=== PATIENT | female | born 1995 | race Caucasian/White ===

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

== ENCOUNTER 2017-03-12 09:09 | Inpatient (IN) | payer OTHER ==
[2017-03-12] MEDS ORDERED: SODIUM CHLORIDE 0.9% 1,000 ML IV STA (09:22)
--- NOTE | 2017-03-12 09:27 | ED ---
General Adult HPI - General Source: patient, RN notes reviewed Mode of arrival: ambulatory Limitations: no limitations <Charis De La Cruz - Last Filed: 03/12/17 11:37> <Jean-Paul Driscoll - Last Filed: 03/12/17 15:27> - General Chief complaint: Recheck/Abnormal Lab/Rx Stated complaint: low potassium Time Seen by Provider: 03/12/17 09:17 - History of Present Illness Initial comments: 21-year-old female presents to the emergency department the chief complaint of low potassium. Patient states that she has a syndrome that causes her to have low potassium. Dr. Friedman called her on Tuesday telling her that she had low potassium. Patient states she decided to come in today. Patient states typically she'll get some leg cramping and kidney pain which she has had. Patient denies any fever chills nausea vomiting. Patient states this is much like her typical syndrome. Patient states she is not currently having any other symptoms at this time. Patient denies any recent fever, chills, shortness of breath, chest pain, back pain, abdominal pain, nausea vomiting, numbness or tingling, dysuria or hematuria, constipation or diarrhea, headaches or visual changes, or any other current symptoms. (Charis De La Cruz) - Related Data Home Medications Medication Instructions Recorded Confirmed aMILoride HCL 5 mg PO BID 03/04/14 03/12/17 Magnesium Oxide [Magnesium] 500 mg PO DAILY 03/22/16 03/12/17 Potassium Chloride ER [K-Dur 20] 90 meq PO BID 03/22/16 03/12/17 hydrOXYzine HCL [Atarax] 50 mg PO BID PRN 03/22/16 03/12/17 Dextroamphetamine/Amphetamine 20 mg PO BID 03/12/17 03/12/17 [Adderall] Loratadine-Pseudoeph 10-240 mg 1 tab PO DAILY PRN 03/12/17 03/12/17 [Claritin-D 24 Hr] Ziprasidone HCl [Geodon] 80 mg PO BID 03/12/17 03/12/17 lamoTRIgine [LaMICtal] 75 mg PO DAILY 03/12/17 03/12/17 Allergies Allergy/AdvReac Type Severity Reaction Status Date / Time risperidone [From Risperdal] AdvReac MUSCLE Verified 03/12/17 12:41 SPASMS Review of Systems ROS Other: All systems not noted in ROS Statement are negative. <Charis De La Cruz - Last Filed: 03/12/17 11:37> ROS Other: All systems not noted in ROS Statement are negative. <Jean-Paul Driscoll - Last Filed: 03/12/17 15:27> ROS Statement: Those systems with pertinent positive or pertinent negative responses have been documented in the HPI. Past Medical History Past Medical History: No Reported History Additional Past Medical History / Comment(s): Baretters syndrome ( low potassium ) Hx. of depression and Bipolar, ADHD, Anxiety History of Any Multi-Drug Resistant Organisms: None Reported Past Surgical History: Tonsillectomy Past Anesthesia/Blood Transfusion Reactions: No Reported Reaction Past Psychological History: ADD/ADHD, Anxiety, Bipolar, Depression Smoking Status: Former smoker Past Alcohol Use History: None Reported Past Drug Use History: Marijuana - Past Family History Mother Additional Family Medical History / Comment(s): Pt states Alzheimers and Bipolar disorder runs on her mother's side. Sister(s) Family Medical History: Diabetes Mellitus <Charis De La Cruz - Last Filed: 03/12/17 11:37> General Exam Limitations: no limitations <Charis De La Cruz - Last Filed: 03/12/17 11:37> <Jean-Paul Driscoll - Last Filed: 03/12/17 15:27> - General Exam Comments Initial Comments: General: The patient is awake and alert, in no distress, and does not appear acutely ill. Eye: Pupils are equal, round and reactive to light, extra-ocular movements are intact; there is normal conjunctiva bilaterally. No signs of icterus. Ears, nose, mouth and throat: There are moist mucous membranes. Neck: The neck is supple, there is no tenderness. Cardiovascular: There is a regular rate and rhythm. No murmur, rub or gallop is appreciated. Respiratory: Lungs are clear to auscultation, respirations are non-labored, breath sounds are equal. No wheezes, stridor, rales, or rhonchi. Gastrointestinal: Soft, non-distended, non-tender abdomen without masses or organomegaly noted. There is no rebound or guarding present. No CVA tenderness. Bowel sounds are unremarkable. Back: There is no tenderness to palpation in the midline. There is no obvious deformity. No rashes noted. Musculoskeletal: Normal ROM, no tenderness, There is no pedal edema. There is no calf tenderness or swelling. Sensation intact. Pulses equal bilaterally 2+. Neurological: CN II-XII intact, There are no obvious motor or sensory deficits. Coordination appears grossly intact. Speech is normal. Skin: Skin is warm and dry and no rashes or lesions are noted. Psychiatric: Cooperative, appropriate mood & affect, normal judgment. (Charis De La Cruz) EKG Findings - EKG Comments: EKG Findings:: normal sinus rhythm 70 bpm, normal axis, no atopy, no S-T depressions or elevations, patient does appear to have a U-wave <Charis De La Cruz - Last Filed: 03/12/17 11:37> Medical Decision Making - Lab Data Result diagrams: 03/12/17 09:24 03/12/17 09:24 <Charis De La Cruz - Last Filed: 03/12/17 11:37> - Lab Data Result diagrams: 03/12/17 09:24 03/12/17 14:02 <Jean-Paul Driscoll - Last Filed: 03/12/17 15:27> - Medical Decision Making 21-year-old female presents emergency department with a chief complaint of low potassium. This time patient is found to be hypokalemic at 2.2. Patient's potassium is being replaced EKG is showing a U wave as well. This time we will admit the patient she does complain of some flank pain and there is a elevated white blood cell count with suspicion for UTI with urine we will give her Rocephin here in the emergency department. At this time the patient will be admitted. Case was discussed with Dr. Driscoll. 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 Patient's found to have a potassium of 2.2. Patient does have EKG changes with U waves in the precordium. Patient admitted to internal medicine for potassium replacement. She also receives dose antibiotics in the emergency department for urinary tract infection. ( Jean-Paul Driscoll) - Lab Data Lab Results 03/12/17 03/12/17 03/12/17 Range/Units 09:24 09:24 09:24 WBC 12.1 H (4.0-11.0) k/uL RBC 5.10 (3.80-5.40) m/uL Hgb 15.2 (11.4-16.0) gm/dL Hct 42.4 (34.0-46.0) % MCV 83.0 (80.0-100.0) fL MCH 29.7 (25.0-35.0) pg MCHC 35.8 (31.0-37.0) g/dL RDW 14.5 (11.5-15.5) % Plt Count 471 H (150-450) k/uL Neutrophils % 68 % Lymphocytes % 24 % Monocytes % 4 % Eosinophils % 1 % Basophils % 0 % Neutrophils # 8.2 H (1.3-7.7) k/uL Lymphocytes # 3.0 (1.0-4.8) k/uL Monocytes # 0.5 (0-1.0) k/uL Eosinophils # 0.2 (0-0.7) k/uL Basophils # 0.0 (0-0.2) k/uL Hyperchromasia Moderate Poikilocytosis Slight Sodium 144 (137-145) mmol/L Potassium 2.2 L* (3.5-5.1) mmol/L Chloride 100 (98-107) mmol/L Carbon Dioxide 28 (22-30) mmol/L Anion Gap 16 mmol/L BUN 12 (7-17) mg/dL Creatinine 0.84 (0.52-1.04) mg/dL Est GFR (MDRD) Af Amer >60 (>60 ml/min/1.73 sqM) Est GFR (MDRD) Non-Af >60 (>60 ml/min/1.73 sqM) Glucose 100 H (74-99) mg/dL Calcium 10.2 (8.4-10.2) mg/dL Total Bilirubin 0.9 (0.2-1.3) mg/dL AST 33 (14-36) U/L ALT 68 H (9-52) U/L Alkaline Phosphatase 65 (38-126) U/L Total Protein 8.5 H (6.3-8.2) g/dL Albumin 5.1 H (3.5-5.0) g/dL Urine Color Urine Appearance (Clear) Urine pH (5.0-8.0) Ur Specific Mercer (1.001-1.035) Urine Protein (Negative) Urine Glucose (UA) (Negative) Urine Ketones (Negative) Urine Blood (Negative) Urine Nitrite (Negative) Urine Bilirubin (Negative) Urine Urobilinogen (<2.0) mg/dL Ur Leukocyte Esterase (Negative) Urine RBC (0-5) /hpf Urine WBC (0-5) /hpf Urine WBC Clumps (None) /hpf Ur Squamous Epith Cells (0-4) /hpf Calcium Oxalate Crystal (None) /hpf Urine Bacteria (None) /hpf Urine Mucus (None) /hpf Urine HCG, Qual Not Detected (Not Detectd) 03/12/17 Range/Units 09:24 WBC (4.0-11.0) k/uL RBC (3.80-5.40) m/uL Hgb (11.4-16.0) gm/dL Hct (34.0-46.0) % MCV (80.0-100.0) fL MCH (25.0-35.0) pg MCHC (31.0-37.0) g/dL RDW (11.5-15.5) % Plt Count (150-450) k/uL Neutrophils % % Lymphocytes % % Monocytes % % Eosinophils % % Basophils % % Neutrophils # (1.3-7.7) k/uL Lymphocytes # (1.0-4.8) k/uL Monocytes # (0-1.0) k/uL Eosinophils # (0-0.7) k/uL Basophils # (0-0.2) k/uL Hyperchromasia Poikilocytosis Sodium (137-145) mmol/L Potassium (3.5-5.1) mmol/L Chloride (98-107) mmol/L Carbon Dioxide (22-30) mmol/L Anion Gap mmol/L BUN (7-17) mg/dL Creatinine (0.52-1.04) mg/dL Est GFR (MDRD) Af Amer (>60 ml/min/1.73 sqM) Est GFR (MDRD) Non-Af (>60 ml/min/1.73 sqM) Glucose (74-99) mg/dL Calcium (8.4-10.2) mg/dL Total Bilirubin (0.2-1.3) mg/dL AST (14-36) U/L ALT (9-52) U/L Alkaline Phosphatase (38-126) U/L Total Protein (6.3-8.2) g/dL Albumin (3.5-5.0) g/dL Urine Color Yellow Urine Appearance Cloudy H (Clear) Urine pH 8.0 (5.0-8.0) Ur Specific Mercer 1.018 (1.001-1.035) Urine Protein 1+ H (Negative) Urine Glucose (UA) Negative (Negative) Urine Ketones Negative (Negative) Urine Blood Small H (Negative) Urine Nitrite Negative (Negative) Urine Bilirubin Negative (Negative) Urine Urobilinogen 2.0 (<2.0) mg/dL Ur Leukocyte Esterase Moderate H (Negative) Urine RBC 3 (0-5) /hpf Urine WBC 16 H (0-5) /hpf Urine WBC Clumps Few H (None) /hpf Ur Squamous Epith Cells 5 H (0-4) /hpf Calcium Oxalate Crystal Occasional H (None) /hpf Urine Bacteria Rare H (None) /hpf Urine Mucus Rare H (None) /hpf Urine HCG, Qual (Not Detectd) Disposition Time of Disposition: 11:07 Decision Date: 03/12/17 Decision Time: 11:07 <Charis De La Cruz - Last Filed: 03/12/17 11:37> <Jean-Paul Driscoll - Last Filed: 03/12/17 15:27> Clinical Impression: Hypokalemia, UTI (urinary tract infection) Disposition: ADMITTED IP TO THIS HOSP Condition: Stable
[2017-03-12 09:51] LABS: Basophils % (A) 0 %; CH 31.3; Eosinophils # (A) 0.2 k/uL (0-0.7); Eosinophils % (A) 1 %; HCT 42.4 % (34.0-46.0); HDW 3.79; HGB 15.2 gm/dL (11.4-16.0); Hyperchromasia Moderate; Luc % (Auto) 2; Lymphocytes % (A) 24 %; MCH 29.7 pg (25.0-35.0); MCHC 35.8 g/dL (31.0-37.0); Monocytes # (A) 0.5 k/uL (0-1.0); Monocytes % (A) 4 %; Neutrophils # (A) 8.2 k/uL (1.3-7.7); Neutrophils % (A) 68 %; Poikilocytosis Slight; RDW 14.5 % (11.5-15.5); WBC 12.1 k/uL (4.0-11.0); WBC (Perox) 11.72
[2017-03-12 09:55] LABS: Appearance,Urine Cloudy (Clear); Bacteria,Urine Rare /hpf; Bilirubin,Urine Negative (Negative); Calcium Oxalate Crystals,Urine Occasional /hpf; Glucose,Urine (UA) Negative (Negative); Ketones,Urine Negative (Negative); Leukocyte Esterase,Urine Moderate (Negative); Mucus,Urine Rare /hpf; Nitrite,Urine Negative (Negative); Particle Count 12918; Protein,Urine 1+ (Negative); RBC,Urine 3 /hpf (0-5); Specific Gravity,Urine 1.018 (1.001-1.035); Squamous Epithelial Cell,Urine 5 /hpf (0-4); UA Billing (MACRO vs. MICRO) MICRO; WBC,Urine 16 /hpf (0-5)
[2017-03-12 10:01] LABS: ALT 68 U/L (9-52); AST 33 U/L (14-36); Alkaline Phosphatase 65 U/L (38-126); Anion Gap 16 mmol/L; Blood Urea Nitrogen 12 mg/dL (7-17); Calcium 10.2 mg/dL (8.4-10.2); Carbon Dioxide 28 mmol/L (22-30); Chloride 100 mmol/L (98-107); Glucose 100 mg/dL (74-99); Non-African American GFR(MDRD) >60 (>60 ml/min/1.73 sqM); Sodium 144 mmol/L (137-145); Total Bilirubin 0.9 mg/dL (0.2-1.3); Total Protein 8.5 g/dL (6.3-8.2)
[2017-03-12 10:04] LABS: Potassium 2.2 mmol/L (3.5-5.1)
[2017-03-12] MEDS ORDERED: POTASSIUM CHLORIDE ORAL LIQUID 40 MEQ/30 ML CUP PO ONE (10:04)
[2017-03-12] MEDS: POTASSIUM CHLORIDE 10 MEQ, LIDOCAINE 2% INJ 10 MG in SODIUM CHLORIDE 0.9% 100 ML IVPB SCH ×5 (10:53→17:32)
[2017-03-12] MEDS ORDERED: NALOXONE 0.4 MG/ML 1 ML VIAL IV PRN (11:38)
[2017-03-12] MEDS ORDERED: ACETAMINOPHEN TAB 325 MG TAB PO PRN (11:38)
[2017-03-12] MEDS ORDERED: ONDANSETRON 4 MG/2 ML VIAL IVP PRN (11:38)
[2017-03-12] MEDS ORDERED: hydrOXYzine HCL 25 MG TAB PO PRN (11:40)
[2017-03-12] MEDS: SODIUM CHLORIDE 0.9% 1,000 ML IV SCH ×2 (12:27→21:14)
--- NOTE | 2017-03-12 12:48 | P.HPIM ---
History of Present Illness H&P Date: 03/12/17 Chief Complaint: Hypokalemia This is a 21-year-old female patient of Dr. 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 Patient currently follows with Nikki Carrillo. Patient states that she's only been taking 2-3 doses of potassium since the beginning of January. She normally takes 90 mEq twice daily. 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 She denies any history of hearing loss. 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 She states she had lab work done by Dr. Friedman on Tuesday and her potassium was 2 she was called 2-3 days ago but she didn't come into the hospital until today due to kidney pain. She is complaining of bilateral flank pain she denies any history of kidney stones. Patient states that she has been mentally overwhelmed and that's why she has not been taking her potassium as directed. Patient is also been diagnosed with UTI and possible pyelonephritis and started on antibiotics and admitted to the [facility] floor. A consult with nephrology will be requested as well as a renal ultrasound, aldosterone and renin levels and urine total protein Review of Systems All systems: negative Constitutional: Denies chills, Denies fatigue, Denies fever, Denies lethargy, Denies poor appetite Eyes: denies blurred vision, denies pain Ears, nose, mouth and throat: Denies dental pain, Denies headache, Denies mouth pain, Denies sore throat Cardiovascular: Denies chest pain, Denies shortness of breath Respiratory: Denies cough Gastrointestinal: Denies abdominal pain, Denies diarrhea, Denies nausea, Denies vomiting Genitourinary: Reports flank pain, Denies dysuria, Denies hematuria Musculoskeletal: Denies myalgias Integumentary: Denies pruritus, Denies rash Neurological: Denies numbness, Denies weakness Psychiatric: Denies anxiety, Denies depression Endocrine: Denies fatigue, Denies weight change Past Medical History Past Medical History: No Reported History Additional Past Medical History / Comment(s): Bartter syndrome ( low potassium) History of Any Multi-Drug Resistant Organisms: None Reported Past Surgical History: Tonsillectomy Past Anesthesia/Blood Transfusion Reactions: No Reported Reaction Past Psychological History: ADD/ADHD, Anxiety, Bipolar, Depression Smoking Status: Former smoker Past Alcohol Use History: None Reported Additional Past Alcohol Use History / Comment(s): Patient was a smoker of 4 packs per week for 8 years and quit in 2016. She does use marijuana. She denies any street drug use. She denies any alcohol use. Past Drug Use History: Marijuana - Past Family History Mother Additional Family Medical History / Comment(s): Mother is alive at age 40 with no major medical problems. Pt states Alzheimers and Bipolar disorder runs on her mother's side. Sister(s) Family Medical History: Diabetes Mellitus Additional Family Medical History / Comment(s): Patient has 4 half-sisters. Brother(s) Additional Family Medical History / Comment(s): Patient has 5 or 6 half- brothers with no major medical problems. Patient does not have any children. Father Additional Family Medical History / Comment(s): Father is alive at age 55 and patient has no contact with him as he is in senior care. Medications and Allergies Home Medications Medication Instructions Recorded Confirmed Type RX: aMILoride HCL 5 mg PO BID 03/04/14 03/12/17 History Potassium Chloride ER [K-Dur 20] 90 meq PO BID 03/22/16 03/12/17 History RX: Magnesium Oxide [Magnesium] 500 mg PO DAILY 03/22/16 03/12/17 History hydrOXYzine HCL [Atarax] 50 mg PO BID PRN 03/22/16 03/12/17 History Dextroamphetamine/Amphetamine 20 mg PO BID 03/12/17 03/12/17 History [Adderall] Loratadine-Pseudoeph 10-240 mg 1 tab PO DAILY PRN 03/12/17 03/12/17 History [Claritin-D 24 Hr] Ziprasidone HCl [Geodon] 80 mg PO BID 03/12/17 03/12/17 History lamoTRIgine [LaMICtal] 75 mg PO DAILY 03/12/17 03/12/17 History Allergies Allergy/AdvReac Type Severity Reaction Status Date / Time risperidone [From Risperdal] AdvReac MUSCLE Verified 03/12/17 12:41 SPASMS Physical Exam Vitals: Vital Signs Temp Pulse Resp BP Pulse Ox 03/12/17 11:42 76 18 106/62 98 03/12/17 10:56 62 18 102/62 98 03/12/17 10:25 98.1 F 79 18 104/49 99 03/12/17 09:12 98.8 F 66 20 119/65 98 Intake and Output 03/11/17 03/12/17 03/12/17 22:59 06:59 14:59 Other: Voiding Method Toilet Weight 98.883 kg Patient Weight 03/13/17 06:59 Weight 98.883 kg Gen: This is a morbidly obese 21-year-old -[place] female. She is cooperative and appears to be in no acute distress. HEENT: Head is atraumatic, normocephalic. Pupils equal, round. Sclerae is anicteric. NECK: Supple. No JVD. No lymphadenopathy. No thyromegaly. LUNGS: Clear to auscultation. No wheezes or rhonchi. No intercostal retractions. HEART: Regular rate and rhythm. No murmur. ABDOMEN: Soft. Bowel sounds are present. No masses. No tenderness. Tenderness over the bilateral CVA. EXTREMITIES: No pedal edema. No calf tenderness. NEUROLOGICAL: Patient is awake, alert and oriented x3. Cranial nerves 2 through 12 are grossly intact. Results CBC & Chem 7: 03/12/17 09:24 03/15/17 07:08 Labs: Abnormal Lab Results - Last 24 Hours (Table) 03/12/17 03/12/17 03/12/17 Range/Units 09:24 09:24 09:24 WBC 12.1 H (4.0-11.0) k/uL Plt Count 471 H (150-450) k/uL Neutrophils # 8.2 H (1.3-7.7) k/uL Potassium 2.2 L* (3.5-5.1) mmol/L Glucose 100 H (74-99) mg/dL ALT 68 H (9-52) U/L Total Protein 8.5 H (6.3-8.2) g/dL Albumin 5.1 H (3.5-5.0) g/dL Urine Appearance Cloudy H (Clear) Urine Protein 1+ H (Negative) Urine Blood Small H (Negative) Ur Leukocyte Esterase Moderate H (Negative) Urine WBC 16 H (0-5) /hpf Urine WBC Clumps Few H (None) /hpf Ur Squamous Epith Cells 5 H (0-4) /hpf Calcium Oxalate Crystal Occasional H (None) /hpf Urine Bacteria Rare H (None) /hpf Urine Mucus Rare H (None) /hpf Thrombosis Risk Factor Assmnt - DVT/VTE Prophylaxis DVT/VTE Prophylaxis: Pharmacologic Prophylaxis ordered Assessment and Plan Plan: 1. Severe hypokalemia with history of Bartter syndrome. Patient will be started on 100 mEq replacement and resume her home dose of 90 mEq twice daily. Consult with nephrology ordered, renal ultrasound, aldosterone and renin levels. Continue Amiloride. Repeat electrolytes at 2 PM and in the morning 2. Possible UTI. Renal ultrasound ordered. 3. Bipolar, generalized anxiety disorder and depression. Continue Geodon, Lamictal. 4. Seasonal ALLERGIES, stable. 5. Gastrointestinal prophylaxis. Pepcid 6. DVT prophylaxis. Lovenox. Patient will be admitted to the hospital for a minimum of 2 night stay. Discharge plan: Return home Impression and plan of care have been directed as dictated by the signing physician. Anabelle Talbert nurse practitioner acting as scribe for signing physician.
--- NOTE | 2017-03-12 13:24 | US ---
EXAMINATION TYPE: US kidneys/renal and bladder DATE OF EXAM: 03/12/2017 COMPARISON: US CLINICAL HISTORY: Pain. UTI EXAM MEASUREMENTS: Right Kidney: 12.3 x 4.9 x 7.1 cm Left Kidney: 12.9 x 6.0 x 6.1 cm Right Kidney: No hydronephrosis or masses seen Left Kidney: No hydronephrosis or masses seen Bladder: wnl There is no evidence for hydronephrosis at this point in time. No nephrolithiasis is seen. No amairani s are identified. The urinary bladder is anechoic. Bilateral ureteral jets are seen. IMPRESSION: No acute abnormality by ultrasound
[2017-03-12 14:34] LABS: Anion Gap 15 mmol/L; Blood Urea Nitrogen 10 mg/dL (7-17); Carbon Dioxide 27 mmol/L (22-30); Chloride 101 mmol/L (98-107); Glucose 90 mg/dL (74-99); Magnesium 1.9 mg/dL (1.6-2.3); Non-African American GFR(MDRD) >60 (>60 ml/min/1.73 sqM); Sodium 143 mmol/L (137-145)
[2017-03-12 14:42] LABS: Potassium 2.1 mmol/L (3.5-5.1)
[2017-03-12] MEDS: POTASSIUM CHLORIDE ORAL LIQUID 40 MEQ/30 ML CUP PO SCH ×3 (15:15→19:30)
--- NOTE | 2017-03-12 19:06 | P.CON ---
Consult Note - . Assessment/Plan:: Date of consultation: 03/12/2017 Reason for consultation: Evaluation for reported suicidal thoughts Identifying data and history of present illness: The patient is 21-year-old female with known history of bipolar disorder, currently stabilized on medication Geodon and Lamictal. The patient has been following as outpatient psychiatric service with [facility] and she continued to maintain her medication and follow-up appointment. The primary team consulted psychiatry because patient reported suicidal thoughts at her suicide screen. The patient on evaluation reports that she has background suicidal thoughts since she was a child and she continued to deal with these thoughts for most of her life. The patient denies any change of her intermittent passive suicidal thoughts, and he denies any current active thoughts, plans, or intentions to end her life. The patient reported her thoughts mainly about "life doesn't worth living" and she is able to push the thoughts and to think positively for most of the time. The patient reports stabilization of her depression and she denies feeling hopeless or worthless. Patient reports multiple protective factors including clinician was family and her friends and she is future oriented about going back to school and obtain a better job. The patient stated that she knows how to cope with passive suicidal thoughts and she she aware of crisis plan if the thoughts getting any worse. The patient denies any current psychotic or manic symptoms. She denies severe anxiety, racing thoughts or panic attacks. She denies any severe depression and reports she is willing to continue her treatment at the medical unit than she would go back to her home and continue psychiatric follow-up with [facility]. Past psychiatric history: Prior diagnosis of bipolar disorder and currently followed by [facility]. Patient has been maintained on Lamictal and Geodon. The patient has a follow-up appointment with [facility] on March 17. The patient denies any psychiatric hospitalization or suicidal attempts in the past 3 years. She reports prior suicidal attempts by overdose on medication or hanging herself started when she was 6 year-old and last attempt was more than 5 years ago. The patient reports history of self-harm with cutting herself to relieve anger and agitation but she denies any similar behavior for the past 3 years. Substance use history: The patient denies any history of substance use disorder Mental status examination: The patient appears his stated age, adequately groomed and dressed, was no specific features. Patient was seen in her bed and no abnormal movement identified. Patient was fully cooperative, engaged and has normal eye contact. Patient has normal psychomotor activity, and she had normal speech and regard overate and dressed. Patient reported his mood is" OK" and she presented was full affect with not depressed, not elevated mood. Thought form: goal-directed, linear, coherent. Thought content: Non-delusional, denies suicidal thoughts, denies homicidal thoughts, denies intentions or plans. Perception: Denies any auditory or visual hallucinations Attention: No impairment. Patient was able to repeat serial 7. Orientation: Patient patient was fully oriented to time place person and situation. Insight: Patient has fair insight about his psychiatric disorder. Judgment: Patient has fair judgment about his psychiatric treatment. Past medical history: Kidney problems, hypokalemia ALLERGIES: Risperidone Home medications: Geodon, Lamictal, potassium supplement Family history of psychiatric illness: She denies any family history of mental illness substance use disorder, or suicidal. Brief social history: Patient lives by herself, and she is on SSD. She has GED. Patient reports her mother as a main support. Assessment: Bipolar disorder. The patient shows no active suicidal thoughts and presented with a stable mental symptoms with no acute psychiatric emergency. Recommendations: Patient is psychiatrically stable at this time was no acute psychiatric emergency. Continue psychiatric medications Lamictal and Geodon. Continue follow-up with outpatient psychiatric service at [facility]. Provide counseling and medication about crisis plan and emergency contacts in case of worsening of mood symptoms or active suicidal thoughts. Contact patient's mother to provide social support until patient will see her psychiatrist on 03/17/2017.
[2017-03-12 19:57] LABS: Anion Gap 13 mmol/L; Blood Urea Nitrogen 8 mg/dL (7-17); Calcium 9.7 mg/dL (8.4-10.2); Carbon Dioxide 25 mmol/L (22-30); Chloride 104 mmol/L (98-107); Glucose 96 mg/dL (74-99); Non-African American GFR(MDRD) >60 (>60 ml/min/1.73 sqM); Sodium 142 mmol/L (137-145)
[2017-03-12 20:07] LABS: Potassium 2.5 mmol/L (3.5-5.1)
[2017-03-12] MEDS ORDERED: NON-FORMULARY DRUG (Dextroamphetamine/Amphetamine [Adderall] 20 MG) PO SCH (21:00)
[2017-03-12] MEDS: POTASSIUM CHLORIDE ER 20 MEQ TAB.ER PO SCH (21:08)
[2017-03-12] MEDS: ZIPRASIDONE 80 MG CAP PO SCH (21:09)
[2017-03-12] MEDS: SPIRONOLACTONE 25 MG TAB PO SCH (21:10)
[2017-03-12] MEDS: LORATADINE-PSEUDOEPH 5-120 MG 1 EACH TAB.ER.12H PO SCH (21:10)
[2017-03-13 02:34] LABS: Anion Gap 10 mmol/L; Blood Urea Nitrogen 6 mg/dL (7-17); Calcium 9.1 mg/dL (8.4-10.2); Carbon Dioxide 26 mmol/L (22-30); Chloride 106 mmol/L (98-107); Glucose 96 mg/dL (74-99); Magnesium 1.9 mg/dL (1.6-2.3); Non-African American GFR(MDRD) >60 (>60 ml/min/1.73 sqM); Sodium 142 mmol/L (137-145)
[2017-03-13 02:37] LABS: Potassium 2.4 mmol/L (3.5-5.1)
[2017-03-13] MEDS ORDERED: Potassium Replacement Protocol 1 EACH MISC MISCELLANE PRN (03:00)
[2017-03-13] MEDS: POTASSIUM CHLORIDE ER 20 MEQ TAB.ER PO SCH ×7 (03:47→21:16)
[2017-03-13] MEDS: SPIRONOLACTONE 25 MG TAB PO SCH ×2 (08:12→21:15)
[2017-03-13] MEDS: LORATADINE-PSEUDOEPH 5-120 MG 1 EACH TAB.ER.12H PO SCH ×2 (08:12→21:15)
[2017-03-13] MEDS: ZIPRASIDONE 80 MG CAP PO SCH ×2 (08:13→21:15)
[2017-03-13] MEDS: lamoTRIgine 25 MG TAB PO SCH (08:13)
[2017-03-13] MEDS: SODIUM CHLORIDE 0.9% 1,000 ML IV SCH ×2 (08:15→22:46)
--- NOTE | 2017-03-13 08:48 | P.NPCON ---
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 Patient did see a manager servicing in the [place] area at that time. She is currently being followed by Dr. Friedman. Patient is maintained on large doses of potassium as well as amiloride as outpatient. She has not had any issues with her renal function. Patient admitted to not having taken her potassium supplements as prescribed. Her serum potassium was at 2.2 mg/L when she was admitted. She had been feeling weak and fatigued. No ongoing history of diarrhea nausea or vomiting no history of use of diuretics or laxatives. Review of Systems As per HPI other systems negative Past Medical History Past Medical History: No Reported History Additional Past Medical History / Comment(s): Bartter syndrome ( low potassium) History of Any Multi-Drug Resistant Organisms: None Reported Past Surgical History: Tonsillectomy Additional Past Surgical History / Comment(s): wisdom teeth 2016 Past Anesthesia/Blood Transfusion Reactions: No Reported Reaction Past Psychological History: ADD/ADHD, Anxiety, Bipolar, Depression Smoking Status: Former smoker Past Alcohol Use History: None Reported Additional Past Alcohol Use History / Comment(s): Patient was a smoker of 4 packs per week for 8 years and quit in 2016. She does use marijuana. She denies any street drug use. She denies any alcohol use. Past Drug Use History: Marijuana - Past Family History Mother Additional Family Medical History / Comment(s): Mother is alive at age 40 with no major medical problems. Pt states Alzheimers and Bipolar disorder runs on her mother's side. Sister(s) Family Medical History: Diabetes Mellitus Additional Family Medical History / Comment(s): Patient has 4 half-sisters. Brother(s) Additional Family Medical History / Comment(s): Patient has 5 or 6 half- brothers with no major medical problems. Patient does not have any children. Father Additional Family Medical History / Comment(s): Father is alive at age 55 and patient has no contact with him as he is in care home. Medications and Allergies Home Medications Medication Instructions Recorded Confirmed Type aMILoride HCL 5 mg PO BID 03/04/14 03/12/17 History Magnesium Oxide [Magnesium] 500 mg PO DAILY 03/22/16 03/12/17 History Potassium Chloride ER [K-Dur 20] 90 meq PO BID 03/22/16 03/12/17 History hydrOXYzine HCL [Atarax] 50 mg PO BID PRN 03/22/16 03/12/17 History Dextroamphetamine/Amphetamine 20 mg PO BID 03/12/17 03/12/17 History [Adderall] Loratadine-Pseudoeph 10-240 mg 1 tab PO DAILY PRN 03/12/17 03/12/17 History [Claritin-D 24 Hr] Ziprasidone HCl [Geodon] 80 mg PO BID 03/12/17 03/12/17 History lamoTRIgine [LaMICtal] 75 mg PO DAILY 03/12/17 03/12/17 History Allergies Allergy/AdvReac Type Severity Reaction Status Date / Time risperidone [From Risperdal] AdvReac MUSCLE Verified 03/12/17 12:41 SPASMS Physical Exam Vitals: Vital Signs Temp Pulse Pulse Resp BP BP Pulse Ox 03/13/17 07:00 97.3 F L 56 L 20 97/54 100 03/12/17 22:49 98.6 F 82 18 99/56 98 03/12/17 19:00 96.8 F L 75 18 112/65 98 03/12/17 16:50 98.1 F 80 16 122/77 100 03/12/17 12:00 97.7 F 70 16 106/67 97 03/12/17 11:46 98.3 F 03/12/17 11:42 76 18 106/62 98 03/12/17 10:56 62 18 102/62 98 03/12/17 10:25 98.1 F 79 18 104/49 99 03/12/17 09:12 98.8 F 66 20 119/65 98 Intake and Output 03/12/17 03/13/17 03/13/17 22:59 06:59 14:59 Intake Total 1000 550 Output Total 400 Balance 1000 150 Intake: Oral 1000 550 Output: Urine 400 Other: Voiding Method Toilet # Voids 1 2 # Bowel Movements 0 0 On examination patient is comfortable awake alert oriented 3. She is not in any acute distress. Blood pressure is 97/54 heart rate 56/m she is afebrile Examination of the heart S1 and S2 Examination lungs bilateral breath sounds are heard Abdomen is soft nontender Examination lower extremity shows no evidence of edema. DECORATIVE ENGRAVER APPRENTICE exam is grossly intact. Results - Lab Results Most recent lab results Calcium 9.1 mg/dL (8.4-10.2) 03/13/17 01:45 Magnesium 1.9 mg/dL (1.6-2.3) 03/13/17 01:45 03/12/17 09:24 03/13/17 01:45 Assessment and Plan Plan: Assessment 1. 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 Currently maintained on potassium chloride at 90 mg twice a day along with Aldactone at 50 mg twice a day. Patient was on amiloride at 5 mg twice a day at home which I do not see on her current med list and Hospital. At this time patient is not maintained on NSAIDs which ideally help with the potassium loss through the prostaglandins. 2. Hypokalemia associated with Bartter's syndrome 3. Bipolar disorder 4. ADHD. Plan Resume amiloride. We can go up to 40 mg on the dose. Patient was on 5 mg twice a day at home which I we will resume. I will also add Motrin we need to continue to monitor the renal function closely while on NSAIDs. Check ultrasound of the kidneys rule out nephrocalcinosis which can be associated down the road with Bartter's syndrome. The UA does show some degree of proteinuria however this will need to be repeated. Patient's with Bartter's syndrome do tend to develop proteinuria down the road and the need to be followed as outpatient for CK D.. Discussion with the patient was done regarding importance of compliance with medications.
[2017-03-13 09:01] LABS: Anion Gap 12 mmol/L; Blood Urea Nitrogen 6 mg/dL (7-17); Calcium 8.5 mg/dL (8.4-10.2); Carbon Dioxide 24 mmol/L (22-30); Chloride 107 mmol/L (98-107); Glucose 100 mg/dL (74-99); Magnesium 1.7 mg/dL (1.6-2.3); Non-African American GFR(MDRD) >60 (>60 ml/min/1.73 sqM); Sodium 143 mmol/L (137-145)
[2017-03-13 09:10] LABS: Potassium 2.2 mmol/L (3.5-5.1)
[2017-03-13] MEDS: IBUPROFEN 200 MG TAB PO SCH ×3 (09:35→22:46)
[2017-03-13] MEDS: POTASSIUM CHLORIDE 20 MEQ, LIDOCAINE 2% INJ 20 MG in SODIUM CHLORIDE 0.9% 100 ML IVPB SCH ×3 (10:19→15:35)
[2017-03-13] MEDS: MAGNESIUM SULFATE-D5W PMX 1 GM in DEXTROSE/WATER 1 100ML.BAG IVPB SCH ×2 (10:19→11:19)
[2017-03-13 10:56] LABS: Appearance,Urine Clear (Clear); Bilirubin,Urine Negative (Negative); Glucose,Urine (UA) Negative (Negative); Ketones,Urine Negative (Negative); Leukocyte Esterase,Urine Negative (Negative); Nitrite,Urine Negative (Negative); PH, Urine 6.5 (5.0-8.0); Protein,Urine Negative (Negative); Specific Gravity,Urine 1.008 (1.001-1.035); UA Billing (MACRO vs. MICRO) CHEM; Urobilinogen,Urine <2.0 mg/dL (<2.0)
[2017-03-13] MEDS: CIPROFLOXACIN HCL 250 MG TAB PO SCH ×2 (11:18→22:45)
--- NOTE | 2017-03-13 11:24 | P.PN ---
Subjective This is a 21-year-old female patient of Dr. 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 Patient currently follows with Nikki Carrillo. Patient states that she's only been taking 2-3 doses of potassium since the beginning of January. She normally takes 90 mEq twice daily. 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 She denies any history of hearing loss. She did see a aircraft engine mechanic supervisor at that time but does not have regular follow-up. She states she had lab work done by Dr. Friedman on Tuesday and her potassium was 2 she was called 2-3 days ago but she didn't come into the hospital until today due to kidney pain. She is complaining of bilateral flank pain she denies any history of kidney stones. Patient states that she has been mentally overwhelmed and that's why she has not been taking her potassium as directed. Patient is also been diagnosed with UTI and possible pyelonephritis and started on antibiotics and admitted to the [facility] floor. A consult with nephrology will be requested as well as a renal ultrasound, aldosterone and renin levels and urine total protein 03/13: Potassium has been up to 2.5 as of yesterday afternoon. At 1 AM it was 2.4 and then at [address] Kay has ordered 60 mEq of potassium and we will add in another 80 orally. Patient is on her normal dose of 90 mEq twice daily which has been increased to 100 mEq. Patient is also on spinal lactone as we do not have her home medication, amiloride. Dr. Kay is also added and Motrin. Renal ultrasound just showed no acute abnormality. Patient apparently related to some depression and suicidal thoughts to staff yesterday for which psychiatrist has seen the patient for bipolar disorder with no suicidal thoughts. Recommendations were to continue Lamictal and Geodon and follow-up with [facility]. Patient seems stable at this point and we will discontinue sitter. Objective - Vital Signs Vital signs: Vital Signs Temp 97.3 F L 03/13/17 07:00 Pulse 56 L 03/13/17 07:00 Resp 20 03/13/17 07:00 BP 97/54 03/13/17 07:00 Pulse Ox 100 03/13/17 07:00 Intake & Output 03/12/17 03/13/17 03/13/17 18:59 06:59 18:59 Intake Total 1550 Output Total 400 400 Balance -400 1150 Weight 98.883 kg Intake: Oral 1550 Output: Urine 400 400 Other: Voiding Method Toilet Toilet # Voids 1 2 # Bowel Movements 0 - Exam Gen: This is a morbidly obese 21-year-old -Citizen Of [place] female. She is cooperative and appears to be in no acute distress. HEENT: Head is atraumatic, normocephalic. Pupils equal, round. Sclerae is anicteric. NECK: Supple. No JVD. No lymphadenopathy. No thyromegaly. LUNGS: Clear to auscultation. No wheezes or rhonchi. No intercostal retractions. HEART: Regular rate and rhythm. No murmur. ABDOMEN: Soft. Bowel sounds are present. No masses. No tenderness. Tenderness over the bilateral CVA. EXTREMITIES: No pedal edema. No calf tenderness. NEUROLOGICAL: Patient is awake, alert and oriented x3. Cranial nerves 2 through 12 are grossly intact. - Labs CBC & Chem 7: 03/12/17 09:24 03/13/17 08:32 Labs: Abnormal Lab Results - Last 24 Hours (Table) 03/12/17 03/12/17 03/12/17 Range/Units 09:24 09:24 09:24 WBC 12.1 H (4.0-11.0) k/uL Plt Count 471 H (150-450) k/uL Neutrophils # 8.2 H (1.3-7.7) k/uL Potassium 2.2 L* (3.5-5.1) mmol/L BUN (7-17) mg/dL Glucose 100 H (74-99) mg/dL ALT 68 H (9-52) U/L Total Protein 8.5 H (6.3-8.2) g/dL Albumin 5.1 H (3.5-5.0) g/dL Urine Appearance Cloudy H (Clear) Urine Protein 1+ H (Negative) Urine Blood Small H (Negative) Ur Leukocyte Esterase Moderate H (Negative) Urine WBC 16 H (0-5) /hpf Urine WBC Clumps Few H (None) /hpf Ur Squamous Epith Cells 5 H (0-4) /hpf Calcium Oxalate Crystal Occasional H (None) /hpf Urine Bacteria Rare H (None) /hpf Urine Mucus Rare H (None) /hpf U Random Total Protein (<12) mg/dL 03/12/17 03/12/17 03/12/17 Range/Units 14:02 14:46 19:29 WBC (4.0-11.0) k/uL Plt Count (150-450) k/uL Neutrophils # (1.3-7.7) k/uL Potassium 2.1 L* 2.5 L* (3.5-5.1) mmol/L BUN (7-17) mg/dL Glucose (74-99) mg/dL ALT (9-52) U/L Total Protein (6.3-8.2) g/dL Albumin (3.5-5.0) g/dL Urine Appearance (Clear) Urine Protein (Negative) Urine Blood (Negative) Ur Leukocyte Esterase (Negative) Urine WBC (0-5) /hpf Urine WBC Clumps (None) /hpf Ur Squamous Epith Cells (0-4) /hpf Calcium Oxalate Crystal (None) /hpf Urine Bacteria (None) /hpf Urine Mucus (None) /hpf U Random Total Protein 19 H (<12) mg/dL 03/13/17 03/13/17 Range/Units 01:45 08:32 WBC (4.0-11.0) k/uL Plt Count (150-450) k/uL Neutrophils # (1.3-7.7) k/uL Potassium 2.4 L* 2.2 L* (3.5-5.1) mmol/L BUN 6 L 6 L (7-17) mg/dL Glucose 100 H (74-99) mg/dL ALT (9-52) U/L Total Protein (6.3-8.2) g/dL Albumin (3.5-5.0) g/dL Urine Appearance (Clear) Urine Protein (Negative) Urine Blood (Negative) Ur Leukocyte Esterase (Negative) Urine WBC (0-5) /hpf Urine WBC Clumps (None) /hpf Ur Squamous Epith Cells (0-4) /hpf Calcium Oxalate Crystal (None) /hpf Urine Bacteria (None) /hpf Urine Mucus (None) /hpf U Random Total Protein (<12) mg/dL Assessment and Plan Plan: 1. Severe hypokalemia with history of Bartter syndrome. Patient will be started on 100 mEq replacement and resume her home dose of 90 mEq twice daily. Consult with nephrology ordered, renal ultrasound, aldosterone and renin levels. Continue Amiloride/spironolactone. Repeat electrolytes at 6 PM and in the morning 2. UTI is possibility and patient started on ciprofloxacin. Renal ultrasound as above 3. Bipolar, generalized anxiety disorder and depression. Continue Geodon, Lamictal. Sitter discontinued 4. Seasonal ALLERGIES, stable. 5. Gastrointestinal prophylaxis. Pepcid 6. DVT prophylaxis. Lovenox. Discharge plan: Return home Impression and plan of care have been directed as dictated by the signing physician. Anabelle Talbert nurse practitioner acting as scribe for signing physician.
[2017-03-13] MEDS: MAGNESIUM OXIDE 400 MG TAB PO SCH (12:24)
[2017-03-14] MEDS: SODIUM CHLORIDE 0.9% 1,000 ML IV SCH ×2 (04:52→14:48)
[2017-03-14 07:52] LABS: Anion Gap 11 mmol/L; Blood Urea Nitrogen 7 mg/dL (7-17); Calcium 8.8 mg/dL (8.4-10.2); Carbon Dioxide 25 mmol/L (22-30); Chloride 103 mmol/L (98-107); Glucose 87 mg/dL (74-99); Non-African American GFR(MDRD) >60 (>60 ml/min/1.73 sqM); Sodium 139 mmol/L (137-145)
[2017-03-14 07:56] LABS: Potassium 2.5 mmol/L (3.5-5.1)
[2017-03-14] MEDS: POTASSIUM CHLORIDE ER 20 MEQ TAB.ER PO SCH ×5 (08:11→20:50)
[2017-03-14] MEDS: ENOXAPARIN 40 MG/0.4 ML SYRINGE SQ SCH (08:11)
[2017-03-14] MEDS: CIPROFLOXACIN HCL 250 MG TAB PO SCH ×2 (08:11→20:50)
[2017-03-14] MEDS: SPIRONOLACTONE 25 MG TAB PO SCH ×2 (08:11→20:50)
[2017-03-14] MEDS: lamoTRIgine 25 MG TAB PO SCH (08:11)
[2017-03-14] MEDS: IBUPROFEN 200 MG TAB PO SCH ×3 (08:12→20:51)
[2017-03-14] MEDS: LORATADINE-PSEUDOEPH 5-120 MG 1 EACH TAB.ER.12H PO SCH ×2 (08:13→20:50)
[2017-03-14] MEDS: ZIPRASIDONE 80 MG CAP PO SCH ×2 (08:13→20:51)
[2017-03-14] MEDS: POTASSIUM CHLORIDE 10 MEQ, LIDOCAINE 2% INJ 10 MG in SODIUM CHLORIDE 0.9% 100 ML IVPB SCH ×3 (09:00→12:13)
--- NOTE | 2017-03-14 09:37 | P.PN ---
Subjective Patient is seen in follow-up for hypokalemia. Patient has history of Bartter's syndrome that was diagnosed at the age of 17. Patient wasn't taking the potassium supplementation as directed. She is currently maintained on spironolactone as well as potassium supplementation. Potassium level this morning is 2.5. Her oral intake is good. No vomiting or diarrhea. Denies any chest pain or shortness of breath. Vital signs are stable. General: The patient appeared well nourished and normally developed. HEENT: Head exam is unremarkable. Neck is without jugular venous distension. LUNGS: Lungs are clear to auscultation and percussion. Breath sounds decreased. HEART: Rate and Rhythm are regular. First and second heart sounds normal. No murmurs, rubs or gallops. ABDOMEN: Abdominal exam reveals normal bowel sounds. Non-tender and non- distended. No evidence of peritonitis. EXTREMITITES: No clubbing, cyanosis, or edema. Objective - Vital Signs Vital signs: Vital Signs Temp 97.2 F L 03/14/17 07:00 Pulse 71 03/14/17 07:00 Resp 16 03/14/17 07:00 BP 107/51 03/14/17 07:00 Pulse Ox 97 03/14/17 07:00 Intake & Output 03/13/17 03/14/17 03/14/17 18:59 06:59 18:59 Intake Total 1450 Balance 1450 Intake: Oral 1450 Other: Voiding Method Toilet Toilet # Voids 2 2 - Labs CBC & Chem 7: 03/12/17 09:24 03/14/17 07:09 Labs: Abnormal Lab Results - Last 24 Hours (Table) 03/13/17 03/13/17 03/14/17 Range/Units 11:46 18:08 07:09 Potassium 3.1 L 2.5 L* (3.5-5.1) mmol/L Magnesium 2.5 H (1.6-2.3) mg/dL Microbiology - Last 24 Hours (Table) 03/13/17 10:08 Urine Culture - Preliminary Urine,Clean Catch Assessment and Plan Plan: Assessment: #1. Hypokalemia secondary to Bartter's syndrome. Magnesium replete. #2. Bartter's syndrome. No evidence of proteinuria at this time. No evidence of nephrocalcinosis on renal ultrasound. Also no evidence of sensorineural deafness which is associated mostly with type IV Bartter's. Plan: Continue with aggressive potassium supplementation. Continue Aldactone 50 mg twice daily. Maintain Advil for now. Check potassium level tonight and again in the morning. Patient also on amiloride as an outpatient which she can continue upon discharge.
--- NOTE | 2017-03-14 12:06 | P.PN ---
Subjective This is a 21-year-old female patient of Dr. 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 Patient currently follows with Nikki Carrillo. Patient states that she's only been taking 2-3 doses of potassium since the beginning of January. She normally takes 90 mEq twice daily. 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 She denies any history of hearing loss. She did see a obiee consultant at that time but does not have regular follow-up. She states she had lab work done by Dr. Friedman on Tuesday and her potassium was 2 she was called 2-3 days ago but she didn't come into the hospital until today due to kidney pain. She is complaining of bilateral flank pain she denies any history of kidney stones. Patient states that she has been mentally overwhelmed and that's why she has not been taking her potassium as directed. Patient is also been diagnosed with UTI and possible pyelonephritis and started on antibiotics and admitted to the [facility] floor. A consult with nephrology will be requested as well as a renal ultrasound, aldosterone and renin levels and urine total protein 03/13: Potassium has been up to 2.5 as of yesterday afternoon. At 1 AM it was 2.4 and then at [address] Kay has ordered 60 mEq of potassium and we will add in another 80 orally. Patient is on her normal dose of 90 mEq twice daily which has been increased to 100 mEq. Patient is also on spinal lactone as we do not have her home medication, amiloride. Dr. Kay is also added and Motrin. Renal ultrasound just showed no acute abnormality. Patient apparently related to some depression and suicidal thoughts to staff yesterday for which psychiatrist has seen the patient for bipolar disorder with no suicidal thoughts. Recommendations were to continue Lamictal and Geodon and follow-up with [facility]. Patient seems stable at this point and we will discontinue sitter. 03/14: Repeat potassium last night was 3.1 and this morning it is 2.5. Patient will be continued on her home dose of 100 mEq twice daily of potassium and 150 mEq of additional potassium ordered. Repeat potassium at 6 PM. Patient will have family bring in her and amiloride 5 mg twice daily and she will continue that along with the spironolactone. Patient denies having any back pain. Urinalysis and urine culture negative for infection. Objective - Vital Signs Vital signs: Vital Signs Temp 97.2 F L 03/14/17 07:00 Pulse 71 03/14/17 07:00 Resp 16 03/14/17 07:00 BP 107/51 03/14/17 07:00 Pulse Ox 97 03/14/17 07:00 Intake & Output 03/13/17 03/14/17 03/14/17 18:59 06:59 18:59 Intake Total 1450 Balance 1450 Intake: Oral 1450 Other: Voiding Method Toilet Toilet # Voids 2 2 - Exam Gen: This is a morbidly obese 21-year-old -[place] female. She is cooperative and appears to be in no acute distress. HEENT: Head is atraumatic, normocephalic. Pupils equal, round. Sclerae is anicteric. NECK: Supple. No JVD. No lymphadenopathy. No thyromegaly. LUNGS: Clear to auscultation. No wheezes or rhonchi. No intercostal retractions. HEART: Regular rate and rhythm. No murmur. ABDOMEN: Soft. Bowel sounds are present. No masses. No tenderness. Tenderness over the bilateral CVA. EXTREMITIES: No pedal edema. No calf tenderness. NEUROLOGICAL: Patient is awake, alert and oriented x3. Cranial nerves 2 through 12 are grossly intact. - Labs CBC & Chem 7: 03/12/17 09:24 03/14/17 07:09 Labs: Abnormal Lab Results - Last 24 Hours (Table) 03/13/17 03/13/17 03/14/17 Range/Units 11:46 18:08 07:09 Potassium 3.1 L 2.5 L* (3.5-5.1) mmol/L Magnesium 2.5 H (1.6-2.3) mg/dL Microbiology - Last 24 Hours (Table) 03/13/17 10:08 Urine Culture - Preliminary Urine,Clean Catch Assessment and Plan Plan: 1. Severe hypokalemia with history of Bartter syndrome. Potassium replacement 150 mEq on top of her 100 mEq twice daily. Consult with nephrology appreciated renal ultrasound as above, aldosterone and renin levels. Continue Amiloride and spironolactone. Patient has been started on Motrin by nephrology. Repeat electrolytes at 6 PM and in the morning 2. UTI ruled out 3. Bipolar, generalized anxiety disorder and depression. Continue Whitney Harris. Sitter discontinued 4. Seasonal ALLERGIES, stable. 5. Gastrointestinal prophylaxis. Pepcid 6. DVT prophylaxis. Lovenox. Discharge plan: Return home Impression and plan of care have been directed as dictated by the signing physician. Anabelle Talbert nurse practitioner acting as scribe for signing physician.
[2017-03-14] MEDS: MAGNESIUM OXIDE 400 MG TAB PO SCH (12:13)
[2017-03-14] MEDS: AMILORIDE 5 MG PO SCH (15:10)
[2017-03-15 08:08] LABS: Anion Gap 12 mmol/L; Blood Urea Nitrogen 7 mg/dL (7-17); Calcium 9.3 mg/dL (8.4-10.2); Carbon Dioxide 26 mmol/L (22-30); Chloride 102 mmol/L (98-107); Glucose 83 mg/dL (74-99); Magnesium 1.7 mg/dL (1.6-2.3); Non-African American GFR(MDRD) >60 (>60 ml/min/1.73 sqM); Potassium 3.1 mmol/L (3.5-5.1); Sodium 140 mmol/L (137-145)
--- NOTE | 2017-03-15 08:50 | P.PN ---
Subjective Patient is seen in follow-up for hypokalemia. Patient has history of Bartter's syndrome that was diagnosed at the age of 17. Patient wasn't taking the potassium supplementation as directed. She is currently maintained on spironolactone as well as potassium supplementation. Potassium level this morning is 3.1. Her oral intake is good. No vomiting or diarrhea. Denies any chest pain or shortness of breath. Vital signs are stable. General: The patient appeared well nourished and normally developed. HEENT: Head exam is unremarkable. Neck is without jugular venous distension. LUNGS: Lungs are clear to auscultation and percussion. Breath sounds decreased. HEART: Rate and Rhythm are regular. First and second heart sounds normal. No murmurs, rubs or gallops. ABDOMEN: Abdominal exam reveals normal bowel sounds. Non-tender and non- distended. No evidence of peritonitis. EXTREMITITES: No clubbing, cyanosis, or edema. Objective - Vital Signs Vital signs: Vital Signs Temp 97.3 F L 03/15/17 07:00 Pulse 56 L 03/15/17 07:00 Resp 16 03/15/17 07:00 BP 106/58 03/15/17 07:00 Pulse Ox 97 03/15/17 07:00 Intake & Output 03/14/17 03/15/17 03/15/17 18:59 06:59 18:59 Intake Total 1200 Balance 1200 Intake: Oral 1200 Other: Voiding Method Toilet # Voids 3 1 - Labs CBC & Chem 7: 03/12/17 09:24 03/15/17 07:08 Labs: Abnormal Lab Results - Last 24 Hours (Table) 03/12/17 03/14/17 03/15/17 Range/Units 14:02 17:54 07:08 Potassium 2.9 L* 3.1 L (3.5-5.1) mmol/L Renin Direct 137.5 H (3.1 - 57.1) pg/mL Microbiology - Last 24 Hours (Table) 03/13/17 10:08 Urine Culture - Final Urine,Clean Catch Assessment and Plan Plan: Assessment: #1. Hypokalemia secondary to Bartter's syndrome. Magnesium replete. Improving. #2. Bartter's syndrome. No evidence of proteinuria at this time. No evidence of nephrocalcinosis on renal ultrasound. Also no evidence of sensorineural deafness which is associated mostly with type IV Bartter's. Plan: Continue with aggressive potassium supplementation. Continue Aldactone 50 mg twice daily. Discontinue Advil. Check potassium level tonight and again in the morning. Patient also on amiloride as an outpatient which she can continue upon discharge.
[2017-03-15] MEDS ORDERED: MAGNESIUM SULFATE-D5W PMX 1 GM in DEXTROSE/WATER 1 100ML.BAG IVPB ONE (09:00)
[2017-03-15] MEDS: AMILORIDE 5 MG PO SCH ×2 (09:25→20:35)
[2017-03-15] MEDS: ENOXAPARIN 40 MG/0.4 ML SYRINGE SQ SCH (09:25)
[2017-03-15] MEDS: SPIRONOLACTONE 25 MG TAB PO SCH ×2 (09:25→20:36)
[2017-03-15] MEDS: lamoTRIgine 25 MG TAB PO SCH (09:26)
[2017-03-15] MEDS: CIPROFLOXACIN HCL 250 MG TAB PO SCH (09:26)
[2017-03-15] MEDS: ZIPRASIDONE 80 MG CAP PO SCH ×2 (09:26→20:36)
[2017-03-15] MEDS: LORATADINE-PSEUDOEPH 5-120 MG 1 EACH TAB.ER.12H PO SCH ×2 (09:26→20:35)
[2017-03-15] MEDS: POTASSIUM CHLORIDE ER 20 MEQ TAB.ER PO SCH ×4 (09:31→20:36)
--- NOTE | 2017-03-15 09:59 | P.PN ---
Subjective This is a 21-year-old female patient of Dr. 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 Patient currently follows with Nikki Carrillo. Patient states that she's only been taking 2-3 doses of potassium since the beginning of January. She normally takes 90 mEq twice daily. 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 She denies any history of hearing loss. She did see a stratigraphy teacher at that time but does not have regular follow-up. She states she had lab work done by Dr. Friedman on Tuesday and her potassium was 2 she was called 2-3 days ago but she didn't come into the hospital until today due to kidney pain. She is complaining of bilateral flank pain she denies any history of kidney stones. Patient states that she has been mentally overwhelmed and that's why she has not been taking her potassium as directed. Patient is also been diagnosed with UTI and possible pyelonephritis and started on antibiotics and admitted to the [facility] floor. A consult with nephrology will be requested as well as a renal ultrasound, aldosterone and renin levels and urine total protein 03/13: Potassium has been up to 2.5 as of yesterday afternoon. At 1 AM it was 2.4 and then at [address] Kay has ordered 60 mEq of potassium and we will add in another 80 orally. Patient is on her normal dose of 90 mEq twice daily which has been increased to 100 mEq. Patient is also on spinal lactone as we do not have her home medication, amiloride. Dr. Kay is also added and Motrin. Renal ultrasound just showed no acute abnormality. Patient apparently related to some depression and suicidal thoughts to staff yesterday for which psychiatrist has seen the patient for bipolar disorder with no suicidal thoughts. Recommendations were to continue Lamictal and Geodon and follow-up with [facility]. Patient seems stable at this point and we will discontinue sitter. 03/14: Repeat potassium last night was 3.1 and this morning it is 2.5. Patient will be continued on her home dose of 100 mEq twice daily of potassium and 150 mEq of additional potassium ordered. Repeat potassium at 6 PM. Patient will have family bring in her and amiloride 5 mg twice daily and she will continue that along with the spironolactone. Patient denies having any back pain. Urinalysis and urine culture negative for infection. 03/15: Potassium last evening was 2.9 and this morning 3.1. Potassium 80 mEq will be ordered in addition to her usual 100 mg once twice daily. Repeat potassium at 6 PM. Patient did start taking Amiloride from home yesterday afternoon. Anticipate discharge home tomorrow. Objective - Vital Signs Vital signs: Vital Signs Temp 97.3 F L 03/15/17 07:00 Pulse 56 L 03/15/17 07:00 Resp 16 03/15/17 07:00 BP 106/58 03/15/17 07:00 Pulse Ox 97 03/15/17 07:00 Intake & Output 03/14/17 03/15/17 03/15/17 18:59 06:59 18:59 Intake Total 1200 Balance 1200 Intake: Oral 1200 Other: Voiding Method Toilet # Voids 3 1 - Exam Gen: This is a morbidly obese 21-year-old -Tong[place] female. She is cooperative and appears to be in no acute distress. HEENT: Head is atraumatic, normocephalic. Pupils equal, round. Sclerae is anicteric. NECK: Supple. No JVD. No lymphadenopathy. No thyromegaly. LUNGS: Clear to auscultation. No wheezes or rhonchi. No intercostal retractions. HEART: Regular rate and rhythm. No murmur. ABDOMEN: Soft. Bowel sounds are present. No masses. No tenderness. Tenderness over the bilateral CVA. EXTREMITIES: No pedal edema. No calf tenderness. NEUROLOGICAL: Patient is awake, alert and oriented x3. Cranial nerves 2 through 12 are grossly intact. - Labs CBC & Chem 7: 03/12/17 09:24 03/15/17 07:08 Labs: Abnormal Lab Results - Last 24 Hours (Table) 03/12/17 03/14/17 03/15/17 Range/Units 14:02 17:54 07:08 Potassium 2.9 L* 3.1 L (3.5-5.1) mmol/L Renin Direct 137.5 H (3.1 - 57.1) pg/mL Microbiology - Last 24 Hours (Table) 03/13/17 10:08 Urine Culture - Final Urine,Clean Catch Assessment and Plan Plan: 1. Severe hypokalemia with history of Bartter syndrome. Continue potassium 100 mEq scheduled and 80meq extra today. Consult with nephrology appreciated, renal ultrasound as above, aldosterone and renin levels. Continue Amiloride and aldactone. Repeat electrolytes at 6 PM and in the morning 2. UTI ruled out. 3. Bipolar, generalized anxiety disorder and depression. Continue Geodon, Lamictal. 4. Seasonal ALLERGIES, stable. 5. Gastrointestinal prophylaxis. Pepcid 6. DVT prophylaxis. Lovenox. Discharge plan: Return home tomorrow Impression and plan of care have been directed as dictated by the signing physician. Anabelle Talbert nurse practitioner acting as scribe for signing physician.
[2017-03-15] MEDS: MAGNESIUM OXIDE 400 MG TAB PO SCH (12:09)
[2017-03-16 07:27] LABS: Anion Gap 11 mmol/L; Blood Urea Nitrogen 11 mg/dL (7-17); Calcium 9.7 mg/dL (8.4-10.2); Carbon Dioxide 28 mmol/L (22-30); Chloride 101 mmol/L (98-107); Glucose 83 mg/dL (74-99); Non-African American GFR(MDRD) >60 (>60 ml/min/1.73 sqM); Potassium 3.4 mmol/L (3.5-5.1); Sodium 140 mmol/L (137-145)
[2017-03-16 07:28] VITALS: BP 87/51; PULSE 56; RESP 16; TEMP 97.1
[2017-03-16] MEDS: AMILORIDE 5 MG PO SCH (08:06)
[2017-03-16] MEDS: POTASSIUM CHLORIDE ER 20 MEQ TAB.ER PO SCH (08:08)
[2017-03-16] MEDS: LORATADINE-PSEUDOEPH 5-120 MG 1 EACH TAB.ER.12H PO SCH (08:09)
[2017-03-16] MEDS: lamoTRIgine 25 MG TAB PO SCH (08:10)
[2017-03-16] MEDS: ENOXAPARIN 40 MG/0.4 ML SYRINGE SQ SCH (08:11)
[2017-03-16] MEDS: SPIRONOLACTONE 25 MG TAB PO SCH (08:14)
[2017-03-16] MEDS: ZIPRASIDONE 80 MG CAP PO SCH (08:14)
[2017-03-16] MEDS ORDERED: POTASSIUM CHLORIDE ER 20 MEQ TAB.ER PO STA (10:18)
[2017-03-16] MEDS: MAGNESIUM OXIDE 400 MG TAB PO SCH (10:25)
--- NOTE | 2017-03-16 10:34 | P.PN ---
Subjective Patient is seen in follow-up for hypokalemia. Patient has history of Bartter's syndrome that was diagnosed at the age of 17. Patient wasn't taking the potassium supplementation as directed. She is currently maintained on spironolactone as well as potassium supplementation. Potassium level this morning is 3.4. Her oral intake is good. No vomiting or diarrhea. Denies any chest pain or shortness of breath. No major events overnight. Vital signs are stable. General: The patient appeared well nourished and normally developed. HEENT: Head exam is unremarkable. Neck is without jugular venous distension. LUNGS: Lungs are clear to auscultation and percussion. Breath sounds decreased. HEART: Rate and Rhythm are regular. First and second heart sounds normal. No murmurs, rubs or gallops. ABDOMEN: Abdominal exam reveals normal bowel sounds. Non-tender and non- distended. No evidence of peritonitis. EXTREMITITES: No clubbing, cyanosis, or edema. Objective - Vital Signs Vital signs: Vital Signs Temp 97.1 F L 03/16/17 07:00 Pulse 56 L 03/16/17 07:00 Resp 16 03/16/17 09:07 BP 87/51 03/16/17 07:00 Pulse Ox 98 03/16/17 07:00 Intake & Output 03/15/17 03/16/17 03/16/17 18:59 06:59 18:59 Intake Total 600 Balance 600 Intake: Oral 600 Other: Voiding Method Toilet Toilet # Voids 2 1 - Labs CBC & Chem 7: 03/12/17 09:24 03/16/17 06:21 Labs: Abnormal Lab Results - Last 24 Hours (Table) 03/15/17 03/16/17 Range/Units 18:05 06:21 Potassium 3.1 L 3.4 L (3.5-5.1) mmol/L Assessment and Plan Plan: Assessment: #1. Hypokalemia secondary to Bartter's syndrome. Magnesium replete. Improving. #2. Bartter's syndrome. No evidence of proteinuria at this time. No evidence of nephrocalcinosis on renal ultrasound. Also no evidence of sensorineural deafness which is associated mostly with type IV Bartter's. Plan: Continue with aggressive potassium supplementation. Continue Aldactone 50 mg twice daily. Discontinued Advil. Patient also on amiloride as an outpatient which she can continue upon discharge. Stable to be discharged home from nephrology standpoint. She will need to follow-up as an outpatient in the next 2 weeks.
--- NOTE | 2017-03-16 15:18 | P.DS ---
Providers Date of admission: 03/12/17 11:37 Expected date of discharge: 03/16/17 Attending physician: Shima Don Consults: 03/12/17 11:43 Consult Physician Routine Consulting Provider: Ab Valentino Consult Reason/Comments: Bartter syndrome Do you want consulting provider notified?: Yes 03/12/17 12:56 Consult Physician Routine Consulting Provider: Vazquez Jean-Baptiste Consult Reason/Comments: triggered suicide precautions in history Do you want consulting provider notified?: Yes Primary care physician: Ugo Friedman [facility] Course: This is a 21-year-old female patient of Dr. 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 Patient currently follows with Nikki Carrillo. Patient states that she's only been taking 2-3 doses of potassium since the beginning of January. She normally takes 90 mEq twice daily. 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 She denies any history of hearing loss. She did see a email producer at that time but does not have regular follow-up. She states she had lab work done by Dr. Friedman on Tuesday and her potassium was 2 she was called 2-3 days ago but she didn't come into the hospital until today due to kidney pain. She is complaining of bilateral flank pain she denies any history of kidney stones. Patient states that she has been mentally overwhelmed and that's why she has not been taking her potassium as directed. Patient is also been diagnosed with UTI and possible pyelonephritis and started on antibiotics and admitted to the [facility] floor. A consult with nephrology will be requested as well as a renal ultrasound, aldosterone and renin levels and urine total protein 03/13: Potassium has been up to 2.5 as of yesterday afternoon. At 1 AM it was 2.4 and then at [address] Kay has ordered 60 mEq of potassium and we will add in another 80 orally. Patient is on her normal dose of 90 mEq twice daily which has been increased to 100 mEq. Patient is also on spinal lactone as we do not have her home medication, amiloride. Dr. Kay is also added and Motrin. Renal ultrasound just showed no acute abnormality. Patient apparently related to some depression and suicidal thoughts to staff yesterday for which psychiatrist has seen the patient for bipolar disorder with no suicidal thoughts. Recommendations were to continue Lamictal and Geodon and follow-up with [facility]. Patient seems stable at this point and we will discontinue sitter. 03/14: Repeat potassium last night was 3.1 and this morning it is 2.5. Patient will be continued on her home dose of 100 mEq twice daily of potassium and 150 mEq of additional potassium ordered. Repeat potassium at 6 PM. Patient will have family bring in her and amiloride 5 mg twice daily and she will continue that along with the spironolactone. Patient denies having any back pain. Urinalysis and urine culture negative for infection. 03/15: Potassium last evening was 2.9 and this morning 3.1. Potassium 80 mEq will be ordered in addition to her usual 100 mg once twice daily. Repeat potassium at 6 PM. Patient did start taking Amiloride from home yesterday afternoon. Anticipate discharge home tomorrow. 03/16: Repeat potassium this morning is 3.4. Patient will be given 40 mEq of potassium in addition to her 100 mEq scheduled twice daily. Patient has been cleared for discharge from nephrology. Patient will go home on the new dose of potassium of 100 mEq twice daily and Aldactone and continue Pamelor Discharge diagnoses: 1. Severe hypokalemia with history of Bartter syndrome. 2. UTI ruled out. 3. Bipolar, generalized anxiety disorder and depression. 4. Seasonal ALLERGIES, stable. Discharge plan: Return home Impression and plan of care have been directed as dictated by the signing physician. Anabelle Talbert nurse practitioner acting as scribe for signing physician. Patient Condition at Discharge: Good Plan - Discharge Summary New Discharge Prescriptions: New Spironolactone [Aldactone] 50 mg PO BID #120 tab Potassium Chloride ER [K-Dur 20] 100 meq PO BID #300 tab Continue aMILoride HCL 5 mg PO BID Magnesium Oxide [Magnesium] 500 mg PO DAILY hydrOXYzine HCL [Atarax] 50 mg PO BID PRN PRN Reason: Anxiety Loratadine-Pseudoeph 10-240 mg [Claritin-D 24 Hour] 1 tab PO DAILY PRN PRN Reason: ALLERGIES Dextroamphetamine/Amphetamine [Adderall] 20 mg PO BID lamoTRIgine [LaMICtal] 75 mg PO DAILY Ziprasidone HCl [Geodon] 80 mg PO BID Discharge Medication List aMILoride HCL 5 mg PO BID 03/04/14 [History] Magnesium Oxide [Magnesium] 500 mg PO DAILY 03/22/16 [History] hydrOXYzine HCL [Atarax] 50 mg PO BID PRN 03/22/16 [History] Dextroamphetamine/Amphetamine [Adderall] 20 mg PO BID 03/12/17 [History] Loratadine-Pseudoeph 10-240 mg [Claritin-D 24 Hour] 1 tab PO DAILY PRN 03/12/17 [History] Ziprasidone HCl [Geodon] 80 mg PO BID 03/12/17 [History] lamoTRIgine [LaMICtal] 75 mg PO DAILY 03/12/17 [History] Potassium Chloride ER [K-Dur 20] 100 meq PO BID #300 tab 03/16/17 [Rx] Spironolactone [Aldactone] 50 mg PO BID #120 tab 03/16/17 [Rx] Follow up Appointment(s)/Referral(s): Ugo Friedman DO [Primary Care Provider] - 03/23/17 (Office will call you with appointment time. ) Ab Valentino DO [STAFF PHYSICIAN] - 03/23/17 (Office will call you with appointment time. ) Patient Instructions/Handouts: Urinary Tract Infection in Women (DC), Hypokalemia (DC) Activity/Diet/Wound Care/Special Instructions: Take aldacatone at lunch and dinner Regular diet. Activity as tolerated. Discharge Disposition: HOME SELF-CARE
== END 2017-03-16 12:24 | disposition home or self-care (01) | DRG 645 ==
LOC: EC 09:09 → 6PED 11:37 → 4MS4W 18:53
PROVIDERS: ADMIT Family Medicine; ATTEND Family Medicine
DX: E26.81 Bartter's syndrome (principal); E66.01 Morbid (severe) obesity due to excess calories; F12.90 Cannabis use, unspecified, uncomplicated; F41.1 Generalized anxiety disorder; F90.9 Attention-deficit hyperactivity disorder, unspecified type; J30.2 Other seasonal allergic rhinitis; R30.0 Dysuria; R10.9 Unspecified abdominal pain; F32.9 Major depressive disorder, single episode, unspecified; Z79.899 Other long term (current) drug therapy; Z87.891 Personal history of nicotine dependence; Z91.5 Personal history of self-harm; Z88.8 Allergy status to other drugs, medicaments and biological substances
CPT/HCPCS: 36415; 76770; 80048; 80053; 81001; 81003; 81025; 82088; 83735; 84132; 84156; 84244; 85025; 87086; 87491; 87591; 93005; 96361; 96365; 96367; 99285

== ENCOUNTER 2017-04-22 13:35 | Emergency (ER) | payer OTHER ==
[2017-04-22] MEDS ORDERED: POTASSIUM CHLORIDE ORAL LIQUID 40 MEQ/30 ML CUP PO ONE ×2 (13:58)
--- NOTE | 2017-04-22 14:08 | ED ---
General Adult HPI - General Chief complaint: Recheck/Abnormal Lab/Rx Stated complaint: Chest Pain Time Seen by Provider: 04/22/17 13:52 Source: patient Mode of arrival: wheelchair Limitations: no limitations - History of Present Illness Initial comments: Patient is a 21-year-old female who presents with chief complaint of low potassium. She had her labs drawn a couple days ago, was told today that it was 2.5. Region has a history of Bartter's syndrome, she states that she is supposed to be taking 12 potassium pills at home but doesn't do it because she doesn't like taking 12 pills. Nursing notes and triage notes are reviewed, patient denies having chest pain at this time. Patient states she has been having on and off chest pain over the last 3 weeks, currently not having pain. Patient has no other complaints at this time. MD Complaint: Low potassium Onset/Timin -: days(s) - Related Data Home Medications Medication Instructions Recorded Confirmed aMILoride HCL 5 mg PO BID 03/04/14 04/22/17 Magnesium Oxide [Magnesium] 500 mg PO DAILY 03/22/16 04/22/17 hydrOXYzine HCL [Atarax] 50 mg PO BID PRN 03/22/16 04/22/17 Dextroamphetamine/Amphetamine 20 mg PO BID 03/12/17 04/22/17 [Adderall] Loratadine-Pseudoeph 10-240 mg 1 tab PO DAILY PRN 03/12/17 04/22/17 [Claritin-D 24 Hour] Ziprasidone HCl [Geodon] 80 mg PO BID 03/12/17 04/22/17 lamoTRIgine [LaMICtal] 75 mg PO DAILY 03/12/17 04/22/17 Previous Rx's Medication Instructions Recorded Potassium Chloride ER [K-Dur 20] 100 meq PO BID #300 tab 03/16/17 Spironolactone [Aldactone] 50 mg PO BID #120 tab 03/16/17 Allergies Allergy/AdvReac Type Severity Reaction Status Date / Time risperidone [From Risperdal] AdvReac MUSCLE Verified 04/22/17 13:58 SPASMS Review of Systems ROS Statement: Those systems with pertinent positive or pertinent negative responses have been documented in the HPI. ROS Other: All systems not noted in ROS Statement are negative. Constitutional: Denies: fever, chills Eyes: Denies: vision change ENT: Denies: ear pain, throat pain Respiratory: Denies: cough Cardiovascular: Denies: chest pain Endocrine: Denies: fatigue Gastrointestinal: Denies: abdominal pain, nausea, vomiting Genitourinary: Denies: dysuria Musculoskeletal: Denies: back pain Skin: Denies: rash Neurological: Denies: headache Past Medical History Past Medical History: No Reported History Additional Past Medical History / Comment(s): Bartter syndrome ( low potassium) History of Any Multi-Drug Resistant Organisms: None Reported Past Surgical History: Tonsillectomy Additional Past Surgical History / Comment(s): wisdom teeth 2016 Past Anesthesia/Blood Transfusion Reactions: No Reported Reaction Past Psychological History: ADD/ADHD, Anxiety, Bipolar, Depression Smoking Status: Former smoker Past Alcohol Use History: None Reported Past Drug Use History: Marijuana - Past Family History Mother Additional Family Medical History / Comment(s): Mother is alive at age 40 with no major medical problems. Pt states Alzheimers and Bipolar disorder runs on her mother's side. Sister(s) Family Medical History: Diabetes Mellitus Additional Family Medical History / Comment(s): Patient has 4 half-sisters. Brother(s) Additional Family Medical History / Comment(s): Patient has 5 or 6 half- brothers with no major medical problems. Patient does not have any children. Father Additional Family Medical History / Comment(s): Father is alive at age 55 and patient has no contact with him as he is in assisted. General Exam Limitations: no limitations General appearance: alert, in no apparent distress, other (Patient in no acute distress, she is playing a game on her phone throughout physical exam.) Head exam: Present: atraumatic Eye exam: Present: normal appearance, PERRL ENT exam: Present: normal exam, normal oropharynx, mucous membranes moist Neck exam: Present: normal inspection Respiratory exam: Present: normal lung sounds bilaterally. Absent: respiratory distress Cardiovascular Exam: Present: regular rate, normal rhythm, normal heart sounds GI/Abdominal exam: Present: soft. Absent: distended, tenderness Rectal exam: Present: deferred Extremities exam: Present: normal inspection Back exam: Present: normal inspection Neurological exam: Present: alert, oriented X3, normal gait Psychiatric exam: Present: normal affect, normal mood Skin exam: Present: warm, dry, intact Course Vital Signs 04/22/17 13:37 Temperature 98.4 F Pulse Rate 89 Respiratory 16 Rate Blood Pressure 108/59 O2 Sat by Pulse 99 Oximetry Medical Decision Making - Medical Decision Making Patient presents with chief complaint of low potassium. She had labs drawn 3 days ago and states that she was called today and told her potassium was 2.5. Patient has potassium replacement at home, but doesn't want to take it because "12 pills to many pills." Triage note says patient is complaining of chest pain. Currently she denies any chest pain. She says that she has on and off chest pain 3 weeks. Chest pain is not exertional, she does not have any anginal symptoms associated with it. We'll check lites, EKG. Patient will be given potassium replacement as needed in the emergency department. I discussed with her the dangers of noncompliance with her potassium supplementation. On initial evaluation, patient's in no distress, she is playing a game on her phone throughout interview and physical examination. 4:17 PM Laboratory evaluation this patient shows a potassium of 2.8. Patient was given 60 mEq by mouth, and 20 mEq IV. Patient spoke with her geometrician while in the emergency department who is going to arrange that the patient has IV potassium infusions regularly. Patient remains asymptomatic. This time, patient is stable for discharge. She is instructed to take her potassium pills until her IV infusions can be arranged. Patient has no further questions, she is instructed to follow up with primary care, nephrology. She is given instructions on signs and symptoms that should prompt return visit to the emergency department. Patient stable for discharge. - Lab Data Result diagrams: 04/22/17 14:40 Lab Results 04/22/17 Range/Units 14:40 Sodium 140 (137-145) mmol/L Potassium 2.8 L* (3.5-5.1) mmol/L Chloride 99 (98-107) mmol/L Carbon Dioxide 29 (22-30) mmol/L Anion Gap 12 mmol/L BUN 13 (7-17) mg/dL Creatinine 0.61 (0.52-1.04) mg/dL Est GFR (MDRD) Af Amer >60 (>60 ml/min/1.73 sqM) Est GFR (MDRD) Non-Af >60 (>60 ml/min/1.73 sqM) Glucose 101 H (74-99) mg/dL Calcium 9.6 (8.4-10.2) mg/dL Disposition Clinical Impression: Hypokalemia Disposition: HOME SELF-CARE Condition: Good Referrals: Ugo Friedman DO [Primary Care Provider] - 1-2 days
[2017-04-22 15:01] LABS: Anion Gap 12 mmol/L; Blood Urea Nitrogen 13 mg/dL (7-17); Calcium 9.6 mg/dL (8.4-10.2); Carbon Dioxide 29 mmol/L (22-30); Chloride 99 mmol/L (98-107); Glucose 101 mg/dL (74-99); Non-African American GFR(MDRD) >60 (>60 ml/min/1.73 sqM); Sodium 140 mmol/L (137-145)
[2017-04-22 15:04] LABS: Potassium 2.8 mmol/L (3.5-5.1)
[2017-04-22] MEDS ORDERED: POTASSIUM ACETATE 2 MEQ/ML 20 ML VIAL IV ONE (15:18)
[2017-04-22] MEDS: POTASSIUM CHLORIDE 10 MEQ, LIDOCAINE 2% INJ 10 MG in SODIUM CHLORIDE 0.9% 100 ML IVPB SCH ×2 (15:47→16:53)
[2017-04-22 16:42] VITALS: TEMP 97.5
[2017-04-22 18:20] VITALS: BP 118/66; PULSE 76; RESP 17
== END 2017-04-22 18:21 | disposition home or self-care (01) ==
LOC: EC 13:35
DX: E87.6 Hypokalemia (principal); F31.9 Bipolar disorder, unspecified; F90.9 Attention-deficit hyperactivity disorder, unspecified type; F41.9 Anxiety disorder, unspecified; Z87.891 Personal history of nicotine dependence; Z88.8 Allergy status to other drugs, medicaments and biological substances; Z79.899 Other long term (current) drug therapy
CPT/HCPCS: 99285; 96365; 96366; 36415; 93005; 80048; J2001; J3480

== ENCOUNTER → 2017-05-09 | Outpatient (CLI) | payer OTHER | END | disposition home or self-care (01) | LOC: LABWHC1 09:25 | PROVIDERS: ATTEND Internal Medicine Nephrology | DX: E87.6 Hypokalemia (principal) | CPT/HCPCS: 36415; 84132 ==

== ENCOUNTER → 2017-05-13 | Outpatient (CLI) | payer OTHER | END | disposition home or self-care (01) | LOC: LABWHC1 09:42 | PROVIDERS: ATTEND Internal Medicine Nephrology | DX: E87.6 Hypokalemia (principal) | CPT/HCPCS: 36415; 84132 ==

== ENCOUNTER → 2017-05-18 | Outpatient (CLI) | payer OTHER ==
[2017-05-18 10:20] LABS: Anion Gap 12 mmol/L; Blood Urea Nitrogen 9 mg/dL (7-17); Calcium 10.2 mg/dL (8.4-10.2); Carbon Dioxide 34 mmol/L (22-30); Chloride 98 mmol/L (98-107); Glucose 80 mg/dL (74-99); Magnesium 1.6 mg/dL (1.6-2.3); Non-African American GFR(MDRD) >60 (>60 ml/min/1.73 sqM); Phosphorous 3.4 mg/dL (2.5-4.5); Potassium 3.4 mmol/L (3.5-5.1); Sodium 144 mmol/L (137-145)
== END | disposition home or self-care (01) ==
LOC: LABWHC1 09:35
PROVIDERS: ATTEND Nurse Practitioner Family
DX: E26.81 Bartter's syndrome (principal)
CPT/HCPCS: 36415; 80069; 83735

== ENCOUNTER 2017-10-23 18:22 | Emergency (ER) | payer OTHER ==
[2017-10-23 18:28] VITALS: BP 122/65; PULSE 98; RESP 20; TEMP 98.1
[2017-10-23] MEDS ORDERED: AMOXIC-POT CLAV 875MG STARTER 2 EACH TABLET PO STA (19:21)
--- NOTE | 2017-10-23 19:24 | ED ---
Animal Bite HPI - General Chief Complaint: Animal Bite Stated Complaint: Cat bite Source: patient Mode of arrival: ambulatory Limitations: no limitations - History of Present Illness Initial Comments: 21-year-old male patient presents to the emergency department today for evaluation of Bites to her hands. Patient states that yesterday she was playing with her cat when he bit her in the right middle finger and over the left middle finger. Patient states that today the areas are increasingly red. She states they're mildly painful. She denies any fevers or chills. Denies any significant swelling. She states that the cat is not immunized however states it is an indoor cat she has odor for the last 6 months. She is not concerned for rabies. Patient denies any headache, neck pain, back pain, chest pain, shortness of breath, dizziness, weakness, abdominal pain, nausea, vomiting , or difficulties with bowel movements or urination. - Related Data Home Medications Medication Instructions Recorded Confirmed aMILoride HCL 5 mg PO BID 03/04/14 05/04/17 Magnesium Oxide [Magnesium] 500 mg PO DAILY 03/22/16 05/04/17 hydrOXYzine HCL [Atarax] 50 mg PO BID PRN 03/22/16 05/04/17 Dextroamphetamine/Amphetamine 20 mg PO BID 03/12/17 05/04/17 [Adderall] Loratadine-Pseudoeph 10-240 mg 1 tab PO DAILY PRN 03/12/17 05/04/17 [Claritin-D 24 Hour] Ziprasidone HCl [Geodon] 80 mg PO DAILY 03/12/17 05/04/17 lamoTRIgine [LaMICtal] 75 mg PO DAILY 03/12/17 05/04/17 Previous Rx's Medication Instructions Recorded Potassium Chloride ER [K-Dur 20] 100 meq PO BID #300 tab 03/16/17 Spironolactone [Aldactone] 50 mg PO BID #120 tab 03/16/17 Amoxic-Pot Clav 875-125Mg 1 tab PO Q12HR #20 tablet 10/23/17 [Augmentin 875-125] Allergies Allergy/AdvReac Type Severity Reaction Status Date / Time risperidone [From Risperdal] AdvReac MUSCLE Verified 10/23/17 18:28 SPASMS Review of Systems ROS Statement: Those systems with pertinent positive or pertinent negative responses have been documented in the HPI. ROS Other: All systems not noted in ROS Statement are negative. 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 Pt states Alzheimers and Bipolar disorder runs on her mother's side. Sister(s) Family Medical History: Diabetes Mellitus Additional Family Medical History / Comment(s): Patient has 4 half-sisters. Brother(s) Additional Family Medical History / Comment(s): Patient has 5 or 6 half- brothers with no major medical problems. Patient does not have any children. Father Additional Family Medical History / Comment(s): Father is alive at age 55 and patient has no contact with him as he is in [facility]. General Exam Limitations: no limitations General appearance: alert, in no apparent distress, other (This is a well- developed, well-nourished adult female patient in no acute distress. Vital signs upon presentation are temperature 98.1F, pulse 98, respirations 20, blood pressure 122/65, pulse ox 100% on room air.) Eye exam: Present: normal appearance, PERRL, EOMI. Absent: scleral icterus, conjunctival injection, periorbital swelling ENT exam: Present: normal exam, normal oropharynx, mucous membranes moist Neck exam: Present: normal inspection. Absent: tenderness, meningismus, lymphadenopathy Respiratory exam: Present: normal lung sounds bilaterally. Absent: respiratory distress, wheezes, rales, rhonchi, stridor Cardiovascular Exam: Present: regular rate, normal rhythm, normal heart sounds. Absent: systolic murmur, diastolic murmur, rubs, gallop, clicks Extremities exam: Present: full ROM, normal capillary refill, other (Patient has a puncture wound noted to the nail on the right middle finger, puncture were noted to the distal palmar aspect of the right middle finger, there is erythema surrounding the entire distal tip of the finger. Finger is soft and mildly tender. There is a puncture wound noted to the proximal aspect of the left middle finger with a localized area of erythema. There is no lymphangitis noted. Radial pulses are 2+ and equal bilaterally.). Absent: normal inspection , tenderness, pedal edema, joint swelling, calf tenderness Neurological exam: Present: alert, oriented X3, CN II-XII intact Psychiatric exam: Present: normal affect, normal mood Skin exam: Present: warm, dry, intact, normal color. Absent: rash Course Vital Signs 10/23/17 18:27 Temperature 98.1 F Pulse Rate 98 Respiratory 20 Rate Blood Pressure 122/65 O2 Sat by Pulse 100 Oximetry Medical Decision Making - Medical Decision Making 21-year-old female patient presented to the emergency department today for evaluation of Her hands. Physical examination does reveal cellulitis over the distal tip of the right middle finger and over the proximal tip of the left middle finger. Patient will be treated with Augmentin. She'll be given a starter pack here in the department. She is educated regarding pain control with Tylenol Motrin. She is educated regarding return parameters. She is instructed to return here for any new, worsening, or concerning symptoms. She verbalizes understanding and agrees with this plan. Disposition Clinical Impression: Cat bite Disposition: HOME SELF-CARE Instructions: Animal Bite (ED) Additional Instructions: Monitor for signs or symptoms of worsening infection including increased fever, redness, swelling, pain, and streaking the right upper arm. Follow-up with your primary care physician for a recheck in 1-2 days. Return here immediately for any new, worsening, or concerning symptoms. Prescriptions: Amoxic-Pot Clav 875-125Mg [Augmentin 875-125] 1 tab PO Q12HR #20 tablet Referrals: Ugo Friedman DO [Primary Care Provider] - 1-2 days Time of Disposition: 19:23
== END 2017-10-23 19:28 | disposition home or self-care (01) ==
LOC: EC 18:22
DX: S61.332A Puncture wound without foreign body of right middle finger with damage to nail, initial encounter (principal); S61.233A Puncture wound without foreign body of left middle finger without damage to nail, initial encounter; L03.012 Cellulitis of left finger; L03.011 Cellulitis of right finger; F90.9 Attention-deficit hyperactivity disorder, unspecified type; F31.9 Bipolar disorder, unspecified; F41.9 Anxiety disorder, unspecified; Z87.891 Personal history of nicotine dependence; Z79.899 Other long term (current) drug therapy; W55.01XA Bitten by cat, initial encounter; Y93.89 Activity, other specified
CPT/HCPCS: 99283

== ENCOUNTER 2017-12-20 15:37 | Inpatient (IN) | payer OTHER, MEDICAID ==
[2017-12-20 17:26] LABS: Amphetamine Screen,Urine Not Detected (NotDetected); Barbiturate Screen,Urine Not Detected (NotDetected); Benzodiazepines Screen,Urine Not Detected (NotDetected); Cocaine Screen,Urine Not Detected (NotDetected); Methadone Screen, Urine Not Detected (NotDetected); Opiate Screen,Urine Not Detected (NotDetected); Oxycodone Screen, Urine Not Detected (NotDetected); Phencyclidine Screen,Urine Not Detected (NotDetected); Tricyclic Antidepressant,Urine Not Detected (NotDetected); Urn Cannabinoid Scrn Not Detected (NotDetected)
--- NOTE | 2017-12-20 17:35 | ED ---
Psych HPI - General Chief Complaint: Psychiatric Symptoms Stated Complaint: Mental health Time Seen by Provider: 12/20/17 16:12 Source: patient, RN notes reviewed Mode of arrival: ambulatory - History of Present Illness Initial Comments: This a pleasant 22-year-old female presents emergency Department with her grandmother. Patient has a history of bipolar disorder and states that she has been having increased suicidal thoughts for the past 3 weeks. Patient states that she has had thoughts of overdosing on medication. Patient is on medication for bipolar disorder but does not take it regularly. Patient has a psychiatrist, Dr. Sy. Patient denies chest pain. No recent illness. No fever. No headache. No changes in vision or hearing. No abdominal pain. No chance of . - Related Data Home Medications Medication Instructions Recorded Confirmed aMILoride HCL 5 mg PO BID 03/04/14 12/20/17 Magnesium Oxide [Magnesium] 500 mg PO DAILY 03/22/16 12/20/17 hydrOXYzine HCL [Atarax] 50 mg PO BID PRN 03/22/16 12/20/17 Dextroamphetamine/Amphetamine 20 mg PO BID 03/12/17 12/20/17 [Adderall] lamoTRIgine [LaMICtal] 75 mg PO DAILY 03/12/17 12/20/17 Paliperidone [Invega] 3 mg PO DIRECTED 12/20/17 12/20/17 Potassium Chloride ER [K-Dur 20] 90 meq PO BID 12/20/17 12/20/17 metFORMIN HCL [Glucophage] 500 mg PO HS 12/20/17 12/20/17 Allergies Allergy/AdvReac Type Severity Reaction Status Date / Time risperidone [From Risperdal] AdvReac MUSCLE Verified 12/20/17 16:55 SPASMS Review of Systems ROS Statement: Those systems with pertinent positive or pertinent negative responses have been documented in the HPI. ROS Other: All systems not noted in ROS Statement are negative. 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 Pt states Alzheimers and Bipolar disorder runs on her mother's side. Sister(s) Family Medical History: Diabetes Mellitus Additional Family Medical History / Comment(s): Patient has 4 half-sisters. Brother(s) Additional Family Medical History / Comment(s): Patient has 5 or 6 half- brothers with no major medical problems. Patient does not have any children. Father Additional Family Medical History / Comment(s): Father is alive at age 55 and patient has no contact with him as he is in [facility]. General Exam - General Exam Comments Initial Comments: This is a well-developed, well-nourished 22-year-old female in no distress Limitations: no limitations General appearance: alert, in no apparent distress Head exam: Present: atraumatic, normocephalic, normal inspection Eye exam: Present: normal appearance, PERRL, EOMI. Absent: scleral icterus, conjunctival injection, periorbital swelling ENT exam: Present: normal exam, normal oropharynx, mucous membranes moist Neck exam: Present: normal inspection. Absent: tenderness, meningismus, lymphadenopathy Respiratory exam: Present: normal lung sounds bilaterally. Absent: respiratory distress, wheezes, rales, rhonchi, stridor Cardiovascular Exam: Present: regular rate, normal rhythm, normal heart sounds. Absent: systolic murmur, diastolic murmur, rubs, gallop, clicks GI/Abdominal exam: Present: soft, normal bowel sounds. Absent: distended, tenderness, guarding, rebound, rigid Extremities exam: Present: normal inspection, full ROM, normal capillary refill. Absent: tenderness, pedal edema, joint swelling, calf tenderness Back exam: Present: normal inspection Neurological exam: Present: alert, oriented X3, CN II-XII intact Psychiatric exam: Present: normal affect, normal mood, other (Patient does have a ready mirth response. Patient in no acute distress at this time. Patient appears to have adequate impulse control) Skin exam: Present: warm, dry, intact, normal color. Absent: rash Course Vital Signs 12/20/17 15:50 Temperature 98.1 F Pulse Rate 77 Respiratory 18 Rate Blood Pressure 133/56 O2 Sat by Pulse 98 Oximetry Medical Decision Making - Medical Decision Making Patient had a psychiatric evaluation in the emergency department. Patient was deemed appropriate for inpatient care. Patient will be admitted to psychiatric unit. - Lab Data Lab Results 12/20/17 12/20/17 Range/Units 16:54 17:30 Urine HCG, Qual Not Detected (Not Detectd) Urine Opiates Screen Not Detected (NotDetected) Ur Oxycodone Screen Not Detected (NotDetected) Urine Methadone Screen Not Detected (NotDetected) Ur Propoxyphene Screen Not Detected (NotDetected) Ur Barbiturates Screen Not Detected (NotDetected) U Tricyclic Antidepress Not Detected (NotDetected) Ur Phencyclidine Scrn Not Detected (NotDetected) Ur Amphetamines Screen Not Detected (NotDetected) U Methamphetamines Scrn Not Detected (NotDetected) U Benzodiazepines Scrn Not Detected (NotDetected) Urine Cocaine Screen Not Detected (NotDetected) U Marijuana (THC) Screen Not Detected (NotDetected) Disposition Clinical Impression: Acute anxiety, Depression, Suicidal ideation Disposition: ADMITTED IP TO THIS HOSP Condition: Good Referrals: Ugo Friedman DO [Primary Care Provider] - 1-2 days Time of Disposition: 19:23
[2017-12-20] MEDS ORDERED: ZIPRASIDONE 20 MG VIAL IM PRN (21:02)
[2017-12-20] MEDS ORDERED: MAG HYDROX/AL HYDROX/SIMETH 30 ML CUP PO PRN (21:02)
[2017-12-20] MEDS ORDERED: ACETAMINOPHEN TAB 325 MG TAB PO PRN (21:02)
[2017-12-20] MEDS ORDERED: MAGNESIUM HYDROXIDE 2,400 MG/10 ML CUP PO PRN (21:02)
[2017-12-20 22:22] LABS: Appearance,Urine Clear (Clear); Bilirubin,Urine Negative (Negative); Blood,Urine Small (Negative); Color,Urine Yellow; Glucose,Urine (UA) Negative (Negative); Ketones,Urine Negative (Negative); Leukocyte Esterase,Urine Negative (Negative); Nitrite,Urine Negative (Negative); PH, Urine 7.5 (5.0-8.0); Protein,Urine Trace (Negative); Specific Gravity,Urine 1.016 (1.001-1.035); Squamous Epithelial Cell,Urine <1 /hpf (0-4); Triple Phosphate Crystal,Urine Rare /hpf; Urobilinogen,Urine <2.0 mg/dL (<2.0); WBC,Urine <1 /hpf (0-5)
[2017-12-21 02:13] VITALS: BMI 34.7
[2017-12-21] MEDS ORDERED: lamoTRIgine 25 MG TAB PO SCH (09:00)
[2017-12-21] MEDS: MAGNESIUM OXIDE 400 MG TAB PO SCH (09:21)
[2017-12-21] MEDS: SPIRONOLACTONE 25 MG TAB PO SCH ×2 (09:22→20:52)
[2017-12-21] MEDS: POTASSIUM CHLORIDE ER 10 MEQ TAB.ER.PRT PO SCH ×2 (09:22→20:52)
[2017-12-21 09:42] LABS: Basophils % (A) 0 %; Eosinophils # (A) 0.1 k/uL (0-0.7); Eosinophils % (A) 1 %; HCT 40.2 % (34.0-46.0); HGB 14.2 gm/dL (11.4-16.0); Hyperchromasia Slight; Lymphocytes # (A) 2.6 k/uL (1.0-4.8); Lymphocytes % (A) 23 %; MCH 28.6 pg (25.0-35.0); MCHC 35.2 g/dL (31.0-37.0); MCV 81.4 fL (80.0-100.0); Monocytes # (A) 0.4 k/uL (0-1.0); Monocytes % (A) 3 %; Neutrophils # (A) 7.7 k/uL (1.3-7.7); Neutrophils % (A) 70 %; Platelet Count 376 k/uL (150-450); Poikilocytosis Slight; RBC 4.94 m/uL (3.80-5.40); RDW 13.5 % (11.5-15.5)
[2017-12-21 10:00] LABS: ALT 42 U/L (9-52); AST 26 U/L (14-36); Albumin 4.7 g/dL (3.5-5.0); Alkaline Phosphatase 66 U/L (38-126); Anion Gap 17 mmol/L; Blood Urea Nitrogen 13 mg/dL (7-17); Carbon Dioxide 29 mmol/L (22-30); Chloride 96 mmol/L (98-107); Cholesterol 169 mg/dL (<200); Glucose 127 mg/dL (74-99); HDL Cholesterol 45 mg/dL (40-60); LDL Cholesterol,Calculated 103 mg/dL (0-99); Sodium 142 mmol/L (137-145); Total Bilirubin 0.6 mg/dL (0.2-1.3); Total Protein 8.1 g/dL (6.3-8.2); Triglycerides 106 mg/dL (<150)
[2017-12-21 10:11] LABS: Potassium 2.6 mmol/L (3.5-5.1)
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
--- NOTE | 2017-12-21 16:15 | P.MDCNMH ---
History of Present Illness H&P Date: 12/21/17 This is a 22-year-old female patient of Dr. Friedman with past medical history significant for Bartter syndrome managed by Dr. Freidman and on potassium 90 mEq twice daily and Aldactone 50 mg twice daily, PCOS, history of depression and bipolar disorder along with anxiety and ADHD. Patient follows with Nikki Carrillo. Patient gives history that she stopped taking her potassium in the middle of November and she was feeling depressed and she was tired of taking so many pills she is been doing this almost her whole life. She does complain of muscle cramps in her hands and legs. She is eating okay was a good appetite. Her last bowel movement was 4 days ago patient does not want anything for constipation. She denies any weight loss. She also states that she does not sleep well and usually gets about 5 hours and wakes up every 2 or 3 hours. Potassium was 2.6, blood sugar 127, TSH 1.8. Patient was brought in by family to the emergency center for evaluation of depression with suicidal thoughts and subsequently admitted to the mental health unit. Review of Systems All systems: negative Constitutional: Denies anorexia, Denies chills, Denies fever, Denies poor appetite, Denies weight loss Eyes: denies blurred vision, denies pain Ears, nose, mouth and throat: Denies headache, Denies sore throat Cardiovascular: Denies chest pain, Denies shortness of breath, Denies syncope Respiratory: Denies cough, Denies dyspnea Gastrointestinal: Denies abdominal pain, Denies diarrhea, Denies nausea, Denies vomiting Genitourinary: Denies dysuria, Denies hematuria Musculoskeletal: Denies myalgias Integumentary: Denies pruritus, Denies rash Neurological: Denies numbness, Denies weakness Psychiatric: Reports depression, Reports hopelessness, Denies anxiety Endocrine: Denies fatigue, Denies weight change Past Medical History Past Medical History: Renal Disease Additional Past Medical History / Comment(s): Bartter syndrome ( low potassium) History of Any Multi-Drug Resistant Organisms: None Reported Past Surgical History: Tonsillectomy Additional Past Surgical History / Comment(s): wisdom teeth 2016 Past Anesthesia/Blood Transfusion Reactions: No Reported Reaction Past Psychological History: ADD/ADHD, Anxiety, Bipolar, Depression Additional Psychological History / Comment(s): Nikki Carrillo [facility] Smoking Status: Former smoker Past Alcohol Use History: None Reported Additional Past Alcohol Use History / Comment(s): Patient was a smoker of 4 packs per week for 8 years and quit in 2016. She does use marijuana rarely. She denies any street drug use. She denies any alcohol use. Past Drug Use History: None Reported - Past Family History Mother Additional Family Medical History / Comment(s): Mother is alive at age 40 with no major medical problems. Pt states Alzheimers and Bipolar disorder runs on her mother's side. Sister(s) Family Medical History: Diabetes Mellitus Additional Family Medical History / Comment(s): Patient has 4 half-sisters. Brother(s) Additional Family Medical History / Comment(s): Patient has 5 or 6 half- brothers with no major medical problems. Patient does not have any children. Father Additional Family Medical History / Comment(s): Father is alive at age 55 and patient has no contact with him as he is in senior care. Medications and Allergies Home Medications Medication Instructions Recorded Confirmed Type aMILoride HCL 5 mg PO BID 03/04/14 12/21/17 History Magnesium Oxide [Magnesium] 500 mg PO DAILY 03/22/16 12/21/17 History hydrOXYzine HCL [Atarax] 50 mg PO BID PRN 03/22/16 12/21/17 History Dextroamphetamine/Amphetamine 20 mg PO BID 03/12/17 12/21/17 History [Adderall] lamoTRIgine [LaMICtal] 75 mg PO DAILY 03/12/17 12/21/17 History Paliperidone [Invega] 3 mg PO DIRECTED 12/20/17 12/21/17 History Potassium Chloride ER [K-Dur 20] 90 meq PO BID 12/20/17 12/21/17 History metFORMIN HCL [Glucophage] 500 mg PO HS 12/20/17 12/21/17 History Allergies Allergy/AdvReac Type Severity Reaction Status Date / Time risperidone [From Risperdal] AdvReac MUSCLE Verified 12/21/17 02:39 SPASMS Physical Exam Vitals: Vital Signs Temp Pulse Pulse Resp BP BP Pulse Ox 12/21/17 02:05 97.2 F L 83 16 126/87 12/21/17 01:30 98.1 F 95 16 113/63 12/20/17 19:58 98.6 F 71 16 138/80 98 12/20/17 15:50 98.1 F 77 18 133/56 98 Intake and Output 12/20/17 12/21/17 12/21/17 22:59 06:59 14:59 Other: Weight 99.79 kg 97.5 kg Gen: This is a obese 30-year-old female. She is cooperative and appears to be in no acute distress. Good eye contact. HEENT: Head is atraumatic, normocephalic. Pupils equal, round. Sclerae is anicteric. NECK: Supple. No JVD. No lymphadenopathy. No thyromegaly. LUNGS: Clear to auscultation. No wheezes or rhonchi. No intercostal retractions. HEART: Regular rate and rhythm. No murmur. ABDOMEN: Soft. Bowel sounds are present. No masses. No tenderness. EXTREMITIES: No pedal edema. No calf tenderness. NEUROLOGICAL: Patient is awake, alert and oriented x3. Cranial nerves 2 through 12 are grossly intact. Cranial Nerve Examination - Cranial Nerves Cranial Nerve II- Optic: Intact Cranial Nerve III- Oculomotor: Intact Cranial Nerve IV- Trochlear: Intact Cranial Nerve V- Trigeminal: Intact Cranial Nerve - Abducens: Intact Cranial Nerve VII- Facial: Intact Cranial Nerve VIII- Auditory: Intact Cranial Nerve IX- Glossopharyngeal: Intact Cranial Nerve X- Vagus: Intact Cranial Nerve XI- Accessory: Intact Cranial Nerve XII- Hypoglossal: Intact Results CBC & Chem 7: 12/21/17 09:16 12/21/17 09:16 Labs: Abnormal Lab Results - Last 24 Hours (Table) 12/20/17 12/21/17 Range/Units 16:54 09:16 Potassium 2.6 L* (3.5-5.1) mmol/L Chloride 96 L (98-107) mmol/L Glucose 127 H (74-99) mg/dL LDL Cholesterol, Calc 103 H (0-99) mg/dL Urine Protein Trace H (Negative) Urine Blood Small H (Negative) Triple Phos Crystals Rare H (None) /hpf Assessment and Plan Plan: 1. Bipolar, generalized anxiety disorder and recurrent depression with suicidal ideation. Patient admitted to the mental health unit. Continue current plan of care. 2. Severe hypokalemia secondary to noncompliance with medication for the past 3- 4 weeks with history of Bartter syndrome. Patient will be resumed on potassium 90 mEq twice daily, Aldactone 50 mg twice daily, amiloride 5 mg twice daily. 3. PCOS. Continue metformin 500 mg at bedtime. 4. Seasonal ALLERGIES, stable. Discharge plan: Return home Impression and plan of care have been directed as dictated by the signing physician. Anabelle Talbert nurse practitioner acting as scribe for signing physician.
[2017-12-21 19:14] LABS: Hemoglobin A1C 4.9 % (4.0-6.0)
[2017-12-21] MEDS: PALIPERIDONE 3 MG TAB.ER.24 PO SCH (20:52)
[2017-12-21] MEDS: metFORMIN 500 MG TAB PO SCH (20:52)
[2017-12-22] MEDS: POTASSIUM CHLORIDE ER 10 MEQ TAB.ER.PRT PO SCH ×2 (09:03→21:18)
[2017-12-22] MEDS: MAGNESIUM OXIDE 400 MG TAB PO SCH (09:03)
[2017-12-22] MEDS: SPIRONOLACTONE 25 MG TAB PO SCH ×2 (09:03→21:19)
--- NOTE | 2017-12-22 11:53 | P.PN ---
Progress Note - Text Progress Note Date: 12/22/17 Interval History: Patient is a 22-year-old female who was seen today and she reports that she continues to have suicidal thoughts and feels that they got worse and she was admitted here because she has no technology to assist her in coping with them. She states that she attended groups yesterday. She reports continuing to feel depressed. She continues to feel paranoid. Patient reports no side effects from beginning the Invega last evening. She reports some improvement this morning and her suicidal thoughts. She continues to report having no energy. Mental Status: Appearance/Attitude: Patient is appropriately groomed, makes good eye contact and is cooperative Behavior: Patient does not exhibit any psychomotor agitation or retardation. Speech/Language: Patient's speech is spontaneous and of normal volume and rhythm and she is coherent Thought Process: Patient is goal-directed there is no evidence of loose association or flight of ideas Thought Content: Patient denies auditory hallucinations or visual hallucinations and states that she continues to feel paranoid. Patient is unable to elaborate further on why she would feel paranoid. Patient states that she continues to feel depressed and felt that her suicidal thoughts were worse when she got here because she doesn't have technology to assist her in coping with her thoughts. She reports decreased energy. Suicidal/Homicidal Ideation: She states that her suicidal thoughts are slightly less this morning but were worse after her admission and denies any current homicidal ideation Sensorium/Cognition: Patient is alert and oriented to person, place, and time and her recent and remote memory are grossly intact Mood/Affect: Patient's mood remains depressed and her affect is blunted Insight/Judgment: Patient's insight and judgment are fair Assessment: Patient reports no side effects from beginning the Invega and felt that her suicidal thoughts decreased slightly this morning. Patient reports that she was attending groups and activities yesterday but her suicidal thoughts were worse after admission due to the lack of technology to assist her in coping with her thoughts. Patient told staff that she wants to hurt staff to try to escape the hospital. Patient reports continuing to feel depressed and slept about 8/2 hours last night. She remains paranoid. Patient has been on Geodon in the past with an inability to increase the dose due to oversedation , low to do which made her angrier and Abilify which she overdosed on and was discontinued. Patient states that she tried Risperdal the past and had a good reaction but had muscle spasms from it and so that was discontinued. This was the reason for the patient being started on Invega. Plan: Patient will continue on Atarax 50 mg as needed for anxiety, Lamictal 75 mg at bedtime and Invega 3 mg at bedtime. Patient was encouraged to attend groups and activities. Patient continues to require hospitalization to further stabilize her mood. Will recheck patient's electrolyte level tomorrow, she has been taking her potassium and magnesium supplements
[2017-12-22] MEDS: hydrOXYzine HCL 25 MG TAB PO PRN (13:23)
[2017-12-22] MEDS: PALIPERIDONE 3 MG TAB.ER.24 PO SCH (21:17)
[2017-12-22] MEDS: metFORMIN 500 MG TAB PO SCH (21:18)
[2017-12-22] MEDS: lamoTRIgine 25 MG TAB PO SCH (21:18)
[2017-12-23] MEDS: MAGNESIUM OXIDE 400 MG TAB PO SCH (08:38)
[2017-12-23] MEDS: POTASSIUM CHLORIDE ER 10 MEQ TAB.ER.PRT PO SCH ×2 (08:38→22:07)
[2017-12-23] MEDS: SPIRONOLACTONE 25 MG TAB PO SCH ×2 (08:39→22:08)
[2017-12-23 09:47] LABS: Anion Gap 16 mmol/L; Blood Urea Nitrogen 12 mg/dL (7-17); Calcium 10.1 mg/dL (8.4-10.2); Carbon Dioxide 29 mmol/L (22-30); Chloride 97 mmol/L (98-107); Glucose 119 mg/dL (74-99); Potassium 3.1 mmol/L (3.5-5.1); Sodium 142 mmol/L (137-145)
--- NOTE | 2017-12-23 10:44 | P.PN ---
Progress Note - Text Progress Note Date: 12/23/17 Interval History: Patient is a 22-year-old female who was seen and she states that she has not been attending groups because she is trying to get used to her medication. Patient states that she is almost stable, continuing to have paranoid ideation that "someone was going to that me". Patient states that she is feeling less depressed and is no longer having suicidal thoughts. She states that she feels the Invega can be increased. She reports that she slept about 7 hours last night. She reports feeling slightly sedated during the day. Mental Status: Appearance/Attitude: Patient is appropriately dressed, makes good eye contact and is cooperative. Behavior: Patient does not display any psychomotor agitation or retardation. Speech/Language: Patient's speech is spontaneous of normal volume and rhythm and is coherent Thought Process: Patient is goal-directed there is no evidence of loose association or flight of ideas. Thought Content: patient denies auditory or visual hallucination and states that she still feeling paranoid that someone is "going to get me" but cannot elaborate further. She reports sleeping 7 hours last night and continuing to feel depressed and unmotivated. She states that she is not going to groups because she is trying to get used to her new medication. She feels that she is "almost stable". Suicidal/Homicidal Ideation: patient states she is not currently suicidal or homicidal. She states that the suicidal thoughts have gone away. Sensorium/Cognition: patient is alert and oriented to person, place, and time and her recent and remote memory are grossly intact. Mood/Affect: patient remains depressed, stating that she is almost stable and her affect remains slightly blunted Insight/Judgment: patient's insight and judgment are fair Assessment: patient reports that she is feeling more stable, states that she is less depressed and is no longer having suicidal thoughts. She feels that the Invega needs to be increased. She states that she has not been attending groups because she is slightly sedated and trying to get used to the new medication. Patient continues to express paranoid ideation but without elaboration. Patient has not been attending groups or activities. Patient's repeat potassium level was 3.1 Plan: Patient will continue on Lamictal 75 mg, Atarax 50 mg twice a day as needed and will increase her Invega to 6 mg at bedtime. Patient was encouraged to attend groups and activities, to stay out of bed during the day. Patient and I discussed possible discharge at the beginning of next week should she continue to improve on the increased dose of Invega. Patient will have a repeat potassium level done on Tuesday morning.
[2017-12-23] MEDS: PALIPERIDONE 6 MG TAB.ER.24 PO SCH (22:04)
[2017-12-23] MEDS: lamoTRIgine 25 MG TAB PO SCH (22:06)
[2017-12-23] MEDS: metFORMIN 500 MG TAB PO SCH (22:06)
[2017-12-24] MEDS: hydrOXYzine HCL 25 MG TAB PO PRN ×2 (00:59→23:57)
[2017-12-24] MEDS: POTASSIUM CHLORIDE ER 10 MEQ TAB.ER.PRT PO SCH ×3 (09:46→21:16)
[2017-12-24] MEDS: MAGNESIUM OXIDE 400 MG TAB PO SCH (09:46)
[2017-12-24] MEDS: SPIRONOLACTONE 25 MG TAB PO SCH ×2 (09:46→20:41)
--- NOTE | 2017-12-24 14:25 | P.PN ---
Progress Note - Text Interval history: The patient is found in her room she follows me to an interview room. Primarily she has been in her room sleeping most of the morning and early afternoon. She thinks it may be related to the Invega. It appears he dose has been titrated on the . She is willing to continue with the medication to see if this is a temporary side effect. It appears she is being treated for bipolar disorder with Lamictal and invega. She endorses a history of psychosis in the form of hallucinations but endorses no current hallucinations. Appetite stable. Mental status exam: The patient is technically alert but she is tired appearing. She is dressed in her own clothing she seated calmly in the chair. She answers slowly eye contact is intermittent. She indicates her mood is still down at times she feels safe here in the hospital with no acute intent or plan of harming herself now. No homicidal ideation. Again she endorses no hallucinations and no specific delusions at this time. Insight and judgment limited. She is oriented to person place and date. She demonstrates no abnormal involuntary movements. She demonstrates no verbal or physical aggressiveness. Plan: The patient will continue on her current medications however we will continue to monitor for sedation during the day. Sedation appears excessive at this time but may be a temporary reaction to the medication adjustment. We will monitor for safety and encourage participation in the milieu.
[2017-12-24] MEDS: PALIPERIDONE 6 MG TAB.ER.24 PO SCH (20:41)
[2017-12-24] MEDS: lamoTRIgine 25 MG TAB PO SCH (20:41)
[2017-12-24] MEDS: metFORMIN 500 MG TAB PO SCH (20:41)
[2017-12-25 06:42] VITALS: RESP 16
[2017-12-25] MEDS: SPIRONOLACTONE 25 MG TAB PO SCH ×2 (08:33→22:04)
[2017-12-25] MEDS: MAGNESIUM OXIDE 400 MG TAB PO SCH (08:33)
[2017-12-25] MEDS: POTASSIUM CHLORIDE ER 10 MEQ TAB.ER.PRT PO SCH ×2 (08:33→22:04)
--- NOTE | 2017-12-25 10:45 | P.PN ---
Progress Note - Text Interval history: The patient is found in her room she follows me to an interview room she reports that her mood is tired but otherwise okay. She does admit to having thoughts of self injury such as cutting but states that she is able to control those thoughts and will not act on those here. She is endorsing no suicidal thoughts and states "I don't want to ". She did have a supportive visit from her grandmother last evening and expect she may come up again tonight. The patient reports sleeping last night and she was in bed most of the morning she states she got up for groups in the afternoon. She has been eating. She still suspicious the invega may be making her feel tired but she is willing to continue the medication to see if that affect will dissipate. Mental status exam: The patient is an alert 22-year-old appearing her stated age. She is dressed in her own clothing she has a mildly disheveled appearance. Eye contact is intermittent. She does appear tired. She is reporting no acute suicidal or homicidal ideation intent or plan. She states she will have self-injurious thoughts specifically cutting. She is endorsing no auditory or visual hallucinations or any specific delusions. She demonstrates no abnormal involuntary movements she demonstrates no verbal or physical aggressiveness. She is oriented to person place and date. She maintains a constricted affect. Plan: The patient will continue on her current psychotropic medication. She is encouraged to attend groups and stay out of bed. We will monitor her for safety. Vital signs reviewed.
[2017-12-25] MEDS: lamoTRIgine 25 MG TAB PO SCH (22:03)
[2017-12-25] MEDS: PALIPERIDONE 6 MG TAB.ER.24 PO SCH (22:04)
[2017-12-25] MEDS: metFORMIN 500 MG TAB PO SCH (22:04)
[2017-12-25] MEDS: hydrOXYzine HCL 25 MG TAB PO PRN (22:06)
[2017-12-26] MEDS: MAGNESIUM OXIDE 400 MG TAB PO SCH (08:40)
[2017-12-26] MEDS: POTASSIUM CHLORIDE ER 10 MEQ TAB.ER.PRT PO SCH ×2 (08:40→21:34)
[2017-12-26] MEDS: SPIRONOLACTONE 25 MG TAB PO SCH ×2 (08:40→21:35)
[2017-12-26 09:57] LABS: Anion Gap 14 mmol/L; Blood Urea Nitrogen 10 mg/dL (7-17); Calcium 10.4 mg/dL (8.4-10.2); Carbon Dioxide 31 mmol/L (22-30); Chloride 98 mmol/L (98-107); Glucose 149 mg/dL (74-99); Potassium 3.7 mmol/L (3.5-5.1); Sodium 143 mmol/L (137-145)
--- NOTE | 2017-12-26 11:30 | P.PN ---
Progress Note - Text Progress Note Date: 12/26/17 Interval History: Patient is a 22-year-old female who was seen today and reports that the paranoia has stopped, she states she continues to have self harming thoughts that are less frequent and she can ignore them most of the time. Patient states that she has not been attending groups all of the time. She states that she doesn't fall asleep until 3 or 4 in the morning and sleeps later into the day. She states that she is not feeling as tired during the day , but does spend most of the day in her room. Patient reports that her mood is more stable and she is less depressed. Mental Status: Appearance/Attitude: Patient is appropriately dressed, makes good eye contact and is cooperative. Behavior: Patient does not exhibit any psychomotor agitation or retardation. Speech/Language: Patient's speech is spontaneous of normal volume and rhythm and she is coherent Thought Process: Patient is goal-directed, there is no evidence of loose associations or flight of ideas Thought Content: Patient denies any auditory or visual hallucinations, no delusions were elicited and the patient states that she is no longer having paranoid thoughts. She reports that the self harming thoughts are less frequent and she is able to ignore them most of the time. She states that she didn't fall sleep last evening until 3 or 4 in the morning, and feeling tired during the day. Patient states that she has attended some groups and is eating well. Suicidal/Homicidal Ideation: Patient states that she continues to have thoughts that are self harming in nature but is able to ignore them most of the time and they're less frequent and no current homicidal ideation. Sensorium/Cognition: Patient is alert and oriented to person, place, and time and her recent and remote memory grossly intact. Mood/Affect: Patient's mood is less depressed and her affect is slightly blunted Insight/Judgment: Patient's insight and judgment are fair Assessment: Patient reports that she is no longer feeling paranoid, that the self harming thoughts are less frequent but still there and she can ignore them most of the time but reported poor sleep last evening not falling asleep until 3 or 4 in the morning. She states that she feels tired during the day and has tried to attend some groups and activities. In the team treatment meeting it was pointed out that the patient walks out of groups that are discussion in nature. Patient states that her mood is more stable but she still feels somewhat depressed. Patient reports no side effects from the medication. Patient's repeat metabolic panel revealed a normal potassium level. Plan: Patient continues on Invega 6 mg at bedtime, Atarax 50 mg twice a day as needed and Lamictal 75 mg at bedtime and she and I discussed discharge tomorrow and she was agreeable with this. Patient was encouraged to attend groups and activities today and stay out of bed to see if her sleep improves.
[2017-12-26] MEDS: PALIPERIDONE 6 MG TAB.ER.24 PO SCH (21:34)
[2017-12-26] MEDS: lamoTRIgine 25 MG TAB PO SCH (21:34)
[2017-12-26] MEDS: metFORMIN 500 MG TAB PO SCH (21:35)
[2017-12-26] MEDS: hydrOXYzine HCL 25 MG TAB PO PRN (22:58)
[2017-12-27 06:34] VITALS: BP 105/56; PULSE 58; TEMP 97.7
[2017-12-27] MEDS: SPIRONOLACTONE 25 MG TAB PO SCH (08:38)
[2017-12-27] MEDS: POTASSIUM CHLORIDE ER 10 MEQ TAB.ER.PRT PO SCH (08:38)
[2017-12-27] MEDS: MAGNESIUM OXIDE 400 MG TAB PO SCH (08:38)
--- NOTE | 2017-12-27 10:18 | P.DS ---
Providers Date of admission: 12/20/17 19:22 Expected date of discharge: 12/27/17 Attending physician: Isabel Crow MD Consults: 12/20/17 21:02 Consult Physician Routine Consulting Provider: Belinda Alcantar Consult Reason/Comments: H&P for mental health admission Do you want consulting provider notified?: Yes Primary care physician: [facility] Course: Discharge Diagnosis: Bipolar type II disorder, current episode depressed Reason for Admission: Patient is a 22-year-old female is brought to the emergency room because she was having suicidal thoughts with a plan to take an overdose. Patient reports that she chronically has suicidal ideation and always is thinking about taking an overdose. She states that this is a difficult time of year for her because during this period of time she is usually depressed. She states that she and her mother got into an argument on her birthday about her possibly being evicted from her apartment and where she going to live. Patient states that her Social Security is going to be shut off and she has applied for a hearing. Patient states that she was also last seen at [facility] on December 15 and they were to begin Invega and change her from Geodon due to her continued suicidal thoughts. Patient states that her insurance would not cover the Invega and so she had not started it. Patient states when she got into the argument with her mother it was just too much and she felt overwhelmed and unable to not act on her thoughts. Patient states that her Lamictal dose has been at 75 mg for some time because when it was increased she had an emotional breakdown. Patient states that she's been on Geodon for quite some time but the dose was never able to be increased due to her becoming too sedated on a twice a day dose. She states that she's been sleeping 12 hours a day on the current dose. Patient states that she's been on what to do and Abilify in the past as well. She states on Risperdal she had muscle spasm but the medication worked well for her. Patient states that she is not currently hearing voices and the last time was when she was 17 years of age. Patient states she always feels paranoid that people will break into her apartment and hurt her but cannot tell me why. She reports no homicidal ideation. Patient states that she has episodes where she is depressed, angry, no interest or energy to do things, persistent suicidal thoughts and these alternate with 3-4 days of not sleeping as much having more energy and talking more. She is not able to endorse a manic episode. Patient states that she has attempted suicide 5-6 times in the past her last attempt was in 2014 with an overdose. She tried hanging herself 3 times in the past beginning at age 6 and the last being when she was a teen. Patient also endorses anxiety stating that she has racing thoughts and feeling panicky but uses Atarax to control it with good results. Patient states she rarely leaves the house to avoid people. Patient states that she and her mother have a conflicted relationship and her grandmother is her source of support. Patient is currently living on her own and not working. She states her last admission was in 2014. Patient endorses auditory hallucinations in the past but not currently, paranoid ideation and is able to endorse hypomanic episodes in the past as well as depressive episodes which are more severe and causing more disruption. Patient is currently endorsing suicidal ideation and had a plan to overdose. Patient also endorses a history of attention deficit disorder diagnosed at the age of 6 and currently treated with Adderall 20 mg twice a day, she states in the past she was tried on Ritalin, Vyvanse, Concerta. Mental status on Admission: Appearance/Attitude: Patient is appropriately dressed, makes good eye contact and is cooperative. Behavior: Patient does not display any psychomotor agitation or retardation. Speech/Language: Patient's speech is spontaneous and normal volume and rhythm and she is coherent. Thought Process: Patient is goal-directed there is no evidence of loose association or flight of ideas. Thought Content: Patient reports no auditory or visual hallucinations and states that she continues to have paranoid thoughts that when she is alone in her apartment someone might break into hurt her. Patient states that she is feeling depressed, feeling hopeless and states that she has no interest or energy to do things. Patient states she's been sleeping over 12 hours at night at home and then sleeps during the day. Patient states that she has not been compliant with her medications for her medical problems. Suicidal/Homicidal Ideation: Patient reports current suicidal thoughts and had a plan to take an overdose, denies current homicidal ideation Sensorium/Cognition: Patient is alert and oriented to person, place, and time and her recent and remote memory are grossly intact Mood/Affect: Patient's mood is depressed and her affect is slightly blunted Insight/Judgment: Patient's insight and judgment are fair Hospital Course: Patient was admitted on a voluntary basis, she was placed on routine precautions, group and activity therapy were also ordered. Patient had routine laboratory studies as well as a medical consultation. Patient was restarted on her medications for her medical problems. Patient was continued on her Lamictal 75 mg at bedtime, Atarax 50 mg twice a day on an as-needed basis for anxiety. Invega 3 mg at bedtime was started as this was the plan as an outpatient. Patient's Adderall was not continued while in the hospital. Patient continued to report suicidal ideation, thoughts of self-harm and feeling paranoid. She reported no side effects from the Invega and the dose was increased to 6 mg at bedtime. Patient reported that her suicidal thoughts that stopped but this self-harm thoughts continued and she was becoming less paranoid and less depressed. Patient continued to report improvement stating that she was no longer having thoughts of self-harm or suicide, was no longer feeling paranoid and her mood was no longer depressed. Patient states that she was feeling more stable and had been sleeping well. Patient's potassium was checked and after taking the supplement in hospital and she had not been taking her medications as an outpatient return to within normal limits. Patient felt that she was ready for discharge. Allergies risperidone [From Risperdal] Adverse Reaction (Verified 12/21/17 02:39) MUSCLE SPASMS Laboratory Last Values WBC 11.0 k/uL (4.0-11.0) 12/21/17 09:16 RBC 4.94 m/uL (3.80-5.40) 12/21/17 09:16 Hgb 14.2 gm/dL (11.4-16.0) 12/21/17 09:16 Hct 40.2 % (34.0-46.0) 12/21/17 09:16 MCV 81.4 fL (80.0-100.0) 12/21/17 09:16 MCH 28.6 pg (25.0-35.0) 12/21/17 09:16 MCHC 35.2 g/dL (31.0-37.0) 12/21/17 09:16 RDW 13.5 % (11.5-15.5) 12/21/17 09:16 Plt Count 376 k/uL (150-450) 12/21/17 09:16 Neutrophils % 70 % 12/21/17 09:16 Lymphocytes % 23 % 12/21/17 09:16 Monocytes % 3 % 12/21/17 09:16 Eosinophils % 1 % 12/21/17 09:16 Basophils % 0 % 12/21/17 09:16 Neutrophils # 7.7 k/uL (1.3-7.7) 12/21/17 09:16 Lymphocytes # 2.6 k/uL (1.0-4.8) 12/21/17 09:16 Monocytes # 0.4 k/uL (0-1.0) 12/21/17 09:16 Eosinophils # 0.1 k/uL (0-0.7) 12/21/17 09:16 Basophils # 0.0 k/uL (0-0.2) 12/21/17 09:16 Hyperchromasia Slight 12/21/17 09:16 Poikilocytosis Slight 12/21/17 09:16 Sodium 143 mmol/L (137-145) 12/26/17 09:09 Potassium 3.7 mmol/L (3.5-5.1) 12/26/17 09:09 Chloride 98 mmol/L (98-107) 12/26/17 09:09 Carbon Dioxide 31 mmol/L (22-30) H 12/26/17 09:09 Anion Gap 14 mmol/L 12/26/17 09:09 BUN 10 mg/dL (7-17) 12/26/17 09:09 Creatinine 0.74 mg/dL (0.52-1.04) 12/26/17 09:09 Est GFR (CKD-EPI)AfAm >90 (>60 ml/min/1.73 sqM) 12/26/17 09:09 Est GFR (CKD-EPI)NonAf >90 (>60 ml/min/1.73 sqM) 12/26/17 09:09 Glucose 149 mg/dL (74-99) H 12/26/17 09:[address] Glu mg/dL 94 12/21/17 09:16 Hemoglobin A1c 4.9 % (4.0-6.0) 12/21/17 09:16 Calcium 10.4 mg/dL (8.4-10.2) H 12/26/17 09:09 Total Bilirubin 0.6 mg/dL (0.2-1.3) 12/21/17 09:16 AST 26 U/L (14-36) 12/21/17 09:16 ALT 42 U/L (9-52) 12/21/17 09:16 Alkaline Phosphatase 66 U/L (38-126) 12/21/17 09:16 Total Protein 8.1 g/dL (6.3-8.2) 12/21/17 09:16 Albumin 4.7 g/dL (3.5-5.0) 12/21/17 09:16 Triglycerides 106 mg/dL (<150) 12/21/17 09:16 Cholesterol 169 mg/dL (<200) 12/21/17 09:16 LDL Cholesterol, Calc 103 mg/dL (0-99) H 12/21/17 09:16 HDL Cholesterol 45 mg/dL (40-60) 12/21/17 09:16 TSH 1.800 mIU/L (0.465-4.680) 12/21/17 09:16 Urine Color Yellow 12/20/17 16:54 Urine Appearance Clear (Clear) 12/20/17 16:54 Urine pH 7.5 (5.0-8.0) 12/20/17 16:54 Ur Specific Vivian 1.016 (1.001-1.035) 12/20/17 16:54 Urine Protein Trace (Negative) H 12/20/17 16:54 Urine Glucose (UA) Negative (Negative) 12/20/17 16:54 Urine Ketones Negative (Negative) 12/20/17 16:54 Urine Blood Small (Negative) H 12/20/17 16:54 Urine Nitrite Negative (Negative) 12/20/17 16:54 Urine Bilirubin Negative (Negative) 12/20/17 16:54 Urine Urobilinogen <2.0 mg/dL (<2.0) 12/20/17 16:54 Ur Leukocyte Esterase Negative (Negative) 12/20/17 16:54 Urine WBC <1 /hpf (0-5) 12/20/17 16:54 Ur Squamous Epith Cells <1 /hpf (0-4) 12/20/17 16:54 Triple Phos Crystals Rare /hpf (None) H 12/20/17 16:54 Urine HCG, Qual Not Detected (Not Detectd) 12/20/17 17:30 Urine Opiates Screen Not Detected (NotDetected) 12/20/17 16:54 Ur Oxycodone Screen Not Detected (NotDetected) 12/20/17 16:54 Urine Methadone Screen Not Detected (NotDetected) 12/20/17 16:54 Ur Propoxyphene Screen Not Detected (NotDetected) 12/20/17 16:54 Ur Barbiturates Screen Not Detected (NotDetected) 12/20/17 16:54 U Tricyclic Antidepress Not Detected (NotDetected) 12/20/17 16:54 Ur Phencyclidine Scrn Not Detected (NotDetected) 12/20/17 16:54 Ur Amphetamines Screen Not Detected (NotDetected) 12/20/17 16:54 U Methamphetamines Scrn Not Detected (NotDetected) 12/20/17 16:54 U Benzodiazepines Scrn Not Detected (NotDetected) 12/20/17 16:54 Urine Cocaine Screen Not Detected (NotDetected) 12/20/17 16:54 U Marijuana (THC) Screen Not Detected (NotDetected) 12/20/17 16:54 Discharge Mental Status: Appearance/Attitude: Patient is casually dressed, made good eye contact and was cooperative. Behavior: Patient did not exhibit any psychomotor agitation or retardation. Speech/Language: Patient's speech was spontaneous and normal volume and rhythm and she was coherent. Thought Process: Patient was goal-directed there is no evidence of loose associations or flight of ideas and she was not circumstantial or tangential. Thought Content: Patient denied any auditory or visual hallucinations and no delusions or paranoid ideation were elicited. Patient reported that she was no longer having any thoughts of self-harm. She stated that she was sleeping and eating well. She reported that she no longer had any paranoid ideation. Suicidal/Homicidal Ideation: Patient reported no current suicidal or homicidal ideation Sensorium/Cognition: Patient was alert and oriented to person, place, and time and her recent and remote memory were grossly intact. Mood/Affect: Patient's mood was stable, she reported she was no longer feeling depressed and her affect was appropriate Insight/Judgment: Patient's insight and judgment were intact. Risk Assessment: Patient's risk for self harm is moderate should she not continue on medication or be compliant with follow-up appointments. Discharge Plan: Patient will return to live on her own, she will continue on Lamictal 75 mg at bedtime, Invega 6 mg at bedtime and Atarax 50 mg twice a day as needed for anxiety. Patient will also continue to take her prior medications of metformin, amiloride, potassium chloride supplement, magnesium oxide supplement and patient will also return to taking her Adderall and she states that she has all of these medications at home and is only requiring a prescription for Invega 6 mg at bedtime. Patient will follow-up at [facility] and was encouraged to keep her appointments and be compliant with all of her medications. Patient was encouraged to avoid any alcohol or drugs. Patient and I also discussed good sleep hygiene and trying to get her sleep pattern back to a more normal pattern. Patient Condition at Discharge: Stable Plan - Discharge Summary New Discharge Prescriptions: New Paliperidone [Invega] 6 mg PO HS #14 tab.[email or web address] Continue aMILoride HCL 5 mg PO BID Magnesium Oxide [Magnesium] 500 mg PO DAILY hydrOXYzine HCL [Atarax] 50 mg PO BID PRN PRN Reason: Anxiety Dextroamphetamine/Amphetamine [Adderall] 20 mg PO BID lamoTRIgine [LaMICtal] 75 mg PO DAILY metFORMIN HCL [Glucophage] 500 mg PO HS Potassium Chloride ER [K-Dur 20] 90 meq PO BID Discontinued Paliperidone [Invega] 3 mg PO DIRECTED Discharge Medication List aMILoride HCL 5 mg PO BID 03/04/14 [History] Magnesium Oxide [Magnesium] 500 mg PO DAILY 03/22/16 [History] hydrOXYzine HCL [Atarax] 50 mg PO BID PRN 03/22/16 [History] Dextroamphetamine/Amphetamine [Adderall] 20 mg PO BID 03/12/17 [History] lamoTRIgine [LaMICtal] 75 mg PO DAILY 03/12/17 [History] Potassium Chloride ER [K-Dur 20] 90 meq PO BID 12/20/17 [History] metFORMIN HCL [Glucophage] 500 mg PO HS 12/20/17 [History] Paliperidone [Invega] 6 mg PO HS #14 tab.er.[email or web address] 12/27/17 [Rx] Follow up Appointment(s)/Referral(s): [facility] [Outside] - 1 Week (12.29.17 at 0815 Svetlana Candice 01.12.18 at 0930 Nikki Carrillo) Ugo Friedman DO [Primary Care Provider] - 1-2 days Patient Instructions/Handouts: Depression (GEN), Suicide Prevention for Adults (GEN) Activity/Diet/Wound Care/Special Instructions: Activity and diet as tolerated. Avoid the use of street drugs and alcohol. Take all medications as prescribed. When you are in need of refills on your medications please contact your medical provider and/or outpatient psychiatrist to have this done. Please go to scheduled outpatient appointment for aftercare treatment. If symptoms return or become worse call the crisis line at [phone] and/or go to the nearest emergency room for an evaluation. Discharge Disposition: HOME SELF-CARE
== END 2017-12-27 14:20 | disposition home or self-care (01) | DRG 885 ==
LOC: EC 15:37 → 3MHU 19:22
PROVIDERS: ADMIT Psychiatry & Neurology Psychiatry; ATTEND Psychiatry & Neurology Psychiatry
DX: F31.81 Bipolar II disorder (principal); R45.851 Suicidal ideations; E26.81 Bartter's syndrome; T50.3X6A Underdosing of electrolytic, caloric and water-balance agents, initial encounter; F12.90 Cannabis use, unspecified, uncomplicated; F22 Delusional disorders; F90.9 Attention-deficit hyperactivity disorder, unspecified type; E28.2 Polycystic ovarian syndrome; E87.6 Hypokalemia; J30.2 Other seasonal allergic rhinitis; F41.1 Generalized anxiety disorder; Z62.810 Personal history of physical and sexual abuse in childhood; Z81.1 Family history of alcohol abuse and dependence; Z81.8 Family history of other mental and behavioral disorders; Z90.89 Acquired absence of other organs; Z88.8 Allergy status to other drugs, medicaments and biological substances; Z82.0 Family history of epilepsy and other diseases of the nervous system; Z83.3 Family history of diabetes mellitus; Z79.899 Other long term (current) drug therapy; Z87.891 Personal history of nicotine dependence; Z97.5 Presence of (intrauterine) contraceptive device; Z79.84 Long term (current) use of oral hypoglycemic drugs
CPT/HCPCS: 80048; 80053; 80061; 80306; 81001; 81025; 82075; 83036; 84443; 85025

== ENCOUNTER → 2018-01-04 | Outpatient (CLI) | payer OTHER ==
--- NOTE | 2018-01-04 14:12 | XR ---
EXAMINATION TYPE: XR hand complete LT DATE OF EXAM: 01/04/2018 COMPARISON: NONE HISTORY: Pain TECHNIQUE: Three views are submitted. FINDINGS: The osseous structures are intact. The joint spaces are preserved and there is no acute fracture or dislocation. IMPRESSION: 1. No definite acute fracture or dislocation if symptoms persist, follow-up study in 7 to 10 days wo uld be suggested
--- NOTE | 2018-01-04 14:13 | XR ---
EXAMINATION TYPE: XR wrist complete LT DATE OF EXAM: 01/04/2018 COMPARISON: NONE HISTORY: Pain TECHNIQUE: Four views submitted. FINDINGS: The osseous structures are intact. The joint spaces are preserved and there is no acute fracture or dislocation. IMPRESSION: 1. No definite acute fracture or dislocation if symptoms persist, follow-up study in 7 to 10 days wo uld be suggested
== END | disposition home or self-care (01) ==
LOC: RADXRMAIN 13:39
PROVIDERS: ATTEND Emergency Medicine
DX: M65.832 Other synovitis and tenosynovitis, left forearm (principal); R20.9 Unspecified disturbances of skin sensation

== ENCOUNTER 2018-03-20 15:38 | Inpatient (IN) | payer OTHER ==
[2018-03-20 17:42] LABS: ALT 70 U/L (9-52); AST 35 U/L (14-36); Albumin 4.5 g/dL (3.5-5.0); Alkaline Phosphatase 54 U/L (38-126); Anion Gap 14 mmol/L; Blood Urea Nitrogen 9 mg/dL (7-17); Calcium 9.7 mg/dL (8.4-10.2); Carbon Dioxide 31 mmol/L (22-30); Chloride 97 mmol/L (98-107); Glucose 79 mg/dL (74-99); Magnesium 1.7 mg/dL (1.6-2.3); Phosphorus 2.5 mg/dL (2.5-4.5); Sodium 142 mmol/L (137-145); Total Bilirubin 0.4 mg/dL (0.2-1.3); Total Protein 7.4 g/dL (6.3-8.2)
[2018-03-20 17:43] LABS: Basophils % (A) 0 %; Eosinophils # (A) 0.2 k/uL (0-0.7); Eosinophils % (A) 2 %; HCT 40.1 % (34.0-46.0); HGB 14.3 gm/dL (11.4-16.0); Hyperchromasia Slight; Lymphocytes # (A) 2.1 k/uL (1.0-4.8); Lymphocytes % (A) 24 %; MCH 29.4 pg (25.0-35.0); MCHC 35.8 g/dL (31.0-37.0); MCV 82.2 fL (80.0-100.0); Mean Platelet Volume 6.8; Monocytes # (A) 0.5 k/uL (0-1.0); Monocytes % (A) 6 %; Neutrophils # (A) 5.7 k/uL (1.3-7.7); Neutrophils % (A) 66 %; Platelet Count 397 k/uL (150-450); Poikilocytosis Slight; RBC 4.88 m/uL (3.80-5.40); RDW 15.1 % (11.5-15.5); WBC 8.7 k/uL (4.0-11.0)
[2018-03-20 17:44] LABS: Potassium 2.1 mmol/L (3.5-5.1)
[2018-03-20] MEDS ORDERED: POTASSIUM CHLORIDE ER 20 MEQ TAB.ER PO STA ×2 (20:07→22:53)
--- NOTE | 2018-03-20 20:15 | ED ---
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 She was found to be quite hypokalemic potassium of 2. Patient states she has had muscle cramping for the past 2 weeks. She has been off of her supplementation for the past one month. She normally takes potassium and magnesium. Denies any other complaints. No nausea vomiting or diarrhea. No chest pain or shortness of breath. No dysuria or hematuria. - Related Data Home Medications Medication Instructions Recorded Confirmed aMILoride HCL 5 mg PO BID 03/04/14 03/20/18 Magnesium Oxide [Magnesium] 500 mg PO DAILY 03/22/16 03/20/18 hydrOXYzine HCL [Atarax] 50 mg PO DAILY 03/22/16 03/20/18 Dextroamphetamine/Amphetamine 20 mg PO BID@0500,1500 03/12/17 03/20/18 [Adderall] lamoTRIgine [LaMICtal] 75 mg PO DAILY 03/12/17 03/20/18 Potassium Chloride ER [K-Dur 20] 90 meq PO BID 12/20/17 03/20/18 metFORMIN HCL [Glucophage] 500 mg PO W/SUPPER 12/20/17 03/20/18 Paliperidone IM [Invega Sustenna] 156 mg IM Q30D 03/20/18 03/20/18 Allergies Allergy/AdvReac Type Severity Reaction Status Date / Time risperidone [From Risperdal] AdvReac MUSCLE Verified 03/20/18 20:53 SPASMS Review of Systems ROS Statement: Those systems with pertinent positive or pertinent negative responses have been documented in the HPI. ROS Other: All systems not noted in ROS Statement are negative. Past Medical History Past Medical History: Renal Disease Additional Past Medical History / Comment(s): Bartter syndrome ( low potassium) History of Any Multi-Drug Resistant Organisms: None Reported Past Surgical History: Tonsillectomy Additional Past Surgical History / Comment(s): wisdom teeth 2016 Past Anesthesia/Blood Transfusion Reactions: No Reported Reaction Past Psychological History: ADD/ADHD, Anxiety, Bipolar, Depression Smoking Status: Former smoker Past Alcohol Use History: None Reported Past Drug Use History: None Reported - Past Family History Mother Additional Family Medical History / Comment(s): Mother is alive at age 40 with no major medical problems. Pt states Alzheimers and Bipolar disorder runs on her mother's side. Sister(s) Family Medical History: Diabetes Mellitus Additional Family Medical History / Comment(s): Patient has 4 half-sisters. Brother(s) Additional Family Medical History / Comment(s): Patient has 5 or 6 half- brothers with no major medical problems. Patient does not have any children. Father Additional Family Medical History / Comment(s): Father is alive at age 55 and patient has no contact with him as he is in alf. General Exam Limitations: no limitations General appearance: alert, in no apparent distress Head exam: Present: atraumatic, normocephalic Eye exam: Present: normal appearance, PERRL, EOMI ENT exam: Present: normal exam Neck exam: Present: normal inspection. Absent: tenderness, meningismus Respiratory exam: Present: normal lung sounds bilaterally. Absent: respiratory distress, wheezes Cardiovascular Exam: Present: regular rate, normal rhythm GI/Abdominal exam: Present: soft. Absent: distended, tenderness, guarding Extremities exam: Present: normal inspection. Absent: pedal edema Neurological exam: Present: alert, oriented X3, CN II-XII intact. Absent: motor sensory deficit Psychiatric exam: Present: normal affect, normal mood. Absent: suicidal ideation Skin exam: Present: warm, dry, intact. 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 Potassium is 2.1, magnesium 1.7. Both are replaced with oral and IV potassium and IV magnesium. Patient will be admitted for further potassium replacement, repeat laboratory studies in the morning, and telemetry. Case discussed with Dr. Muñoz, will accept admission. - Lab Data Result diagrams: 03/20/18 17:17 03/20/18 17:17 Lab Results 03/20/18 03/20/18 03/20/18 Range/Units 17:17 17:17 20:22 WBC 8.7 (4.0-11.0) k/uL RBC 4.88 (3.80-5.40) m/uL Hgb 14.3 (11.4-16.0) gm/dL Hct 40.1 (34.0-46.0) % MCV 82.2 (80.0-100.0) fL MCH 29.4 (25.0-35.0) pg MCHC 35.8 (31.0-37.0) g/dL RDW 15.1 (11.5-15.5) % Plt Count 397 (150-450) k/uL Neutrophils % 66 % Lymphocytes % 24 % Monocytes % 6 % Eosinophils % 2 % Basophils % 0 % Neutrophils # 5.7 (1.3-7.7) k/uL Lymphocytes # 2.1 (1.0-4.8) k/uL Monocytes # 0.5 (0-1.0) k/uL Eosinophils # 0.2 (0-0.7) k/uL Basophils # 0.0 (0-0.2) k/uL Hyperchromasia Slight Poikilocytosis Slight Sodium 142 (137-145) mmol/L Potassium 2.1 L* (3.5-5.1) mmol/L Chloride 97 L (98-107) mmol/L Carbon Dioxide 31 H (22-30) mmol/L Anion Gap 14 mmol/L BUN 9 (7-17) mg/dL Creatinine 0.61 (0.52-1.04) mg/dL Est GFR (CKD-EPI)AfAm >90 (>60 ml/min/1.73 sqM) Est GFR (CKD-EPI)NonAf >90 (>60 ml/min/1.73 sqM) Glucose 79 (74-99) mg/dL Calcium 9.7 (8.4-10.2) mg/dL Phosphorus 2.5 (2.5-4.5) mg/dL Magnesium 1.7 (1.6-2.3) mg/dL Total Bilirubin 0.4 (0.2-1.3) mg/dL AST 35 (14-36) U/L ALT 70 H (9-52) U/L Alkaline Phosphatase 54 (38-126) U/L Total Protein 7.4 (6.3-8.2) g/dL Albumin 4.5 (3.5-5.0) g/dL Urine Color Urine Appearance (Clear) Urine pH (5.0-8.0) Ur Specific [place] (1.001-1.035) Urine Protein (Negative) Urine Glucose (UA) (Negative) Urine Ketones (Negative) Urine Blood (Negative) Urine Nitrite (Negative) Urine Bilirubin (Negative) Urine Urobilinogen (<2.0) mg/dL Ur Leukocyte Esterase (Negative) Urine RBC (0-5) /hpf Urine WBC (0-5) /hpf Ur Squamous Epith Cells (0-4) /hpf Urine Bacteria (None) /hpf Urine Mucus (None) /hpf Urine HCG, Qual Not Detected (Not Detectd) 03/20/18 Range/Units 20:22 WBC (4.0-11.0) k/uL RBC (3.80-5.40) m/uL Hgb (11.4-16.0) gm/dL Hct (34.0-46.0) % MCV (80.0-100.0) fL MCH (25.0-35.0) pg MCHC (31.0-37.0) g/dL RDW (11.5-15.5) % Plt Count (150-450) k/uL Neutrophils % % Lymphocytes % % Monocytes % % Eosinophils % % Basophils % % Neutrophils # (1.3-7.7) k/uL Lymphocytes # (1.0-4.8) k/uL Monocytes # (0-1.0) k/uL Eosinophils # (0-0.7) k/uL Basophils # (0-0.2) k/uL Hyperchromasia Poikilocytosis Sodium (137-145) mmol/L Potassium (3.5-5.1) mmol/L Chloride (98-107) mmol/L Carbon Dioxide (22-30) mmol/L Anion Gap mmol/L BUN (7-17) mg/dL Creatinine (0.52-1.04) mg/dL Est GFR (CKD-EPI)AfAm (>60 ml/min/1.73 sqM) Est GFR (CKD-EPI)NonAf (>60 ml/min/1.73 sqM) Glucose (74-99) mg/dL Calcium (8.4-10.2) mg/dL Phosphorus (2.5-4.5) mg/dL Magnesium (1.6-2.3) mg/dL Total Bilirubin (0.2-1.3) mg/dL AST (14-36) U/L ALT (9-52) U/L Alkaline Phosphatase (38-126) U/L Total Protein (6.3-8.2) g/dL Albumin (3.5-5.0) g/dL Urine Color Light Yellow Urine Appearance Clear (Clear) Urine pH 7.5 (5.0-8.0) Ur Specific [place] 1.011 (1.001-1.035) Urine Protein Negative (Negative) Urine Glucose (UA) Negative (Negative) Urine Ketones Negative (Negative) Urine Blood Negative (Negative) Urine Nitrite Negative (Negative) Urine Bilirubin Negative (Negative) Urine Urobilinogen <2.0 (<2.0) mg/dL Ur Leukocyte Esterase Moderate H (Negative) Urine RBC <1 (0-5) /hpf Urine WBC 6 H (0-5) /hpf Ur Squamous Epith Cells 5 H (0-4) /hpf Urine Bacteria Occasional H (None) /hpf Urine Mucus Rare H (None) /hpf Urine HCG, Qual (Not Detectd) Disposition Clinical Impression: Hypokalemia Disposition: ADMITTED IP TO THIS [facility] Condition: Stable Is patient prescribed a controlled substance at d/c from ED?: No Referrals: Ugo Friedman DO [Primary Care Provider] - 1-2 days Decision to Admit Reason: Admit from EC Decision Date: 03/20/18 Decision Time: 19:20
[2018-03-20] MEDS: POTASSIUM CHLORIDE 20 MEQ in WATER FOR INJECTION 1 100ML.BAG IVPB SCH ×2 (20:38→22:45)
[2018-03-20 21:01] LABS: Appearance,Urine Clear (Clear); Bacteria,Urine Occasional /hpf; Bilirubin,Urine Negative (Negative); Blood,Urine Negative (Negative); Color,Urine Light Yellow; Glucose,Urine (UA) Negative (Negative); Ketones,Urine Negative (Negative); Leukocyte Esterase,Urine Moderate (Negative); Mucus,Urine Rare /hpf; Nitrite,Urine Negative (Negative); PH, Urine 7.5 (5.0-8.0); Protein,Urine Negative (Negative); RBC,Urine <1 /hpf (0-5); Specific Gravity,Urine 1.011 (1.001-1.035); Squamous Epithelial Cell,Urine 5 /hpf (0-4); Urobilinogen,Urine <2.0 mg/dL (<2.0); WBC,Urine 6 /hpf (0-5)
[2018-03-20] MEDS ORDERED: MAGNESIUM SULFATE-D5W PMX 1 GM in DEXTROSE/WATER 1 100ML.BAG IVPB ONE (21:05)
[2018-03-20] MEDS ORDERED: NALOXONE 0.4 MG/ML 1 ML VIAL IV PRN (21:37)
[2018-03-20] MEDS: 0.9% NACL WITH KCL 20 MEQ/L 1,000 ML IV SCH (22:01)
[2018-03-21] MEDS: NON-FORMULARY DRUG (Dextroamphetamine/Amphetamine [Adderall] 20 MG) PO SCH ×2 (06:32→16:14)
[2018-03-21 07:20] LABS: Basophils % (A) 1 %; Eosinophils # (A) 0.2 k/uL (0-0.7); Eosinophils % (A) 2 %; HCT 36.9 % (34.0-46.0); HGB 13.2 gm/dL (11.4-16.0); Lymphocytes % (A) 35 %; MCH 30.1 pg (25.0-35.0); MCHC 35.8 g/dL (31.0-37.0); MCV 84.1 fL (80.0-100.0); Mean Platelet Volume 6.7; Monocytes # (A) 0.5 k/uL (0-1.0); Monocytes % (A) 6 %; Neutrophils # (A) 4.6 k/uL (1.3-7.7); Neutrophils % (A) 55 %; Platelet Count 414 k/uL (150-450); Poikilocytosis Slight; RBC 4.39 m/uL (3.80-5.40); RDW 15.1 % (11.5-15.5); WBC 8.5 k/uL (4.0-11.0)
[2018-03-21 07:40] LABS: ALT 53 U/L (9-52); AST 22 U/L (14-36); Albumin 3.5 g/dL (3.5-5.0); Alkaline Phosphatase 41 U/L (38-126); Anion Gap 10 mmol/L; Blood Urea Nitrogen 10 mg/dL (7-17); Calcium 8.6 mg/dL (8.4-10.2); Carbon Dioxide 33 mmol/L (22-30); Chloride 99 mmol/L (98-107); Glucose 92 mg/dL (74-99); Magnesium 1.8 mg/dL (1.6-2.3); Sodium 142 mmol/L (137-145); Total Bilirubin 0.2 mg/dL (0.2-1.3); Total Protein 5.9 g/dL (6.3-8.2)
[2018-03-21 07:53] LABS: Potassium 2.3 mmol/L (3.5-5.1)
[2018-03-21] MEDS: POTASSIUM CHLORIDE 10 MEQ in WATER FOR INJECTION 1 100ML.BAG IVPB SCH ×7 (08:57→23:01)
[2018-03-21] MEDS: POTASSIUM CHLORIDE ER 20 MEQ TAB.ER PO SCH ×6 (08:57→21:48)
[2018-03-21] MEDS: SPIRONOLACTONE 25 MG TAB PO SCH ×2 (08:58→21:48)
[2018-03-21] MEDS ORDERED: POTASSIUM CHLORIDE ER 20 MEQ TAB.ER PO ONE (09:00)
[2018-03-21] MEDS: hydrOXYzine HCL 25 MG TAB PO SCH (10:07)
[2018-03-21] MEDS: MAGNESIUM OXIDE 400 MG TAB PO SCH (10:07)
[2018-03-21] MEDS: lamoTRIgine 25 MG TAB PO SCH (10:07)
--- NOTE | 2018-03-21 14:55 | P.HPIM ---
History of Present Illness H&P Date: 03/21/18 Chief Complaint: Low potassium of 2.1 This is a 22-year-old female patient of Dr. 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 Patient follows with Nikki Carrillo as well. Patient gives history that she stopped taking her potassium about a month ago because she is tired of taking 13 pills per day for that. She is complaining of muscle pain in legs cramps as well as dizziness. She has some numbness and tingling in her feet that comes and goes. She did have leg cramps earlier today. She came into [facility] emergency center for evaluation. Her vital signs were stable. Potassium 2.1, sodium 142, chloride 97 and CO2 31. EKG was in normal sinus rhythm at rate of 76. Patient was started on oral and IV potassium as well as IV magnesium and admitted to the selective care unit. Repeat potassium is 2.3. Patient is receiving additional 100 mEq of potassium on top of her normally scheduled 90 mEq twice daily. A repeat potassium is ordered for 5 PM. Review of Systems All systems: negative Constitutional: Denies chills, Denies fever Eyes: denies blurred vision, denies pain Ears, nose, mouth and throat: Reports vertigo, Denies headache, Denies sore throat Cardiovascular: Denies chest pain, Denies dyspnea on exertion, Denies leg edema , Denies shortness of breath, Denies syncope Respiratory: Denies cough, Denies cough with sputum, Denies dyspnea Gastrointestinal: Denies abdominal pain, Denies diarrhea, Denies nausea, Denies vomiting Genitourinary: Denies dysuria, Denies hematuria Musculoskeletal: Reports leg numbness/tingling, Reports muscle cramps, Reports myalgias Integumentary: Denies pruritus, Denies rash Neurological: Denies numbness, Denies weakness Psychiatric: Denies anxiety, Denies depression Endocrine: Denies fatigue, Denies weight change Past Medical History Past Medical History: Renal Disease Additional Past Medical History / Comment(s): Bartter syndrome ( low potassium) , anxiety, bipolar, depression, ADHD History of Any Multi-Drug Resistant Organisms: None Reported Past Surgical History: Tonsillectomy Additional Past Surgical History / Comment(s): wisdom teeth 2016 Past Anesthesia/Blood Transfusion Reactions: No Reported Reaction Past Psychological History: ADD/ADHD, Anxiety, Bipolar, Depression Additional Psychological History / Comment(s): [facility]sd[facility] Smoking Status: Current every day smoker Past Alcohol Use History: None Reported Additional Past Alcohol Use History / Comment(s): Patient was a smoker for packs per week for 8 years and quit in 2016. Patient states she now smokes 3 cigarettes a day. She does use marijuana rarely. She denies any other street drug use. No alcohol use. Past Drug Use History: None Reported - Past Family History Mother Additional Family Medical History / Comment(s): Mother is alive at age 40 with no major medical problems. Pt states Alzheimers and Bipolar disorder runs on her mother's side. Sister(s) Family Medical History: Diabetes Mellitus Additional Family Medical History / Comment(s): Patient has 4 half-sisters. Brother(s) Additional Family Medical History / Comment(s): Patient has 5 or 6 half- brothers with no major medical problems. Patient does not have any children. Father Additional Family Medical History / Comment(s): Father is alive at age 55 and patient has no contact with him as he is in half-way. Medications and Allergies Home Medications Medication Instructions Recorded Confirmed Type aMILoride HCL 5 mg PO BID 03/04/14 03/20/18 History Magnesium Oxide [Magnesium] 500 mg PO DAILY 03/22/16 03/20/18 History hydrOXYzine HCL [Atarax] 50 mg PO DAILY 03/22/16 03/20/18 History Dextroamphetamine/Amphetamine 20 mg PO BID@0500,1500 03/12/17 03/20/18 History [Adderall] lamoTRIgine [LaMICtal] 75 mg PO DAILY 03/12/17 03/20/18 History Potassium Chloride ER [K-Dur 20] 90 meq PO BID 12/20/17 03/20/18 History metFORMIN HCL [Glucophage] 500 mg PO W/SUPPER 12/20/17 03/20/18 History Paliperidone IM [Invega Sustenna] 156 mg IM Q30D 03/20/18 03/20/18 History Allergies Allergy/AdvReac Type Severity Reaction Status Date / Time risperidone [From Risperdal] AdvReac MUSCLE Verified 03/20/18 20:53 SPASMS Physical Exam Vitals: Vital Signs Temp Pulse Pulse Resp BP BP Pulse Ox 03/21/18 08:00 98 16 107/67 98 03/21/18 04:00 97.5 F L 63 16 95/50 99 03/21/18 00:00 16 03/20/18 22:56 98.9 F 03/20/18 22:40 80 18 104/56 98 03/20/18 22:22 97.9 F 84 16 117/58 97 03/20/18 22:01 90 18 109/73 97 03/20/18 21:19 87 18 133/58 98 03/20/18 20:34 87 18 116/72 97 03/20/18 17:04 98.4 F 78 18 96/68 99 Intake and Output 03/20/18 03/21/18 03/21/18 22:59 06:59 14:59 Intake Total 400 100 Balance 400 100 Intake: IV 400 0.9% NaCl with KCl 20 Meq 350 /l 1,000 ml @ 50 mls/hr IV .Q20H [facility] Rx#: [id number] Potassium Chloride 20 meq 50 In Water For Injection 1 100ml.bag @ 50 mls/hr IVPB Q2H [facility] Rx#: [id number] Oral 100 Other: Voiding Method Toilet Toilet Weight 100.516 kg 100.7 kg Gen: This is a obese 30-year-old female. She is cooperative and appears to be in no acute distress. HEENT: Head is atraumatic, normocephalic. Pupils equal, round. Sclerae is anicteric. NECK: Supple. No JVD. No lymphadenopathy. No thyromegaly. LUNGS: Clear to auscultation. No wheezes or rhonchi. No intercostal retractions. HEART: Regular rate and rhythm. No murmur. ABDOMEN: Soft. Bowel sounds are present. No masses. No tenderness. EXTREMITIES: No pedal edema. No calf tenderness. NEUROLOGICAL: Patient is awake, alert and oriented x3. Cranial nerves 2 through 12 are grossly intact. Results CBC & Chem 7: 03/21/18 06:23 03/21/18 06:23 Labs: Abnormal Lab Results - Last 24 Hours (Table) 07/09/18 07/09/18 07/10/18 Range/Units 17:17 20:22 06:23 Potassium 2.1 L* 2.3 L* (3.5-5.1) mmol/L Chloride 97 L (98-107) mmol/L Carbon Dioxide 31 H 33 H (22-30) mmol/L ALT 70 H 53 H (9-52) U/L Total Protein 5.9 L (6.3-8.2) g/dL Ur Leukocyte Esterase Moderate H (Negative) Urine WBC 6 H (0-5) /hpf Ur Squamous Epith Cells 5 H (0-4) /hpf Urine Bacteria Occasional H (None) /hpf Urine Mucus Rare H (None) /hpf Thrombosis Risk Factor Assmnt - DVT/VTE Prophylaxis DVT/VTE Prophylaxis: Pharmacologic Prophylaxis ordered - Choose All That Apply Any of the Below Risk Factors Present?: No Other Risk Factors: No Other congenital or acquired thrombophilia - If yes, enter type in comment: No Thrombosis Risk Factor Assessment Level: Very Low Risk Assessment and Plan Plan: 1. Severe hypokalemia secondary to noncompliance with medication for the pastmonth with history of Bartter syndrome. Patient will be resumed on potassium 90 mEq twice daily and additional 100 mEq given today. Recheck potassium level at 5 PM and again in the morning. Continue spironolactone 25 mg twice daily and amiloride 5mg twice daily. Repeat EKG. Continue cardiac monitoring. 2. Hypomagnesemia status post replacement. Recheck level in the morning. 3. PCOS. Continue metformin 500 mg at supper. 4. Seasonal ALLERGIES, stable. 5. Bipolar, generalized anxiety disorder and recurrent depression. Patient is on Invega once monthly and Lamictal 75 mg daily. Patient will be admitted to the hospital for a minimum of 2 night stay Discharge plan: Return home Impression and plan of care have been directed as dictated by the signing physician. Anabelle Talbert nurse practitioner acting as scribe for signing physician.
[2018-03-21] MEDS: metFORMIN 500 MG TAB PO SCH (16:14)
[2018-03-21] MEDS: 0.9% NACL WITH KCL 20 MEQ/L 1,000 ML IV SCH (17:17)
[2018-03-21 17:39] LABS: Magnesium 1.9 mg/dL (1.6-2.3)
[2018-03-21 18:06] LABS: Potassium 2.6 mmol/L (3.5-5.1)
[2018-03-22] MEDS ORDERED: POTASSIUM CHLORIDE ER 20 MEQ TAB.ER PO ONE (00:33)
[2018-03-22] MEDS: POTASSIUM CHLORIDE 10 MEQ in WATER FOR INJECTION 1 100ML.BAG IVPB SCH (05:04)
[2018-03-22] MEDS: POTASSIUM CHLORIDE ER 20 MEQ TAB.ER PO SCH ×8 (05:05→23:24)
[2018-03-22] MEDS: NON-FORMULARY DRUG (Dextroamphetamine/Amphetamine [Adderall] 20 MG) PO SCH ×2 (05:07→18:34)
[2018-03-22 07:24] LABS: Anion Gap 7 mmol/L; Blood Urea Nitrogen 9 mg/dL (7-17); Calcium 8.7 mg/dL (8.4-10.2); Carbon Dioxide 29 mmol/L (22-30); Chloride 105 mmol/L (98-107); Glucose 90 mg/dL (74-99); Sodium 141 mmol/L (137-145)
[2018-03-22] MEDS: hydrOXYzine HCL 25 MG TAB PO SCH (08:10)
[2018-03-22] MEDS: MAGNESIUM OXIDE 400 MG TAB PO SCH (08:12)
[2018-03-22] MEDS: lamoTRIgine 25 MG TAB PO SCH (08:12)
[2018-03-22] MEDS: SPIRONOLACTONE 25 MG TAB PO SCH ×2 (08:13→21:19)
--- NOTE | 2018-03-22 13:27 | P.PN ---
Subjective Progress Note Date: 03/22/18 This is a 22-year-old female patient of Dr. 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 Patient follows with Nikki Carrillo as well. Patient gives history that she stopped taking her potassium about a month ago because she is tired of taking 13 pills per day for that. She is complaining of muscle pain in legs cramps as well as dizziness. She has some numbness and tingling in her feet that comes and goes. She did have leg cramps earlier today. She came into [facility] emergency center for evaluation. Her vital signs were stable. Potassium 2.1, sodium 142, chloride 97 and CO2 31. EKG was in normal sinus rhythm at rate of 76. Patient was started on oral and IV potassium as well as IV magnesium and admitted to the selective care unit. Repeat potassium is 2.3. Patient is receiving additional 100 mEq of potassium on top of her normally scheduled 90 mEq twice daily. A repeat potassium is ordered for 5 PM. 03/22: Repeat potassium yesterday afternoon was 2.6. Patient received an additional 180 mEq of potassium and potassium level this morning is at 3.0. She has been ordered 120 mEq of potassium on top of her 90 mEq twice daily controlled. Plan is to continue monitoring her potassium level and replacing overnight. Anticipate discharge home. Patient does verbalize that she plans to discontinue potassium when she goes home. She does understand that this will affect her heart and she could have a heart attack in his potential . She denies any chest pain or shortness of breath at this time. Dietitian is to meet with the patient regarding high potassium diet. Patient states that she has been told about a potassium diet but she has difficulty due to cost and lack of support at home. Consult with social work has been added. Consult with nephrology. Objective - Vital Signs Vital signs: Vital Signs Temp 96.1 F L 03/22/18 08:00 Pulse 81 03/22/18 08:00 Resp 16 03/22/18 08:00 BP 101/59 03/22/18 08:00 Pulse Ox 96 03/22/18 08:00 Intake & Output 03/21/18 03/22/18 03/22/18 18:59 06:59 18:59 Intake Total 580 250 240 Output Total 800 Balance -220 250 240 Weight 101.1 kg Intake: IV 250 0.9% NaCl with KCl 20 Meq 250 /l 1,000 ml @ 50 mls/hr IV .Q20H [facility] Rx#: [id number] Oral 580 240 Output: Urine 800 Other: Voiding Method Toilet Toilet - Exam Gen: This is a obese 30-year-old female. She is cooperative and appears to be in no acute distress. HEENT: Head is atraumatic, normocephalic. Pupils equal, round. Sclerae is anicteric. NECK: Supple. No JVD. No lymphadenopathy. No thyromegaly. LUNGS: Clear to auscultation. No wheezes or rhonchi. No intercostal retractions. HEART: Regular rate and rhythm. No murmur. ABDOMEN: Soft. Bowel sounds are present. No masses. No tenderness. EXTREMITIES: No pedal edema. No calf tenderness. NEUROLOGICAL: Patient is awake, alert and oriented x3. Cranial nerves 2 through 12 are grossly intact. - Labs CBC & Chem 7: 03/21/18 06:23 03/22/18 06:25 Labs: Abnormal Lab Results - Last 24 Hours (Table) 03/21/18 03/22/18 Range/Units 16:57 06:25 Potassium 2.6 L* 3.0 L* (3.5-5.1) mmol/L Assessment and Plan Plan: 1. Severe hypokalemia secondary to noncompliance with medication for the pastmonth with history of Bartter syndrome. Patient will be resumed on potassium 90 mEq twice daily and additional 100 mEq given today. Recheck potassium level at 2 PM and again in the morning. Continue spironolactone 25 mg twice daily. Continue cardiac monitoring. Nephrology consult. 2. Hypomagnesemia status post replacement. Recheck level in the morning. 3. PCOS. Continue metformin 500 mg at supper. 4. Seasonal ALLERGIES, stable. 5. Bipolar, generalized anxiety disorder and recurrent depression. Patient is on Invega once monthly and Lamictal 75 mg daily. Discharge plan: Return home Impression and plan of care have been directed as dictated by the signing physician. Anabelle Talbert nurse practitioner acting as scribe for signing physician.
[2018-03-22 14:33] VITALS: BMI 35.9
--- NOTE | 2018-03-22 15:26 | CONS ---
CONSULTATION REASON FOR CONSULT: Hypokalemia. HISTORY OF PRESENT ILLNESS: The patient is a 22-year-old female with history of Bartter syndrome who is being seen at our office for outpatient followup. The patient is maintained on large doses of potassium supplementation. However, she has had periods of noncompliance. We have previously been giving her IV piggybacks of potassium supplementation along with the oral potassium supplementation. She does tend to lose a lot of potassium in the urine and at one time we had tried Motrin. However, patient does not recall taking Motrin. The NSAIDs will help with the hypokalemia. Patient had been off of all of potassium supplements for about 1 months' time. She was found to have a potassium of 2.1. She had been feeling poorly and therefore came into the hospital. PAST MEDICAL HISTORY: Bartter's syndrome, anxiety, depression, ADHD. SURGICAL HISTORY: Tonsillectomy. SOCIAL HISTORY: Positive for smoking. No history of drug abuse or alcohol abuse. REVIEW OF SYSTEMS: Cramps, weakness. HOME MEDICATIONS: Included , potassium, Lamictal, Adderall, Atarax, magnesium, Glucophage. ALLERGIES: Include RISPERDAL, causing muscle spasms. PHYSICAL EXAMINATION: Patient is currently comfortable, awake, alert, oriented x3. She is not in any acute distress. Blood pressure is 105/55, heart rate 79 per minute. She is afebrile. Examination of the heart, S1, S2. Examination of the lungs, bilateral breath sounds are heard. Abdomen is soft, nontender, obese. Examination of the lower extremities shows no evidence of edema. [employer] exam is grossly intact. LABS: Show sodium 141, potassium 3.0, serum creatinine 0.6, hemoglobin 13.2 g/dL. UA is completely negative. ASSESSMENT: 1. Hypokalemia associated with Bartter's syndrome. Will resume potassium supplementation. The patient does lose a lot of potassium in the urine. She needs to maintain good oral potassium intake in diet as well as with supplementation. We can add NSAIDs which will help with the hypokalemia. Patient is agreeable to taking the Motrin. I have advised her to take it with food. We will continue with aggressive potassium supplementation, IV and p.o. Continue with the Aldactone as well. 2. Obesity. 3. History of depression. 4. ADHD. PLAN: Continue with aggressive potassium supplementation, add NSAIDs to help with the hypokalemia as well. Keep magnesium around 2. Thank you for this consultation. We will continue to follow the patient with you during her hospitalization. ADELFO / ILEANA: [id number] /
[2018-03-22 16:36] VITALS: RESP 16
[2018-03-22] MEDS: IBUPROFEN 200 MG TAB PO SCH ×2 (16:48→23:25)
[2018-03-22] MEDS: metFORMIN 500 MG TAB PO SCH (16:50)
[2018-03-22] MEDS ORDERED: POTASSIUM CHLORIDE ER 20 MEQ TAB.ER PO STA (19:04)
[2018-03-22] MEDS ORDERED: POTASSIUM CHLORIDE ER 20 MEQ TAB.ER PO SCH (21:00)
[2018-03-23] MEDS ORDERED: POTASSIUM CHLORIDE ER 20 MEQ TAB.ER PO STA ×2 (06:58→13:27)
[2018-03-23] MEDS: MAGNESIUM OXIDE 400 MG TAB PO SCH (08:14)
[2018-03-23] MEDS: SPIRONOLACTONE 25 MG TAB PO SCH (08:14)
[2018-03-23] MEDS: IBUPROFEN 200 MG TAB PO SCH (08:14)
[2018-03-23] MEDS: POTASSIUM CHLORIDE ER 20 MEQ TAB.ER PO SCH (08:15)
[2018-03-23] MEDS: lamoTRIgine 25 MG TAB PO SCH (08:15)
[2018-03-23] MEDS: hydrOXYzine HCL 25 MG TAB PO SCH (08:16)
[2018-03-23 08:22] VITALS: PULSE 65
[2018-03-23] MEDS: POTASSIUM CHLORIDE 10 MEQ in WATER FOR INJECTION 1 100ML.BAG IVPB SCH ×3 (10:26→14:13)
[2018-03-23 11:26] VITALS: BP 101/55; TEMP 97.7
[2018-03-23] MEDS: NON-FORMULARY DRUG (Dextroamphetamine/Amphetamine [Adderall] 20 MG) PO SCH (12:06)
--- NOTE | 2018-03-23 13:39 | P.PN ---
Subjective Progress Note Date: 03/23/18 This is a 22-year-old female patient of Dr. 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 Patient follows with Nikki Carrillo as well. Patient gives history that she stopped taking her potassium about a month ago because she is tired of taking 13 pills per day for that. She is complaining of muscle pain in legs cramps as well as dizziness. She has some numbness and tingling in her feet that comes and goes. She did have leg cramps earlier today. She came into [facility] emergency center for evaluation. Her vital signs were stable. Potassium 2.1, sodium 142, chloride 97 and CO2 31. EKG was in normal sinus rhythm at rate of 76. Patient was started on oral and IV potassium as well as IV magnesium and admitted to the selective care unit. Repeat potassium is 2.3. Patient is receiving additional 100 mEq of potassium on top of her normally scheduled 90 mEq twice daily. A repeat potassium is ordered for 5 PM. 03/22: Repeat potassium yesterday afternoon was 2.6. Patient received an additional 180 mEq of potassium and potassium level this morning is at 3.0. She has been ordered 120 mEq of potassium on top of her 90 mEq twice daily controlled. Plan is to continue monitoring her potassium level and replacing overnight. Anticipate discharge home. Patient does verbalize that she plans to discontinue potassium when she goes home. She does understand that this will affect her heart and she could have a heart attack in his potential . She denies any chest pain or shortness of breath at this time. Dietitian is to meet with the patient regarding high potassium diet. Patient states that she has been told about a potassium diet but she has difficulty due to cost and lack of support at home. Consult with social work has been added. Consult with nephrology. 03/23: Repeat potassium this morning is 2.9. Additional 80meq to be given today. Patient is undergoing replacement along with her scheduled potassium. Patient has been seen by Dr. Kay with recommendations to continue potassium supplementation and add in ibuprofen 200 mg 3 times daily and keep magnesium level at 2. Patient has met with the dietitian and has been provided with a potassium-rich diet options. Psychiatric consult added re patient stating she will not take potassium when she goes home. Objective - Vital Signs Vital signs: Vital Signs Temp 98.7 F 03/23/18 00:00 Pulse 85 03/23/18 04:00 Resp 16 03/23/18 04:00 BP 104/55 03/23/18 00:00 Pulse Ox 97 03/23/18 00:00 Intake & Output 03/22/18 03/23/18 03/23/18 18:59 06:59 18:59 Intake Total 1080 Output Total 800 Balance 1080 -800 Weight 101.1 kg 103.6 kg Intake: Oral 1080 Output: Urine 800 Other: Voiding Method Toilet Toilet # Voids 2 1 # Bowel Movements 0 0 - Exam Gen: This is a obese 30-year-old female. She is cooperative and appears to be in no acute distress. HEENT: Head is atraumatic, normocephalic. Pupils equal, round. Sclerae is anicteric. NECK: Supple. No JVD. No lymphadenopathy. No thyromegaly. LUNGS: Clear to auscultation. No wheezes or rhonchi. No intercostal retractions. HEART: Regular rate and rhythm. No murmur. ABDOMEN: Soft. Bowel sounds are present. No masses. No tenderness. EXTREMITIES: No pedal edema. No calf tenderness. NEUROLOGICAL: Patient is awake, alert and oriented x3. Cranial nerves 2 through 12 are grossly intact. - Labs CBC & Chem 7: 03/21/18 06:23 03/23/18 05:55 Labs: Abnormal Lab Results - Last 24 Hours (Table) 03/22/18 03/23/18 Range/Units 14:49 05:55 Potassium 3.3 L 2.9 L* (3.5-5.1) mmol/L Assessment and Plan Plan: 1. Severe hypokalemia secondary to noncompliance with medication for the pastmonth with history of Bartter syndrome. Patient will be resumed on potassium 90 mEq twice daily and additional 80 meq given today. Recheck potassium level at 2 PM and again in the morning. Continue spironolactone 25 mg twice daily. Continue cardiac monitoring. Nephrology consult is appreciated. Ibuprofen 200 mg 3 times daily added. Monitor magnesium. Patient met with dietitian regarding potassium rich diet. 2. Hypomagnesemia status post replacement. Recheck level in the morning. 3. PCOS. Continue metformin 500 mg at supper. 4. Seasonal ALLERGIES, stable. 5. Bipolar, generalized anxiety disorder and recurrent depression. Patient is on Invega once monthly and Lamictal 75 mg daily. Psychiatric consult added as patient is stating that she will not take her potassium when she goes home. She states that nothing has worked and I don't know why you're trying. Discharge plan: Return home Impression and plan of care have been directed as dictated by the signing physician. Anabelle Talbert nurse practitioner acting as scribe for signing physician.
[2018-03-23 14:18] LABS: Magnesium 1.6 mg/dL (1.6-2.3); Potassium 4.3 mmol/L (3.5-5.1)
[2018-03-23] MEDS ORDERED: MAGNESIUM OXIDE 400 MG TAB PO STA (14:36)
--- NOTE | 2018-03-23 15:21 | P.DS ---
Providers Date of admission: 03/20/18 21:45 Expected date of discharge: 03/23/18 Attending physician: Saul Muñoz MD Primary care physician: Ugo Friedman [facility] Course: This is a 22-year-old female patient of Dr. 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 Patient follows with Nikki Carrillo as well. Patient gives history that she stopped taking her potassium about a month ago because she is tired of taking 13 pills per day for that. She is complaining of muscle pain in legs cramps as well as dizziness. She has some numbness and tingling in her feet that comes and goes. She did have leg cramps earlier today. She came into [facility] emergency center for evaluation. Her vital signs were stable. Potassium 2.1, sodium 142, chloride 97 and CO2 31. EKG was in normal sinus rhythm at rate of 76. Patient was started on oral and IV potassium as well as IV magnesium and admitted to the selective care unit. Repeat potassium is 2.3. Patient is receiving additional 100 mEq of potassium on top of her normally scheduled 90 mEq twice daily. A repeat potassium is ordered for 5 PM. 03/22: Repeat potassium yesterday afternoon was 2.6. Patient received an additional 180 mEq of potassium and potassium level this morning is at 3.0. She has been ordered 120 mEq of potassium on top of her 90 mEq twice daily controlled. Plan is to continue monitoring her potassium level and replacing overnight. Anticipate discharge home. Patient does verbalize that she plans to discontinue potassium when she goes home. She does understand that this will affect her heart and she could have a heart attack in his potential . She denies any chest pain or shortness of breath at this time. Dietitian is to meet with the patient regarding high potassium diet. Patient states that she has been told about a potassium diet but she has difficulty due to cost and lack of support at home. Consult with social work has been added. Consult with nephrology. 03/23: Repeat potassium this morning is 2.9. Additional 80meq to be given today. Patient is undergoing replacement along with her scheduled potassium. Patient has been seen by Dr. Kay with recommendations to continue potassium supplementation and add in ibuprofen 200 mg 3 times daily and keep magnesium level at 2. Patient has met with the dietitian and has been provided with a potassium-rich diet options. Psychiatric consult added re patient stating she will not take potassium when she goes home. Discharge diagnoses: 1. Severe hypokalemia secondary to noncompliance with medication for the past month with history of Bartter syndrome. 2. Hypomagnesemia status post replacement. 3. PCOS. 4. Seasonal ALLERGIES, stable. 5. Bipolar, generalized anxiety disorder and recurrent depression. Discharge plan: Return home Impression and plan of care have been directed as dictated by the signing physician. Anabelle Talbert nurse practitioner acting as scribe for signing physician. Patient Condition at Discharge: Good Plan - Discharge Summary Discharge Rx Participant: No New Discharge Prescriptions: New Ibuprofen [Advil] 200 mg PO TID #90 tab Magnesium Oxide [Mag-Ox] 400 mg PO BID #60 tab Continue aMILoride HCL 5 mg PO BID hydrOXYzine HCL [Atarax] 50 mg PO DAILY Dextroamphetamine/Amphetamine [Adderall] 20 mg PO BID@0500,1500 lamoTRIgine [LaMICtal] 75 mg PO DAILY metFORMIN HCL [Glucophage] 500 mg PO W/SUPPER Potassium Chloride ER [K-Dur 20] 90 meq PO BID Paliperidone IM [Invega Sustenna] 156 mg IM Q30D Discontinued Magnesium Oxide [Magnesium] 500 mg PO DAILY Discharge Medication List aMILoride HCL 5 mg PO BID 03/04/14 [History] hydrOXYzine HCL [Atarax] 50 mg PO DAILY 03/22/16 [History] Dextroamphetamine/Amphetamine [Adderall] 20 mg PO BID@0500,1500 03/12/17 [ History] lamoTRIgine [LaMICtal] 75 mg PO DAILY 03/12/17 [History] Potassium Chloride ER [K-Dur 20] 90 meq PO BID 12/20/17 [History] metFORMIN HCL [Glucophage] 500 mg PO W/SUPPER 12/20/17 [History] Paliperidone IM [Invega Sustenna] 156 mg IM Q30D 03/20/18 [History] Ibuprofen [Advil] 200 mg PO TID #90 tab 03/23/18 [Rx] Magnesium Oxide [Mag-Ox] 400 mg PO BID #60 tab 03/23/18 [Rx] Follow up Appointment(s)/Referral(s): Kelly Kay MD [STAFF PHYSICIAN] - 1 Week Ugo Friedman DO [Primary Care Provider] - 1-2 days (Office will call you with hospital follow up appointment.) Activity/Diet/Wound Care/Special Instructions: Follow up with [facility] in 1 day. Follow high potassium diet. Discharge Disposition: HOME SELF-CARE
[2018-03-23] MEDS ORDERED: MAGNESIUM OXIDE 400 MG TAB PO SCH (21:00)
--- NOTE | 2018-03-27 17:17 | CDI ---
Last Revision, August 2017 Documentation Clarification Form Date: 03/27/18 From: Joycelyn Adin Dayna Garrett, Loan Review Officer Hours-8:30 am & 5 pm M-F Admit Date: 03/20/2018 9:45:00 PM Patient Name: Svetlana Green Visit Number: [id number] Discharge Date: 03/23/18 ATTENTION: The Clinical Documentation Specialists (CDI) and [employer] Coding Staff appreciate your assistance in clarifying documentation. Please respond to the clarification below the line at the bottom and electronically sign. The CDI & [employer] Coding staff will review the response and follow-up if needed. Please note: Queries are made part of the Legal Health Record. If you have any questions, please contact the author of this message via ITS. Dr. Saul Muñoz For patients <21 years of age, it is required to document BMI via the Pediatric BMI metric instead of the Adult BMI metric. Height: 5 feet 6 inches Weight: 103.6 kg Date of : 1995 The choices for assigning Pediatric BMI percentile are: Less than 5th percentile 5th to less than 85th 85th to less than 95th Greater than or equal to 95th Unable to determine Please continue to document in your progress notes and discharge summary in order to capture severity of illness and risk of mortality. Include clinical findings that support your diagnosis. unable to determine MTDD
== END 2018-03-23 15:44 | disposition home or self-care (01) | DRG 641 ==
LOC: EC 15:38 → 6SEL 21:45
PROVIDERS: ADMIT Internal Medicine; ATTEND Internal Medicine
DX: E87.6 Hypokalemia (principal); F33.9 Major depressive disorder, recurrent, unspecified; E26.81 Bartter's syndrome; E83.42 Hypomagnesemia; F41.1 Generalized anxiety disorder; E28.2 Polycystic ovarian syndrome; J30.2 Other seasonal allergic rhinitis; F90.9 Attention-deficit hyperactivity disorder, unspecified type; N28.9 Disorder of kidney and ureter, unspecified; E66.9 Obesity, unspecified; F17.210 Nicotine dependence, cigarettes, uncomplicated; Z71.6 Tobacco abuse counseling; Z91.14 Patient's other noncompliance with medication regimen; Z71.3 Dietary counseling and surveillance; Z79.84 Long term (current) use of oral hypoglycemic drugs; Z79.899 Other long term (current) drug therapy; Z88.8 Allergy status to other drugs, medicaments and biological substances; Z83.3 Family history of diabetes mellitus; Z81.8 Family history of other mental and behavioral disorders; Z82.0 Family history of epilepsy and other diseases of the nervous system
CPT/HCPCS: 36415; 80048; 80053; 81001; 81025; 83735; 84100; 84132; 85025; 93005; 96365; 96366; 96368; 99285

== ENCOUNTER → 2018-03-20 | Outpatient (CLI) | payer OTHER | END | disposition home or self-care (01) | LOC: LABWHC1 12:32 | PROVIDERS: ATTEND Nurse Practitioner Family | DX: E87.6 Hypokalemia (principal) | CPT/HCPCS: 36415; 84132 ==

== ENCOUNTER 2018-04-24 21:56 | Emergency (ER) | payer OTHER ==
--- NOTE | 2018-04-24 22:57 | ED ---
Psych HPI - General Chief Complaint: Psychiatric Symptoms Stated Complaint: mental health Time Seen by Provider: 04/24/18 22:24 Source: patient Mode of arrival: ambulatory - History of Present Illness Initial Comments: This patient is 22-year-old woman with history of previous depression, who states that she has been having worsening of her mood for about the past 3 weeks. She states that she also has been having suicidal ideation, and states that she is concerned she may overdose. MD Complaint: suicidal ideation, feels depressed Onset/Timin -: week(s) Associated Psychiatric Symptoms: depression, suicidal ideation History of same: Yes Quality: getting worse Improves With: none Worsens With: none Associated Symptoms: denies other symptoms - Related Data Home Medications Medication Instructions Recorded Confirmed aMILoride HCL 5 mg PO BID 03/04/14 04/24/18 hydrOXYzine HCL [Atarax] 50 mg PO DAILY@1100 PRN 03/22/16 04/24/18 Dextroamphetamine/Amphetamine 20 mg PO BID@0500,1500 03/12/17 04/24/18 [Adderall] lamoTRIgine [LaMICtal] 75 mg PO DAILY 03/12/17 04/24/18 Potassium Chloride ER [K-Dur 20] 90 meq PO BID 12/20/17 04/24/18 metFORMIN HCL [Glucophage] 500 mg PO AC-SUPPER 12/20/17 04/24/18 Paliperidone IM [Invega Sustenna] 156 mg IM Q28D 03/20/18 04/24/18 Magnesium Oxide [Mag-Ox] 500 mg PO DAILY 04/24/18 04/24/18 Allergies Allergy/AdvReac Type Severity Reaction Status Date / Time risperidone [From Risperdal] AdvReac MUSCLE Verified 04/24/18 22:32 SPASMS Review of Systems ROS Statement: Those systems with pertinent positive or pertinent negative responses have been documented in the HPI. ROS Other: All systems not noted in ROS Statement are negative. Respiratory: Denies: cough, dyspnea Cardiovascular: Denies: chest pain, palpitations Gastrointestinal: Denies: abdominal pain, vomiting Musculoskeletal: Denies: back pain Skin: Denies: rash Neurological: Denies: headache Past Medical History Past Medical History: Renal Disease Additional Past Medical History / Comment(s): Bartter syndrome ( low potassium) , anxiety, bipolar, depression, ADHD History of Any Multi-Drug Resistant Organisms: None Reported Past Surgical History: Tonsillectomy Additional Past Surgical History / Comment(s): wisdom teeth 2016 Past Anesthesia/Blood Transfusion Reactions: No Reported Reaction Past Psychological History: ADD/ADHD, Anxiety, Bipolar, Depression Smoking Status: Current every day smoker Past Alcohol Use History: None Reported Past Drug Use History: None Reported - Past Family History Mother Additional Family Medical History / Comment(s): Mother is alive at age 40 with no major medical problems. Pt states Alzheimers and Bipolar disorder runs on her mother's side. Sister(s) Family Medical History: Diabetes Mellitus Additional Family Medical History / Comment(s): Patient has 4 half-sisters. Brother(s) Additional Family Medical History / Comment(s): Patient has 5 or 6 half- brothers with no major medical problems. Patient does not have any children. Father Additional Family Medical History / Comment(s): Father is alive at age 55 and patient has no contact with him as he is in senior care. General Exam Limitations: no limitations General appearance: alert, in no apparent distress, obese Head exam: Present: atraumatic, normocephalic Eye exam: Present: normal appearance Neck exam: Present: normal inspection Respiratory exam: Present: normal lung sounds bilaterally. Absent: respiratory distress, wheezes, rales, rhonchi, stridor Cardiovascular Exam: Present: regular rate, normal rhythm, normal heart sounds. Absent: systolic murmur, diastolic murmur, rubs, gallop GI/Abdominal exam: Present: soft. Absent: distended, tenderness, guarding, rebound Extremities exam: Present: normal inspection, normal capillary refill Neurological exam: Present: alert, normal gait Psychiatric exam: Present: normal affect, depressed, suicidal ideation. Absent : agitated, anxious, flat affect, manic, homicidal ideation Skin exam: Present: warm, dry, intact, normal color. Absent: rash Course Vital Signs 04/24/18 22:16 Temperature 98.5 F Pulse Rate 94 Respiratory 20 Rate Blood Pressure 98/65 O2 Sat by Pulse 98 Oximetry Medical Decision Making - Lab Data Result diagrams: 04/24/18 23:11 04/24/18 23:11 Lab Results 04/24/18 04/24/18 04/24/18 Range/Units 23:11 23:11 23:12 WBC 10.1 (4.0-11.0) k/uL RBC 4.65 (3.80-5.40) m/uL Hgb 13.1 (11.4-16.0) gm/dL Hct 38.9 (34.0-46.0) % MCV 83.7 (80.0-100.0) fL MCH 28.2 (25.0-35.0) pg MCHC 33.7 (31.0-37.0) g/dL RDW 14.0 (11.5-15.5) % Plt Count 404 (150-450) k/uL Neutrophils % 69 % Lymphocytes % 24 % Monocytes % 3 % Eosinophils % 2 % Basophils % 0 % Neutrophils # 7.0 (1.3-7.7) k/uL Lymphocytes # 2.5 (1.0-4.8) k/uL Monocytes # 0.3 (0-1.0) k/uL Eosinophils # 0.2 (0-0.7) k/uL Basophils # 0.0 (0-0.2) k/uL Sodium 141 (137-145) mmol/L Potassium 2.6 L* (3.5-5.1) mmol/L Chloride 100 (98-107) mmol/L Carbon Dioxide 29 (22-30) mmol/L Anion Gap 12 mmol/L BUN 14 (7-17) mg/dL Creatinine 0.60 (0.52-1.04) mg/dL Est GFR (CKD-EPI)AfAm >90 (>60 ml/min/1.73 sqM) Est GFR (CKD-EPI)NonAf >90 (>60 ml/min/1.73 sqM) Glucose 103 H (74-99) mg/dL Calcium 9.4 (8.4-10.2) mg/dL Total Bilirubin 0.2 (0.2-1.3) mg/dL AST 37 H (14-36) U/L ALT 54 H (9-52) U/L Alkaline Phosphatase 45 (38-126) U/L Total Protein 7.1 (6.3-8.2) g/dL Albumin 4.3 (3.5-5.0) g/dL Urine HCG, Qual Not Detected (Not Detectd) Urine Opiates Screen (NotDetected) Ur Oxycodone Screen (NotDetected) Urine Methadone Screen (NotDetected) Ur Propoxyphene Screen (NotDetected) Ur Barbiturates Screen (NotDetected) U Tricyclic Antidepress (NotDetected) Ur Phencyclidine Scrn (NotDetected) Ur Amphetamines Screen (NotDetected) U Methamphetamines Scrn (NotDetected) U Benzodiazepines Scrn (NotDetected) Urine Cocaine Screen (NotDetected) U Marijuana (THC) Screen (NotDetected) 04/24/18 Range/Units 23:12 WBC (4.0-11.0) k/uL RBC (3.80-5.40) m/uL Hgb (11.4-16.0) gm/dL Hct (34.0-46.0) % MCV (80.0-100.0) fL MCH (25.0-35.0) pg MCHC (31.0-37.0) g/dL RDW (11.5-15.5) % Plt Count (150-450) k/uL Neutrophils % % Lymphocytes % % Monocytes % % Eosinophils % % Basophils % % Neutrophils # (1.3-7.7) k/uL Lymphocytes # (1.0-4.8) k/uL Monocytes # (0-1.0) k/uL Eosinophils # (0-0.7) k/uL Basophils # (0-0.2) k/uL Sodium (137-145) mmol/L Potassium (3.5-5.1) mmol/L Chloride (98-107) mmol/L Carbon Dioxide (22-30) mmol/L Anion Gap mmol/L BUN (7-17) mg/dL Creatinine (0.52-1.04) mg/dL Est GFR (CKD-EPI)AfAm (>60 ml/min/1.73 sqM) Est GFR (CKD-EPI)NonAf (>60 ml/min/1.73 sqM) Glucose (74-99) mg/dL Calcium (8.4-10.2) mg/dL Total Bilirubin (0.2-1.3) mg/dL AST (14-36) U/L ALT (9-52) U/L Alkaline Phosphatase (38-126) U/L Total Protein (6.3-8.2) g/dL Albumin (3.5-5.0) g/dL Urine HCG, Qual (Not Detectd) Urine Opiates Screen Not Detected (NotDetected) Ur Oxycodone Screen Not Detected (NotDetected) Urine Methadone Screen Not Detected (NotDetected) Ur Propoxyphene Screen Not Detected (NotDetected) Ur Barbiturates Screen Not Detected (NotDetected) U Tricyclic Antidepress Not Detected (NotDetected) Ur Phencyclidine Scrn Not Detected (NotDetected) Ur Amphetamines Screen Not Detected (NotDetected) U Methamphetamines Scrn Not Detected (NotDetected) U Benzodiazepines Scrn Not Detected (NotDetected) Urine Cocaine Screen Not Detected (NotDetected) U Marijuana (THC) Screen Not Detected (NotDetected) Disposition Clinical Impression: Depression, Hypokalemia Disposition: HOME SELF-CARE Condition: Good Is patient prescribed a controlled substance at d/c from ED?: No Referrals: Ugo Friedman DO [Primary Care Provider] - 1-2 days
[2018-04-24 23:22] LABS: Basophils % (A) 0 %; Eosinophils # (A) 0.2 k/uL (0-0.7); Eosinophils % (A) 2 %; HCT 38.9 % (34.0-46.0); HGB 13.1 gm/dL (11.4-16.0); Lymphocytes # (A) 2.5 k/uL (1.0-4.8); Lymphocytes % (A) 24 %; MCH 28.2 pg (25.0-35.0); MCHC 33.7 g/dL (31.0-37.0); MCV 83.7 fL (80.0-100.0); Mean Platelet Volume 6.5; Monocytes # (A) 0.3 k/uL (0-1.0); Monocytes % (A) 3 %; Neutrophils % (A) 69 %; Platelet Count 404 k/uL (150-450); RBC 4.65 m/uL (3.80-5.40); WBC 10.1 k/uL (4.0-11.0)
[2018-04-24 23:30] LABS: Amphetamine Screen,Urine Not Detected (NotDetected); Barbiturate Screen,Urine Not Detected (NotDetected); Benzodiazepines Screen,Urine Not Detected (NotDetected); Cocaine Screen,Urine Not Detected (NotDetected); Methadone Screen, Urine Not Detected (NotDetected); Opiate Screen,Urine Not Detected (NotDetected); Oxycodone Screen, Urine Not Detected (NotDetected); Phencyclidine Screen,Urine Not Detected (NotDetected); Tricyclic Antidepressant,Urine Not Detected (NotDetected); Urn Cannabinoid Scrn Not Detected (NotDetected)
[2018-04-24 23:32] LABS: ALT 54 U/L (9-52); AST 37 U/L (14-36); Albumin 4.3 g/dL (3.5-5.0); Alkaline Phosphatase 45 U/L (38-126); Anion Gap 12 mmol/L; Blood Urea Nitrogen 14 mg/dL (7-17); Calcium 9.4 mg/dL (8.4-10.2); Carbon Dioxide 29 mmol/L (22-30); Chloride 100 mmol/L (98-107); Glucose 103 mg/dL (74-99); Sodium 141 mmol/L (137-145); Total Bilirubin 0.2 mg/dL (0.2-1.3); Total Protein 7.1 g/dL (6.3-8.2)
[2018-04-24 23:36] LABS: Potassium 2.6 mmol/L (3.5-5.1)
[2018-04-25] MEDS ORDERED: POTASSIUM BICARBONATE/CIT AC 20 MEQ TABLET.EFF PO ONE (00:35)
[2018-04-25 01:45] VITALS: BP 128/65; PULSE 82; RESP 16; TEMP 98.4
== END 2018-04-25 01:47 | disposition home or self-care (01) ==
LOC: EC 21:56
DX: F31.9 Bipolar disorder, unspecified (principal); E87.6 Hypokalemia; F41.9 Anxiety disorder, unspecified; F90.9 Attention-deficit hyperactivity disorder, unspecified type; F17.200 Nicotine dependence, unspecified, uncomplicated; Z79.84 Long term (current) use of oral hypoglycemic drugs; Z79.899 Other long term (current) drug therapy; Z88.8 Allergy status to other drugs, medicaments and biological substances
CPT/HCPCS: 36415; 80053; 80306; 81025; 82075; 85025; 99285

== ENCOUNTER 2018-04-28 07:02 | Emergency (ER) | payer OTHER ==
[2018-04-28] MEDS ORDERED: SODIUM CHLORIDE 0.9% 1,000 ML IV STA (07:32)
--- NOTE | 2018-04-28 08:08 | ED ---
General Adult HPI - General Chief complaint: Syncope Stated complaint: [facility]-SYNCOPE,HEAD INJURY Time Seen by Provider: 04/28/18 07:19 Source: patient, RN notes reviewed, old records reviewed Mode of arrival: ambulatory Limitations: no limitations - History of Present Illness Initial comments: This is a 22-year-old female the ER for evaluation of a syncopal event. Patient is history of Bartter's syndrome low potassium, patient recent change in medications. Denies headache chest pain shortness breath abdominal pain. Patient did have a syncopal event earlier in the day. Patient states she has history of multiple episodes of syncope, patient admits to eating and drinking appropriate. No significant recent medication changes. - Related Data Home Medications Medication Instructions Recorded Confirmed aMILoride HCL 5 mg PO BID 03/04/14 04/24/18 hydrOXYzine HCL [Atarax] 50 mg PO DAILY@1100 PRN 03/22/16 04/24/18 Dextroamphetamine/Amphetamine 20 mg PO BID@0500,1500 03/12/17 04/24/18 [Adderall] lamoTRIgine [LaMICtal] 75 mg PO DAILY 03/12/17 04/24/18 Potassium Chloride ER [K-Dur 20] 90 meq PO BID 12/20/17 04/24/18 metFORMIN HCL [Glucophage] 500 mg PO AC-SUPPER 12/20/17 04/24/18 Paliperidone IM [Invega Sustenna] 156 mg IM Q28D 03/20/18 04/24/18 Magnesium Oxide [Mag-Ox] 500 mg PO DAILY 04/24/18 04/24/18 Allergies Allergy/AdvReac Type Severity Reaction Status Date / Time risperidone [From Risperdal] AdvReac MUSCLE Verified 04/28/18 07:10 SPASMS Review of Systems ROS Statement: Those systems with pertinent positive or pertinent negative responses have been documented in the HPI. ROS Other: All systems not noted in ROS Statement are negative. Past Medical History Past Medical History: Renal Disease Additional Past Medical History / Comment(s): Bartter syndrome ( low potassium) , anxiety, bipolar, depression, ADHD History of Any Multi-Drug Resistant Organisms: None Reported Past Surgical History: Tonsillectomy Additional Past Surgical History / Comment(s): wisdom teeth 2016 Past Anesthesia/Blood Transfusion Reactions: No Reported Reaction Past Psychological History: ADD/ADHD, Anxiety, Bipolar, Depression Smoking Status: Current every day smoker Past Alcohol Use History: None Reported Past Drug Use History: None Reported - Past Family History Mother Additional Family Medical History / Comment(s): Mother is alive at age 40 with no major medical problems. Pt states Alzheimers and Bipolar disorder runs on her mother's side. Sister(s) Family Medical History: Diabetes Mellitus Additional Family Medical History / Comment(s): Patient has 4 half-sisters. Brother(s) Additional Family Medical History / Comment(s): Patient has 5 or 6 half- brothers with no major medical problems. Patient does not have any children. Father Additional Family Medical History / Comment(s): Father is alive at age 55 and patient has no contact with him as he is in custodial. General Exam Limitations: no limitations General appearance: alert, in no apparent distress Head exam: Present: atraumatic, normocephalic, normal inspection Eye exam: Present: normal appearance, PERRL, EOMI. Absent: scleral icterus, conjunctival injection, periorbital swelling ENT exam: Present: normal exam, mucous membranes moist Neck exam: Present: normal inspection. Absent: tenderness, meningismus, lymphadenopathy Respiratory exam: Present: normal lung sounds bilaterally. Absent: respiratory distress, wheezes, rales, rhonchi, stridor Cardiovascular Exam: Present: regular rate, normal rhythm, normal heart sounds. Absent: systolic murmur, diastolic murmur, rubs, gallop, clicks GI/Abdominal exam: Present: soft, normal bowel sounds. Absent: distended, tenderness, guarding, rebound, rigid Extremities exam: Present: normal inspection, full ROM, normal capillary refill. Absent: tenderness, pedal edema, joint swelling, calf tenderness Back exam: Present: normal inspection Neurological exam: Present: alert, oriented X3, CN II-XII intact Psychiatric exam: Present: normal affect, normal mood Skin exam: Present: warm, dry, intact, normal color. Absent: rash Course Vital Signs 04/28/18 04/28/18 04/28/18 07:08 09:15 10:09 Temperature 98.3 F 97.6 F Pulse Rate 70 74 71 Respiratory 20 16 18 Rate Blood Pressure 111/69 102/65 O2 Sat by Pulse 98 97 98 Oximetry EKG Findings - EKG Comments: EKG Findings:: EKG shows sinus rhythm rate of 72, AK 162, QRS 06, QTc 473 Medical Decision Making - Medical Decision Making 22-year-old female the ER was a syncope event, recurrent syncope. Patient potassium mildly low, patient will be discharged home if she is remains currently asymptomatic with no pain no headache no chest pain or shortness of breath or abdominal pain - Lab Data Result diagrams: 04/28/18 08:10 04/28/18 08:10 Lab Results 04/28/18 04/28/18 04/28/18 Range/Units 07:40 08:10 08:10 WBC 7.0 (4.0-11.0) k/uL RBC 5.11 (3.80-5.40) m/uL Hgb 14.9 (11.4-16.0) gm/dL Hct 42.9 (34.0-46.0) % MCV 83.9 (80.0-100.0) fL MCH 29.2 (25.0-35.0) pg MCHC 34.8 (31.0-37.0) g/dL RDW 14.0 (11.5-15.5) % Plt Count 442 (150-450) k/uL Neutrophils % 60 % Lymphocytes % 30 % Monocytes % 5 % Eosinophils % 2 % Basophils % 0 % Neutrophils # 4.2 (1.3-7.7) k/uL Lymphocytes # 2.1 (1.0-4.8) k/uL Monocytes # 0.4 (0-1.0) k/uL Eosinophils # 0.2 (0-0.7) k/uL Basophils # 0.0 (0-0.2) k/uL Sodium (137-145) mmol/L Potassium (3.5-5.1) mmol/L Chloride (98-107) mmol/L Carbon Dioxide (22-30) mmol/L Anion Gap mmol/L BUN (7-17) mg/dL Creatinine (0.52-1.04) mg/dL Est GFR (CKD-EPI)AfAm (>60 ml/min/1.73 sqM) Est GFR (CKD-EPI)NonAf (>60 ml/min/1.73 sqM) Glucose (74-99) mg/dL Calcium (8.4-10.2) mg/dL Phosphorus (2.5-4.5) mg/dL Magnesium (1.6-2.3) mg/dL Total Bilirubin (0.2-1.3) mg/dL AST (14-36) U/L ALT (9-52) U/L Alkaline Phosphatase (38-126) U/L Total Creatine Kinase 160 H (30-135) U/L CK-MB (CK-2) 1.7 (0.0-2.4) ng/mL CK-MB (CK-2) Rel Index 1.1 Troponin I <0.012 (0.000-0.034) ng/mL Total Protein (6.3-8.2) g/dL Albumin (3.5-5.0) g/dL Urine Color Light Yellow Urine Appearance Clear (Clear) Urine pH 7.0 (5.0-8.0) Ur Specific [place] 1.011 (1.001-1.035) Urine Protein Negative (Negative) Urine Glucose (UA) Negative (Negative) Urine Ketones Negative (Negative) Urine Blood Negative (Negative) Urine Nitrite Negative (Negative) Urine Bilirubin Negative (Negative) Urine Urobilinogen <2.0 (<2.0) mg/dL Ur Leukocyte Esterase Small H (Negative) Urine RBC <1 (0-5) /hpf Urine WBC 1 (0-5) /hpf Ur Squamous Epith Cells 6 H (0-4) /hpf Urine Bacteria Rare H (None) /hpf Urine Mucus Rare H (None) /hpf 04/28/18 Range/Units 08:10 WBC (4.0-11.0) k/uL RBC (3.80-5.40) m/uL Hgb (11.4-16.0) gm/dL Hct (34.0-46.0) % MCV (80.0-100.0) fL MCH (25.0-35.0) pg MCHC (31.0-37.0) g/dL RDW (11.5-15.5) % Plt Count (150-450) k/uL Neutrophils % % Lymphocytes % % Monocytes % % Eosinophils % % Basophils % % Neutrophils # (1.3-7.7) k/uL Lymphocytes # (1.0-4.8) k/uL Monocytes # (0-1.0) k/uL Eosinophils # (0-0.7) k/uL Basophils # (0-0.2) k/uL Sodium 141 (137-145) mmol/L Potassium 2.9 L* (3.5-5.1) mmol/L Chloride 101 (98-107) mmol/L Carbon Dioxide 27 (22-30) mmol/L Anion Gap 13 mmol/L BUN 11 (7-17) mg/dL Creatinine 0.63 (0.52-1.04) mg/dL Est GFR (CKD-EPI)AfAm >90 (>60 ml/min/1.73 sqM) Est GFR (CKD-EPI)NonAf >90 (>60 ml/min/1.73 sqM) Glucose 103 H (74-99) mg/dL Calcium 9.6 (8.4-10.2) mg/dL Phosphorus 3.3 (2.5-4.5) mg/dL Magnesium 1.9 (1.6-2.3) mg/dL Total Bilirubin 0.5 (0.2-1.3) mg/dL AST 32 (14-36) U/L ALT 56 H (9-52) U/L Alkaline Phosphatase 58 (38-126) U/L Total Creatine Kinase (30-135) U/L CK-MB (CK-2) (0.0-2.4) ng/mL CK-MB (CK-2) Rel Index Troponin I (0.000-0.034) ng/mL Total Protein 8.8 H (6.3-8.2) g/dL Albumin 4.9 (3.5-5.0) g/dL Urine Color Urine Appearance (Clear) Urine pH (5.0-8.0) Ur Specific [place] (1.001-1.035) Urine Protein (Negative) Urine Glucose (UA) (Negative) Urine Ketones (Negative) Urine Blood (Negative) Urine Nitrite (Negative) Urine Bilirubin (Negative) Urine Urobilinogen (<2.0) mg/dL Ur Leukocyte Esterase (Negative) Urine RBC (0-5) /hpf Urine WBC (0-5) /hpf Ur Squamous Epith Cells (0-4) /hpf Urine Bacteria (None) /hpf Urine Mucus (None) /hpf Disposition Clinical Impression: Vasovagal syncope, Hypokalemia, Syncope Disposition: HOME SELF-CARE Condition: Good Instructions: Syncope (ED) Is patient prescribed a controlled substance at d/c from ED?: No Referrals: Ugo Friedman DO [Primary Care Provider] - 1-2 days
[2018-04-28 08:11] LABS: Appearance,Urine Clear (Clear); Bacteria,Urine Rare /hpf; Bilirubin,Urine Negative (Negative); Blood,Urine Negative (Negative); Color,Urine Light Yellow; Glucose,Urine (UA) Negative (Negative); Ketones,Urine Negative (Negative); Leukocyte Esterase,Urine Small (Negative); Mucus,Urine Rare /hpf; Nitrite,Urine Negative (Negative); Protein,Urine Negative (Negative); RBC,Urine <1 /hpf (0-5); Specific Gravity,Urine 1.011 (1.001-1.035); Squamous Epithelial Cell,Urine 6 /hpf (0-4); Urobilinogen,Urine <2.0 mg/dL (<2.0); WBC,Urine 1 /hpf (0-5)
[2018-04-28 08:27] LABS: Basophils % (A) 0 %; Eosinophils # (A) 0.2 k/uL (0-0.7); Eosinophils % (A) 2 %; HCT 42.9 % (34.0-46.0); HGB 14.9 gm/dL (11.4-16.0); Lymphocytes # (A) 2.1 k/uL (1.0-4.8); Lymphocytes % (A) 30 %; MCH 29.2 pg (25.0-35.0); MCHC 34.8 g/dL (31.0-37.0); MCV 83.9 fL (80.0-100.0); Mean Platelet Volume 6.7; Monocytes # (A) 0.4 k/uL (0-1.0); Monocytes % (A) 5 %; Neutrophils # (A) 4.2 k/uL (1.3-7.7); Neutrophils % (A) 60 %; Platelet Count 442 k/uL (150-450); RBC 5.11 m/uL (3.80-5.40)
[2018-04-28 08:43] LABS: ALT 56 U/L (9-52); AST 32 U/L (14-36); Albumin 4.9 g/dL (3.5-5.0); Alkaline Phosphatase 58 U/L (38-126); Anion Gap 13 mmol/L; Blood Urea Nitrogen 11 mg/dL (7-17); Calcium 9.6 mg/dL (8.4-10.2); Carbon Dioxide 27 mmol/L (22-30); Chloride 101 mmol/L (98-107); Glucose 103 mg/dL (74-99); Magnesium 1.9 mg/dL (1.6-2.3); Phosphorus 3.3 mg/dL (2.5-4.5); Sodium 141 mmol/L (137-145); Total Bilirubin 0.5 mg/dL (0.2-1.3); Total Protein 8.8 g/dL (6.3-8.2)
[2018-04-28 08:56] LABS: Creatine Kinase 160 U/L (30-135)
[2018-04-28 09:02] LABS: Potassium 2.9 mmol/L (3.5-5.1)
[2018-04-28] MEDS ORDERED: POTASSIUM BICARBONATE/CIT AC 20 MEQ TABLET.EFF PO ONE (09:02)
[2018-04-28 09:08] LABS: Creatine Kinase MB 1.7 ng/mL (0.0-2.4); Troponin I <0.012 ng/mL (0.000-0.034)
[2018-04-28 09:19] VITALS: TEMP 97.6
[2018-04-28 10:10] VITALS: BP 102/65; PULSE 71; RESP 18
== END 2018-04-28 10:20 | disposition home or self-care (01) ==
LOC: EC 07:02
DX: E87.6 Hypokalemia (principal); R55 Syncope and collapse; F31.9 Bipolar disorder, unspecified; F90.9 Attention-deficit hyperactivity disorder, unspecified type; F17.200 Nicotine dependence, unspecified, uncomplicated; Z86.39 Personal history of other endocrine, nutritional and metabolic disease; Z79.84 Long term (current) use of oral hypoglycemic drugs; Z79.899 Other long term (current) drug therapy; Z88.8 Allergy status to other drugs, medicaments and biological substances
CPT/HCPCS: 36415; 80053; 81001; 82550; 82553; 83735; 84100; 84484; 85025; 87086; 93005; 96360; 96361; 99284

== ENCOUNTER 2018-05-17 21:30 | Emergency (ER) | payer OTHER ==
[2018-05-17 22:54] LABS: Appearance,Urine Clear (Clear); Bilirubin,Urine Negative (Negative); Blood,Urine Negative (Negative); Color,Urine Yellow; Glucose,Urine (UA) Negative (Negative); Ketones,Urine Negative (Negative); Leukocyte Esterase,Urine Trace (Negative); Mucus,Urine Rare /hpf; Nitrite,Urine Negative (Negative); Protein,Urine Trace (Negative); Specific Gravity,Urine 1.012 (1.001-1.035); Squamous Epithelial Cell,Urine 1 /hpf (0-4); Urobilinogen,Urine <2.0 mg/dL (<2.0); WBC,Urine 6 /hpf (0-5)
[2018-05-17 22:59] LABS: Amphetamine Screen,Urine Not Detected (NotDetected); Barbiturate Screen,Urine Not Detected (NotDetected); Benzodiazepines Screen,Urine Not Detected (NotDetected); Cocaine Screen,Urine Not Detected (NotDetected); Methadone Screen, Urine Not Detected (NotDetected); Opiate Screen,Urine Not Detected (NotDetected); Oxycodone Screen, Urine Not Detected (NotDetected); Phencyclidine Screen,Urine Not Detected (NotDetected); Tricyclic Antidepressant,Urine Not Detected (NotDetected); Urn Cannabinoid Scrn Not Detected (NotDetected)
--- NOTE | 2018-05-17 23:51 | ED ---
Psych HPI - General Source: patient Mode of arrival: ambulatory - History of Present Illness MD Complaint: suicidal ideation, feels depressed -: days(s) Associated Psychiatric Symptoms: depression, suicidal ideation History of same: Yes Quality: getting worse Improves With: none Worsens With: none <Elvis Hernandez - Last Filed: 05/17/18 23:51> <Daniel Perdomo - Last Filed: 05/18/18 11:45> - General Chief Complaint: Psychiatric Symptoms Stated Complaint: suicidal Time Seen by Provider: 05/17/18 23:33 - History of Present Illness Initial Comments: This patient is a 22-year-old woman who presents for psychiatric evaluation. The patient states that over the past few days her depression has been flaring. Today she was having persistent thoughts of suicide and of self-mutilation. She felt similar in December and was admitted to the psychiatric unit. Patient denies any specific exacerbating factors. (Elvis Hernandez) - Related Data Home Medications Medication Instructions Recorded Confirmed aMILoride HCL 5 mg PO BID 03/04/14 05/18/18 hydrOXYzine HCL [Atarax] 50 mg PO DAILY@1100 PRN 03/22/16 05/18/18 Dextroamphetamine/Amphetamine 20 mg PO BID@0500,1500 03/12/17 05/18/18 [Adderall] lamoTRIgine [LaMICtal] 75 mg PO DAILY 03/12/17 05/18/18 Potassium Chloride ER [K-Dur 20] 90 meq PO BID 12/20/17 05/18/18 metFORMIN HCL [Glucophage] 500 mg PO AC-SUPPER 12/20/17 05/18/18 Paliperidone IM [Invega Sustenna] 156 mg IM Q28D 03/20/18 05/18/18 Magnesium Oxide [Mag-Ox] 500 mg PO DAILY 04/24/18 05/18/18 hydrOXYzine PAMOATE [Vistaril] 50 mg PO DAILY 05/18/18 05/18/18 Allergies Allergy/AdvReac Type Severity Reaction Status Date / Time risperidone [From Risperdal] AdvReac MUSCLE Verified 05/18/18 08:13 SPASMS Review of Systems ROS Other: All systems not noted in ROS Statement are negative. Constitutional: Denies: fever, chills Respiratory: Denies: cough, dyspnea Cardiovascular: Denies: chest pain Gastrointestinal: Denies: abdominal pain, vomiting, diarrhea Genitourinary: Denies: dysuria Musculoskeletal: Denies: back pain Skin: Denies: rash Neurological: Denies: headache Psychiatric: Reports: depression, suicidal thoughts. Denies: auditory hallucinations, visual hallucinations, homicidal thoughts <Elvis Hernandez - Last Filed: 05/17/18 23:51> ROS Other: All systems not noted in ROS Statement are negative. <Daniel Perdomo Hossein - Last Filed: 05/18/18 11:45> ROS Statement: Those systems with pertinent positive or pertinent negative responses have been documented in the HPI. Past Medical History Past Medical History: Renal Disease Additional Past Medical History / Comment(s): Bartter syndrome ( low potassium) , anxiety, bipolar, depression, ADHD, History of Any Multi-Drug Resistant Organisms: None Reported Past Surgical History: Tonsillectomy Additional Past Surgical History / Comment(s): wisdom teeth 2016, Past Anesthesia/Blood Transfusion Reactions: No Reported Reaction Past Psychological History: ADD/ADHD, Anxiety, Bipolar, Depression Smoking Status: Current every day smoker Past Alcohol Use History: Occasional Past Drug Use History: Marijuana - Past Family History Mother Additional Family Medical History / Comment(s): Mother is alive at age 40 with no major medical problems. Pt states Alzheimers and Bipolar disorder runs on her mother's side. Sister(s) Family Medical History: Diabetes Mellitus Additional Family Medical History / Comment(s): Patient has 4 half-sisters. Brother(s) Additional Family Medical History / Comment(s): Patient has 5 or 6 half- brothers with no major medical problems. Patient does not have any children. Father Additional Family Medical History / Comment(s): Father is alive at age 55 and patient has no contact with him as he is in senior care. <Elvis Hernandez - Last Filed: 05/17/18 23:51> General Exam Limitations: no limitations General appearance: alert, in no apparent distress Head exam: Present: atraumatic, normocephalic Eye exam: Present: normal appearance. Absent: scleral icterus, conjunctival injection ENT exam: Present: normal oropharynx, mucous membranes moist Respiratory exam: Present: normal lung sounds bilaterally. Absent: respiratory distress, wheezes, rales, rhonchi, stridor Cardiovascular Exam: Present: regular rate, normal rhythm, normal heart sounds. Absent: systolic murmur, diastolic murmur, rubs, gallop GI/Abdominal exam: Present: soft. Absent: distended, tenderness, guarding, rebound, rigid, mass Extremities exam: Present: normal inspection, normal capillary refill Neurological exam: Present: alert, normal gait Skin exam: Present: warm, dry, intact, normal color. Absent: rash <Elvis Hernandez - Last Filed: 05/17/18 23:51> Vital Signs 05/17/18 05/18/18 05/18/18 22:18 03:31 05:47 Temperature 98.0 F Pulse Rate 72 Respiratory 18 16 16 Rate Blood Pressure 104/65 O2 Sat by Pulse 97 Oximetry 05/18/18 07:47 Temperature 97.1 F L Pulse Rate 96 Respiratory 16 Rate Blood Pressure 105/55 O2 Sat by Pulse 97 Oximetry Medical Decision Making <Elvis Hernandez - Last Filed: 05/17/18 23:51> - Lab Data Result diagrams: 05/18/18 00:50 05/18/18 00:50 <Daniel Perdomo - Last Filed: 05/18/18 11:45> - Medical Decision Making 22 female the ER for evaluation, patient presents for evaluation regarding psychiatric and suicidal ideation. Patient be transferred for inpatient psychiatric evaluation and treatment (Daniel Perdomo) - Lab Data Lab Results 05/17/18 05/17/18 05/18/18 Range/Units 22:23 22:23 00:50 WBC (4.0-11.0) k/uL RBC (3.80-5.40) m/uL Hgb (11.4-16.0) gm/dL Hct (34.0-46.0) % MCV (80.0-100.0) fL MCH (25.0-35.0) pg MCHC (31.0-37.0) g/dL RDW (11.5-15.5) % Plt Count (150-450) k/uL Neutrophils % % Lymphocytes % % Monocytes % % Eosinophils % % Basophils % % Neutrophils # (1.3-7.7) k/uL Lymphocytes # (1.0-4.8) k/uL Monocytes # (0-1.0) k/uL Eosinophils # (0-0.7) k/uL Basophils # (0-0.2) k/uL Sodium 139 (137-145) mmol/L Potassium 2.2 L* (3.5-5.1) mmol/L Chloride 99 (98-107) mmol/L Carbon Dioxide 31 H (22-30) mmol/L Anion Gap 9 mmol/L BUN 7 (7-17) mg/dL Creatinine 0.52 (0.52-1.04) mg/dL Est GFR (CKD-EPI)AfAm >90 (>60 ml/min/1.73 sqM) Est GFR (CKD-EPI)NonAf >90 (>60 ml/min/1.73 sqM) Glucose 100 H (74-99) mg/dL Calcium 9.6 (8.4-10.2) mg/dL Urine Color Yellow Urine Appearance Clear (Clear) Urine pH 8.0 (5.0-8.0) Ur Specific [place] 1.012 (1.001-1.035) Urine Protein Trace H (Negative) Urine Glucose (UA) Negative (Negative) Urine Ketones Negative (Negative) Urine Blood Negative (Negative) Urine Nitrite Negative (Negative) Urine Bilirubin Negative (Negative) Urine Urobilinogen <2.0 (<2.0) mg/dL Ur Leukocyte Esterase Trace H (Negative) Urine WBC 6 H (0-5) /hpf Ur Squamous Epith Cells 1 (0-4) /hpf Urine Mucus Rare H (None) /hpf Urine HCG, Qual Not Detected (Not Detectd) Urine Opiates Screen Not Detected (NotDetected) Ur Oxycodone Screen Not Detected (NotDetected) Urine Methadone Screen Not Detected (NotDetected) Ur Propoxyphene Screen Not Detected (NotDetected) Ur Barbiturates Screen Not Detected (NotDetected) U Tricyclic Antidepress Not Detected (NotDetected) Ur Phencyclidine Scrn Not Detected (NotDetected) Ur Amphetamines Screen Not Detected (NotDetected) U Methamphetamines Scrn Not Detected (NotDetected) U Benzodiazepines Scrn Not Detected (NotDetected) Urine Cocaine Screen Not Detected (NotDetected) U Marijuana (THC) Screen Not Detected (NotDetected) Serum Alcohol <10 mg/dL 05/18/18 Range/Units 00:50 WBC 8.0 (4.0-11.0) k/uL RBC 4.67 (3.80-5.40) m/uL Hgb 13.5 (11.4-16.0) gm/dL Hct 39.1 (34.0-46.0) % MCV 83.8 (80.0-100.0) fL MCH 29.0 (25.0-35.0) pg MCHC 34.6 (31.0-37.0) g/dL RDW 14.1 (11.5-15.5) % Plt Count 379 (150-450) k/uL Neutrophils % 68 % Lymphocytes % 22 % Monocytes % 5 % Eosinophils % 3 % Basophils % 0 % Neutrophils # 5.4 (1.3-7.7) k/uL Lymphocytes # 1.8 (1.0-4.8) k/uL Monocytes # 0.4 (0-1.0) k/uL Eosinophils # 0.2 (0-0.7) k/uL Basophils # 0.0 (0-0.2) k/uL Sodium (137-145) mmol/L Potassium (3.5-5.1) mmol/L Chloride (98-107) mmol/L Carbon Dioxide (22-30) mmol/L Anion Gap mmol/L BUN (7-17) mg/dL Creatinine (0.52-1.04) mg/dL Est GFR (CKD-EPI)AfAm (>60 ml/min/1.73 sqM) Est GFR (CKD-EPI)NonAf (>60 ml/min/1.73 sqM) Glucose (74-99) mg/dL Calcium (8.4-10.2) mg/dL Urine Color Urine Appearance (Clear) Urine pH (5.0-8.0) Ur Specific [place] (1.001-1.035) Urine Protein (Negative) Urine Glucose (UA) (Negative) Urine Ketones (Negative) Urine Blood (Negative) Urine Nitrite (Negative) Urine Bilirubin (Negative) Urine Urobilinogen (<2.0) mg/dL Ur Leukocyte Esterase (Negative) Urine WBC (0-5) /hpf Ur Squamous Epith Cells (0-4) /hpf Urine Mucus (None) /hpf Urine HCG, Qual (Not Detectd) Urine Opiates Screen (NotDetected) Ur Oxycodone Screen (NotDetected) Urine Methadone Screen (NotDetected) Ur Propoxyphene Screen (NotDetected) Ur Barbiturates Screen (NotDetected) U Tricyclic Antidepress (NotDetected) Ur Phencyclidine Scrn (NotDetected) Ur Amphetamines Screen (NotDetected) U Methamphetamines Scrn (NotDetected) U Benzodiazepines Scrn (NotDetected) Urine Cocaine Screen (NotDetected) U Marijuana (THC) Screen (NotDetected) Serum Alcohol mg/dL Disposition <Elvis Hernandez - Last Filed: 05/17/18 23:51> Is patient prescribed a controlled substance at d/c from ED?: No <Daniel Perdomo - Last Filed: 05/18/18 11:45> Clinical Impression: Suicidal ideation, Acute anxiety, Depression Disposition: TRANSFER TO PSYCH HOSP/UNIT Condition: Fair Referrals: Ugo Friedman DO [Primary Care Provider] - 1-2 days
[2018-05-18 00:58] LABS: Basophils % (A) 0 %; Eosinophils # (A) 0.2 k/uL (0-0.7); Eosinophils % (A) 3 %; HCT 39.1 % (34.0-46.0); HGB 13.5 gm/dL (11.4-16.0); Lymphocytes # (A) 1.8 k/uL (1.0-4.8); Lymphocytes % (A) 22 %; MCHC 34.6 g/dL (31.0-37.0); MCV 83.8 fL (80.0-100.0); Mean Platelet Volume 6.8; Monocytes # (A) 0.4 k/uL (0-1.0); Monocytes % (A) 5 %; Neutrophils # (A) 5.4 k/uL (1.3-7.7); Neutrophils % (A) 68 %; Platelet Count 379 k/uL (150-450); RBC 4.67 m/uL (3.80-5.40); RDW 14.1 % (11.5-15.5)
[2018-05-18 01:10] LABS: Alcohol <10 mg/dL; Anion Gap 9 mmol/L; Blood Urea Nitrogen 7 mg/dL (7-17); Calcium 9.6 mg/dL (8.4-10.2); Carbon Dioxide 31 mmol/L (22-30); Chloride 99 mmol/L (98-107); Glucose 100 mg/dL (74-99); Sodium 139 mmol/L (137-145)
[2018-05-18 01:54] LABS: Potassium 2.2 mmol/L (3.5-5.1)
[2018-05-18] MEDS ORDERED: POTASSIUM CHLORIDE ER 20 MEQ TAB.ER PO STA (02:10)
[2018-05-18 03:32] VITALS: RESP 16
[2018-05-18 07:50] VITALS: BP 105/55; PULSE 96; TEMP 97.1
== END 2018-05-18 16:18 ==
LOC: EC 21:30
DX: F31.9 Bipolar disorder, unspecified (principal); F41.9 Anxiety disorder, unspecified; R45.851 Suicidal ideations; F90.9 Attention-deficit hyperactivity disorder, unspecified type; F17.200 Nicotine dependence, unspecified, uncomplicated; Z79.84 Long term (current) use of oral hypoglycemic drugs; Z79.899 Other long term (current) drug therapy; Z88.8 Allergy status to other drugs, medicaments and biological substances
CPT/HCPCS: 36415; 80048; 80306; 80320; 81001; 81025; 82075; 85025; 99285

== ENCOUNTER 2018-07-16 18:34 | Emergency (ER) | payer OTHER ==
--- NOTE | 2018-07-16 19:50 | ED ---
Psych HPI - General Source: patient, RN notes reviewed, old records reviewed Mode of arrival: ambulatory - History of Present Illness MD Complaint: suicidal ideation, feels depressed -: unknown Associated Psychiatric Symptoms: depression, suicidal ideation, homicidal ideation, racing thoughts History of same: Yes Quality: constant Improves With: none Worsens With: none Associated Symptoms: denies other symptoms <Daniel Perdomo - Last Filed: 07/16/18 20:24> <Jean-Paul Arizmendi - Last Filed: 07/16/18 23:18> <Jean-Paul Driscoll - Last Filed: 07/17/18 08:56> - General Chief Complaint: Psychiatric Symptoms Stated Complaint: mental health Time Seen by Provider: 07/16/18 18:55 - History of Present Illness Initial Comments: This is a 22-year-old female to the ED for evaluation of suicidal thoughts. Patient with a jump into traffic. Patient is suicidal as well as homicidal. Denies drugs or alcohol, (Daniel Perdomo) - Related Data Home Medications Medication Instructions Recorded Confirmed Dextroamphetamine/Amphetamine 20 mg PO BID@0500,1500 03/12/17 07/17/18 [Adderall] lamoTRIgine [LaMICtal] 75 mg PO DAILY 03/12/17 07/17/18 Potassium Chloride ER [K-Dur 20] 100 meq PO BID 12/20/17 07/17/18 Paliperidone IM [Invega Sustenna] 156 mg IM Q28D 03/20/18 07/17/18 Magnesium Oxide [Mag-Ox] 400 mg PO BID 07/17/18 07/17/18 Venlafaxine HCl [Effexor XR] 75 mg PO DAILY 07/17/18 07/17/18 hydrOXYzine PAMOATE 25 mg PO TID PRN 07/17/18 07/17/18 Allergies Allergy/AdvReac Type Severity Reaction Status Date / Time risperidone [From Risperdal] AdvReac MUSCLE Verified 07/17/18 07:49 SPASMS Review of Systems ROS Other: All systems not noted in ROS Statement are negative. <Daniel Perdomo - Last Filed: 07/16/18 20:24> ROS Other: All systems not noted in ROS Statement are negative. <Jean-Paul Arizmendi - Last Filed: 07/16/18 23:18> ROS Other: All systems not noted in ROS Statement are negative. <Jean-Paul Driscoll - Last Filed: 07/17/18 08:56> ROS Statement: Those systems with pertinent positive or pertinent negative responses have been documented in the HPI. Past Medical History Past Medical History: Renal Disease Additional Past Medical History / Comment(s): Bartter syndrome ( low potassium) , anxiety, bipolar, depression, ADHD, History of Any Multi-Drug Resistant Organisms: None Reported Past Surgical History: Tonsillectomy Additional Past Surgical History / Comment(s): wisdom teeth 2016, Past Anesthesia/Blood Transfusion Reactions: No Reported Reaction Past Psychological History: ADD/ADHD, Anxiety, Bipolar, Depression Smoking Status: Current every day smoker Past Alcohol Use History: Occasional Past Drug Use History: None Reported - Past Family History Mother Additional Family Medical History / Comment(s): Mother is alive at age 40 with no major medical problems. Pt states Alzheimers and Bipolar disorder runs on her mother's side. Sister(s) Family Medical History: Diabetes Mellitus Additional Family Medical History / Comment(s): Patient has 4 half-sisters. Brother(s) Additional Family Medical History / Comment(s): Patient has 5 or 6 half- brothers with no major medical problems. Patient does not have any children. Father Additional Family Medical History / Comment(s): Father is alive at age 55 and patient has no contact with him as he is in correction. <Daniel Perdomo Hossein - Last Filed: 07/16/18 20:24> General Exam Limitations: no limitations General appearance: alert, in no apparent distress Head exam: Present: atraumatic, normocephalic, normal inspection Eye exam: Present: normal appearance, PERRL, EOMI. Absent: scleral icterus, conjunctival injection, periorbital swelling ENT exam: Present: normal exam, mucous membranes moist Neck exam: Present: normal inspection. Absent: tenderness, meningismus, lymphadenopathy Respiratory exam: Present: normal lung sounds bilaterally. Absent: respiratory distress, wheezes, rales, rhonchi, stridor Cardiovascular Exam: Present: regular rate, normal rhythm, normal heart sounds. Absent: systolic murmur, diastolic murmur, rubs, gallop, clicks GI/Abdominal exam: Present: soft, normal bowel sounds. Absent: distended, tenderness, guarding, rebound, rigid Extremities exam: Present: normal inspection, full ROM, normal capillary refill. Absent: tenderness, pedal edema, joint swelling, calf tenderness Back exam: Present: normal inspection Neurological exam: Present: alert, oriented X3, CN II-XII intact Psychiatric exam: Present: normal affect, normal mood Skin exam: Present: warm, dry, intact, normal color. Absent: rash <Daniel Perdomo - Last Filed: 07/16/18 20:24> Course <Daniel Perdomo - Last Filed: 07/16/18 20:24> <Jean-Paul Arizmendi - Last Filed: 07/16/18 23:18> <Jean-Paul Driscoll - Last Filed: 07/17/18 08:56> Vital Signs 07/16/18 18:39 Temperature 98.5 F Pulse Rate 89 Respiratory 18 Rate Blood Pressure 135/80 O2 Sat by Pulse 96 Oximetry - Reevaluation(s) Reevaluation #1: 07/16/18 20:25 Patient's medically clear for psychiatric evaluation (Daniel Perdomo) Reevaluation #2: 07/16/18 23:18 I did personally do a [id number] evaluation the patient patient is suicidal and depressed. I did fill out a physician clinical certificate on the patient. (Jean-Paul Arizmendi) Medical Decision Making <Daniel Perdomo - Last Filed: 07/16/18 20:24> <Jean-Paul Arizmendi - Last Filed: 07/16/18 23:18> - Lab Data Result diagrams: 07/17/18 01:16 07/17/18 01:16 <Jean-Paul Driscoll - Last Filed: 07/17/18 08:56> - Medical Decision Making 22-year-old female presented for mental health evaluation. Patient's care was signed out at shift change awaiting final EPS disposition. Patient was evaluated by EPS and will be transferred for further psychiatric care. She will be transferred to [facility]. (Jean-Paul Driscoll) - Lab Data Lab Results 07/17/18 07/17/18 07/17/18 Range/Units 01:16 01:16 01:16 WBC 9.8 (4.0-11.0) k/uL RBC 4.72 (3.80-5.40) m/uL Hgb 13.7 (11.4-16.0) gm/dL Hct 40.3 (34.0-46.0) % MCV 85.5 (80.0-100.0) fL MCH 29.0 (25.0-35.0) pg MCHC 33.9 (31.0-37.0) g/dL RDW 14.0 (11.5-15.5) % Plt Count 384 (150-450) k/uL Neutrophils % 58 % Lymphocytes % 34 % Monocytes % 5 % Eosinophils % 2 % Basophils % 0 % Neutrophils # 5.7 (1.3-7.7) k/uL Lymphocytes # 3.3 (1.0-4.8) k/uL Monocytes # 0.5 (0-1.0) k/uL Eosinophils # 0.2 (0-0.7) k/uL Basophils # 0.0 (0-0.2) k/uL Sodium (137-145) mmol/L Potassium (3.5-5.1) mmol/L Chloride (98-107) mmol/L Carbon Dioxide (22-30) mmol/L Anion Gap mmol/L BUN (7-17) mg/dL Creatinine (0.52-1.04) mg/dL Est GFR (CKD-EPI)AfAm (>60 ml/min/1.73 sqM) Est GFR (CKD-EPI)NonAf (>60 ml/min/1.73 sqM) Glucose (74-99) mg/dL Calcium (8.4-10.2) mg/dL Total Bilirubin (0.2-1.3) mg/dL AST (14-36) U/L ALT (9-52) U/L Alkaline Phosphatase (38-126) U/L Total Protein (6.3-8.2) g/dL Albumin (3.5-5.0) g/dL Urine Color Light Yellow Urine Appearance Clear (Clear) Urine pH 7.0 (5.0-8.0) Ur Specific [place] 1.008 (1.001-1.035) Urine Protein Negative (Negative) Urine Glucose (UA) Negative (Negative) Urine Ketones Negative (Negative) Urine Blood Negative (Negative) Urine Nitrite Negative (Negative) Urine Bilirubin Negative (Negative) Urine Urobilinogen <2.0 (<2.0) mg/dL Ur Leukocyte Esterase Small H (Negative) Urine RBC <1 (0-5) /hpf Urine WBC 3 (0-5) /hpf Ur Squamous Epith Cells 2 (0-4) /hpf Urine Bacteria Rare H (None) /hpf Urine Mucus Rare H (None) /hpf Urine HCG, Qual Not Detected (Not Detectd) Urine Opiates Screen Not Detected (NotDetected) Ur Oxycodone Screen Not Detected (NotDetected) Urine Methadone Screen Not Detected (NotDetected) Ur Propoxyphene Screen Not Detected (NotDetected) Ur Barbiturates Screen Not Detected (NotDetected) U Tricyclic Antidepress Not Detected (NotDetected) Ur Phencyclidine Scrn Not Detected (NotDetected) Ur Amphetamines Screen Not Detected (NotDetected) U Methamphetamines Scrn Not Detected (NotDetected) U Benzodiazepines Scrn Not Detected (NotDetected) Urine Cocaine Screen Not Detected (NotDetected) U Marijuana (THC) Screen Not Detected (NotDetected) 07/17/18 Range/Units 01:16 WBC (4.0-11.0) k/uL RBC (3.80-5.40) m/uL Hgb (11.4-16.0) gm/dL Hct (34.0-46.0) % MCV (80.0-100.0) fL MCH (25.0-35.0) pg MCHC (31.0-37.0) g/dL RDW (11.5-15.5) % Plt Count (150-450) k/uL Neutrophils % % Lymphocytes % % Monocytes % % Eosinophils % % Basophils % % Neutrophils # (1.3-7.7) k/uL Lymphocytes # (1.0-4.8) k/uL Monocytes # (0-1.0) k/uL Eosinophils # (0-0.7) k/uL Basophils # (0-0.2) k/uL Sodium 137 (137-145) mmol/L Potassium 2.9 L (3.5-5.1) mmol/L Chloride 98 (98-107) mmol/L Carbon Dioxide 28 (22-30) mmol/L Anion Gap 11 mmol/L BUN 12 (7-17) mg/dL Creatinine 0.62 (0.52-1.04) mg/dL Est GFR (CKD-EPI)AfAm >90 (>60 ml/min/1.73 sqM) Est GFR (CKD-EPI)NonAf >90 (>60 ml/min/1.73 sqM) Glucose 104 H (74-99) mg/dL Calcium 9.9 (8.4-10.2) mg/dL Total Bilirubin 0.3 (0.2-1.3) mg/dL AST 23 (14-36) U/L ALT 39 (9-52) U/L Alkaline Phosphatase 71 (38-126) U/L Total Protein 7.7 (6.3-8.2) g/dL Albumin 4.5 (3.5-5.0) g/dL Urine Color Urine Appearance (Clear) Urine pH (5.0-8.0) Ur Specific [place] (1.001-1.035) Urine Protein (Negative) Urine Glucose (UA) (Negative) Urine Ketones (Negative) Urine Blood (Negative) Urine Nitrite (Negative) Urine Bilirubin (Negative) Urine Urobilinogen (<2.0) mg/dL Ur Leukocyte Esterase (Negative) Urine RBC (0-5) /hpf Urine WBC (0-5) /hpf Ur Squamous Epith Cells (0-4) /hpf Urine Bacteria (None) /hpf Urine Mucus (None) /hpf Urine HCG, Qual (Not Detectd) Urine Opiates Screen (NotDetected) Ur Oxycodone Screen (NotDetected) Urine Methadone Screen (NotDetected) Ur Propoxyphene Screen (NotDetected) Ur Barbiturates Screen (NotDetected) U Tricyclic Antidepress (NotDetected) Ur Phencyclidine Scrn (NotDetected) Ur Amphetamines Screen (NotDetected) U Methamphetamines Scrn (NotDetected) U Benzodiazepines Scrn (NotDetected) Urine Cocaine Screen (NotDetected) U Marijuana (THC) Screen (NotDetected) Disposition <Daniel Perdomo - Last Filed: 07/16/18 20:24> <Jena-Paul Arizmendi - Last Filed: 07/16/18 23:18> Time of Disposition: 08:55 - Out of Hospital Transfer - Req. Specs Out of Hospital Transfer - Requested Specifics: Psychiatric Non-ICU (Transfer to [facility]) <Jean-Paul Driscoll - Last Filed: 07/17/18 08:56> Clinical Impression: Suicidal ideation, Depression Disposition: TRANSFER TO PSYCH HOSP/UNIT Condition: Stable Referrals: Ugo Friedman DO [Primary Care Provider] - 1-2 days
[2018-07-17 01:50] LABS: Basophils % (A) 0 %; Eosinophils # (A) 0.2 k/uL (0-0.7); Eosinophils % (A) 2 %; HCT 40.3 % (34.0-46.0); HGB 13.7 gm/dL (11.4-16.0); Lymphocytes # (A) 3.3 k/uL (1.0-4.8); Lymphocytes % (A) 34 %; MCHC 33.9 g/dL (31.0-37.0); MCV 85.5 fL (80.0-100.0); Mean Platelet Volume 6.8; Monocytes # (A) 0.5 k/uL (0-1.0); Monocytes % (A) 5 %; Neutrophils # (A) 5.7 k/uL (1.3-7.7); Neutrophils % (A) 58 %; Platelet Count 384 k/uL (150-450); RBC 4.72 m/uL (3.80-5.40); WBC 9.8 k/uL (4.0-11.0)
[2018-07-17 01:53] LABS: Appearance,Urine Clear (Clear); Bacteria,Urine Rare /hpf; Bilirubin,Urine Negative (Negative); Blood,Urine Negative (Negative); Color,Urine Light Yellow; Glucose,Urine (UA) Negative (Negative); Ketones,Urine Negative (Negative); Leukocyte Esterase,Urine Small (Negative); Mucus,Urine Rare /hpf; Nitrite,Urine Negative (Negative); Protein,Urine Negative (Negative); RBC,Urine <1 /hpf (0-5); Specific Gravity,Urine 1.008 (1.001-1.035); Squamous Epithelial Cell,Urine 2 /hpf (0-4); Urobilinogen,Urine <2.0 mg/dL (<2.0); WBC,Urine 3 /hpf (0-5)
[2018-07-17 02:09] LABS: ALT 39 U/L (9-52); AST 23 U/L (14-36); Albumin 4.5 g/dL (3.5-5.0); Alkaline Phosphatase 71 U/L (38-126); Anion Gap 11 mmol/L; Blood Urea Nitrogen 12 mg/dL (7-17); Calcium 9.9 mg/dL (8.4-10.2); Carbon Dioxide 28 mmol/L (22-30); Chloride 98 mmol/L (98-107); Glucose 104 mg/dL (74-99); Potassium 2.9 mmol/L (3.5-5.1); Sodium 137 mmol/L (137-145); Total Bilirubin 0.3 mg/dL (0.2-1.3); Total Protein 7.7 g/dL (6.3-8.2)
[2018-07-17 02:11] LABS: Amphetamine Screen,Urine Not Detected (NotDetected); Barbiturate Screen,Urine Not Detected (NotDetected); Benzodiazepines Screen,Urine Not Detected (NotDetected); Cocaine Screen,Urine Not Detected (NotDetected); Methadone Screen, Urine Not Detected (NotDetected); Opiate Screen,Urine Not Detected (NotDetected); Oxycodone Screen, Urine Not Detected (NotDetected); Phencyclidine Screen,Urine Not Detected (NotDetected); Tricyclic Antidepressant,Urine Not Detected (NotDetected); Urn Cannabinoid Scrn Not Detected (NotDetected)
[2018-07-17] MEDS ORDERED: POTASSIUM CHLORIDE ER 20 MEQ TAB.ER PO STA (04:50)
[2018-07-17 10:34] VITALS: BP 132/72; PULSE 86; RESP 17; TEMP 98.1
== END 2018-07-17 10:34 ==
LOC: EC 18:34
DX: R45.851 Suicidal ideations (principal); R45.850 Homicidal ideations; F31.9 Bipolar disorder, unspecified; F90.9 Attention-deficit hyperactivity disorder, unspecified type; F41.9 Anxiety disorder, unspecified; F17.200 Nicotine dependence, unspecified, uncomplicated; Z79.899 Other long term (current) drug therapy; Z88.8 Allergy status to other drugs, medicaments and biological substances
CPT/HCPCS: 36415; 80053; 80306; 81001; 81025; 82075; 85025; 99285

== ENCOUNTER 2018-07-31 18:54 | Inpatient (IN) | payer OTHER, MEDICAID ==
[2018-07-31] MEDS ORDERED: LIDOCAINE 1% INJ 10MG/ML (20 ML MDV) SQ ONE (20:01)
--- NOTE | 2018-07-31 20:04 | ED ---
General Adult HPI - General Source: patient, EMS, RN notes reviewed Mode of arrival: EMS Limitations: no limitations <Nilo Chang - Last Filed: 07/31/18 21:18> <Elba Mcbride - Last Filed: 07/31/18 22:52> - General Chief complaint: Psychiatric Symptoms Stated complaint: Suicidal Time Seen by Provider: 07/31/18 19:17 - History of Present Illness Initial comments: Patient is a pleasant 22-year-old female presenting to the emergency department with depression and suicidal ideation. Patient did abrade her lacerate bilateral forearms using a clean razor blade. Patient states immunizations are up-to-date. Patient has many stressors. Patient states depression is chronic however worse over the past couple of months. No homicidal thoughts. Occasional marijuana use. No street drug use otherwise. No alcohol use. No hallucinations. Patient does have history of prior suicide attempt. (Nilo Chang ) - Related Data Home Medications Medication Instructions Recorded Confirmed Dextroamphetamine/Amphetamine 20 mg PO BID@0500,1500 03/12/17 07/31/18 [Adderall] Potassium Chloride ER [K-Dur 20] 100 meq PO BID 12/20/17 07/31/18 Magnesium Oxide [Mag-Ox] 400 mg PO BID 07/17/18 07/31/18 Venlafaxine HCl [Effexor XR] 75 mg PO DAILY 07/17/18 07/31/18 hydrOXYzine PAMOATE 25 mg PO TID PRN 07/17/18 07/31/18 Paliperidone IM [Invega Sustenna] 234 mg IM Q28D 07/31/18 07/31/18 Spironolactone [Aldactone] 25 mg PO DAILY 07/31/18 07/31/18 lamoTRIgine [LaMICtal] 50 mg PO HS 07/31/18 07/31/18 Allergies Allergy/AdvReac Type Severity Reaction Status Date / Time risperidone [From Risperdal] AdvReac MUSCLE Verified 07/31/18 21:14 SPASMS Review of Systems ROS Other: All systems not noted in ROS Statement are negative. Constitutional: Denies: fever Eyes: Denies: eye pain ENT: Denies: ear pain Respiratory: Denies: cough Cardiovascular: Denies: chest pain Endocrine: Denies: fatigue Gastrointestinal: Denies: abdominal pain Genitourinary: Denies: dysuria Musculoskeletal: Denies: back pain Skin: Reports: as per HPI <Nilo Chang - Last Filed: 07/31/18 21:18> ROS Other: All systems not noted in ROS Statement are negative. <ReedElba P - Last Filed: 07/31/18 22:52> ROS Statement: Those systems with pertinent positive or pertinent negative responses have been documented in the HPI. Past Medical History Past Medical History: Renal Disease Additional Past Medical History / Comment(s): Bartter syndrome ( low potassium) , anxiety, bipolar, depression, ADHD, History of Any Multi-Drug Resistant Organisms: None Reported Past Surgical History: Tonsillectomy Additional Past Surgical History / Comment(s): wisdom teeth 2016, Past Anesthesia/Blood Transfusion Reactions: No Reported Reaction Past Psychological History: ADD/ADHD, Anxiety, Bipolar, Depression Smoking Status: Current every day smoker Past Alcohol Use History: Occasional Past Drug Use History: None Reported - Past Family History Mother Additional Family Medical History / Comment(s): Mother is alive at age 40 with no major medical problems. Pt states Alzheimers and Bipolar disorder runs on her mother's side. Sister(s) Family Medical History: Diabetes Mellitus Additional Family Medical History / Comment(s): Patient has 4 half-sisters. Brother(s) Additional Family Medical History / Comment(s): Patient has 5 or 6 half- brothers with no major medical problems. Patient does not have any children. Father Additional Family Medical History / Comment(s): Father is alive at age 55 and patient has no contact with him as he is in [facility]. <Nilo Chang - Last Filed: 07/31/18 21:18> General Exam Limitations: no limitations General appearance: alert, in no apparent distress Head exam: Present: atraumatic Eye exam: Present: normal appearance Neck exam: Present: normal inspection Respiratory exam: Present: normal lung sounds bilaterally Cardiovascular Exam: Present: regular rate, normal rhythm GI/Abdominal exam: Present: soft. Absent: tenderness Extremities exam: Present: other (Bilateral dorsal forearm lacerations and abrasions. Distally extremities are neurovascularly intact. Good flexion of all fingers against resistance.) Neurological exam: Present: alert. Absent: motor sensory deficit Psychiatric exam: Present: normal affect, normal mood Skin exam: Present: abrasion (And laceration) <Nilo Chang Filed: 07/31/18 21:18> Vital Signs 07/31/18 19:07 Temperature 97.9 F Pulse Rate 81 Respiratory 16 Rate Blood Pressure 111/70 O2 Sat by Pulse 98 Oximetry Procedures - Laceration Laceration #1 Consent Obtained: verbal consent Time Out Performed: Yes Indication: laceration Site: upper extremity (Right forearm) Size (cm): 4 Description: linear Depth: simple, single layer Anesthetic Used: lidocaine 1% Amount (mls): 6 Pre-repair: wound explored, irrigated extensively Type of Sutures: nylon Size of Sutures: 5-0 Number of Sutures: 8 Technique: running Patient Tolerated Procedure: well, no complications Laceration #2 Consent Obtained: verbal consent Time Out Performed: Yes Indication: laceration Site: upper extremity (Right forearm, 3 superficial lacerations) Size (cm): 12 Description: linear Depth: simple, single layer Pre-repair: wound explored, irrigated extensively Type of Sutures: other (Closed with Dermabond) Patient Tolerated Procedure: well, no complications Laceration #3 Consent Obtained: verbal consent Time Out Performed: Yes Indication: laceration Site: upper extremity (Left forearm) Size (cm): 4 Description: linear Depth: simple, single layer Anesthetic Used: lidocaine 1% Amount (mls): 5 Pre-repair: wound explored, irrigated extensively Type of Sutures: nylon Size of Sutures: 5-0 Number of Sutures: 7 Technique: running Patient Tolerated Procedure: well, no complications Laceration #4 Consent Obtained: verbal consent Time Out Performed: Yes Indication: laceration Site: upper extremity (Left forearm) Size (cm): 3 Depth: simple, single layer Anesthetic Used: lidocaine 1% Amount (mls): 4 Pre-repair: wound explored, irrigated extensively Type of Sutures: nylon Size of Sutures: 5-0 Number of Sutures: 6 Technique: running Patient Tolerated Procedure: well, no complications Laceration #5 Consent Obtained: verbal consent Time Out Performed: Yes Indication: laceration Site: upper extremity (Left forearm) Depth: simple, single layer Pre-repair: wound explored, irrigated extensively Type of Sutures: other (Closed with Dermabond) Patient Tolerated Procedure: well, no complications <Nilo Chang Filed: 07/31/18 21:18> Medical Decision Making <Nilo Chang Filed: 07/31/18 21:18> <Elba Mcbride - Last Filed: 07/31/18 22:52> - Medical Decision Making Patient care was signed out to me by Dr. Chang, patient presented with depression self-harm injuries. Lacerations were repaired by Dr. Chang. At the time of sign out patient was pending evaluation by psychiatric nurse. Patient was evaluated, decided to sign in voluntarily to the psychiatric facility. Transfer orders were placed. (Elba Mcbride) - Lab Data Lab Results 07/31/18 Range/Units 21:36 Urine Opiates Screen Not Detected (NotDetected) Ur Oxycodone Screen Not Detected (NotDetected) Urine Methadone Screen Not Detected (NotDetected) Ur Propoxyphene Screen Not Detected (NotDetected) Ur Barbiturates Screen Not Detected (NotDetected) U Tricyclic Antidepress Not Detected (NotDetected) Ur Phencyclidine Scrn Not Detected (NotDetected) Ur Amphetamines Screen Detected H (NotDetected) U Methamphetamines Scrn Not Detected (NotDetected) U Benzodiazepines Scrn Not Detected (NotDetected) Urine Cocaine Screen Not Detected (NotDetected) U Marijuana (THC) Screen Detected H (NotDetected) Disposition <Nilo Chang - Last Filed: 07/31/18 21:18> <Elba Mcbride - Last Filed: 07/31/18 22:52> Clinical Impression: Depression, Self-harming behavior, Laceration Disposition: TRANSFER TO PSYCH HOSP/UNIT Referrals: Ugo Friedman DO [Primary Care Provider] - 1-2 days
[2018-07-31] MEDS ORDERED: TOPICAL SKIN ADHESIVE 1 EACH AMP TOPICAL ONE ×2 (20:19→21:00)
[2018-07-31 22:13] LABS: Amphetamine Screen,Urine Detected (NotDetected); Barbiturate Screen,Urine Not Detected (NotDetected); Benzodiazepines Screen,Urine Not Detected (NotDetected); Cocaine Screen,Urine Not Detected (NotDetected); Methadone Screen, Urine Not Detected (NotDetected); Opiate Screen,Urine Not Detected (NotDetected); Oxycodone Screen, Urine Not Detected (NotDetected); Phencyclidine Screen,Urine Not Detected (NotDetected); Tricyclic Antidepressant,Urine Not Detected (NotDetected); Urn Cannabinoid Scrn Detected (NotDetected)
[2018-07-31] MEDS ORDERED: LORazepam 1 MG TAB PO PRN (23:08)
[2018-07-31] MEDS ORDERED: MAG HYDROX/AL HYDROX/SIMETH 30 ML CUP PO PRN (23:08)
[2018-07-31] MEDS ORDERED: MAGNESIUM HYDROXIDE 2,400 MG/10 ML CUP PO PRN (23:08)
[2018-07-31] MEDS ORDERED: ZIPRASIDONE 20 MG VIAL IM PRN (23:08)
[2018-07-31] MEDS ORDERED: hydrOXYzine PAMOATE 25 MG CAP PO PRN (23:12)
[2018-07-31] MEDS ORDERED: lamoTRIgine 25 MG TAB PO SCH (23:15)
[2018-08-01 00:09] VITALS: BMI 36.7
[2018-08-01] MEDS: MAGNESIUM OXIDE 400 MG TAB PO SCH ×3 (00:53→20:43)
[2018-08-01] MEDS: ACETAMINOPHEN TAB 325 MG TAB PO PRN (00:53)
--- NOTE | 2018-08-01 08:27 | P.CONS ---
History of Present Illness - Reason for Consult Consult date: 08/01/18 Medical management - Chief Complaint Severe depression - History of Present Illness This is a 22-year-old female with past medical history significant for severe depression and Bartter syndrome who presented to the emergency room with worsening depression and suicidal ideation. Apparently, patient made some cuts using a clean razor to both forearms. She was examined in the emergency room and both forearms wrapped with clean dressing to cover the wound. She is up-to- date on her vaccinations. She is currently admitted to the psych unit for further evaluation. I was asked to see her for medical management. Patient herself does not have any specific concerns or complaints. Review of Systems Review of system: 14 points review of systems were obtained and were negative except to what were mentioned in the HPI. Past Medical History Past Medical History: Renal Disease Additional Past Medical History / Comment(s): Bartter syndrome ( low potassium) , anxiety, bipolar, depression, ADHD, History of Any Multi-Drug Resistant Organisms: None Reported Past Surgical History: Tonsillectomy Additional Past Surgical History / Comment(s): wisdom teeth 2016, Past Anesthesia/Blood Transfusion Reactions: No Reported Reaction Past Psychological History: ADD/ADHD, Anxiety, Bipolar, Depression Additional Psychological History / Comment(s): [facility] Smoking Status: Current every day smoker Past Alcohol Use History: Occasional Past Drug Use History: None Reported - Past Family History Mother Additional Family Medical History / Comment(s): Mother is alive at age 40 with no major medical problems. Pt states Alzheimers and Bipolar disorder runs on her mother's side. Sister(s) Family Medical History: Diabetes Mellitus Additional Family Medical History / Comment(s): Patient has 4 half-sisters. Brother(s) Additional Family Medical History / Comment(s): Patient has 5 or 6 half- brothers with no major medical problems. Patient does not have any children. Father Additional Family Medical History / Comment(s): Father is alive at age 55 and patient has no contact with him as he is in nursing home. Medications and Allergies Home Medications Medication Instructions Recorded Confirmed Type Dextroamphetamine/Amphetamine 20 mg PO BID@0500,1500 03/12/17 08/01/18 History [Adderall] Potassium Chloride ER [K-Dur 20] 100 meq PO BID 12/20/17 08/01/18 History Magnesium Oxide [Mag-Ox] 400 mg PO BID 07/17/18 08/01/18 History Venlafaxine HCl [Effexor XR] 75 mg PO DAILY 07/17/18 08/01/18 History hydrOXYzine PAMOATE 25 mg PO TID PRN 07/17/18 08/01/18 History Paliperidone IM [Invega Sustenna] 234 mg IM Q28D 07/31/18 08/01/18 History Spironolactone [Aldactone] 25 mg PO DAILY 07/31/18 08/01/18 History lamoTRIgine [LaMICtal] 50 mg PO HS 07/31/18 08/01/18 History Allergies Allergy/AdvReac Type Severity Reaction Status Date / Time risperidone [From Risperdal] AdvReac MUSCLE Verified 08/01/18 01:40 SPASMS Physical Exam Vitals: Vital Signs Temp Pulse Pulse Resp BP BP Pulse Ox 08/01/18 00:57 98.2 F 84 16 114/69 08/01/18 00:00 97.3 F L 77 16 120/72 98 07/31/18 22:53 70 16 130/81 97 07/31/18 19:07 97.9 F 81 16 111/70 98 Intake and Output 07/31/18 08/01/18 08/01/18 22:59 06:59 14:59 Other: Weight 103.873 kg 103.164 kg General: The patient is awake and alert, in no distress Eye: there is normal conjunctiva bilaterally. Neck: The neck is supple, there is no JVD. Cardiovascular: Normal S1-S2, no S3-S4, no murmurs. Respiratory: Lungs clear to auscultation bilaterally Gastrointestinal: Abdomen is soft, nontender Musculoskeletal: There is no pedal edema. Neurological:. Speech is normal. Skin: Skin is warm and dry Results Labs: Abnormal Lab Results - Last 24 Hours (Table) 07/31/18 Range/Units 21:36 Ur Amphetamines Screen Detected H (NotDetected) U Marijuana (THC) Screen Detected H (NotDetected) Assessment and Plan Assessment: 1. Severe depression with suicidal thoughts, managed by psychiatry 2. Bartter syndrome awaiting lab work results. Continue potassium and magnesium supplement 3. Tobacco abuse, counseled to quit. Nicotine patch ordered Today, I reviewed her medication list. Awaiting lab work results. Management per psychiatry. We will continue to follow up on the patient on as-needed basis. Thank you very much for the consultation.
[2018-08-01] MEDS ORDERED: VENLAFAXINE HCL ER 75 MG CAP PO SCH (09:00)
[2018-08-01 10:55] LABS: Basophils % (A) 0 %; Eosinophils # (A) 0.1 k/uL (0-0.7); Eosinophils % (A) 2 %; HCT 40.3 % (34.0-46.0); HGB 13.5 gm/dL (11.4-16.0); Lymphocytes # (A) 1.9 k/uL (1.0-4.8); Lymphocytes % (A) 27 %; MCH 29.4 pg (25.0-35.0); MCHC 33.5 g/dL (31.0-37.0); MCV 87.7 fL (80.0-100.0); Mean Platelet Volume 6.9; Monocytes # (A) 0.4 k/uL (0-1.0); Monocytes % (A) 5 %; Neutrophils # (A) 4.5 k/uL (1.3-7.7); Neutrophils % (A) 64 %; Platelet Count 366 k/uL (150-450); RBC 4.59 m/uL (3.80-5.40); RDW 14.1 % (11.5-15.5)
[2018-08-01 11:10] LABS: ALT 34 U/L (9-52); AST 19 U/L (14-36); Albumin 4.1 g/dL (3.5-5.0); Alkaline Phosphatase 49 U/L (38-126); Anion Gap 8 mmol/L; Bilirubin, Delta 0.4 mg/dL (0.0-0.2); Blood Urea Nitrogen 13 mg/dL (7-17); Calcium 10.1 mg/dL (8.4-10.2); Carbon Dioxide 31 mmol/L (22-30); Chloride 102 mmol/L (98-107); Cholesterol 128 mg/dL (<200); Glucose 92 mg/dL (74-99); HDL Cholesterol 41 mg/dL (40-60); LDL Cholesterol,Calculated 69 mg/dL (0-99); Potassium 3.8 mmol/L (3.5-5.1); Sodium 141 mmol/L (137-145); Total Bilirubin 0.4 mg/dL (0.2-1.3); Total Protein 7.4 g/dL (6.3-8.2); Triglycerides 90 mg/dL (<150)
[2018-08-01] MEDS: POTASSIUM CHLORIDE ER 20 MEQ TAB.ER PO SCH ×3 (11:31→20:43)
[2018-08-01] MEDS: NICOTINE 14MG/24HR PATCH TRANSDERM SCH ×2 (11:32→13:43)
[2018-08-01] MEDS: SPIRONOLACTONE 25 MG TAB PO SCH (11:32)
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
[2018-08-01] MEDS: PALIPERIDONE 6 MG TAB.ER.24 PO SCH (20:43)
[2018-08-01] MEDS: VENLAFAXINE HCL ER 150 MG CAP PO SCH (20:43)
[2018-08-01] MEDS: lamoTRIgine 25 MG TAB PO SCH (20:44)
[2018-08-01] MEDS ORDERED: PALIPERIDONE 3 MG TAB.ER.24 PO SCH (21:00)
[2018-08-01 21:23] LABS: Hemoglobin A1C 5.2 % (4.0-6.0)
[2018-08-02] MEDS: NICOTINE 14MG/24HR PATCH TRANSDERM SCH (07:46)
[2018-08-02] MEDS: MAGNESIUM OXIDE 400 MG TAB PO SCH ×2 (07:47→20:30)
[2018-08-02] MEDS: POTASSIUM CHLORIDE ER 20 MEQ TAB.ER PO SCH ×2 (07:47→20:34)
[2018-08-02] MEDS: SPIRONOLACTONE 25 MG TAB PO SCH (07:47)
[2018-08-02 07:59] VITALS: RESP 16
--- NOTE | 2018-08-02 10:20 | P.PN ---
Subjective Progress Note Date: 08/02/18 Principal diagnosis: Bipolar type II disorder, current episode depressed] Svetlana today had to be woken up and was interviewed at bedside with staff within room. She states she is not suicidal homicidal but is tired and fatigued and wants to sleep all day. She hears no voices she sees no objects and she is lying in bed on her right side. She is clearly not motivated and appears to be depressed 7 out of 10 and anxiety and 7 out of 10 with her isolating to her room. Chart reviewed staff interviewed and discussed case in team. Objective - Vital Signs Vital signs: Vital Signs Temp 98.1 F 08/02/18 06:21 Pulse 57 L 08/02/18 07:58 Resp 16 08/02/18 07:58 BP 105/57 08/02/18 07:58 Pulse Ox 98 08/01/18 00:00 - Labs CBC & Chem 7: 08/01/18 10:19 08/01/18 10:19 Labs: Abnormal Lab Results - Last 24 Hours (Table) 08/01/18 Range/Units 10:19 Carbon Dioxide 31 H (22-30) mmol/L Delta Bilirubin 0.4 H (0.0-0.2) mg/dL Assessment and Plan Assessment: HPI: Patient is a pleasant 22-year-old female presenting to the emergency department with depression and suicidal ideation. Patient lacerate bilateral forearms using a clean razor blade. Patient states immunizations are up-to- date. Patient has many stressors. Patient states depression is chronic however worse over the past couple of months. No homicidal thoughts. Occasional marijuana use. No street drug use otherwise. No alcohol use. No hallucinations. Patient does have history of prior suicide attempt. She uses Adderall prescribed by her primary care physician and states that her [facility] knows that she is taking this medication. - Related Data Home Medications Medication Instructions Recorded Confirmed Dextroamphetamine/Amphetamine 20 mg PO BID@0500,1500 03/12/17 07/31/18 [Adderall] Potassium Chloride ER [K-Dur 20] 100 meq PO BID 12/20/17 07/31/18 Magnesium Oxide [Mag-Ox] 400 mg PO BID 07/17/18 07/31/18 Venlafaxine HCl [Effexor XR] 75 mg PO DAILY 07/17/18 07/31/18 hydrOXYzine PAMOATE 25 mg PO TID PRN 07/17/18 07/31/18 Paliperidone IM [Invega Sustenna] 234 mg IM Q28D 07/31/18 07/31/18 Spironolactone [Aldactone] 25 mg PO DAILY 07/31/18 07/31/18 lamoTRIgine [LaMICtal] 50 mg PO HS 07/31/18 07/31/18 Allergies Allergy/AdvReac Type Severity Reaction Status Date / Time risperidone [From Risperdal] AdvReac MUSCLE Verified 07/31/18 21:14 SPASMS Past Medical History Past Medical History: Renal Disease Additional Past Medical History / Comment(s): Bartter syndrome ( low potassium) , anxiety, bipolar, depression, ADHD, History of Any Multi-Drug Resistant Organisms: None Reported Past Surgical History: Tonsillectomy Additional Past Surgical History / Comment(s): wisdom teeth 2016, Past Anesthesia/Blood Transfusion Reactions: No Reported Reaction Past Psychological History: ADD/ADHD, Anxiety, Bipolar, Depression Smoking Status: Current every day smoker Past Alcohol Use History: Occasional Past Drug Use History: None Reported - Past Family History Mother Additional Family Medical History / Comment(s): Mother is alive at age 40 with no major medical problems. Pt states Alzheimers and Bipolar disorder runs on her mother's side. Sister(s) Family Medical History: Diabetes Mellitus Additional Family Medical History / Comment(s): Patient has 4 half-sisters. Brother(s) Additional Family Medical History / Comment(s): Patient has 5 or 6 half- brothers with no major medical problems. Patient does not have any children. Father Additional Family Medical History / Comment(s): Father is alive at age 55 and patient has no contact with him as he is in [facility]. Past Psychiatric History: Patient states that she began psychiatric treatment at the age of 6 and has had 5 admissions to [facility] the last being in 2014. Patient is currently treated with Lamictal 75 mg at bedtime, Atarax 50 mg twice a day and an as-needed basis and was to begin Invega 3 mg at bedtime but insurance would not cover it. Patient is also on Adderall 20 mg twice a day Intellectual Functioning: Patient's intellectual functioning appears below average Strength/Weakness: Patient has housing, compliant with outpatient treatment/ limited support system, limited coping skills, she has many mental health and primary care writing for psychoactive medications which should probably be centralized. Mental Status Examination - General Appearance: [ disheveled, bizarre, appears older than stated age Speech/Language: [ slow, hesitant, halting, monotone, soft, Attitude/Behavior: [ guarded, withdrawn, indifferent] Mood: [depressed, anxious, irritable, angry, fearful, hopelessness] Affect: [ flat, labile, blunted constricted] Orientation: [time, person, place situation] Thought Content: [wnl Risk Factors: [She remains suicidal (ideations, plan), however is not Homicidal (ideations, plan) Perception: [wnl Thought Processes: [ concrete, circumstantial, tangential, Concentration/Attention Span: [ impaired] [Per observation and interview with the patient] Recent Memory: [wnl] [ 2out of 3 in 3 minutes] Remote Memory: [wnl] [past events, as related history] Intelligence: [below average] [based on history, based on vocabulary, syntax, grammar, and content] Judgement: [poor] [per patient's behavior/history of present illness] Insight: [poor] [understanding severity of illness/history of present illness] Admitting Diagnosis: [Bipolar type II disorder, current episode depressed] Patient Strengths - Able to vocalize needs: [x] Motivation, determination, readiness for change: [x] Setting and pursuing goals, hopes, dreams, aspirations: [x] Resources - social, interpersonal, monetary: [x] Patient Limitations: [medication, non-compliance, pathological/unsupported environment, intellectual impairment, Initial Plan of Care: [She has a formal voluntary admission to the psychiatric unit. She is to be evaluated by medicine, psychiatry, nursing staff, social work staff, and recreational therapy. She will be under 15 minute watch throughout her entire stay still remains with suicidal ideation. She is severely depressed and will be evaluated for group therapy, new coping skills, further recommendations and medication and titration to symptom resolution. She had been admitted in work and milieu therapeutic environment or should be expected to be involved in groups on a daily basis.] Estimated Length of Stay: [6 days] Initial Discharge Plan: [home, [facility], referred to therapist Prognosis: [guarded] 0 (1) Depression Current Visit: Yes Status: Acute Code(s): F32.9 - MAJOR DEPRESSIVE DISORDER , SINGLE EPISODE, UNSPECIFIED SNOMED Code(s): 83843618 (2) Suicidal ideation Current Visit: No Status: Acute Code(s): R45.851 - SUICIDAL IDEATIONS SNOMED Code(s): 7859836 Plan: Continue current supportive measures, her psychiatric minute medications, 15 minute checks, and encourage her to be involved in groups and get out of her room. Wound care as of essence of both her right left forearms due to the laceration self-inflicted. Time with Patient: Less than 30
[2018-08-02] MEDS: CEPHALEXIN 500 MG CAP PO SCH ×2 (17:35→20:31)
[2018-08-02] MEDS: lamoTRIgine 25 MG TAB PO SCH (20:30)
[2018-08-02] MEDS: PALIPERIDONE 6 MG TAB.ER.24 PO SCH (20:30)
[2018-08-02] MEDS: VENLAFAXINE HCL ER 150 MG CAP PO SCH (20:31)
[2018-08-03] MEDS: CEPHALEXIN 500 MG CAP PO SCH ×3 (08:02→20:21)
[2018-08-03] MEDS: MAGNESIUM OXIDE 400 MG TAB PO SCH ×2 (08:02→20:21)
[2018-08-03] MEDS: NICOTINE 14MG/24HR PATCH TRANSDERM SCH (08:02)
[2018-08-03] MEDS: SPIRONOLACTONE 25 MG TAB PO SCH (08:03)
[2018-08-03] MEDS: POTASSIUM CHLORIDE ER 20 MEQ TAB.ER PO SCH ×2 (08:03→20:21)
[2018-08-03] MEDS: ACETAMINOPHEN TAB 325 MG TAB PO PRN ×2 (13:09→18:14)
--- NOTE | 2018-08-03 14:46 | P.PN ---
Progress Note - Text Progress Note Date: 08/03/18 Patient seen and interviewed in her room as she was laying in her bed. Found her still depressed but denies nay suicidal ideation. She is going to come groups . Working on coping skills. Mental Status Examination - General Appearance: appears older than stated age Speech/Language: [ slow, hesitant, halting, monotone, soft, Attitude/Behavior: [ guarded, withdrawn, indifferent] Mood: [depressed, anxious, irritable, angry, fearful, hopelessness] Affect: [ flat, labile, blunted constricted] Orientation: [time, person, place situation] Thought Content: [wnl Risk Factors: [She remains suicidal (ideations, plan), however is not Homicidal (ideations, plan) Perception: [wnl Thought Processes: [ concrete, circumstantial, tangential, Concentration/Attention Span: [ impaired] [Per observation and interview with the patient] Recent Memory: [wnl] [ 2out of 3 in 3 minutes] Remote Memory: [wnl] [past events, as related history] Intelligence: [below average] [based on history, based on vocabulary, syntax, grammar, and content] Judgement: [poor] [per patient's behavior/history of present illness] Insight: [poor] [understanding severity of illness/history of present illness] Admitting Diagnosis: [Bipolar type II disorder, current episode depressed] Will continue to adjust medications accordingly
[2018-08-03] MEDS: VENLAFAXINE HCL ER 150 MG CAP PO SCH (20:21)
[2018-08-03] MEDS: lamoTRIgine 25 MG TAB PO SCH (20:21)
[2018-08-03] MEDS: PALIPERIDONE 6 MG TAB.ER.24 PO SCH (20:22)
[2018-08-04] MEDS: SPIRONOLACTONE 25 MG TAB PO SCH (08:37)
[2018-08-04] MEDS: POTASSIUM CHLORIDE ER 20 MEQ TAB.ER PO SCH ×2 (08:37→20:38)
[2018-08-04] MEDS: CEPHALEXIN 500 MG CAP PO SCH ×3 (08:37→20:37)
[2018-08-04] MEDS: MAGNESIUM OXIDE 400 MG TAB PO SCH ×2 (08:37→20:37)
[2018-08-04] MEDS: NICOTINE 14MG/24HR PATCH TRANSDERM SCH (08:37)
[2018-08-04] MEDS: ACETAMINOPHEN TAB 325 MG TAB PO PRN ×2 (15:19→19:34)
--- NOTE | 2018-08-04 18:18 | P.PN ---
Progress Note - Text Progress Note Date: 08/04/18 Patient seen and interviewed. Found her walking in hallway. Found her still depressed but denies any suicidal ideation. She is going to come groups . Working on coping skills. Mental Status Examination - General Appearance: appears older than stated age Speech/Language: [ slow, hesitant, halting, monotone, soft, Attitude/Behavior: [ guarded, withdrawn, indifferent] Mood: [depressed, anxious, irritable, angry, fearful, hopelessness] Affect: [ flat, labile, blunted constricted] Orientation: [time, person, place situation] Thought Content: [wnl Risk Factors: [She remains suicidal (ideations, plan), however is not Homicidal (ideations, plan) Perception: [wnl Thought Processes: [ concrete, circumstantial, tangential, Concentration/Attention Span: [ impaired] [Per observation and interview with the patient] Recent Memory: [wnl] [ 2out of 3 in 3 minutes] Remote Memory: [wnl] [past events, as related history] Intelligence: [below average] [based on history, based on vocabulary, syntax, grammar, and content] Judgement: [poor] [per patient's behavior/history of present illness] Insight: [poor] [understanding severity of illness/history of present illness] Admitting Diagnosis: [Bipolar type II disorder, current episode depressed] Will increase Effexor XR to 225 mg po qdaily and continue to adjust medications accordingly
[2018-08-04] MEDS: lamoTRIgine 25 MG TAB PO SCH (19:34)
[2018-08-04] MEDS: PALIPERIDONE 6 MG TAB.ER.24 PO SCH (20:37)
[2018-08-04] MEDS: VENLAFAXINE HCL ER 75 MG CAP PO SCH (20:37)
[2018-08-05] MEDS: POTASSIUM CHLORIDE ER 20 MEQ TAB.ER PO SCH ×3 (09:59→20:43)
[2018-08-05] MEDS: SPIRONOLACTONE 25 MG TAB PO SCH ×2 (09:59→12:39)
[2018-08-05] MEDS: CEPHALEXIN 500 MG CAP PO SCH ×4 (09:59→20:44)
[2018-08-05] MEDS: NICOTINE 14MG/24HR PATCH TRANSDERM SCH ×2 (09:59→12:39)
[2018-08-05] MEDS: MAGNESIUM OXIDE 400 MG TAB PO SCH ×3 (10:00→20:44)
--- NOTE | 2018-08-05 11:24 | P.PN ---
Progress Note - Text Progress Note Date: 08/05/18 Patient seen and interviewed. Found her in her room sleeping. Again felt very depressed and down. Has not been going to groups and meetings . Working on coping skills. Mental Status Examination - General Appearance: appears older than stated age Speech/Language: [ slow, hesitant, halting, monotone, soft, Attitude/Behavior: [ guarded, withdrawn, indifferent] Mood: [depressed, anxious, irritable, angry, fearful, hopelessness] Affect: [ flat, labile, blunted constricted] Orientation: [time, person, place situation] Thought Content: [wnl Risk Factors: [She remains suicidal (ideations, plan), however is not Homicidal (ideations, plan) Perception: [wnl Thought Processes: [ concrete, circumstantial, tangential, Concentration/Attention Span: [ impaired] [Per observation and interview with the patient] Recent Memory: [wnl] [ 2out of 3 in 3 minutes] Remote Memory: [wnl] [past events, as related history] Intelligence: [below average] [based on history, based on vocabulary, syntax, grammar, and content] Judgement: [poor] [per patient's behavior/history of present illness] Insight: [poor] [understanding severity of illness/history of present illness] Admitting Diagnosis: [Bipolar type II disorder, current episode depressed] Will continue to adjust medications accordingly
[2018-08-05] MEDS: VENLAFAXINE HCL ER 75 MG CAP PO SCH (20:43)
[2018-08-05] MEDS: lamoTRIgine 25 MG TAB PO SCH (20:44)
[2018-08-05] MEDS: PALIPERIDONE 6 MG TAB.ER.24 PO SCH (20:46)
[2018-08-06] MEDS: ACETAMINOPHEN TAB 325 MG TAB PO PRN ×2 (00:40→13:19)
[2018-08-06] MEDS: POTASSIUM CHLORIDE ER 20 MEQ TAB.ER PO SCH ×2 (08:38→20:54)
[2018-08-06] MEDS: CEPHALEXIN 500 MG CAP PO SCH ×3 (08:39→20:55)
[2018-08-06] MEDS: NICOTINE 14MG/24HR PATCH TRANSDERM SCH (08:39)
[2018-08-06] MEDS: SPIRONOLACTONE 25 MG TAB PO SCH (08:39)
[2018-08-06] MEDS: MAGNESIUM OXIDE 400 MG TAB PO SCH ×2 (08:39→20:54)
--- NOTE | 2018-08-06 18:27 | P.PN ---
Progress Note - Text Progress Note Date: 08/06/18 Patient seen and interviewed. Found her in hallway. Her mood has started improving. Reports worsening anxiety.. Has been going to groups and meetings . Working on coping skills. Mental Status Examination - General Appearance: appears older than stated age Speech/Language: [ slow, hesitant, halting, monotone, soft, Attitude/Behavior: withdrawn, indifferent] Mood: anxious Affect: [ flat, labile, blunted constricted] Orientation: [time, person, place situation] Thought Content: [wnl Risk Factors: [She denies suicidal (ideations, plan) and not Homicidal ( ideations, plan) Perception: [wnl Thought Processes: [ concrete, circumstantial, tangential, Concentration/Attention Span: [ impaired] [Per observation and interview with the patient] Recent Memory: [wnl] [ 3out of 3 in 3 minutes] Remote Memory: [wnl] [past events, as related history] Intelligence: [below average] [based on history, based on vocabulary, syntax, grammar, and content] Judgement: [poor] [per patient's behavior/history of present illness] Insight: [poor] [understanding severity of illness/history of present illness] Admitting Diagnosis: [Bipolar type II disorder, current episode depressed] Will continue to adjust medications accordingly
[2018-08-06] MEDS: VENLAFAXINE HCL ER 75 MG CAP PO SCH (20:54)
[2018-08-06] MEDS: lamoTRIgine 25 MG TAB PO SCH (20:54)
[2018-08-06] MEDS: PALIPERIDONE 6 MG TAB.ER.24 PO SCH (20:55)
[2018-08-07 07:05] VITALS: PULSE 62
[2018-08-07] MEDS: NICOTINE 14MG/24HR PATCH TRANSDERM SCH (08:10)
[2018-08-07] MEDS: POTASSIUM CHLORIDE ER 20 MEQ TAB.ER PO SCH ×2 (08:27→20:37)
[2018-08-07] MEDS: SPIRONOLACTONE 25 MG TAB PO SCH (08:28)
[2018-08-07] MEDS: CEPHALEXIN 500 MG CAP PO SCH ×3 (08:28→20:35)
[2018-08-07] MEDS: MAGNESIUM OXIDE 400 MG TAB PO SCH ×2 (08:28→20:34)
--- NOTE | 2018-08-07 12:39 | P.PN ---
Subjective Progress Note Date: 08/07/18 Principal diagnosis: Bipolar type II disorder, current episode depressed] Svetlana today had to be woken up and was interviewed at bedside with staff within room. She states she is suicidal homicidal however does not have a plan. She remains tired and fatigued and wants to sleep all day. She hears no voices she sees no objects and she is lying in bed on her right side. She is clearly not motivated and appears to be depressed 6 out of 10 and anxiety and 6 out of 10 with her isolating to her room. Chart reviewed staff interviewed and discussed case in team. Objective - Vital Signs Vital signs: Vital Signs Temp 97.9 F 08/07/18 06:38 Pulse 62 08/07/18 06:38 Resp 16 08/07/18 06:38 BP 96/64 08/07/18 06:38 Pulse Ox 98 08/01/18 00:00 Intake & Output 08/06/18 08/07/18 08/07/18 18:59 06:59 18:59 Weight 105.1 kg - Labs CBC & Chem 7: 08/01/18 10:19 08/01/18 10:19 Assessment and Plan Assessment: HPI: Patient is a pleasant 22-year-old female presenting to the emergency department with depression and suicidal ideation. Patient lacerate bilateral forearms using a clean razor blade. Patient states immunizations are up-to- date. Patient has many stressors. Patient states depression is chronic however worse over the past couple of months. No homicidal thoughts. Occasional marijuana use. No street drug use otherwise. No alcohol use. No hallucinations. Patient does have history of prior suicide attempt. She uses Adderall prescribed by her primary care physician and states that her [facility] knows that she is taking this medication. - Related Data Home Medications Medication Instructions Recorded Confirmed Dextroamphetamine/Amphetamine 20 mg PO BID@0500,1500 03/12/17 07/31/18 [Adderall] Potassium Chloride ER [K-Dur 20] 100 meq PO BID 12/20/17 07/31/18 Magnesium Oxide [Mag-Ox] 400 mg PO BID 07/17/18 07/31/18 Venlafaxine HCl [Effexor XR] 75 mg PO DAILY 07/17/18 07/31/18 hydrOXYzine PAMOATE 25 mg PO TID PRN 07/17/18 07/31/18 Paliperidone IM [Invega Sustenna] 234 mg IM Q28D 07/31/18 07/31/18 Spironolactone [Aldactone] 25 mg PO DAILY 07/31/18 07/31/18 lamoTRIgine [LaMICtal] 50 mg PO HS 07/31/18 07/31/18 Allergies Allergy/AdvReac Type Severity Reaction Status Date / Time risperidone [From Risperdal] AdvReac MUSCLE Verified 07/31/18 21:14 SPASMS Past Medical History Past Medical History: Renal Disease Additional Past Medical History / Comment(s): Bartter syndrome ( low potassium) , anxiety, bipolar, depression, ADHD, History of Any Multi-Drug Resistant Organisms: None Reported Past Surgical History: Tonsillectomy Additional Past Surgical History / Comment(s): wisdom teeth 2016, Past Anesthesia/Blood Transfusion Reactions: No Reported Reaction Past Psychological History: ADD/ADHD, Anxiety, Bipolar, Depression Smoking Status: Current every day smoker Past Alcohol Use History: Occasional Past Drug Use History: None Reported - Past Family History Mother Additional Family Medical History / Comment(s): Mother is alive at age 40 with no major medical problems. Pt states Alzheimers and Bipolar disorder runs on her mother's side. Sister(s) Family Medical History: Diabetes Mellitus Additional Family Medical History / Comment(s): Patient has 4 half-sisters. Brother(s) Additional Family Medical History / Comment(s): Patient has 5 or 6 half- brothers with no major medical problems. Patient does not have any children. Father Additional Family Medical History / Comment(s): Father is alive at age 55 and patient has no contact with him as he is in senior care. Past Psychiatric History: Patient states that she began psychiatric treatment at the age of 6 and has had 5 admissions to [facility] the last being in 2014. Patient is currently treated with Lamictal 75 mg at bedtime, Atarax 50 mg twice a day and an as-needed basis and was to begin Invega 3 mg at bedtime but insurance would not cover it. Patient is also on Adderall 20 mg twice a day Intellectual Functioning: Patient's intellectual functioning appears below average Strength/Weakness: Patient has housing, compliant with outpatient treatment/ limited support system, limited coping skills, she has many mental health and primary care writing for psychoactive medications which should probably be centralized. Mental Status Examination - General Appearance: [ disheveled, bizarre, appears older than stated age Speech/Language: [ slow, hesitant, halting, monotone, soft, Attitude/Behavior: [ guarded, withdrawn, indifferent] Mood: [depressed, anxious, irritable, angry, fearful, hopelessness] Affect: [ flat, labile, blunted constricted] Orientation: [time, person, place situation] Thought Content: [wnl Risk Factors: [She remains suicidal (ideations, plan), however is not Homicidal (ideations, plan) Perception: [wnl Thought Processes: [ concrete, circumstantial, tangential, Concentration/Attention Span: [ impaired] [Per observation and interview with the patient] Recent Memory: [wnl] [ 2out of 3 in 3 minutes] Remote Memory: [wnl] [past events, as related history] Intelligence: [below average] [based on history, based on vocabulary, syntax, grammar, and content] Judgement: [poor] [per patient's behavior/history of present illness] Insight: [poor] [understanding severity of illness/history of present illness] Admitting Diagnosis: [Bipolar type II disorder, current episode depressed] Patient Strengths - Able to vocalize needs: [x] Motivation, determination, readiness for change: [x] Setting and pursuing goals, hopes, dreams, aspirations: [x] Resources - social, interpersonal, monetary: [x] Patient Limitations: [medication, non-compliance, pathological/unsupported environment, intellectual impairment, Initial Plan of Care: [She has a formal voluntary admission to the psychiatric unit. She is to be evaluated by medicine, psychiatry, nursing staff, social work staff, and recreational therapy. She will be under 15 minute watch throughout her entire stay still remains with suicidal ideation. She is severely depressed and will be evaluated for group therapy, new coping skills, further recommendations and medication and titration to symptom resolution. She had been admitted in work and milieu therapeutic environment or should be expected to be involved in groups on a daily basis.] Estimated Length of Stay: [discharge tomorrow] Initial Discharge Plan: [home, [facility] [facility], referred to therapist Prognosis: [guarded] (1) Depression Current Visit: Yes Status: Acute Code(s): F32.9 - MAJOR DEPRESSIVE DISORDER , SINGLE EPISODE, UNSPECIFIED SNOMED Code(s): 70526867 (2) Suicidal ideation Current Visit: No Status: Acute Code(s): R45.851 - SUICIDAL IDEATIONS SNOMED Code(s): 2396645 Plan: Continue current supportive measures, her psychiatric minute medications, 15 minute checks, and encourage her to be involved in groups and get out of her room. Wound care as of essence of both her right left forearms due to the laceration self-inflicted. She is being titrated on her Invega and is currently at 9 mg with an intake appointment tomorrow using Invega injectable 234 mg. Her venlafaxine is now 225 mg a day and will add Wellbutrin 150 mg SR by mouth every morning. I did discuss with her today that after this addition of medications she'll be eligible to be discharged tomorrow. I told her to check with the director of social services since I have a youth fci available but she has to apply herself. Either way she'll be discharged on 08/08/2018 with follow-up care at [facility]. Time with Patient: Less than 30
[2018-08-07] MEDS: ACETAMINOPHEN TAB 325 MG TAB PO PRN ×2 (12:54→20:35)
[2018-08-07] MEDS: VENLAFAXINE HCL ER 75 MG CAP PO SCH (20:35)
[2018-08-07] MEDS ORDERED: PALIPERIDONE 3 MG TAB.ER.24 PO SCH (21:00)
[2018-08-08 06:37] VITALS: BP 115/59; TEMP 98.4
[2018-08-08] MEDS: SPIRONOLACTONE 25 MG TAB PO SCH (08:53)
[2018-08-08] MEDS: NICOTINE 14MG/24HR PATCH TRANSDERM SCH (08:53)
[2018-08-08] MEDS: POTASSIUM CHLORIDE ER 20 MEQ TAB.ER PO SCH (08:55)
[2018-08-08] MEDS: MAGNESIUM OXIDE 400 MG TAB PO SCH (08:55)
[2018-08-08] MEDS ORDERED: buPROPion SR 150 MG TABLET.ER PO SCH (09:00)
[2018-08-08 11:45] LABS: Anion Gap 12 mmol/L; Blood Urea Nitrogen 11 mg/dL (7-17); Carbon Dioxide 26 mmol/L (22-30); Chloride 100 mmol/L (98-107); Glucose 127 mg/dL (74-99); Sodium 138 mmol/L (137-145)
[2018-08-08 11:56] LABS: Potassium 3.9 mmol/L (3.5-5.1)
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
--- NOTE | 2018-08-08 12:26 | P.PN ---
Progress Note - Text Progress Note Date: 08/08/18 Patient was seen and examined briefly prior to being discharged. Wounds were examined. There are multiple vertical forearm laceration that are healing well. Her stitches have been in for about 8 days now. I advised her to leave her stitches in for the next 2 days and follow up with her primary care provider for removal. She has also completed a course of Keflex while she has been here. Patient was examined with nurse in site.
== END 2018-08-08 13:50 | disposition home or self-care (01) | DRG 885 ==
LOC: EC 18:54 → 3MHU 23:00
PROVIDERS: ADMIT Psychiatry & Neurology Psychiatry; ATTEND Psychiatry & Neurology Psychiatry
PROC: 0JQH3ZZ Repair Left Lower Arm Subcutaneous Tissue and Fascia, Percutaneous Approach (ICD-10-PCS; principal; 2018-07-31)
PROC: 0JQG3ZZ Repair Right Lower Arm Subcutaneous Tissue and Fascia, Percutaneous Approach (ICD-10-PCS; 2018-07-31)
DX: F31.81 Bipolar II disorder (principal); Z71.6 Tobacco abuse counseling; F17.210 Nicotine dependence, cigarettes, uncomplicated; Z60.2 Problems related to living alone; E26.81 Bartter's syndrome; E28.2 Polycystic ovarian syndrome; F41.9 Anxiety disorder, unspecified; F90.9 Attention-deficit hyperactivity disorder, unspecified type; S51.811A Laceration without foreign body of right forearm, initial encounter; S51.812A Laceration without foreign body of left forearm, initial encounter; X78.8XXA Intentional self-harm by other sharp object, initial encounter; Z79.899 Other long term (current) drug therapy; Z82.0 Family history of epilepsy and other diseases of the nervous system; Z83.3 Family history of diabetes mellitus; Z91.5 Personal history of self-harm; Z97.5 Presence of (intrauterine) contraceptive device; T50.3X6A Underdosing of electrolytic, caloric and water-balance agents, initial encounter; Z91.128 Patient's intentional underdosing of medication regimen for other reason; Z91.19 Patient's noncompliance with other medical treatment and regimen; Z62.810 Personal history of physical and sexual abuse in childhood; Z91.410 Personal history of adult physical and sexual abuse; Z65.3 Problems related to other legal circumstances; Z88.8 Allergy status to other drugs, medicaments and biological substances; Z81.1 Family history of alcohol abuse and dependence; Z81.8 Family history of other mental and behavioral disorders
CPT/HCPCS: 12005; 80048; 80053; 80061; 80306; 82075; 82248; 83036; 84443; 85025; 99285

== ENCOUNTER 2018-08-10 01:45 | Emergency (ER) | payer OTHER ==
[2018-08-10 01:56] VITALS: TEMP 97.1
--- NOTE | 2018-08-10 03:31 | ED ---
Psych HPI - General Chief Complaint: Psychiatric Symptoms Stated Complaint: Suicidal Source: patient Mode of arrival: ambulatory - History of Present Illness Initial Comments: 22-year-old female past medical history of depression, bipolar and previous suicide attempt presented today for chief complaint of suicidal ideations. Patient states she's been depressed for years on and off, due to her bipolar. Patient denies any abuse or neglect or recent life events causing depression. Patient states she's had suicidal thoughts for the past month. She was just released from [facility] for suicide attempt via cutting wrists. Patient states she was experiencing increased depression following discharge. Patient states that she would like to slit her throat. Patient denies any homicidal ideations. Patient states she is compliant with her medication which includes Effexor, Lamictal, Wellbutrin. Patient states she sees a counselor one time a week at [facility]. Patient presents emergency department for help so she does not complete suicide. Patient denies any ingestion of medication, alcohol or drug use. Remainder of ROS negative, patient denies any recent fever, chills , shortness of breath, chest pain, back pain, abdominal pain, nausea or vomiting , numbness or tingling, dysuria or hematuria, constipation or diarrhea, headaches or visual changes, or any other complaints. Pt denies . - Related Data Home Medications Medication Instructions Recorded Confirmed Potassium Chloride ER [K-Dur 20] 100 meq PO BID 12/20/17 08/01/18 Magnesium Oxide [Mag-Ox] 400 mg PO BID 07/17/18 08/01/18 hydrOXYzine PAMOATE 25 mg PO TID PRN 07/17/18 08/01/18 Spironolactone [Aldactone] 25 mg PO DAILY 07/31/18 08/01/18 lamoTRIgine [LaMICtal] 50 mg PO HS 07/31/18 08/01/18 Previous Rx's Medication Instructions Recorded Nicotine 14Mg/24Hr Patch [Habitrol] 1 patch TRANSDERM DAILY 30 Days 08/08/18 #30 patch Paliperidone IM [Invega Sustenna] 234 mg IM Q28D 28 Days #1 syringe 08/08/18 Paliperidone [Invega] 9 mg PO 2100 30 Days #90 tab.er.24 08/08/18 Venlafaxine HCl ER [Effexor XR] 225 mg PO 2100 30 Days #90 08/08/18 cap.er.24h buPROPion SR [Wellbutrin SR] 150 mg PO DAILY 30 Days #30 08/08/18 tablet.er Allergies Allergy/AdvReac Type Severity Reaction Status Date / Time risperidone [From Risperdal] AdvReac MUSCLE Verified 08/10/18 01:56 SPASMS Review of Systems ROS Statement: Those systems with pertinent positive or pertinent negative responses have been documented in the HPI. ROS Other: All systems not noted in ROS Statement are negative. Constitutional: Denies: fever, chills, night sweats ENT: Denies: ear pain, throat pain Respiratory: Denies: cough, dyspnea, wheezes, hemoptysis, stridor Cardiovascular: Denies: chest pain, palpitations Endocrine: Denies: fatigue Gastrointestinal: Denies: abdominal pain, nausea, vomiting, diarrhea, constipation, hematemesis, melena Genitourinary: Denies: urgency, dysuria Musculoskeletal: Denies: back pain Skin: Denies: rash, lesions Neurological: Denies: headache, numbness, confusion Psychiatric: Reports: anxiety, depression, suicidal thoughts. Denies: homicidal thoughts Past Medical History Past Medical History: Renal Disease Additional Past Medical History / Comment(s): Bartter syndrome ( low potassium) , anxiety, bipolar, depression, ADHD, History of Any Multi-Drug Resistant Organisms: None Reported Past Surgical History: Tonsillectomy Additional Past Surgical History / Comment(s): wisdom teeth 2016, Past Anesthesia/Blood Transfusion Reactions: No Reported Reaction Past Psychological History: ADD/ADHD, Anxiety, Bipolar, Depression Smoking Status: Current every day smoker Past Alcohol Use History: Occasional Past Drug Use History: None Reported - Past Family History Mother Additional Family Medical History / Comment(s): Mother is alive at age 40 with no major medical problems. Pt states Alzheimers and Bipolar disorder runs on her mother's side. Sister(s) Family Medical History: Diabetes Mellitus Additional Family Medical History / Comment(s): Patient has 4 half-sisters. Brother(s) Additional Family Medical History / Comment(s): Patient has 5 or 6 half- brothers with no major medical problems. Patient does not have any children. Father Additional Family Medical History / Comment(s): Father is alive at age 55 and patient has no contact with him as he is in snf. General Exam - General Exam Comments Initial Comments: General: The patient is awake and alert, in no distress, and does not appear acutely ill. Eye: Pupils are equal, round and reactive to light, extra-ocular movements are intact. No nystagmus. There is normal conjunctiva bilaterally. No signs of icterus. Ears, nose, mouth and throat: There are moist mucous membranes and no oral lesions. Neck: The neck is supple, there is no tenderness or JVD. Cardiovascular: There is a regular rate and rhythm. No murmur, rub or gallop is appreciated. Respiratory: Lungs are clear to auscultation, respirations are non-labored, breath sounds are equal. No wheezes, stridor, rales, or rhonchi. Gastrointestinal: Soft, non-distended, non-tender abdomen without masses or organomegaly noted. There is no rebound or guarding present. No CVA tenderness. Bowel sounds are unremarkable Musculoskeletal: Normal ROM, no tenderness. Strength 5/5. Sensation intact. Pulses equal bilaterally 2+. Neurological: A&O x 3. CN II-XII intact, There are no obvious motor or sensory deficits. Coordination appears grossly intact. Speech is normal. Skin: Skin is warm and dry and no rashes. Multiple lacerations vertically in forearms b/l with sutures in place. No surrounding erythema, warmth or drainage. Psychiatric: Cooperative, appropriate mood & affect, normal judgment. Limitations: no limitations Course Vital Signs 08/10/18 01:53 Temperature 97.1 F L Pulse Rate 69 Respiratory 18 Rate Blood Pressure 120/79 O2 Sat by Pulse 99 Oximetry Medical Decision Making - Medical Decision Making I personally evaluated patient. I feel patient should be admitted for suicidal ideation and plan. Patient medically cleared. EPS aware. Pt most likely [place] transfer. Case discussed with Dr. Mcbride prior to shift change. Aware of patient and current plan will manage further care until transfer. - Lab Data Lab Results 08/10/18 Range/Units 03:13 Urine Color Light Yellow Urine Appearance Cloudy H (Clear) Urine pH 7.5 (5.0-8.0) Ur Specific [place] 1.016 (1.001-1.035) Urine Protein Negative (Negative) Urine Glucose (UA) Negative (Negative) Urine Ketones Negative (Negative) Urine Blood Negative (Negative) Urine Nitrite Negative (Negative) Urine Bilirubin Negative (Negative) Urine Urobilinogen <2.0 (<2.0) mg/dL Ur Leukocyte Esterase Small H (Negative) Urine RBC 1 (0-5) /hpf Urine WBC 1 (0-5) /hpf Ur Squamous Epith Cells 11 H (0-4) /hpf Urine Bacteria Rare H (None) /hpf Urine Mucus Rare H (None) /hpf Urine Opiates Screen Not Detected (NotDetected) Ur Oxycodone Screen Not Detected (NotDetected) Urine Methadone Screen Not Detected (NotDetected) Ur Propoxyphene Screen Not Detected (NotDetected) Ur Barbiturates Screen Not Detected (NotDetected) U Tricyclic Antidepress Not Detected (NotDetected) Ur Phencyclidine Scrn Not Detected (NotDetected) Ur Amphetamines Screen Not Detected (NotDetected) U Methamphetamines Scrn Not Detected (NotDetected) U Benzodiazepines Scrn Not Detected (NotDetected) Urine Cocaine Screen Not Detected (NotDetected) U Marijuana (THC) Screen Not Detected (NotDetected) Disposition Clinical Impression: Suicide ideation, Planning to commit suicide, Depression Disposition: TRANSFER TO PSYCH HOSP/UNIT Condition: Stable Is patient prescribed a controlled substance at d/c from ED?: No Referrals: Ugo Friedman DO [Primary Care Provider] - 1-2 days Time of Disposition: 04:21
[2018-08-10 03:43] LABS: Appearance,Urine Cloudy (Clear); Bacteria,Urine Rare /hpf; Bilirubin,Urine Negative (Negative); Blood,Urine Negative (Negative); Color,Urine Light Yellow; Glucose,Urine (UA) Negative (Negative); Ketones,Urine Negative (Negative); Leukocyte Esterase,Urine Small (Negative); Mucus,Urine Rare /hpf; Nitrite,Urine Negative (Negative); PH, Urine 7.5 (5.0-8.0); Protein,Urine Negative (Negative); RBC,Urine 1 /hpf (0-5); Specific Gravity,Urine 1.016 (1.001-1.035); Squamous Epithelial Cell,Urine 11 /hpf (0-4); Urobilinogen,Urine <2.0 mg/dL (<2.0); WBC,Urine 1 /hpf (0-5)
[2018-08-10 03:45] LABS: Amphetamine Screen,Urine Not Detected (NotDetected); Barbiturate Screen,Urine Not Detected (NotDetected); Benzodiazepines Screen,Urine Not Detected (NotDetected); Cocaine Screen,Urine Not Detected (NotDetected); Methadone Screen, Urine Not Detected (NotDetected); Opiate Screen,Urine Not Detected (NotDetected); Oxycodone Screen, Urine Not Detected (NotDetected); Phencyclidine Screen,Urine Not Detected (NotDetected); Tricyclic Antidepressant,Urine Not Detected (NotDetected); Urn Cannabinoid Scrn Not Detected (NotDetected)
[2018-08-10 06:34] LABS: Basophils % (A) 0 %; Eosinophils # (A) 0.2 k/uL (0-0.7); Eosinophils % (A) 1 %; HCT 42.8 % (34.0-46.0); Lymphocytes # (A) 2.8 k/uL (1.0-4.8); Lymphocytes % (A) 22 %; MCH 28.3 pg (25.0-35.0); MCHC 32.8 g/dL (31.0-37.0); MCV 86.1 fL (80.0-100.0); Mean Platelet Volume 6.9; Monocytes # (A) 0.6 k/uL (0-1.0); Monocytes % (A) 5 %; Neutrophils # (A) 9.2 k/uL (1.3-7.7); Neutrophils % (A) 71 %; Platelet Count 344 k/uL (150-450); RBC 4.97 m/uL (3.80-5.40); RDW 13.8 % (11.5-15.5)
[2018-08-10 06:51] LABS: ALT 21 U/L (9-52); AST 17 U/L (14-36); Acetaminophen <10.0 ug/mL; Albumin 4.3 g/dL (3.5-5.0); Alcohol <10 mg/dL; Alkaline Phosphatase 55 U/L (38-126); Anion Gap 14 mmol/L; Blood Urea Nitrogen 14 mg/dL (7-17); Calcium 10.1 mg/dL (8.4-10.2); Carbon Dioxide 26 mmol/L (22-30); Chloride 102 mmol/L (98-107); Glucose 116 mg/dL (74-99); Potassium 3.5 mmol/L (3.5-5.1); Salicylate <1.0 mg/dL; Sodium 142 mmol/L (137-145); Total Bilirubin 0.3 mg/dL (0.2-1.3); Total Protein 7.6 g/dL (6.3-8.2)
[2018-08-10 07:06] VITALS: RESP 18
[2018-08-10 11:20] VITALS: BP 106/51; PULSE 83
== END 2018-08-10 11:20 ==
LOC: EC 01:45
DX: F31.30 Bipolar disorder, current episode depressed, mild or moderate severity, unspecified (principal); R45.851 Suicidal ideations; S51.812D Laceration without foreign body of left forearm, subsequent encounter; S51.811D Laceration without foreign body of right forearm, subsequent encounter; E26.81 Bartter's syndrome; F41.9 Anxiety disorder, unspecified; F17.200 Nicotine dependence, unspecified, uncomplicated; Z88.8 Allergy status to other drugs, medicaments and biological substances; Z81.8 Family history of other mental and behavioral disorders; X83.8XXD Intentional self-harm by other specified means, subsequent encounter
CPT/HCPCS: 36415; 80053; 80306; 80320; 81001; 81025; 82075; 83520; 85025; 99285

== ENCOUNTER 2018-11-21 19:36 | Inpatient (IN) | payer OTHER, MEDICAID ==
--- NOTE | 2018-11-21 19:54 | ED ---
Psych HPI - General Chief Complaint: Psychiatric Symptoms Stated Complaint: Mental health Suicidal Time Seen by Provider: 11/21/18 19:53 Source: patient, RN notes reviewed, old records reviewed Mode of arrival: ambulatory - History of Present Illness Initial Comments: This is a 22-year-old female the ER for evaluation. Today she is presenting for evaluation regards to suicidal and psychiatric thoughts. Patient does have history of mental health as well as significant history of medical illness including altered electrode. MD Complaint: suicidal ideation, feels depressed -: unknown Associated Psychiatric Symptoms: depression, suicidal ideation History of same: Yes Quality: constant Improves With: none Worsens With: none Associated Symptoms: denies other symptoms Treatments Prior to Arrival: none If Self Harm: admits thoughts of self harm - Related Data Home Medications Medication Instructions Recorded Confirmed Potassium Chloride ER [K-Dur 20] 100 meq PO BID 12/20/17 11/21/18 Magnesium Oxide [Jones] 500 mg PO BID 11/21/18 11/21/18 aMILoride HCL 5 mg PO BID 11/21/18 11/21/18 hydrOXYzine HCL 10 mg PO HS 11/21/18 11/21/18 metFORMIN HCL [Glucophage] 500 mg PO BID 11/21/18 11/21/18 Previous Rx's Medication Instructions Recorded Paliperidone IM [Invega Sustenna] 234 mg IM Q28D 28 Days #1 syringe 11/24/18 lamoTRIgine [LaMICtal] 200 mg PO 2100 30 Days #60 tab 11/24/18 Allergies Allergy/AdvReac Type Severity Reaction Status Date / Time risperidone [From Risperdal] Allergy Mild MUSCLE Verified 11/22/18 00:10 SPASMS Review of Systems ROS Statement: Those systems with pertinent positive or pertinent negative responses have been documented in the HPI. ROS Other: All systems not noted in ROS Statement are negative. Past Medical History Past Medical History: Renal Disease Additional Past Medical History / Comment(s): Bartter syndrome ( low potassium), anxiety, bipolar, depression, ADHD, History of Any Multi-Drug Resistant Organisms: None Reported Past Surgical History: Tonsillectomy Additional Past Surgical History / Comment(s): wisdom teeth 2016, Past Anesthesia/Blood Transfusion Reactions: No Reported Reaction Past Psychological History: ADD/ADHD, Anxiety, Bipolar, Depression Smoking Status: Current every day smoker Past Alcohol Use History: Occasional Past Drug Use History: None Reported - Past Family History Mother Additional Family Medical History / Comment(s): Mother is alive at age 40 with no major medical problems. Pt states Alzheimers and Bipolar disorder runs on her mother's side. Sister(s) Family Medical History: Diabetes Mellitus Additional Family Medical History / Comment(s): Patient has 4 half-sisters. Brother(s) Additional Family Medical History / Comment(s): Patient has 5 or 6 half-brothers with no major medical problems. Patient does not have any children. Father Additional Family Medical History / Comment(s): Father is alive at age 55 and patient has no contact with him as he is in longterm. General Exam Limitations: no limitations General appearance: alert, in no apparent distress Head exam: Present: atraumatic, normocephalic, normal inspection Eye exam: Present: normal appearance, PERRL, EOMI. Absent: scleral icterus, conjunctival injection, periorbital swelling ENT exam: Present: normal exam, mucous membranes moist Neck exam: Present: normal inspection. Absent: tenderness, meningismus, lymphadenopathy Respiratory exam: Present: normal lung sounds bilaterally. Absent: respiratory distress, wheezes, rales, rhonchi, stridor Cardiovascular Exam: Present: regular rate, normal rhythm, normal heart sounds. Absent: systolic murmur, diastolic murmur, rubs, gallop, clicks GI/Abdominal exam: Present: soft, normal bowel sounds. Absent: distended, tenderness, guarding, rebound, rigid Extremities exam: Present: normal inspection, full ROM, normal capillary refill. Absent: tenderness, pedal edema, joint swelling, calf tenderness Back exam: Present: normal inspection Neurological exam: Present: alert, oriented X3, CN II-XII intact Psychiatric exam: Present: normal affect, normal mood Skin exam: Present: warm, dry, intact, normal color. Absent: rash Course Vital Signs 11/21/18 19:44 Temperature 98.1 F Pulse Rate 115 H Respiratory 18 Rate Blood Pressure 122/71 O2 Sat by Pulse 96 Oximetry - Reevaluation(s) Reevaluation #1: 11/21/18 21:15 Medically clear for psychiatric evaluation Medical Decision Making - Medical Decision Making 22-year-old female the ER for evaluation of mental health. Patient was seen in the emergency department by psychiatry and decided to admit for psychiatric evaluation and treatment - Lab Data Result diagrams: 11/21/18 21:45 11/24/18 08:34 Lab Results 11/21/18 11/21/18 11/21/18 Range/Units 21:45 21:45 22:10 WBC 9.6 (4.0-11.0) k/uL RBC 4.64 (3.80-5.40) m/uL Hgb 13.4 (11.4-16.0) gm/dL Hct 40.0 (34.0-46.0) % MCV 86.2 (80.0-100.0) fL MCH 28.9 (25.0-35.0) pg MCHC 33.5 (31.0-37.0) g/dL RDW 13.8 (11.5-15.5) % Plt Count 349 (150-450) k/uL Neutrophils % 67 % Lymphocytes % 24 % Monocytes % 4 % Eosinophils % 3 % Basophils % 0 % Neutrophils # 6.5 (1.3-7.7) k/uL Lymphocytes # 2.3 (1.0-4.8) k/uL Monocytes # 0.4 (0-1.0) k/uL Eosinophils # 0.3 (0-0.7) k/uL Basophils # 0.0 (0-0.2) k/uL Sodium 139 (137-145) mmol/L Potassium 3.9 (3.5-5.1) mmol/L Chloride 103 (98-107) mmol/L Carbon Dioxide 25 (22-30) mmol/L Anion Gap 11 mmol/L BUN 12 (7-17) mg/dL Creatinine 0.42 L (0.52-1.04) mg/dL Est GFR (CKD-EPI)AfAm >90 (>60 ml/min/1.73 sqM) Est GFR (CKD-EPI)NonAf >90 (>60 ml/min/1.73 sqM) Glucose 105 H (74-99) mg/dL Calcium 9.6 (8.4-10.2) mg/dL Phosphorus 4.2 (2.5-4.5) mg/dL Magnesium 1.7 (1.6-2.3) mg/dL Salicylates <1.0 mg/dL Urine Opiates Screen Not Detected (NotDetected) Ur Oxycodone Screen Not Detected (NotDetected) Urine Methadone Screen Not Detected (NotDetected) Ur Propoxyphene Screen Not Detected (NotDetected) Acetaminophen <10.0 ug/mL Ur Barbiturates Screen Not Detected (NotDetected) U Tricyclic Antidepress Not Detected (NotDetected) Ur Phencyclidine Scrn Not Detected (NotDetected) Ur Amphetamines Screen Not Detected (NotDetected) U Methamphetamines Scrn Not Detected (NotDetected) U Benzodiazepines Scrn Not Detected (NotDetected) Urine Cocaine Screen Not Detected (NotDetected) U Marijuana (THC) Screen Detected H (NotDetected) Serum Alcohol <10 mg/dL Disposition Clinical Impression: Acute anxiety, Depression, Suicidal ideation Disposition: TRANSFER TO PSYCH HOSP/UNIT Condition: Fair Is patient prescribed a controlled substance at d/c from ED?: No
[2018-11-21 22:14] LABS: Basophils % (A) 0 %; Eosinophils # (A) 0.3 k/uL (0-0.7); Eosinophils % (A) 3 %; HGB 13.4 gm/dL (11.4-16.0); Lymphocytes # (A) 2.3 k/uL (1.0-4.8); Lymphocytes % (A) 24 %; MCH 28.9 pg (25.0-35.0); MCHC 33.5 g/dL (31.0-37.0); MCV 86.2 fL (80.0-100.0); Mean Platelet Volume 6.8; Monocytes # (A) 0.4 k/uL (0-1.0); Monocytes % (A) 4 %; Neutrophils # (A) 6.5 k/uL (1.3-7.7); Neutrophils % (A) 67 %; Platelet Count 349 k/uL (150-450); RBC 4.64 m/uL (3.80-5.40); RDW 13.8 % (11.5-15.5); WBC 9.6 k/uL (4.0-11.0)
[2018-11-21 22:23] LABS: Acetaminophen <10.0 ug/mL; Alcohol <10 mg/dL; Anion Gap 11 mmol/L; Blood Urea Nitrogen 12 mg/dL (7-17); Calcium 9.6 mg/dL (8.4-10.2); Carbon Dioxide 25 mmol/L (22-30); Chloride 103 mmol/L (98-107); Glucose 105 mg/dL (74-99); Magnesium 1.7 mg/dL (1.6-2.3); Phosphorus 4.2 mg/dL (2.5-4.5); Potassium 3.9 mmol/L (3.5-5.1); Salicylate <1.0 mg/dL; Sodium 139 mmol/L (137-145)
[2018-11-21 22:32] LABS: Amphetamine Screen,Urine Not Detected (NotDetected); Barbiturate Screen,Urine Not Detected (NotDetected); Benzodiazepines Screen,Urine Not Detected (NotDetected); Cocaine Screen,Urine Not Detected (NotDetected); Methadone Screen, Urine Not Detected (NotDetected); Opiate Screen,Urine Not Detected (NotDetected); Oxycodone Screen, Urine Not Detected (NotDetected); Phencyclidine Screen,Urine Not Detected (NotDetected); Tricyclic Antidepressant,Urine Not Detected (NotDetected); Urn Cannabinoid Scrn Detected (NotDetected)
[2018-11-21] MEDS ORDERED: LORazepam 1 MG TAB PO PRN (23:09)
[2018-11-21] MEDS ORDERED: MAG HYDROX/AL HYDROX/SIMETH 30 ML CUP PO PRN (23:09)
[2018-11-21] MEDS ORDERED: ACETAMINOPHEN TAB 325 MG TAB PO PRN (23:09)
[2018-11-21] MEDS ORDERED: ZIPRASIDONE 20 MG VIAL IM PRN (23:09)
[2018-11-21] MEDS ORDERED: MAGNESIUM HYDROXIDE 2,400 MG/10 ML CUP PO PRN (23:09)
[2018-11-21] MEDS ORDERED: LORazepam 2 MG/ML INJ IM PRN (23:15)
[2018-11-21] MEDS ORDERED: lamoTRIgine 100 MG TAB PO SCH (23:30)
[2018-11-21] MEDS: hydrOXYzine HCL 10 MG TAB PO SCH (23:57)
[2018-11-22 00:23] VITALS: BMI 39.4
[2018-11-22] MEDS: NICOTINE 14MG/24HR PATCH TRANSDERM SCH (07:56)
[2018-11-22] MEDS: SPIRONOLACTONE 25 MG TAB PO SCH ×2 (07:57→22:03)
[2018-11-22] MEDS: metFORMIN 500 MG TAB PO SCH ×2 (07:57→22:03)
[2018-11-22] MEDS: MAGNESIUM OXIDE 400 MG TAB PO SCH ×2 (07:57→22:03)
[2018-11-22] MEDS ORDERED: DULoxetine HCL 60 MG CAPSULE.DR PO SCH (09:00)
[2018-11-22] MEDS ORDERED: DULoxetine HCL 30 MG CAPSULE.DR PO SCH (09:00)
[2018-11-22 09:24] LABS: ALT 38 U/L (9-52); AST 14 U/L (14-36); Albumin 4.2 g/dL (3.5-5.0); Alkaline Phosphatase 63 U/L (38-126); Anion Gap 7 mmol/L; Blood Urea Nitrogen 12 mg/dL (7-17); Calcium 9.8 mg/dL (8.4-10.2); Carbon Dioxide 33 mmol/L (22-30); Chloride 98 mmol/L (98-107); Cholesterol 150 mg/dL (<200); Glucose 142 mg/dL (74-99); HDL Cholesterol 39 mg/dL (40-60); LDL Cholesterol,Calculated 82 mg/dL (0-99); Sodium 138 mmol/L (137-145); Total Bilirubin 0.3 mg/dL (0.2-1.3); Total Protein 7.1 g/dL (6.3-8.2); Triglycerides 145 mg/dL (<150)
[2018-11-22] MEDS: POTASSIUM CHLORIDE ER 20 MEQ TAB.ER PO SCH ×2 (13:32→22:03)
--- NOTE | 2018-11-22 13:35 | P.HPMEDMHU ---
History of Present Illness H&P Date: 11/22/18 Chief Complaint: depression Patient is a 22 yo CF with a past medical history of barters syndrome, depression, and ADHD who presented to the ED with complaints of depression. Patient seen and examined at bedside. She denies any chest pain, shortness breath, nausea, vomiting, diarrhea, constipation, dysuria. 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 She follows with Dr. Friedman and no longer has to see nephrology on an outpatient basis. She states she has been having some depression and has been sleeping a lot. She has no other complaints currently. None of her medications have been adjusted recently. Review of Systems Pertinent positives and negatives as discussed in HPI, a complete review of sys tems was performed and all other systems are negative. Past Medical History Past Medical History: Renal Disease Additional Past Medical History / Comment(s): Bartter syndrome ( low potassium), anxiety, bipolar, depression, ADHD, History of Any Multi-Drug Resistant Organisms: None Reported Past Surgical History: Tonsillectomy Additional Past Surgical History / Comment(s): wisdom teeth 2016, Past Anesthesia/Blood Transfusion Reactions: No Reported Reaction Past Psychological History: ADD/ADHD, Anxiety, Bipolar, Depression Additional Psychological History / Comment(s): Nikki Carrillo [facility] Smoking Status: Former smoker Past Alcohol Use History: Occasional Additional Past Alcohol Use History / Comment(s): Patient was a smoker for packs per week for 8 years and quit in 2016. Patient states she now smokes 3 cigarettes a day. She does use marijuana rarely. She denies any other street drug use. No alcohol use. Pt. denied to tag writer that she smokes or drinks ETOH. 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 Pt states Alzheimers and Bipolar disorder runs on her mother's side. Sister(s) Family Medical History: Diabetes Mellitus Additional Family Medical History / Comment(s): Patient has 4 half-sisters. Brother(s) Additional Family Medical History / Comment(s): Patient has 5 or 6 half-brothers with no major medical problems. Patient does not have any children. Father Additional Family Medical History / Comment(s): Father is alive at age 55 and patient has no contact with him as he is in [facility]. Medications and Allergies Home Medications Medication Instructions Recorded Confirmed Type Potassium Chloride ER [K-Dur 20] 100 meq PO BID 12/20/17 11/21/18 History Paliperidone IM [Invega Sustenna] 234 mg IM Q28D 28 Days #1 syringe 08/08/18 11/21/18 Rx DULoxetine HCL [Cymbalta] 30 mg PO DAILY 11/21/18 11/21/18 History DULoxetine HCL [Cymbalta] 60 mg PO DAILY 11/21/18 11/21/18 History Dextroamphetamine/Amphetamine 20 mg PO BID 11/21/18 11/21/18 History [Adderall] Haloperidol Decanoate [Haldol D] 100 mg IM Q14D 11/21/18 11/21/18 History Magnesium Oxide [Jones] 500 mg PO BID 11/21/18 11/21/18 History aMILoride HCL 5 mg PO BID 11/21/18 11/21/18 History hydrOXYzine HCL 10 mg PO HS 11/21/18 11/21/18 History lamoTRIgine [LaMICtal] 100 mg PO HS 11/21/18 11/21/18 History metFORMIN HCL [Glucophage] 500 mg PO BID 11/21/18 11/21/18 History Allergies Allergy/AdvReac Type Severity Reaction Status Date / Time risperidone [From Risperdal] Allergy Mild MUSCLE Verified 11/22/18 00:10 SPASMS Physical Exam Osteopathic Statement: *. No significant issues noted on an osteopathic structural exam other than those noted in the History and Physical/Consult. Vitals: Vital Signs Temp Pulse Pulse Resp BP BP Pulse Ox 11/22/18 07:58 91 18 102/59 11/22/18 06:28 98.5 F 71 16 104/54 11/22/18 00:17 98.5 F 89 18 116/75 11/21/18 19:44 98.1 F 115 H 18 122/71 96 Intake and Output 11/21/18 11/22/18 11/22/18 22:59 06:59 14:59 Other: Weight 108.862 kg General: non toxic, no distress, appears at stated age, normal weight, obese Derm: no unusual rashes/lesions no unusual ecchymoses, warm, dry Head: atraumatic, normocephalic, symmetric Eyes: EOMI, no lid lag, anicteric sclera, pupils equal round reactive to light ENT: Nose and ears atraumatic, no thrush, no pharyngeal erythema Neck: No thyromegaly, no cervical lymphadenopathy, trachea midline, supple Mouth: no lip lesion, mucus membranes moist Cardiovascular: S1S2 reg, no murmur, positive posterior tibial pulse bilateral, no edema, capillary refill less than 2 seconds Lungs: CTA bilateral, no rhonchi, no rales , no accessory muscle use Abdominal: soft, nontender to palpation, no guarding, no appreciable organomegaly, normal bowel sounds Ext: no gross muscle atrophy, muscle strength 5 out of 5 in all 4 extremities grossly, no contractures, Neuro: CN II-XI grossly intact, light touch intact all 4 extremities, finger to nose within normal limits, Psych: Alert, oriented, appropriate affect Cranial Nerve Examination - Cranial Nerves Cranial Nerve II- Optic: Intact Cranial Nerve III- Oculomotor: Intact Cranial Nerve IV- Trochlear: Intact Cranial Nerve V- Trigeminal: Intact Cranial Nerve - Abducens: Intact Cranial Nerve VII- Facial: Intact Cranial Nerve VIII- Auditory: Intact Cranial Nerve IX- Glossopharyngeal: Intact Cranial Nerve X- Vagus: Intact Cranial Nerve XI- Accessory: Intact Cranial Nerve XII- Hypoglossal: Intact Results CBC & Chem 7: 11/21/18 21:45 11/22/18 08:41 Labs: Abnormal Lab Results - Last 24 Hours (Table) 11/21/18 11/21/18 11/22/18 Range/Units 21:45 22:10 08:41 Carbon Dioxide 33 H (22-30) mmol/L Creatinine 0.42 L (0.52-1.04) mg/dL Glucose 105 H 142 H (74-99) mg/dL HDL Cholesterol 39 L (40-60) mg/dL U Marijuana (THC) Screen Detected H (NotDetected) Thrombosis Risk Factor Assmnt - DVT/VTE Prophylaxis DVT/VTE Prophylaxis: Low risk, early ambulation encouraged - Choose All That Apply Each Factor Represents 1 point: Obesity (BMI >25) Other Risk Factors: No Other congenital or acquired thrombophilia - If yes, enter type in comment: No Thrombosis Risk Factor Assessment Total Risk Factor Score: 1 Thrombosis Risk Factor Assessment Level: Low Risk Assessment and Plan Assessment: Bartter syndrome -Resume home Aldactone and potassium -Repeat basic metabolic profile and 48-72 hours Morbid obesity with BMI 38.7 -Structured outpatient weight loss Depression -Your psych management Thank you for allowing us to participate in the care of this patient. We will follow peripherally. Do not hesitate to contact us with questions. Someone can be reached from the [facility] hospitalist group at all hours of the day at [phone].
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
[2018-11-22 20:14] LABS: Hemoglobin A1C 5.3 % (4.0-6.0)
[2018-11-22] MEDS: hydrOXYzine HCL 10 MG TAB PO SCH (22:02)
[2018-11-22] MEDS: lamoTRIgine 100 MG TAB PO SCH (22:03)
[2018-11-22] MEDS: VENLAFAXINE HCL ER 75 MG CAP PO SCH (22:04)
[2018-11-23] MEDS: NICOTINE 14MG/24HR PATCH TRANSDERM SCH (09:27)
[2018-11-23] MEDS: POTASSIUM CHLORIDE ER 20 MEQ TAB.ER PO SCH ×2 (09:27→20:48)
[2018-11-23] MEDS: SPIRONOLACTONE 25 MG TAB PO SCH ×2 (09:28→20:48)
[2018-11-23] MEDS: metFORMIN 500 MG TAB PO SCH ×2 (09:28→20:48)
[2018-11-23] MEDS: MAGNESIUM OXIDE 400 MG TAB PO SCH ×2 (09:28→21:10)
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
[2018-11-23] MEDS: hydrOXYzine HCL 10 MG TAB PO SCH (20:46)
[2018-11-23] MEDS: lamoTRIgine 100 MG TAB PO SCH (20:47)
[2018-11-23] MEDS: VENLAFAXINE HCL ER 75 MG CAP PO SCH (20:48)
[2018-11-24 06:53] VITALS: BP 113/55; PULSE 72; RESP 20; TEMP 98.5
[2018-11-24 09:12] LABS: Anion Gap 11 mmol/L; Blood Urea Nitrogen 12 mg/dL (7-17); Calcium 10.1 mg/dL (8.4-10.2); Carbon Dioxide 27 mmol/L (22-30); Chloride 102 mmol/L (98-107); Glucose 124 mg/dL (74-99); Potassium 3.6 mmol/L (3.5-5.1); Sodium 140 mmol/L (137-145)
[2018-11-24] MEDS: SPIRONOLACTONE 25 MG TAB PO SCH (09:31)
[2018-11-24] MEDS: metFORMIN 500 MG TAB PO SCH (09:31)
[2018-11-24] MEDS: POTASSIUM CHLORIDE ER 20 MEQ TAB.ER PO SCH (09:31)
[2018-11-24] MEDS: MAGNESIUM OXIDE 400 MG TAB PO SCH (09:31)
--- NOTE | 2018-11-24 12:29 | P.DS ---
Providers Date of admission: 11/21/18 23:03 Expected date of discharge: 11/24/18 Attending physician: Scott Bolivar DO Consults: 11/21/18 23:09 Consult Physician Routine Consulting Provider: Ayala Eduardo Consult Reason/Comments: H&P and medical Do you want consulting provider notified?: Yes Primary care physician: Ugo Friedman - Discharge Diagnosis(es) (1) Major depressive disorder, recurrent, severe with psychotic features Allergies Allergy/AdvReac Type Severity Reaction Status Date / Time risperidone [From Risperdal] Allergy Mild MUSCLE Verified 11/22/18 00:10 SPASMS Vital Signs Temp 98.5 F 11/22/18 06:28 Pulse 91 11/22/18 07:58 Resp 18 11/22/18 07:58 BP 102/59 11/22/18 07:58 Pulse Ox 96 11/21/18 19:44 Intake & Output 11/21/18 11/22/18 11/22/18 18:59 06:59 18:59 Weight 108.862 kg Laboratory Last Values WBC 9.6 k/uL (4.0-11.0) 11/21/18 21:45 RBC 4.64 m/uL (3.80-5.40) 11/21/18 21:45 Hgb 13.4 gm/dL (11.4-16.0) 11/21/18 21:45 Hct 40.0 % (34.0-46.0) 11/21/18 21:45 MCV 86.2 fL (80.0-100.0) 11/21/18 21:45 MCH 28.9 pg (25.0-35.0) 11/21/18 21:45 MCHC 33.5 g/dL (31.0-37.0) 11/21/18 21:45 RDW 13.8 % (11.5-15.5) 11/21/18 21:45 Plt Count 349 k/uL (150-450) 11/21/18 21:45 Neutrophils % 67 % 11/21/18 21:45 Lymphocytes % 24 % 11/21/18 21:45 Monocytes % 4 % 11/21/18 21:45 Eosinophils % 3 % 11/21/18 21:45 Basophils % 0 % 11/21/18 21:45 Neutrophils # 6.5 k/uL (1.3-7.7) 11/21/18 21:45 Lymphocytes # 2.3 k/uL (1.0-4.8) 11/21/18 21:45 Monocytes # 0.4 k/uL (0-1.0) 11/21/18 21:45 Eosinophils # 0.3 k/uL (0-0.7) 11/21/18 21:45 Basophils # 0.0 k/uL (0-0.2) 11/21/18 21:45 Sodium 138 mmol/L (137-145) 11/22/18 08:41 Potassium 4.0 mmol/L (3.5-5.1) 11/22/18 08:41 Chloride 98 mmol/L (98-107) 11/22/18 08:41 Carbon Dioxide 33 mmol/L (22-30) H 11/22/18 08:41 Anion Gap 7 mmol/L 11/22/18 08:41 BUN 12 mg/dL (7-17) 11/22/18 08:41 Creatinine 0.66 mg/dL (0.52-1.04) 11/22/18 08:41 Est GFR (CKD-EPI)AfAm >90 (>60 ml/min/1.73 sqM) 11/22/18 08:41 Est GFR (CKD-EPI)NonAf >90 (>60 ml/min/1.73 sqM) 11/22/18 08:41 Glucose 142 mg/dL (74-99) H 11/22/18 08:41 Calcium 9.8 mg/dL (8.4-10.2) 11/22/18 08:41 Phosphorus 4.2 mg/dL (2.5-4.5) 11/21/18 21:45 Magnesium 1.7 mg/dL (1.6-2.3) 11/21/18 21:45 Total Bilirubin 0.3 mg/dL (0.2-1.3) 11/22/18 08:41 AST 14 U/L (14-36) 11/22/18 08:41 ALT 38 U/L (9-52) 11/22/18 08:41 Alkaline Phosphatase 63 U/L (38-126) 11/22/18 08:41 Total Protein 7.1 g/dL (6.3-8.2) 11/22/18 08:41 Albumin 4.2 g/dL (3.5-5.0) 11/22/18 08:41 Triglycerides 145 mg/dL (<150) 11/22/18 08:41 Cholesterol 150 mg/dL (<200) 11/22/18 08:41 LDL Cholesterol, Calc 82 mg/dL (0-99) 11/22/18 08:41 HDL Cholesterol 39 mg/dL (40-60) L 11/22/18 08:41 TSH 3.390 mIU/L (0.465-4.680) 11/22/18 08:41 Salicylates <1.0 mg/dL 11/21/18 21:45 Urine Opiates Screen Not Detected (NotDetected) 11/21/18 22:10 Ur Oxycodone Screen Not Detected (NotDetected) 11/21/18 22:10 Urine Methadone Screen Not Detected (NotDetected) 11/21/18 22:10 Ur Propoxyphene Screen Not Detected (NotDetected) 11/21/18 22:10 Acetaminophen <10.0 ug/mL 11/21/18 21:45 Ur Barbiturates Screen Not Detected (NotDetected) 11/21/18 22:10 U Tricyclic Antidepress Not Detected (NotDetected) 11/21/18 22:10 Ur Phencyclidine Scrn Not Detected (NotDetected) 11/21/18 22:10 Ur Amphetamines Screen Not Detected (NotDetected) 11/21/18 22:10 U Methamphetamines Scrn Not Detected (NotDetected) 11/21/18 22:10 U Benzodiazepines Scrn Not Detected (NotDetected) 11/21/18 22:10 Urine Cocaine Screen Not Detected (NotDetected) 11/21/18 22:10 U Marijuana (THC) Screen Detected (NotDetected) H 11/21/18 22:10 Serum Alcohol <10 mg/dL 11/21/18 21:45 Assessment and Plan Assessment: This is a 22-year-old female the ER for evaluation. Today she is presenting for evaluation regards to suicidal and psychiatric thoughts. Patient does have history of mental health as well as significant history of medical illness including altered electrode. MD Complaint: suicidal ideation, feels depressed -: unknown Associated Psychiatric Symptoms: depression, suicidal ideation History of same: Yes Quality: constant Improves With: none Worsens With: none Associated Symptoms: denies other symptoms Treatments Prior to Arrival: none If Self Harm: admits thoughts of self harm - Related Data Home Medications Medication Instructions Recorded Confirmed Potassium Chloride ER [K-Dur 20] 100 meq PO BID 12/20/17 08/10/18 Magnesium Oxide [Mag-Ox] 400 mg PO BID 07/17/18 08/10/18 hydrOXYzine PAMOATE 25 mg PO TID PRN 07/17/18 08/10/18 Spironolactone [Aldactone] 25 mg PO DAILY 07/31/18 08/10/18 lamoTRIgine [LaMICtal] 50 mg PO HS 07/31/18 08/10/18 Paliperidone [Invega] 9 mg PO HS 08/10/18 08/10/18 Venlafaxine HCl [Effexor XR] 225 mg PO HS 08/10/18 08/10/18 Previous Rx's Medication Instructions Recorded Nicotine 14Mg/24Hr Patch [Habitrol] 1 patch TRANSDERM DAILY 30 Days 08/08/18 #30 patch Paliperidone IM [Invega Sustenna] 234 mg IM Q28D 28 Days #1 syringe 08/08/18 buPROPion SR [Wellbutrin SR] 150 mg PO DAILY 30 Days #30 08/08/18 tablet.er Allergies Allergy/AdvReac Type Severity Reaction Status Date / Time risperidone [From Risperdal] AdvReac MUSCLE Verified 11/21/18 19:49 SPASMS Past Medical History Past Medical History: Renal Disease Additional Past Medical History / Comment(s): Bartter syndrome ( low potassium), anxiety, bipolar, depression, ADHD, History of Any Multi-Drug Resistant Organisms: None Reported Past Surgical History: Tonsillectomy Additional Past Surgical History / Comment(s): wisdom teeth 2016, Past Anesthesia/Blood Transfusion Reactions: No Reported Reaction Past Psychological History: ADD/ADHD, Anxiety, Bipolar, Depression Smoking Status: Current every day smoker Past Alcohol Use History: Occasional Past Drug Use History: None Reported - Past Family History Mother Additional Family Medical History / Comment(s): Mother is alive at age 40 with no major medical problems. Pt states Alzheimers and Bipolar disorder runs on her mother's side. Sister(s) Family Medical History: Diabetes Mellitus Additional Family Medical History / Comment(s): Patient has 4 half-sisters. Brother(s) Additional Family Medical History / Comment(s): Patient has 5 or 6 half-brothers with no major medical problems. Patient does not have any children. Father Additional Family Medical History / Comment(s): Father is alive at age 55 and patient has no contact with him as he is in half-way. Past Psychiatric History: Patient states that she began psychiatric treatment at the age of 6 and has had 5 admissions to [facility] the last being in 2014. Patient is currently treated with Lamictal 75 mg at bedtime, Atarax 50 mg twice a day and an as-needed basis and was to begin Invega 3 mg at bedtime but insurance would not cover it. 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 She states when she is taking her potassium on a regular basis her potassium level runs a 3.5. Patient also has a diagnosis of polycystic ovarian syndrome. Patient states that she has an IUD in place for control and is status post tonsillectomy and adenoidectomy. Current Visit: Yes Status: Acute Priority: High Hospital Course: Plan of Care: [She has a formal voluntary admission to the psychiatric unit. She is to be evaluated by medicine, psychiatry, nursing staff, social work staff, and recreational therapy. She will be under 15 minute watch throughout her entire stay still remains with suicidal ideation. She is severely depressed and will be evaluated for group therapy, new coping skills, further recommendations and medication and titration to symptom resolution. She had been admitted in work and milieu therapeutic environment or should be expected to be involved in groups on a daily basis. She will be placed on Lamictal 75 mg by mouth daily at bedtime, Prolixin 2 mg by mouth daily, discontinue Cymbalta and restart venlafaxine 75 mg by mouth daily at bedtime. 11/23/2018: It is highly recommended that she does not change her antidepressant from venlafaxine to Cymbalta because it caused a severe depressed psychotic reaction. Of course it does not help the fact that she continues to smoke marijuana. I would pleaded and beg [facility] not to change her medications. Her previous admission was undecided about her diagnosis and truly now has bipolar affective disorder depressed and she needs an mood stabilizer which she is currently on 200 mg a Lamictal at bedtime. I also initiated Prolixin 2 mg by mouth daily at bedtime for the psychotic part that was created from the combination of marijuana and Cymbalta. Mental status examination time of discharge: The patient presents alert, pleasant, and cooperative. There calmly seated without any agitated behavior. [She] reports that [her] mood is good. Affect is congruent and euthymic. [She] deny having any suicidal or homicidal ideation intent or plan. [She] denies any auditory or visual hallucinations. There is no evidence of any delusional thought content. [Her] thought process is linear and goal-directed. [Her] speech is fluent and nonpressured. [Her] memory and concentration is grossly intact for the purposes of this session. Patient Condition at Discharge: Stable Plan - Discharge Summary Discharge Rx Participant: Yes New Discharge Prescriptions: New lamoTRIgine [LaMICtal] 200 mg PO 2100 30 Days #60 tab Continue Potassium Chloride ER [K-Dur 20] 100 meq PO BID aMILoride HCL 5 mg PO BID metFORMIN HCL [Glucophage] 500 mg PO BID hydrOXYzine HCL 10 mg PO HS Magnesium Oxide [Jones] 500 mg PO BID Paliperidone IM [Invega Sustenna] 234 mg IM Q28D 28 Days #1 syringe Discontinued DULoxetine HCL [Cymbalta] 60 mg PO DAILY DULoxetine HCL [Cymbalta] 30 mg PO DAILY Haloperidol Decanoate [Haldol D] 100 mg IM Q14D Dextroamphetamine/Amphetamine [Adderall] 20 mg PO BID lamoTRIgine [LaMICtal] 100 mg PO HS Discharge Medication List Potassium Chloride ER [K-Dur 20] 100 meq PO BID 12/20/17 [History] Magnesium Oxide [Jones] 500 mg PO BID 11/21/18 [History] aMILoride HCL 5 mg PO BID 11/21/18 [History] hydrOXYzine HCL 10 mg PO HS 11/21/18 [History] metFORMIN HCL [Glucophage] 500 mg PO BID 11/21/18 [History] Paliperidone IM [Invega Sustenna] 234 mg IM Q28D 28 Days #1 syringe 11/24/18 [Rx] lamoTRIgine [LaMICtal] 200 mg PO 2100 30 Days #60 tab 11/24/18 [Rx] Follow up Appointment(s)/Referral(s): [facility] [Outside] - 11/30/18 10:30 am (11-30-18 @ 10:00 with Leonor Harris 12-01-18 @ 1:00 with Nikki Carrillo ) Ugo Friedman DO [Primary Care Provider] - 1-2 days Patient Instructions/Handouts: Depression (DC), Anxiety (GEN), Suicide Prevention (DC) Activity/Diet/Wound Care/Special Instructions: Activity and Diet as tolerated. Avoid the use of street drugs and alcohol. Take all medications as prescribed, when you are in need of refills contact your medical doctor or psychiatrist. Please go to all scheduled outpatient appointments for aftercare treatment. If symptoms return or worsen you can call the crisis line @ and/or return to the nearest emergency room for evaluation. Discharge Disposition: HOME SELF-CARE
== END 2018-11-24 13:40 | disposition home or self-care (01) | DRG 885 ==
LOC: EC 19:36 → 3MHU 23:03
PROVIDERS: ADMIT Psychiatry & Neurology Psychiatry; ATTEND Psychiatry & Neurology Psychiatry
DX: F33.3 Major depressive disorder, recurrent, severe with psychotic symptoms (principal); R45.851 Suicidal ideations; E66.01 Morbid (severe) obesity due to excess calories; E26.81 Bartter's syndrome; F17.210 Nicotine dependence, cigarettes, uncomplicated; E28.2 Polycystic ovarian syndrome; F41.9 Anxiety disorder, unspecified; F90.9 Attention-deficit hyperactivity disorder, unspecified type; N28.9 Disorder of kidney and ureter, unspecified; Z79.84 Long term (current) use of oral hypoglycemic drugs; Z79.899 Other long term (current) drug therapy; Z88.8 Allergy status to other drugs, medicaments and biological substances; Z83.3 Family history of diabetes mellitus; Z82.0 Family history of epilepsy and other diseases of the nervous system; Z81.8 Family history of other mental and behavioral disorders; Z97.5 Presence of (intrauterine) contraceptive device; Z62.810 Personal history of physical and sexual abuse in childhood; Z91.19 Patient's noncompliance with other medical treatment and regimen; Z81.3 Family history of other psychoactive substance abuse and dependence; Z81.1 Family history of alcohol abuse and dependence
CPT/HCPCS: 36415; 80048; 80053; 80061; 80306; 80320; 82075; 83036; 83520; 83735; 84100; 84443; 85025; 99285

== ENCOUNTER 2019-01-26 19:35 | Emergency (ER) | payer OTHER ==
[2019-01-26 19:41] VITALS: TEMP 97.9
[2019-01-26] MEDS ORDERED: IBUPROFEN 600 MG STARTER PACK 4 TAB BTL PO STA (20:06)
--- NOTE | 2019-01-26 20:07 | ED ---
Lower Extremity Injury HPI - General Chief Complaint: Extremity Injury, Lower Stated Complaint: Ankle injury Time Seen by Provider: 01/26/19 19:47 Source: patient Mode of arrival: ambulatory Limitations: no limitations - History of Present Illness Initial Comments: 23-year-old female patient presents to the emergency department today for evaluation of left ankle pain and swelling. Patient states yesterday she was walking down uneven sidewalk when she twisted her ankle. Patient states she's noticed increase in swelling and difficulty with ambulation related to the pain. She denies any numbness or tingling to the foot. Denies any previous fractures was that she has sprained the ankle in the past. Patient denies taking any medication for her symptoms today. States that she did fall with the injury however she did not hit her head or lose consciousness. Denies any neck or back pain. She denies any chance of . Patient denies any headache, chest pain, shortness of breath, dizziness, weakness, abdominal pain, nausea, vomiting, or difficulties with bowel movements or urination. - Related Data Home Medications Medication Instructions Recorded Confirmed Potassium Chloride ER [K-Dur 20] 100 meq PO BID 12/20/17 11/21/18 Magnesium Oxide [Jones] 500 mg PO BID 11/21/18 11/21/18 aMILoride HCL 5 mg PO BID 11/21/18 11/21/18 hydrOXYzine HCL 10 mg PO HS 11/21/18 11/21/18 metFORMIN HCL [Glucophage] 500 mg PO BID 11/21/18 11/21/18 Venlafaxine HCl [Effexor XR] 75 mg PO 01/26/19 01/26/19 Previous Rx's Medication Instructions Recorded Paliperidone IM [Invega Sustenna] 234 mg IM Q28D 28 Days #1 syringe 11/24/18 lamoTRIgine [LaMICtal] 200 mg PO 2100 30 Days #60 tab 11/24/18 Ibuprofen [Motrin] 600 mg PO Q8HR PRN #30 tab 01/26/19 Allergies Allergy/AdvReac Type Severity Reaction Status Date / Time risperidone [From Risperdal] Allergy Mild MUSCLE Verified 11/22/18 00:10 SPASMS Review of Systems ROS Statement: Those systems with pertinent positive or pertinent negative responses have been documented in the HPI. ROS Other: All systems not noted in ROS Statement are negative. Past Medical History Past Medical History: Renal Disease Additional Past Medical History / Comment(s): Bartter syndrome ( low potassium), anxiety, bipolar, depression, ADHD, History of Any Multi-Drug Resistant Organisms: None Reported Past Surgical History: Tonsillectomy Additional Past Surgical History / Comment(s): wisdom teeth 2016, Past Anesthesia/Blood Transfusion Reactions: No Reported Reaction Past Psychological History: ADD/ADHD, Anxiety, Bipolar, Depression Smoking Status: Former smoker Past Alcohol Use History: Occasional Past Drug Use History: Marijuana - Past Family History Mother Additional Family Medical History / Comment(s): Mother is alive at age 40 with no major medical problems. Pt states Alzheimers and Bipolar disorder runs on her mother's side. Sister(s) Family Medical History: Diabetes Mellitus Additional Family Medical History / Comment(s): Patient has 4 half-sisters. Brother(s) Additional Family Medical History / Comment(s): Patient has 5 or 6 half-brothers with no major medical problems. Patient does not have any children. Father Additional Family Medical History / Comment(s): Father is alive at age 55 and patient has no contact with him as he is in retirement. General Exam Limitations: no limitations General appearance: alert, in no apparent distress, other (Physical well- developed, well-nourished adult female patient in no acute distress. Vital signs upon presentation are temperature 97.9F, pulse 79, respirations 20, blood pressure 115/78, pulse ox 98% on room air.) Eye exam: Present: normal appearance, PERRL, EOMI. Absent: scleral icterus, conjunctival injection, periorbital swelling ENT exam: Present: normal exam, normal oropharynx, mucous membranes moist Neck exam: Present: normal inspection, full ROM, other (Nontender, no step-off, no deformity to firm midline palpation of the posterior cervical spine. Full range of motion without pain or limitation.). Absent: tenderness, meningismus, lymphadenopathy Respiratory exam: Present: normal lung sounds bilaterally. Absent: respiratory distress, wheezes, rales, rhonchi, stridor Cardiovascular Exam: Present: regular rate, normal rhythm, normal heart sounds. Absent: systolic murmur, diastolic murmur, rubs, gallop, clicks GI/Abdominal exam: Present: soft, normal bowel sounds. Absent: distended, tenderness, guarding, rebound, rigid Extremities exam: Present: full ROM, tenderness (Tenderness surrounding the area right lateral and medial malleolus), normal capillary refill, other (Soft tissue swelling noted surrounding the right ankle. Skin is otherwise pink, warm, dry. Cap refills less than 3 seconds. Pedal and posttibial pulses 2+ and equal bilaterally.). Absent: normal inspection, pedal edema, joint swelling, calf tenderness Back exam: Present: normal inspection, other (Nontender, no step-off, no deformity to firm midline palpation of the thoracic and lumbar vertebrae. Full range of motion without pain or limitation.). Absent: vertebral tenderness Neurological exam: Present: alert, oriented X3, CN II-XII intact Psychiatric exam: Present: normal affect, normal mood Skin exam: Present: warm, dry, intact, normal color. Absent: rash Course Vital Signs 01/26/19 01/26/19 19:38 20:59 Temperature 97.9 F Pulse Rate 79 82 Respiratory 20 16 Rate Blood Pressure 115/78 133/59 O2 Sat by Pulse 98 100 Oximetry Medical Decision Making - Medical Decision Making 23-year-old female patient presents to the emergency department today for evaluation of left ankle pain and swelling. Physical examination did reveal swelling surrounding the left ankle. Mild medial and lateral malleolus tenderness. Patient is neurovascularly intact. X-rays are negative for any evidence of fracture or dislocation. Patient's physical exam findings and symptoms are consistent with acute ankle sprain. Patient was placed in ankle stirrup splint. She was educated regarding rest, ice, elevation. She is given a prescription for ibuprofen for pain control. She is instructed to follow-up the primary care physician for recheck in 1-2 days. She is instructed to have repeat x-ray performed in 7-10 days if pain symptoms persist. Return parameters discussed in detail. She verbalizes understanding and agrees this plan. - Radiology Data Radiology results: report reviewed, image reviewed 3 views of the left ankle are obtained. Report was reviewed in its entirety. Impression by Dr. Galan shows soft tissue swelling. No fracture seen. Mild calcaneal spurring. 3 views of the left foot are obtained. Report was reviewed in its entirety. Impression by Dr. Galan shows no fracture seen. Disposition Clinical Impression: Left ankle sprain Disposition: HOME SELF-CARE Condition: Good Instructions (If sedation given, give patient instructions): Ankle Sprain (ED) Additional Instructions: Wear brace for comfort and support. Take Tylenol and Motrin for pain control. Keep leg elevated, apply ice 20 minutes at a time at least 4 times daily. Follow-up through primary care physician for recheck in 1-2 days. Return to the emergency department immediately for any new, worsening, or concerning symptoms. Prescriptions: Ibuprofen [Motrin] 600 mg PO Q8HR PRN #30 tab PRN Reason: Pain Is patient prescribed a controlled substance at d/c from ED?: No Referrals: Ugo Friedman DO [Primary Care Provider] - 1-2 days Time of Disposition: 20:55
--- NOTE | 2019-01-26 20:39 | XR ---
EXAMINATION TYPE: XR ankle complete LT DATE OF EXAM: 01/26/2019 COMPARISON: NONE HISTORY: Pain TECHNIQUE: 3 views FINDINGS: Ankle mortise is anatomic. I see no fracture. There are small calcaneal spurs. There is sof t tissue swelling around the ankle joint. IMPRESSION: Soft tissue swelling. No fracture seen. Mild calcaneal spurring.
--- NOTE | 2019-01-26 20:39 | XR ---
EXAMINATION TYPE: XR foot complete LT DATE OF EXAM: 01/26/2019 COMPARISON: NONE HISTORY: Pain TECHNIQUE: 3 views FINDINGS: Metatarsals are intact. I see no fracture nor dislocation. There is minimal calcaneal spurr ing. IMPRESSION: No fracture seen.
[2019-01-26 21:04] VITALS: BP 133/59; PULSE 82; RESP 16
== END 2019-01-26 20:59 | disposition home or self-care (01) ==
LOC: EC 19:35
DX: S93.402A Sprain of unspecified ligament of left ankle, initial encounter (principal); M77.32 Calcaneal spur, left foot; E26.81 Bartter's syndrome; F31.9 Bipolar disorder, unspecified; F41.9 Anxiety disorder, unspecified; Z87.891 Personal history of nicotine dependence; Z88.8 Allergy status to other drugs, medicaments and biological substances; Z79.84 Long term (current) use of oral hypoglycemic drugs; Z79.899 Other long term (current) drug therapy; X50.1XXA Overexertion from prolonged static or awkward postures, initial encounter; Y93.01 Activity, walking, marching and hiking; Y92.480 Sidewalk as the place of occurrence of the external cause
CPT/HCPCS: 29515; 99283

== ENCOUNTER → 2019-02-02 | Outpatient (CLI) | payer OTHER ==
--- NOTE | 2019-02-02 14:53 | XR ---
EXAMINATION TYPE: XR ankle complete LT DATE OF EXAM: 02/02/2019 COMPARISON: 01/26/2019 HISTORY: Multiple episodes swelling ankle last week TECHNIQUE: Three-view left ankle FINDINGS: Mild diffuse soft tissue swelling greater along the lateral malleolus. Ankle mortise appear s intact. No acute or subacute fractures are evident. Small plantar calcaneal heel spur is present. IMPRESSION: 1. No suspicious acute osseous abnormality. 2. Diffuse soft tissue swelling greater along the anterior and lateral aspects of the ankle. 3. MRI is available if closer evaluation for soft tissue injury would be of benefit.
== END | disposition home or self-care (01) ==
LOC: RADXRMAIN 14:30
PROVIDERS: ATTEND Family Medicine
DX: M79.89 Other specified soft tissue disorders (principal)

== ENCOUNTER 2021-01-07 14:15 | Observation (INO) | payer OTHER ==
[2021-01-07 15:43] LABS: Basophils # (A) 0.1 k/uL (0-0.2); Basophils % (A) 1 %; Eosinophils # (A) 0.2 k/uL (0-0.7); Eosinophils % (A) 2 %; HCT 39.3 % (34.0-46.0); HGB 13.7 gm/dL (11.4-16.0); Lymphocytes # (A) 2.5 k/uL (1.0-4.8); Lymphocytes % (A) 23 %; MCH 29.6 pg (25.0-35.0); MCHC 34.9 g/dL (31.0-37.0); MCV 84.7 fL (80.0-100.0); Mean Platelet Volume 7.3; Monocytes # (A) 0.4 k/uL (0-1.0); Monocytes % (A) 4 %; Neutrophils # (A) 7.3 k/uL (1.3-7.7); Neutrophils % (A) 69 %; Platelet Count 369 k/uL (150-450); RBC 4.64 m/uL (3.80-5.40); RDW 13.1 % (11.5-15.5); WBC 10.5 k/uL (3.8-10.6)
[2021-01-07 15:45] LABS: Appearance,Urine Clear (Clear); Bacteria,Urine Rare /hpf; Bilirubin,Urine Negative (Negative); Blood,Urine Trace (Negative); Color,Urine Light Yellow; Glucose,Urine (UA) Negative (Negative); Ketones,Urine Negative (Negative); Leukocyte Esterase,Urine Small (Negative); Nitrite,Urine Negative (Negative); PH, Urine 7.5 (5.0-8.0); Protein,Urine Negative (Negative); RBC,Urine <1 /hpf (0-5); Specific Gravity,Urine 1.015 (1.001-1.035); Squamous Epithelial Cell,Urine 1 /hpf (0-4); Urobilinogen,Urine <2.0 mg/dL (<2.0); WBC,Urine 2 /hpf (0-5)
--- NOTE | 2021-01-07 15:47 | ED ---
Abdominal Pain HPI <Nilo Chang - Last Filed: 01/07/21 16:50> - General Source: patient Mode of arrival: ambulatory Limitations: no limitations <Svetlana Ron - Last Filed: 01/07/21 17:02> - General Chief Complaint: Abdominal Pain Stated Complaint: R side pain, eliza horses in legs and arms Time Seen by Provider: 01/07/21 14:51 - History of Present Illness Initial Comments: Patient is a 25-year-old female presenting to the emergency Department with complaints of right flank pain and generalized cramping for the last 3 days. Patient has a history of Bartles syndrome. She states she is having some discomfort of her right kidney area for the last 2-3 days, and also has been having increasing cramping. She does follow with her PCP, gets blood checks every 3 months. No fever or chills, no hematuria, no anterior abdominal pain, no nausea or vomiting. She denies being . She has no further complaints at this time. (Svetlana Ron) - Related Data Home Medications Medication Instructions Recorded Confirmed Potassium Chloride ER [K-Dur 20] 60 meq PO BID 12/20/17 01/07/21 Magnesium Oxide [Jones] 500 mg PO BID 11/21/18 01/07/21 aMILoride HCL 5 mg PO BID 11/21/18 01/07/21 Venlafaxine HCl [Effexor XR] 75 mg PO DAILY 01/26/19 01/07/21 Dextroamphetamine/Amphetamine 30 mg PO BID 01/07/21 01/07/21 [Adderall] Ergocalciferol [Vitamin D2 (1250 1,250 mcg PO HAYWOOD 01/07/21 01/07/21 Mcg = 72136 Iu)] Paliperidone Palmitate [Invega 819 mg IM Q90D 01/07/21 01/07/21 Trinza] Allergies Allergy/AdvReac Type Severity Reaction Status Date / Time risperidone [From Risperdal] Allergy Mild MUSCLE Verified 01/07/21 15:53 SPASMS Review of Systems ROS Other: All systems not noted in ROS Statement are negative. <Nilo Chang - Last Filed: 01/07/21 16:50> ROS Other: All systems not noted in ROS Statement are negative. <Svetlana Ron - Last Filed: 01/07/21 17:02> ROS Statement: Those systems with pertinent positive or pertinent negative responses have been documented in the HPI. Past Medical History Past Medical History: Renal Disease Additional Past Medical History / Comment(s): Bartter syndrome ( low potassium), anxiety, bipolar, depression, ADHD, History of Any Multi-Drug Resistant Organisms: None Reported Past Surgical History: Tonsillectomy Additional Past Surgical History / Comment(s): wisdom teeth 2016, Past Anesthesia/Blood Transfusion Reactions: No Reported Reaction Past Psychological History: ADD/ADHD, Anxiety, Bipolar, Depression Smoking Status: Never smoker Past Alcohol Use History: Occasional Past Drug Use History: Marijuana - Past Family History Mother Additional Family Medical History / Comment(s): Mother is alive at age 40 with no major medical problems. Pt states Alzheimers and Bipolar disorder runs on her mother's side. Sister(s) Family Medical History: Diabetes Mellitus Additional Family Medical History / Comment(s): Patient has 4 half-sisters. Brother(s) Additional Family Medical History / Comment(s): Patient has 5 or 6 half-brothers with no major medical problems. Patient does not have any children. Father Additional Family Medical History / Comment(s): Father is alive at age 55 and patient has no contact with him as he is in long term. <Svetlana Ron L - Last Filed: 01/07/21 17:02> General Exam Limitations: no limitations <Svetlana Ron - Last Filed: 01/07/21 17:02> - General Exam Comments Initial Comments: GENERAL: Patient is well-developed and well-nourished. Patient is nontoxic and in no acute distress. HEAD: Atraumatic, normocephalic. EYES: Pupils equal round and reactive to light, extraocular movements intact, sclera anicteric, conjunctiva are normal. Eyelids were unremarkable. ENT: TMs normal, nares patent, oropharynx clear without exudates. Moist mucous membranes. NECK: Normal range of motion, supple without lymphadenopathy or JVD. LUNGS: Unlabored respirations. Breath sounds clear to auscultation bilaterally and equal. No wheezes rales or rhonchi. HEART: Regular rate and rhythm without murmurs, rubs or gallops. ABDOMEN: Soft, nontender, normoactive bowel sounds. No guarding, no rebound. No masses appreciated. : Deferred MUSCULOSKELETAL: Normal extremities with adequate strength and normal range of motion, no pitting or edema. No clubbing or cyanosis. NEUROLOGICAL: Patient is alert and oriented x 3. Motor and sensory are also intact. Cranial nerves II through XII grossly intact. Symmetrical smile. Normal speech, normal gait. PSYCH: Normal mood, normal affect. SKIN: Warm, Dry, normal turgor, no rashes or lesions noted. (Svetlana Ron) Course Vital Signs 01/07/21 14:28 Temperature 98.1 F Pulse Rate 71 Respiratory 18 Rate Blood Pressure 113/77 O2 Sat by Pulse 98 Oximetry Medical Decision Making - Lab Data Result diagrams: 01/07/21 15:28 01/07/21 15:28 <Nilo Chang - Last Filed: 01/07/21 16:50> - Lab Data Result diagrams: 01/07/21 15:28 01/07/21 15:28 <Svetlana Ron - Last Filed: 01/07/21 17:02> - Medical Decision Making Patient reexamined and reevaluated by myself, Dr. Chang. I agree with Chris ladd. This includes diagnostic and cavitation and treatment plan. Patient did complain of right CVA pain that is near resolved at this point. No abdominal tenderness on exam. Mild tenderness right CVA region on exam. Patient does have history of potassium 2.3 with history of catherine. Patient updated on results and plan. Case discussed with Dr. Robins, who will admit covering for Dr. Friedman. (Nilo Chang) Patient is a 25-year-old female here for muscle cramping 3 days as well as some right sided flank pain. She does have history of Bartles syndrome and he u sually has her blood work checked every 3 months. Potassium did return low at 2.3, rest of labs are stable. Ultrasound shows symmetric enlarged bilateral kidneys without hydronephrosis. EKG shows normal sinus rhythm. Patient was given oral and IV potassium. We will recheck potassium in the morning. Patient accepted by Dr. Robins. Case discussed with Dr. Chang. (Svetlana Ron) - Lab Data Lab Results 01/07/21 01/07/21 01/07/21 Range/Units 15:28 15:: WBC 10.5 (3.8-10.6) k/uL RBC 4.64 (3.80-5.40) m/uL Hgb 13.7 (11.4-16.0) gm/dL Hct 39.3 (34.0-46.0) % MCV 84.7 (80.0-100.0) fL MCH 29.6 (25.0-35.0) pg MCHC 34.9 (31.0-37.0) g/dL RDW 13.1 (11.5-15.5) % Plt Count 369 (150-450) k/uL MPV 7.3 Neutrophils % 69 % Lymphocytes % 23 % Monocytes % 4 % Eosinophils % 2 % Basophils % 1 % Neutrophils # 7.3 (1.3-7.7) k/uL Lymphocytes # 2.5 (1.0-4.8) k/uL Monocytes # 0.4 (0-1.0) k/uL Eosinophils # 0.2 (0-0.7) k/uL Basophils # 0.1 (0-0.2) k/uL Sodium (137-145) mmol/L Potassium (3.5-5.1) mmol/L Chloride (98-107) mmol/L Carbon Dioxide (22-30) mmol/L Anion Gap mmol/L BUN (7-17) mg/dL Creatinine (0.52-1.04) mg/dL Est GFR (CKD-EPI)AfAm (>60 ml/min/1.73 sqM) Est GFR (CKD-EPI)NonAf (>60 ml/min/1.73 sqM) Glucose (74-99) mg/dL Calcium (8.4-10.2) mg/dL Magnesium (1.6-2.3) mg/dL Total Bilirubin (0.2-1.3) mg/dL AST (14-36) U/L ALT (4-34) U/L Alkaline Phosphatase (38-126) U/L Total Protein (6.3-8.2) g/dL Albumin (3.5-5.0) g/dL Urine Color Light Yellow Urine Appearance Clear (Clear) Urine pH 7.5 (5.0-8.0) Ur Specific [place] 1.015 (1.001-1.035) Urine Protein Negative (Negative) Urine Glucose (UA) Negative (Negative) Urine Ketones Negative (Negative) Urine Blood Trace H (Negative) Urine Nitrite Negative (Negative) Urine Bilirubin Negative (Negative) Urine Urobilinogen <2.0 (<2.0) mg/dL Ur Leukocyte Esterase Small H (Negative) Urine RBC <1 (0-5) /hpf Urine WBC 2 (0-5) /hpf Ur Squamous Epith Cells 1 (0-4) /hpf Urine Bacteria Rare H (None) /hpf Urine HCG, Qual Not Detected (Not Detectd) 01/07/21 Range/Units 15:28 WBC (3.8-10.6) k/uL RBC (3.80-5.40) m/uL Hgb (11.4-16.0) gm/dL Hct (34.0-46.0) % MCV (80.0-100.0) fL MCH (25.0-35.0) pg MCHC (31.0-37.0) g/dL RDW (11.5-15.5) % Plt Count (150-450) k/uL MPV Neutrophils % % Lymphocytes % % Monocytes % % Eosinophils % % Basophils % % Neutrophils # (1.3-7.7) k/uL Lymphocytes # (1.0-4.8) k/uL Monocytes # (0-1.0) k/uL Eosinophils # (0-0.7) k/uL Basophils # (0-0.2) k/uL Sodium 141 (137-145) mmol/L Potassium 2.3 L* (3.5-5.1) mmol/L Chloride 99 (98-107) mmol/L Carbon Dioxide 34 H (22-30) mmol/L Anion Gap 8 mmol/L BUN 10 (7-17) mg/dL Creatinine 0.71 (0.52-1.04) mg/dL Est GFR (CKD-EPI)AfAm >90 (>60 ml/min/1.73 sqM) Est GFR (CKD-EPI)NonAf >90 (>60 ml/min/1.73 sqM) Glucose 115 H (74-99) mg/dL Calcium 9.4 (8.4-10.2) mg/dL Magnesium 1.6 (1.6-2.3) mg/dL Total Bilirubin 0.3 (0.2-1.3) mg/dL AST 23 (14-36) U/L ALT 23 (4-34) U/L Alkaline Phosphatase 68 (38-126) U/L Total Protein 7.3 (6.3-8.2) g/dL Albumin 4.4 (3.5-5.0) g/dL Urine Color Urine Appearance (Clear) Urine pH (5.0-8.0) Ur Specific [place] (1.001-1.035) Urine Protein (Negative) Urine Glucose (UA) (Negative) Urine Ketones (Negative) Urine Blood (Negative) Urine Nitrite (Negative) Urine Bilirubin (Negative) Urine Urobilinogen (<2.0) mg/dL Ur Leukocyte Esterase (Negative) Urine RBC (0-5) /hpf Urine WBC (0-5) /hpf Ur Squamous Epith Cells (0-4) /hpf Urine Bacteria (None) /hpf Urine HCG, Qual (Not Detectd) - EKG Data EKG Comments: Normal sinus rhythm, incomplete RBBB, no signs of acute ischemia. Similar to previous EKG on 04/28/2018. Ventricular rate 81, IA interval 184, QT 400. (Svetlana Ron) Disposition <Nilo Chang - Last Filed: 01/07/21 16:50> Is patient prescribed a controlled substance at d/c from ED?: No Decision Date: 01/07/21 Decision Time: 16:56 <Svetlana Ron - Last Filed: 01/07/21 17:02> Clinical Impression: Hypokalemia Disposition: ADMITTED IP TO THIS HOSP Condition: Stable Referrals: Ugo Friedman DO [Primary Care Provider] - 1-2 days
[2021-01-07 15:52] LABS: ALT 23 U/L (4-34); AST 23 U/L (14-36); African American GFR (CKD) >90 (>60 ml/min/1.73 sqM); Albumin 4.4 g/dL (3.5-5.0); Alkaline Phosphatase 68 U/L (38-126); Anion Gap 8 mmol/L; Blood Urea Nitrogen 10 mg/dL (7-17); Calcium 9.4 mg/dL (8.4-10.2); Carbon Dioxide 34 mmol/L (22-30); Chloride 99 mmol/L (98-107); Glucose 115 mg/dL (74-99); Magnesium 1.6 mg/dL (1.6-2.3); Non-African American GFR(CKD) >90 (>60 ml/min/1.73 sqM); Sodium 141 mmol/L (137-145); Total Bilirubin 0.3 mg/dL (0.2-1.3); Total Protein 7.3 g/dL (6.3-8.2)
[2021-01-07 15:59] LABS: Potassium 2.3 mmol/L (3.5-5.1)
[2021-01-07] MEDS ORDERED: POTASSIUM CHLORIDE 20 MEQ in WATER FOR INJECTION 1 100ML.BAG IVPB STA (16:12)
[2021-01-07] MEDS ORDERED: POTASSIUM CHLORIDE ER 20 MEQ TAB.ER PO STA (16:12)
--- NOTE | 2021-01-07 16:24 | US ---
EXAMINATION TYPE: US kidneys/renal and bladder DATE OF EXAM: 01/07/2021 COMPARISON: Prior renal ultrasound March 12, 2017 CLINICAL HISTORY: right flank pain. Vater's syndrome EXAM MEASUREMENTS: Right Kidney: 14.3 x 4.2 x 5.8 cm Left Kidney: 14.1 x 5.4 x 6.4 cm Post Void Residual Volume: mL Right Kidney: enlarged Left Kidney: enlarged Bladder: not fully distended. Renal size is symmetric and enlarged. There is no evidence for hydronephrosis at this point in time. No nephrolithiasis is seen. No masses are identified. The urinary bladder is poorly distended leigh ng evaluation suboptimal. Bilateral ureteral jets are not seen. IMPRESSION: Symmetric enlarged bilateral kidneys without hydronephrosis seen.
[2021-01-07] MEDS ORDERED: ACETAMINOPHEN TAB 325 MG TAB PO PRN (16:56)
[2021-01-07] MEDS ORDERED: NALOXONE 0.4 MG/ML 1 ML VIAL IV PRN (16:56)
[2021-01-07] MEDS ORDERED: ONDANSETRON 4 MG/2 ML VIAL IVP PRN (16:56)
[2021-01-07] MEDS ORDERED: PALIPERIDONE PALMITATE IM SCH (19:45)
[2021-01-07] MEDS: POTASSIUM CHLORIDE ER 20 MEQ TAB.ER PO SCH (20:23)
[2021-01-07] MEDS: SPIRONOLACTONE 25 MG TAB PO SCH (20:23)
[2021-01-07] MEDS: MAGNESIUM OXIDE 400 MG TAB PO SCH (20:23)
[2021-01-08] MEDS: MAGNESIUM OXIDE 400 MG TAB PO SCH ×2 (07:46→23:08)
[2021-01-08] MEDS: SPIRONOLACTONE 25 MG TAB PO SCH ×2 (07:46→23:08)
[2021-01-08] MEDS: POTASSIUM CHLORIDE ER 20 MEQ TAB.ER PO SCH ×4 (07:46→23:09)
[2021-01-08] MEDS: VENLAFAXINE HCL ER 75 MG CAP PO SCH (07:46)
[2021-01-08 10:04] LABS: ALT 23 U/L (4-34); AST 24 U/L (14-36); African American GFR (CKD) >90 (>60 ml/min/1.73 sqM); Albumin 4.2 g/dL (3.5-5.0); Alkaline Phosphatase 56 U/L (38-126); Anion Gap 8 mmol/L; Blood Urea Nitrogen 10 mg/dL (7-17); Calcium 9.6 mg/dL (8.4-10.2); Carbon Dioxide 32 mmol/L (22-30); Chloride 102 mmol/L (98-107); Glucose 111 mg/dL (74-99); Non-African American GFR(CKD) >90 (>60 ml/min/1.73 sqM); Potassium 2.8 mmol/L (3.5-5.1); Sodium 142 mmol/L (137-145); Total Bilirubin 0.4 mg/dL (0.2-1.3); Total Protein 7.2 g/dL (6.3-8.2)
[2021-01-08] MEDS: MAGNESIUM SULFATE-D5W PMX 1 GM in DEXTROSE/WATER 1 100ML.BAG IVPB SCH ×2 (11:02→12:21)
--- NOTE | 2021-01-08 12:37 | P.HPIM ---
History of Present Illness H&P Date: 01/08/21 HISTORY OF PRESENT ILLNESS This is a 25-year-old female patient of Dr. Friedman with past medical history significant for Bartter syndrome, depression and bipolar disorder along with anxiety and ADHD. Patient recently stopped taking her medications for "a bit" Patient is complaining of muscle pain in legs , right flank pain. She has some numbness and tingling in her feet that comes and goes. She did have leg cramps earlier today. She came into [facility] emergency center for evaluation. Her vital signs were stable. Potassium 2.3, sodium 141, chloride 99 and CO2 34. CBC was unremarkable. Magnesium 1.6. Liver function tests normal. EKG was in normal sinus rhythm with incomplete right bundle branch block. No acute ST changes. Patient received 60 mEq of potassium and repeat potassium today is at 2.8. Patient is been started on Aldactone and another 80 mEq of potassium ordered, consult with Dr. Valentino. Patient states that she has not been following with nephrology but is in agreement that she will moving forward. REVIEW OF SYSTEMS Constitutional: No fever, no chills, no night sweats. No weight change. No weakness, fatigue or lethargy. No daytime sleepiness. EENT: No headache. No blurred vision or double vision, no loss of vision. No loss of Hearing, no ringing in the ears, no dizziness. No nasal drainage or congestion. No epistaxis. No sore throat. Lungs: No shortness of breath, cough, no sputum production. No wheezing. Cardiovascular: No chest pain, no lower extremity edema. No palpitations. No paroxysmal nocturnal dyspnea. No orthopnea. No lightheadedness or dizziness. No syncopal episodes. Abdominal: No abdominal pain. No nausea, vomiting. No diarrhea. No cons tipation. No bloody or tarry stools. No loss of appetite. Genitourinary: No dysuria, increased frequency, urgency. No urinary retention. Reports flank pain. Musculoskeletal: No myalgias. No muscle weakness, no gait dysfunction, no frequent falls. No back pain. No neck pain. Reports leg cramps Integumentary: No wounds, no lesions. No rash or pruritus. No unusual bruising. No change in hair or nails. Neurologic: No aphasia. No facial droop. No change in mentation. No head injury. No headache. No paralysis. No paresthesia. Psychiatric: No depression. No anxiety. Endocrine: No abnormal blood sugars. No weight change. SOCIAL HISTORY Patient was a smoker on and off since she was 10 years of age and quit in 2019. She averaged 5 cigarettes per day. She also smokes marijuana at least one joint every day. She denies any illicit drug use or alcohol use. She is single and is a [employer] HISTORY Mother is alive at age 44 with no major medical problems. Pt states Alzheimers and Bipolar disorder runs on her mother's side. Father is alive at age 57 with no major medical problems. Patient has a total of 6 half-brothers and 6/2 sisters with no major medical problems. She does not have any children. PHYSICAL EXAMINATION Gen: This is a 25-year-old female patient. She is resting in bed and appears to be comfortable and in no acute distress. HEENT: Head is atraumatic, normocephalic. Pupils equal, round. Sclerae is anicteric. NECK: Supple. No JVD. No lymphadenopathy. No thyromegaly. LUNGS: Clear to auscultation. No wheezes or rhonchi. No intercostal retractions. HEART: Regular rate and rhythm. No murmur. ABDOMEN: Soft. Bowel sounds are present. No masses. No tenderness. Mild right flank tenderness. EXTREMITIES: No pedal edema. No calf tenderness. Dorsalis pedis palpable bilaterally. NEUROLOGICAL: Patient is awake, alert and oriented x3. Cranial nerves 2 through 12 are grossly intact. ASSESSMENT AND PLAN 1. Severe hypokalemia secondary to noncompliance with medication with history of Bartter syndrome. Potassium and magnesium replacement have been ordered. Patient started on Aldactone 25 mg twice daily. Consult with nephrology. Amliloride was not resumed due to hypotension. Patient was previously on potassium chloride 16 mEq twice daily. 2. Hypomagnesemia status post replacement. 3. Seasonal ALLERGIES, stable. 4. Bipolar, generalized anxiety disorder and recurrent depression. Patient is on Invega once monthly, Effexor XR 75 mg daily. Hold Adderall. 5. GI prophylaxis. Protonix 40 mg oral daily. 6. DVT prophylaxis. Lovenox subcu daily. 7. COVID-19 testing negative. Patient has been hospitalized during a pandemic. Patient will be admitted to the hospital for a minimum of 2 night stay. DISCHARGE PLAN Home. Impression and plan of care have been directed as dictated by the signing phys ician. Anabelle Talbert nurse practitioner acting as scribe for signing physician. Past Medical History Past Medical History: Renal Disease Additional Past Medical History / Comment(s): Bartter syndrome ( low potassium), anxiety, bipolar, depression, ADHD, History of Any Multi-Drug Resistant Organisms: None Reported Past Surgical History: Tonsillectomy Additional Past Surgical History / Comment(s): wisdom teeth 2016, Past Anesthesia/Blood Transfusion Reactions: No Reported Reaction Past Psychological History: ADD/ADHD, Anxiety, Bipolar, Depression Additional Psychological History / Comment(s): [facility] Smoking Status: Never smoker Past Alcohol Use History: Occasional Additional Past Alcohol Use History / Comment(s): Patient was a smoker for packs per week for 8 years and quit in 2015. Patient states she now smokes 3 cigarettes a day. She does use marijuana rarely. She denies any other street drug use. No alcohol use. Pt. denied to automobile service writer that she smokes or drinks ETOH. Past Drug Use History: Marijuana Additional Drug Use History / Comment(s): Denies - Past Family History Mother Additional Family Medical History / Comment(s): Mother is alive at age 40 with no major medical problems. Pt states Alzheimers and Bipolar disorder runs on her mother's side. Sister(s) Family Medical History: Diabetes Mellitus Additional Family Medical History / Comment(s): Patient has 4 half-sisters. Brother(s) Additional Family Medical History / Comment(s): Patient has 5 or 6 half-brothers with no major medical problems. Patient does not have any children. Father Additional Family Medical History / Comment(s): Father is alive at age 55 and patient has no contact with him as he is in residential. Medications and Allergies Home Medications Medication Instructions Recorded Confirmed Type Potassium Chloride ER [K-Dur 20] 60 meq PO BID 12/20/17 01/07/21 History Magnesium Oxide [Jones] 500 mg PO BID 11/21/18 01/07/21 History aMILoride HCL 5 mg PO BID 11/21/18 01/07/21 History Venlafaxine HCl [Effexor XR] 75 mg PO DAILY 01/26/19 01/07/21 History Dextroamphetamine/Amphetamine 30 mg PO BID 01/07/21 01/07/21 History [Adderall] Ergocalciferol [Vitamin D2 (1250 1,250 mcg PO HAYWOOD 01/07/21 01/07/21 History Mcg = 81422 Iu)] Paliperidone Palmitate [Invega 819 mg IM Q90D 01/07/21 01/07/21 History Trinza] Allergies Allergy/AdvReac Type Severity Reaction Status Date / Time risperidone [From Risperdal] Allergy Mild MUSCLE Verified 01/07/21 15:53 SPASMS Physical Exam Vitals: Vital Signs Temp Pulse Pulse Resp BP BP Pulse Ox 01/08/21 08:00 55 L 16 01/08/21 07:00 97.9 F 55 L 16 83/50 96 01/08/21 02:00 97.3 F L 65 18 103/78 96 01/07/21 20:00 98 F 75 16 105/78 99 01/07/21 18:18 98.3 F 70 18 103/70 98 01/07/21 17:00 72 20 108/65 98 01/07/21 14:28 98.1 F 71 18 113/77 98 Intake and Output 01/07/21 01/08/21 01/08/21 22:59 06:59 14:59 Other: Voiding Method Toilet Toilet # Voids 1 1 Weight 105.687 kg Results CBC & Chem 7: 01/07/21 15:28 01/08/21 08:20 Labs: Abnormal Lab Results - Last 24 Hours (Table) 01/07/21 01/07/21 01/08/21 Range/Units 15:28 15:28 08:20 Potassium 2.3 L* 2.8 L (3.5-5.1) mmol/L Carbon Dioxide 34 H 32 H (22-30) mmol/L Glucose 115 H 111 H (74-99) mg/dL Urine Blood Trace H (Negative) Ur Leukocyte Esterase Small H (Negative) Urine Bacteria Rare H (None) /hpf Thrombosis Risk Factor Assmnt - Choose All That Apply Any of the Below Risk Factors Present?: Yes Each Factor Represents 1 point: Obesity (BMI >25) Thrombosis Risk Factor Assessment Total Risk Factor Score: 1 Thrombosis Risk Factor Assessment Level: Low Risk
--- NOTE | 2021-01-08 13:07 | P.NPCON ---
History of Present Illness - Reason for Consult hypokalemia - History of Present Illness Reason for consultation: Electrolyte imbalance History of present illness: The patient is a 25-year-old female seen in consultation for electrolyte imbalance. Patient was seen and examined in the observation unit. Patient has history of Barter's syndrome and is maintained on potassium supplementation as well as amiloride outpatient. She also takes magnesium supplementation. Patient states she tries to eat potassium rich foods. She came to the hospital due to cramping in her lower extremity. She was also having some right flank pain. She did have an episode of vomiting but none yesterday or today. No c hest pain or shortness of breath. No hematuria or dysuria. No diarrhea. No fever or chills. She tested negative for coronavirus. Potassium level was 2.3 on admission and is being aggressively replaced. Spironolactone has been added. Magnesium slightly on the lower side and is also being replaced. Overall her cramping has resolved. No active complaints. Vital signs are stable. General: The patient appeared well nourished and normally developed. HEENT: Head exam is unremarkable. Neck is without jugular venous distension. LUNGS: Lungs are clear to auscultation and percussion. Breath sounds decreased. HEART: Rate and Rhythm are regular. ABDOMEN: Soft, obese. EXTREMITITES: No edema. Past Medical History Past Medical History: Renal Disease Additional Past Medical History / Comment(s): Bartter syndrome ( low potassium), anxiety, bipolar, depression, ADHD, History of Any Multi-Drug Resistant Organisms: None Reported Past Surgical History: Tonsillectomy Additional Past Surgical History / Comment(s): wisdom teeth 2016, Past Anesthesia/Blood Transfusion Reactions: No Reported Reaction Past Psychological History: ADD/ADHD, Anxiety, Bipolar, Depression Additional Psychological History / Comment(s): [facility] Smoking Status: Never smoker Past Alcohol Use History: Occasional Additional Past Alcohol Use History / Comment(s): Patient was a smoker for packs per week for 8 years and quit in 2016. Patient states she now smokes 3 cigarettes a day. She does use marijuana rarely. She denies any other street drug use. No alcohol use. Pt. denied to remote mortgage underwriter that she smokes or drinks ETOH. Past Drug Use History: Marijuana Additional Drug Use History / Comment(s): Denies - Past Family History Mother Additional Family Medical History / Comment(s): Mother is alive at age 40 with no major medical problems. Pt states Alzheimers and Bipolar disorder runs on her mother's side. Sister(s) Family Medical History: Diabetes Mellitus Additional Family Medical History / Comment(s): Patient has 4 half-sisters. Brother(s) Additional Family Medical History / Comment(s): Patient has 5 or 6 half-brothers with no major medical problems. Patient does not have any children. Father Additional Family Medical History / Comment(s): Father is alive at age 55 and patient has no contact with him as he is in residential. Medications and Allergies Home Medications Medication Instructions Recorded Confirmed Type Potassium Chloride ER [K-Dur 20] 60 meq PO BID 12/20/17 01/07/21 History Magnesium Oxide [Jones] 500 mg PO BID 11/21/18 01/07/21 History aMILoride HCL 5 mg PO BID 11/21/18 01/07/21 History Venlafaxine HCl [Effexor XR] 75 mg PO DAILY 01/26/19 01/07/21 History Dextroamphetamine/Amphetamine 30 mg PO BID 01/07/21 01/07/21 History [Adderall] Ergocalciferol [Vitamin D2 (1250 1,250 mcg PO HAYWOOD 01/07/21 01/07/21 History Mcg = 29981 Iu)] Paliperidone Palmitate [Invega 819 mg IM Q90D 01/07/21 01/07/21 History Trinza] Allergies Allergy/AdvReac Type Severity Reaction Status Date / Time risperidone [From Risperdal] Allergy Mild MUSCLE Verified 01/07/21 15:53 SPASMS Physical Exam Vitals: Vital Signs Temp Pulse Pulse Resp BP BP Pulse Ox 01/08/21 08:00 55 L 16 01/08/21 07:00 97.9 F 55 L 16 83/50 96 01/08/21 02:00 97.3 F L 65 18 103/78 96 01/07/21 20:00 98 F 75 16 105/78 99 01/07/21 18:18 98.3 F 70 18 103/70 98 01/07/21 17:00 72 20 108/65 98 01/07/21 14:28 98.1 F 71 18 113/77 98 Intake and Output 01/07/21 01/08/2101/08/21 22:59 06:59 14:59 Other: Voiding Method Toilet Toilet # Voids 1 1 Weight 105.687 kg Results - Lab Results Most recent lab results Calcium 9.6 mg/dL (8.4-10.2) 01/08/21 08:20 Magnesium 1.7 mg/dL (1.6-2.3) 01/07/21 20:15 01/07/21 15:28 01/08/21 08:20 Assessment and Plan Plan: Assessment: 1. Bartter syndrome. 2. Hypokalemia secondary to above leading to renal potassium losses. 3. Hypomagnesemia due to barters syndrome. Plan: Potassium being replaced. She is on maintenance potassium supplementation. She is receiving IV magnesium and is also on oral magnesium. Spironolactone added. Resume home dose amiloride. Repeat labs this afternoon. UA fairly benign. No hydronephrosis noted on kidney ultrasound. Anticipate discharge soon. Repeat BMP and magnesium level 2 days postdischarge. Follow up outpatient in 1 week. Thank you for the consultation. I will continue to follow the patient with you during her hospital stay.
[2021-01-08 14:36] LABS: Magnesium 2.7 mg/dL (1.6-2.3); Potassium 3.2 mmol/L (3.5-5.1)
[2021-01-09] MEDS ORDERED: PANTOPRAZOLE 40 MG TABLET PO SCH (07:30)
[2021-01-09] MEDS: SPIRONOLACTONE 25 MG TAB PO SCH (07:48)
[2021-01-09] MEDS: POTASSIUM CHLORIDE ER 20 MEQ TAB.ER PO SCH (07:48)
[2021-01-09] MEDS: MAGNESIUM OXIDE 400 MG TAB PO SCH (07:48)
[2021-01-09] MEDS: VENLAFAXINE HCL ER 75 MG CAP PO SCH (07:49)
[2021-01-09] MEDS ORDERED: ENOXAPARIN 40 MG/0.4 ML SYRINGE SQ SCH (09:00)
[2021-01-09 09:32] LABS: African American GFR (CKD) >90 (>60 ml/min/1.73 sqM); Anion Gap 9 mmol/L; Blood Urea Nitrogen 10 mg/dL (7-17); Calcium 9.5 mg/dL (8.4-10.2); Carbon Dioxide 30 mmol/L (22-30); Chloride 99 mmol/L (98-107); Glucose 152 mg/dL (74-99); Non-African American GFR(CKD) >90 (>60 ml/min/1.73 sqM); Potassium 3.1 mmol/L (3.5-5.1); Sodium 138 mmol/L (137-145)
[2021-01-09 09:36] VITALS: BP 104/62; PULSE 74; RESP 16; TEMP 97.7
[2021-01-09] MEDS ORDERED: POTASSIUM CHLORIDE ER 20 MEQ TAB.ER PO STA (10:30)
--- NOTE | 2021-01-09 12:34 | P.PN ---
Subjective Patient is seen in follow-up for electrolyte imbalance. She has history of Bartter syndrome. Potassium replaced. Oral intake good. No active joints. Vital signs are stable. General: The patient appeared well nourished and normally developed. HEENT: Head exam is unremarkable. Neck is without jugular venous distension. LUNGS: Lungs are clear to auscultation and percussion. Breath sounds decreased. HEART: Rate and Rhythm are regular. ABDOMEN: Soft, nontender. EXTREMITITES: No edema. Objective - Vital Signs Vital signs: Vital Signs Temp 97.7 F 01/09/21 07:00 Pulse 74 01/09/21 07:00 Resp 16 01/09/21 07:00 BP 104/62 01/09/21 07:00 Pulse Ox 98 01/09/21 07:00 Intake & Output 01/08/21 01/09/21 01/09/21 18:59 06:59 18:59 Intake Total 200 300 Balance 200 300 Intake: Intake, IV Titration 200 Amount Magnesium Sulfate-D5w Pmx 200 1 gm In Dextrose/Water 1 100ml.bag @ 100 mls/hr IVPB Q1H [facility] Rx#: [id number] Oral 300 Other: Voiding Method Toilet - Labs CBC & Chem 7: 01/07/21 15:28 01/09/21 08:35 Labs: Abnormal Lab Results - Last 24 Hours (Table) 01/08/21 01/09/21 Range/Units 13:48 08:35 Potassium 3.2 L 3.1 L (3.5-5.1) mmol/L Glucose 152 H (74-99) mg/dL Magnesium 2.7 H (1.6-2.3) mg/dL Assessment and Plan Plan: Assessment: 1. Bartter syndrome. 2. Hypokalemia secondary to above leading to renal potassium losses. 3. Hypomagnesemia due to barters syndrome. S/p IV magneium and also on oral magnesium supplementation. Better. Plan: Potassium being replaced. She is on maintenance potassium supplementation. Spironolactone added this admission. Amiloride to be resumed upon d/c. UA fairly benign. No hydronephrosis noted on kidney ultrasound. Anticipate discharge soon. Repeat BMP and magnesium level 2 days postdischarge. Follow up outpatient in 1 week.
--- NOTE | 2021-01-09 15:35 | P.DS ---
Providers Date of admission: 01/07/21 16:52 Expected date of discharge: 01/09/21 Attending physician: Wesly Robins Consults: 01/08/21 10:24 Consult Physician Routine Consulting Provider: Ab Valentino Consult Reason/Comments: Bartter Synd. hypokalemia Do you want consulting provider notified?: Yes [facility] Course: HISTORY OF PRESENT ILLNESS This is a 25-year-old female patient of Dr. Friedman with past medical history significant for Bartter syndrome, depression and bipolar disorder along with anxiety and ADHD. Patient recently stopped taking her medications for "a bit" Patient is complaining of muscle pain in legs , right flank pain. She has some numbness and tingling in her feet that comes and goes. She did have leg cramps earlier today. She came into [facility] emergency center for evaluation. Her vital signs were stable. Potassium 2.3, sodium 141, chloride 99 and CO2 34. CBC was unremarkable. Magnesium 1.6. Liver function tests normal. EKG was in normal sinus rhythm with incomplete right bundle branch block. No acute ST changes. Patient received 60 mEq of potassium and repeat potassium today is at 2.8. Patient is been started on Aldactone and another 80 mEq of potassium ordered, consult with Dr. Valentino. Patient states that she has not been following with nephrology but is in agreement that she will moving forward. 01/09: She has been seen by nephrology and patient is agreement that she will continue to take her medications as directed and follow-up with nephrology as an outpatient. The blood work reveals sodium 138, potassium 3.1. Chloride 99, CO2 30, BUN 10 and creatinine 0.57. Blood sugar 152. Magnesium 2.0. Patient will be discharged home today in stable condition. ASSESSMENT AND PLAN 1. Severe hypokalemia secondary to noncompliance with medication with history of Bartter syndrome. 2. Hypomagnesemia status post replacement. 3. Seasonal ALLERGIES, stable. 4. Bipolar, generalized anxiety disorder and recurrent depression. 5. COVID-19 testing negative. Patient has been hospitalized during a pandemic. DISCHARGE PLAN Home. Impression and plan of care have been directed as dictated by the signing physician. Anabelle Talbert nurse practitioner acting as scribe for signing physician. Patient Condition at Discharge: Good Plan - Discharge Summary New Discharge Prescriptions: New Spironolactone [Aldactone] 25 mg PO BID #60 tab Continue Potassium Chloride ER [K-Dur 20] 60 meq PO BID aMILoride HCL 5 mg PO BID Magnesium Oxide [Jones] 500 mg PO BID Venlafaxine HCl [Effexor XR] 75 mg PO DAILY Dextroamphetamine/Amphetamine [Adderall] 30 mg PO BID Ergocalciferol [Vitamin D2 (1250 Mcg = 72695 Iu)] 1,250 mcg PO HAYWOOD Paliperidone Palmitate [Invega Trinza] 819 mg IM Q90D Discharge Medication List Potassium Chloride ER [K-Dur 20] 60 meq PO BID 12/20/17 [History] Magnesium Oxide [Jones] 500 mg PO BID 11/21/18 [History] aMILoride HCL 5 mg PO BID 11/21/18 [History] Venlafaxine HCl [Effexor XR] 75 mg PO DAILY 01/26/19 [History] Dextroamphetamine/Amphetamine [Adderall] 30 mg PO BID 01/07/21 [History] Ergocalciferol [Vitamin D2 (1250 Mcg = 39091 Iu)] 1,250 mcg PO HAYWOOD 01/07/21 [History] Paliperidone Palmitate [Invega Trinza] 819 mg IM Q90D 01/07/21 [History] Spironolactone [Aldactone] 25 mg PO BID #60 tab 01/09/21 [Rx] Follow up Appointment(s)/Referral(s): Ugo Friedman DO [Primary Care Provider] - 1 Week Ambulatory/Diagnostic Orders: Basic Metabolic Panel [LAB.AMB] Location: None Selected Magnesium [LAB.AMB] Location: None Selected Patient Instructions/Handouts: Spironolactone (By mouth), Hypokalemia (DC), Basic Metabolic Panel (GEN), Hypomagnesemia (DC) Discharge Disposition: HOME SELF-CARE
[2021-01-11] MEDS ORDERED: ERGOCALCIFEROL 1,250 MCG (50,000 IU) CAPSULE PO SCH (09:00)
[2021-02-23] MEDS ORDERED: PALIPERIDONE PALMITATE IM SCH (09:00)
== END 2021-01-09 12:40 | disposition home or self-care (01) ==
LOC: EC 14:15 → 1SOBS 16:52 → INTOOBSV 16:52 → UNDODISIN 01-09 12:40
PROVIDERS: ADMIT Internal Medicine Geriatric Medicine; ATTEND Internal Medicine Geriatric Medicine
DX: E87.6 Hypokalemia (principal); E26.81 Bartter's syndrome; Z91.14 Patient's other noncompliance with medication regimen; E83.42 Hypomagnesemia; F41.1 Generalized anxiety disorder; F31.9 Bipolar disorder, unspecified; F90.9 Attention-deficit hyperactivity disorder, unspecified type; J30.2 Other seasonal allergic rhinitis; R10.9 Unspecified abdominal pain; R20.0 Anesthesia of skin; R20.2 Paresthesia of skin; I45.10 Unspecified right bundle-branch block; Z79.899 Other long term (current) drug therapy; E66.9 Obesity, unspecified; Z68.37 Body mass index [BMI] 37.0-37.9, adult; F17.210 Nicotine dependence, cigarettes, uncomplicated; Z20.822 Contact with and (suspected) exposure to COVID-19; Z88.8 Allergy status to other drugs, medicaments and biological substances; Z83.3 Family history of diabetes mellitus; Z82.0 Family history of epilepsy and other diseases of the nervous system; Z81.8 Family history of other mental and behavioral disorders
CPT/HCPCS: 96366 ×3; 96367; 96372; 96365; 99285; 36415; 93005; 80053 ×2; 80048; 83735 ×3; 84132; 85025; 81001; 81025; 87636; 76770; G0378 ×3; J3480; J1650; J3475

== ENCOUNTER 2021-03-07 12:52 | Emergency (ER) | payer OTHER ==
[2021-03-07 12:56] VITALS: TEMP 98.1
--- NOTE | 2021-03-07 13:11 | ED ---
Female Urogenital HPI - General Source: patient Mode of arrival: ambulatory Limitations: no limitations - History of Present Illness MD Complaint: dysuria -: days(s) (2) Radiation: suprapubic, LLQ, RLQ Severity scale (1-10): 6 Quality: cramping Consistency: constant Improves with: none Worsens with: none Last Menstrual Period: 03/05/21 Associated Symptoms: abdominal pain, nausea/vomiting (no vomiting) - Related Data Sexually active: No <Abby Eddy - Last Filed: 03/07/21 14:02> <Nilo Chang - Last Filed: 03/07/21 14:43> - General Chief complaint: Urogenital Stated complaint: Dizziness/Fatigue Time Seen by Provider: 03/07/21 12:54 - History of Present Illness Initial comments: 25-year-old female presents for increased urgency and frequency of urinary habits along with back pain. Patient states she's also getting cramping in her upper and lower extremities. Patient has a condition in which she has low potassium so she wants that checked today. Patient does take daily oral potassium supplements. No recent illness or fevers. Patient does feel nauseous but no vomiting no change of bowels. No recent illness or rash. pt has bartter syndrome (Abby Eddy) - Related Data Home Medications Medication Instructions Recorded Confirmed Potassium Chloride ER [K-Dur 20] 60 meq PO BID 12/20/17 01/07/21 Magnesium Oxide [Jones] 500 mg PO BID 11/21/18 01/07/21 aMILoride HCL 5 mg PO BID 11/21/18 01/07/21 Venlafaxine HCl [Effexor XR] 75 mg PO DAILY 01/26/19 01/07/21 Dextroamphetamine/Amphetamine 30 mg PO BID 01/07/21 01/07/21 [Adderall] Ergocalciferol [Vitamin D2 (1250 1,250 mcg PO HAYWOOD 01/07/21 01/07/21 Mcg = 21057 Iu)] Paliperidone Palmitate [Invega 819 mg IM Q90D 01/07/21 01/07/21 Trinza] Previous Rx's Medication Instructions Recorded Spironolactone [Aldactone] 25 mg PO BID #60 tab 01/09/21 Sulfamethox-Tmp 800-160Mg [Bactrim 1 each PO Q12HR #20 tab 03/07/21 DS 800-160 mg] Allergies Allergy/AdvReac Type Severity Reaction Status Date / Time risperidone [From Risperdal] Allergy Mild MUSCLE Verified 03/07/21 12:56 SPASMS Review of Systems ROS Other: All systems not noted in ROS Statement are negative. Constitutional: Denies: fever Gastrointestinal: Reports: abdominal pain, nausea. Denies: vomiting, diarrhea, constipation Musculoskeletal: Reports: myalgia <Abby Eddy - Last Filed: 03/07/21 14:02> ROS Other: All systems not noted in ROS Statement are negative. <Nilo Chang - Last Filed: 03/07/21 14:43> ROS Statement: Those systems with pertinent positive or pertinent negative responses have been documented in the HPI. Past Medical History Past Medical History: Renal Disease Additional Past Medical History / Comment(s): Bartter syndrome ( low potassium), anxiety, bipolar, depression, ADHD, History of Any Multi-Drug Resistant Organisms: None Reported Past Surgical History: Tonsillectomy Additional Past Surgical History / Comment(s): wisdom teeth 2016, Past Anesthesia/Blood Transfusion Reactions: No Reported Reaction Past Psychological History: ADD/ADHD, Anxiety, Bipolar, Depression Smoking Status: Never smoker Past Alcohol Use History: Occasional Past Drug Use History: Marijuana - Past Family History Mother Additional Family Medical History / Comment(s): Mother is alive at age 40 with no major medical problems. Pt states Alzheimers and Bipolar disorder runs on her mother's side. Sister(s) Family Medical History: Diabetes Mellitus Additional Family Medical History / Comment(s): Patient has 4 half-sisters. Brother(s) Additional Family Medical History / Comment(s): Patient has 5 or 6 half-brothers with no major medical problems. Patient does not have any children. Father Additional Family Medical History / Comment(s): Father is alive at age 55 and patient has no contact with him as he is in care home. <Abby Eddy - Last Filed: 03/07/21 14:02> General Exam Limitations: no limitations General appearance: alert, in no apparent distress Head exam: Present: atraumatic, normocephalic, normal inspection Eye exam: Present: normal appearance, PERRL, EOMI. Absent: scleral icterus, conjunctival injection, periorbital swelling ENT exam: Present: normal exam, mucous membranes moist Respiratory exam: Present: normal lung sounds bilaterally. Absent: respiratory distress, wheezes, rales, rhonchi, stridor Cardiovascular Exam: Present: regular rate, normal rhythm, normal heart sounds. Absent: systolic murmur, diastolic murmur, rubs, gallop, clicks GI/Abdominal exam: Present: soft, tenderness (suprapubic, rlq, llq), normal bowel sounds. Absent: distended, guarding, rebound, rigid Back exam: Present: normal inspection, CVA tenderness (R), CVA tenderness (L) Neurological exam: Present: alert, oriented X3, CN II-XII intact Psychiatric exam: Present: normal affect, normal mood Skin exam: Present: warm, dry, intact, normal color. Absent: rash <Abby Eddy - Last Filed: 03/07/21 14:02> Course Vital Signs 03/07/21 12:53 Temperature 98.1 F Pulse Rate 64 Respiratory 18 Rate Blood Pressure 103/56 O2 Sat by Pulse 98 Oximetry Medical Decision Making - Lab Data Result diagrams: 03/07/21 13:14 03/07/21 13:14 <Abby Eddy - Last Filed: 03/07/21 14:02> - Lab Data Result diagrams: 03/07/21 13:14 03/07/21 13:14 <Nilo Chang - Last Filed: 03/07/21 14:43> - Medical Decision Making [facility] sodium and potassium levels with her Bartter's syndrome. Await lab results. Call from lab for care consult potassium 2.[address] Chang we'll start IV piggyback potassium chloride 20 mEq along with 40 mg orally. Patient will be evaluated by Dr. Chang for possible admission. (Abby Eddy) Patient reevaluated and resting comfortably in bed. Patient updated on results. Case was discussed in detail with Dr. Robins, covering for Dr. Costa. This includes potassium level. He recommends 40 mEq IV potassium as well as oral replacement and discharged following that. Patient updated. (Nilo Chang) - Lab Data Lab Results 03/07/21 03/07/21 03/07/21 Range/Units 13:14 13:14 13:14 WBC 9.9 (3.8-10.6) k/uL RBC 4.71 (3.80-5.40) m/uL Hgb 14.0 (11.4-16.0) gm/dL Hct 39.6 (34.0-46.0) % MCV 84.1 (80.0-100.0) fL MCH 29.8 (25.0-35.0) pg MCHC 35.4 (31.0-37.0) g/dL RDW 13.5 (11.5-15.5) % Plt Count 379 (150-450) k/uL MPV 7.3 Neutrophils % 73 % Lymphocytes % 20 % Monocytes % 4 % Eosinophils % 1 % Basophils % 0 % Neutrophils # 7.2 (1.3-7.7) k/uL Lymphocytes # 2.0 (1.0-4.8) k/uL Monocytes # 0.4 (0-1.0) k/uL Eosinophils # 0.1 (0-0.7) k/uL Basophils # 0.0 (0-0.2) k/uL Hyperchromasia Slight Poikilocytosis Slight Sodium 142 (137-145) mmol/L Potassium 2.2 L* (3.5-5.1) mmol/L Chloride 100 (98-107) mmol/L Carbon Dioxide 32 H (22-30) mmol/L Anion Gap 10 mmol/L BUN 9 (7-17) mg/dL Creatinine 0.51 L (0.52-1.04) mg/dL Est GFR (CKD-EPI)AfAm >90 (>60 ml/min/1.73 sqM) Est GFR (CKD-EPI)NonAf >90 (>60 ml/min/1.73 sqM) Glucose 111 H (74-99) mg/dL Calcium 9.2 (8.4-10.2) mg/dL Total Bilirubin 0.3 (0.2-1.3) mg/dL AST 18 (14-36) U/L ALT 18 (4-34) U/L Alkaline Phosphatase 61 (38-126) U/L Total Protein 7.1 (6.3-8.2) g/dL Albumin 4.3 (3.5-5.0) g/dL Urine Color Yellow Urine Appearance Cloudy H (Clear) Urine pH 7.5 (5.0-8.0) Ur Specific [place] 1.015 (1.001-1.035) Urine Protein Trace H (Negative) Urine Glucose (UA) Negative (Negative) Urine Ketones Negative (Negative) Urine Blood Negative (Negative) Urine Nitrite Negative (Negative) Urine Bilirubin Negative (Negative) Urine Urobilinogen <2.0 (<2.0) mg/dL Ur Leukocyte Esterase Large H (Negative) Urine RBC 2 (0-5) /hpf Urine WBC 14 H (0-5) /hpf Ur Squamous Epith Cells 3 (0-4) /hpf Amorphous Sediment Rare H (None) /hpf Urine Bacteria Rare H (None) /hpf Disposition <Abby Eddy - Last Filed: 03/07/21 14:02> Is patient prescribed a controlled substance at d/c from ED?: No Time of Disposition: 14:43 <Nilo Chang - Last Filed: 03/07/21 14:43> Clinical Impression: Hypokalemia, UTI (urinary tract infection) Disposition: HOME SELF-CARE Condition: Stable Instructions (If sedation given, give patient instructions): Urinary Tract Infection in Women (ED), Hypokalemia (ED) Additional Instructions: Please do follow-up with your primary care physician in the beginning of the week and have repeat potassium level checked. Return for increased muscle cramping or weakness, heart racing or skipping, worsening or change in symptoms or other concerns. Prescription for antibiotics has been sent to your pharmacy. Prescriptions: Sulfamethox-Tmp 800-160Mg [Bactrim DS 800-160 mg] 1 each PO Q12HR #20 tab Referrals: Ugo Friedman DO [Primary Care Provider] - 1-2 days
[2021-03-07 13:40] LABS: Amorphous Sediment,Urine Rare /hpf; Appearance,Urine Cloudy (Clear); Bacteria,Urine Rare /hpf; Bilirubin,Urine Negative (Negative); Blood,Urine Negative (Negative); Color,Urine Yellow; Glucose,Urine (UA) Negative (Negative); Ketones,Urine Negative (Negative); Leukocyte Esterase,Urine Large (Negative); Nitrite,Urine Negative (Negative); PH, Urine 7.5 (5.0-8.0); Protein,Urine Trace (Negative); RBC,Urine 2 /hpf (0-5); Specific Gravity,Urine 1.015 (1.001-1.035); Squamous Epithelial Cell,Urine 3 /hpf (0-4); Urobilinogen,Urine <2.0 mg/dL (<2.0); WBC,Urine 14 /hpf (0-5)
[2021-03-07 13:49] LABS: Basophils % (A) 0 %; Eosinophils # (A) 0.1 k/uL (0-0.7); Eosinophils % (A) 1 %; HCT 39.6 % (34.0-46.0); Hyperchromasia Slight; Lymphocytes % (A) 20 %; MCH 29.8 pg (25.0-35.0); MCHC 35.4 g/dL (31.0-37.0); MCV 84.1 fL (80.0-100.0); Mean Platelet Volume 7.3; Monocytes # (A) 0.4 k/uL (0-1.0); Monocytes % (A) 4 %; Neutrophils # (A) 7.2 k/uL (1.3-7.7); Neutrophils % (A) 73 %; Platelet Count 379 k/uL (150-450); Poikilocytosis Slight; RBC 4.71 m/uL (3.80-5.40); RDW 13.5 % (11.5-15.5); WBC 9.9 k/uL (3.8-10.6)
[2021-03-07 13:50] LABS: ALT 18 U/L (4-34); AST 18 U/L (14-36); African American GFR (CKD) >90 (>60 ml/min/1.73 sqM); Albumin 4.3 g/dL (3.5-5.0); Alkaline Phosphatase 61 U/L (38-126); Anion Gap 10 mmol/L; Blood Urea Nitrogen 9 mg/dL (7-17); Calcium 9.2 mg/dL (8.4-10.2); Carbon Dioxide 32 mmol/L (22-30); Chloride 100 mmol/L (98-107); Glucose 111 mg/dL (74-99); Non-African American GFR(CKD) >90 (>60 ml/min/1.73 sqM); Sodium 142 mmol/L (137-145); Total Bilirubin 0.3 mg/dL (0.2-1.3); Total Protein 7.1 g/dL (6.3-8.2)
[2021-03-07 13:56] LABS: Potassium 2.2 mmol/L (3.5-5.1)
[2021-03-07] MEDS ORDERED: POTASSIUM CHLORIDE 20 MEQ in WATER FOR INJECTION 1 100ML.BAG IVPB STA ×2 (13:59→14:33)
[2021-03-07] MEDS ORDERED: POTASSIUM CHLORIDE ER 20 MEQ TAB.ER PO STA (14:00)
[2021-03-07 16:37] VITALS: RESP 16
[2021-03-07 18:35] VITALS: BP 100/64; PULSE 66
== END 2021-03-07 18:36 | disposition home or self-care (01) ==
LOC: EC 12:52
DX: N39.0 Urinary tract infection, site not specified (principal); F32.9 Major depressive disorder, single episode, unspecified; F12.90 Cannabis use, unspecified, uncomplicated
CPT/HCPCS: 36415; 80053; 85025; 81001; 87086; 87635; 99284; 96365; 96366 ×3; 96368; J3480; J0696

== ENCOUNTER 2021-03-25 22:25 | Inpatient (IN) | payer OTHER, MEDICAID ==
--- NOTE | 2021-03-25 23:48 | ED ---
Psych HPI - General Chief Complaint: Psychiatric Symptoms Stated Complaint: mental health Time Seen by Provider: 03/25/21 23:33 Source: patient Mode of arrival: ambulatory - History of Present Illness MD Complaint: suicidal ideation, feels depressed Onset/Timin -: week(s) Associated Psychiatric Symptoms: depression, suicidal ideation Quality: getting worse Improves With: none Worsens With: none Context: not taking psychiatric medications Associated Symptoms: denies other symptoms - Related Data Home Medications Medication Instructions Recorded Confirmed Dextroamphetamine/Amphetamine 30 mg PO BID 01/07/21 03/27/21 [Adderall] Paliperidone Palmitate [Invega 819 mg IM Q84D 01/07/21 03/27/21 Trinza] Allergies Allergy/AdvReac Type Severity Reaction Status Date / Time risperidone [From Risperdal] Allergy Mild MUSCLE Verified 03/27/21 20:22 SPASMS Review of Systems ROS Statement: Those systems with pertinent positive or pertinent negative responses have been documented in the HPI. ROS Other: All systems not noted in ROS Statement are negative. Constitutional: Denies: fever, chills Respiratory: Denies: cough, dyspnea Cardiovascular: Denies: chest pain, palpitations Gastrointestinal: Denies: abdominal pain, vomiting, diarrhea Genitourinary: Denies: dysuria Musculoskeletal: Denies: back pain Skin: Denies: rash Neurological: Denies: headache, weakness, numbness Psychiatric: Reports: depression, suicidal thoughts. Denies: auditory hallucinations, visual hallucinations, homicidal thoughts Past Medical History Past Medical History: No Reported History, Renal Disease Additional Past Medical History / Comment(s): Bartter syndrome ( low potassium), anxiety, bipolar, depression, ADHD, History of Any Multi-Drug Resistant Organisms: None Reported Past Surgical History: Tonsillectomy Additional Past Surgical History / Comment(s): wisdom teeth 2016, Past Anesthesia/Blood Transfusion Reactions: No Reported Reaction Past Psychological History: ADD/ADHD, Anxiety, Bipolar, Depression Smoking Status: Never smoker Past Alcohol Use History: Occasional Past Drug Use History: Marijuana - Past Family History Mother Additional Family Medical History / Comment(s): Mother is alive at age 40 with no major medical problems. Pt states Alzheimers and Bipolar disorder runs on her mother's side. Sister(s) Family Medical History: Diabetes Mellitus Additional Family Medical History / Comment(s): Patient has 4 half-sisters. Brother(s) Additional Family Medical History / Comment(s): Patient has 5 or 6 half-brothers with no major medical problems. Patient does not have any children. Father Additional Family Medical History / Comment(s): Father is alive at age 55 and patient has no contact with him as he is in intermediate. General Exam Limitations: no limitations General appearance: alert, in no apparent distress Head exam: Present: atraumatic, normocephalic Eye exam: Present: normal appearance. Absent: scleral icterus, conjunctival injection Neck exam: Present: normal inspection Respiratory exam: Present: normal lung sounds bilaterally. Absent: respiratory distress, wheezes, rales, rhonchi, stridor Cardiovascular Exam: Present: regular rate, normal rhythm, normal heart sounds. Absent: systolic murmur, diastolic murmur, rubs, gallop GI/Abdominal exam: Present: soft. Absent: distended, tenderness, guarding, rebound, rigid, mass Extremities exam: Present: normal inspection, normal capillary refill. Absent: pedal edema, calf tenderness Back exam: Present: normal inspection. Absent: CVA tenderness (R), CVA tenderness (L) Neurological exam: Present: alert Psychiatric exam: Present: depressed, suicidal ideation. Absent: agitated, anxious, flat affect, manic, homicidal ideation Skin exam: Present: warm, dry, intact, normal color. Absent: rash Course Vital Signs 03/25/21 03/26/21 03/26/21 22:36 01:31 05:00 Temperature 98.4 F Pulse Rate 61 83 77 Pulse Rate [ Right Sitting] Respiratory 16 16 16 Rate Blood Pressure 104/68 98/66 102/78 Blood Pressure [Right Arm Sitting] O2 Sat by Pulse 98 98 98 Oximetry 03/26/21 03/26/21 07:35 10:37 Temperature 97.4 F L 97.4 F L Pulse Rate 60 Pulse Rate [ 63 Right Sitting] Respiratory 16 18 Rate Blood Pressure 91/55 Blood Pressure 101/65 [Right Arm Sitting] O2 Sat by Pulse 98 99 Oximetry Medical Decision Making - Medical Decision Making Patient is 25-year-old woman with BARTTER syndrome, presenting with worsening of her mood and suicidal ideation. Patient does have moderate hypokalemia and this is supplemented. The potassium is rechecked and has had a substantial improvement though not yet within the "normal" range, though it is where she tends to run chronically. I will provide some additional potassium. - Lab Data Result diagrams: 03/27/21 10:20 03/28/21 05:56 Lab Results 03/25/21 03/25/21 03/25/21 Range/Units 23:53 23:53 23:53 WBC 10.3 (3.8-10.6) k/uL RBC 4.82 (3.80-5.40) m/uL Hgb 14.3 (11.4-16.0) gm/dL Hct 41.0 (34.0-46.0) % MCV 85.2 (80.0-100.0) fL MCH 29.7 (25.0-35.0) pg MCHC 34.9 (31.0-37.0) g/dL RDW 13.6 (11.5-15.5) % Plt Count 309 (150-450) k/uL MPV 7.4 Neutrophils % 71 % Lymphocytes % 23 % Monocytes % 3 % Eosinophils % 2 % Basophils % 0 % Neutrophils # 7.3 (1.3-7.7) k/uL Lymphocytes # 2.3 (1.0-4.8) k/uL Monocytes # 0.3 (0-1.0) k/uL Eosinophils # 0.2 (0-0.7) k/uL Basophils # 0.0 (0-0.2) k/uL Sodium (137-145) mmol/L Potassium (3.5-5.1) mmol/L Chloride (98-107) mmol/L Carbon Dioxide (22-30) mmol/L Anion Gap mmol/L BUN (7-17) mg/dL Creatinine (0.52-1.04) mg/dL Est GFR (CKD-EPI)AfAm (>60 ml/min/1.73 sqM) Est GFR (CKD-EPI)NonAf (>60 ml/min/1.73 sqM) Glucose (74-99) mg/dL Calcium (8.4-10.2) mg/dL Urine HCG, Qual Not Detected (Not Detectd) Urine Opiates Screen Not Detected (NotDetected) Ur Oxycodone Screen Not Detected (NotDetected) Urine Methadone Screen Not Detected (NotDetected) Ur Propoxyphene Screen Not Detected (NotDetected) Ur Barbiturates Screen Not Detected (NotDetected) U Tricyclic Antidepress Not Detected (NotDetected) Ur Phencyclidine Scrn Not Detected (NotDetected) Ur Amphetamines Screen Not Detected (NotDetected) U Methamphetamines Scrn Not Detected (NotDetected) U Benzodiazepines Scrn Not Detected (NotDetected) Urine Cocaine Screen Detected H (NotDetected) U Marijuana (THC) Screen Detected H (NotDetected) 03/25/21 03/26/21 03/26/21 Range/Units 23:53 06:19 09:18 WBC (3.8-10.6) k/uL RBC (3.80-5.40) m/uL Hgb (11.4-16.0) gm/dL Hct (34.0-46.0) % MCV (80.0-100.0) fL MCH (25.0-35.0) pg MCHC (31.0-37.0) g/dL RDW (11.5-15.5) % Plt Count (150-450) k/uL MPV Neutrophils % % Lymphocytes % % Monocytes % % Eosinophils % % Basophils % % Neutrophils # (1.3-7.7) k/uL Lymphocytes # (1.0-4.8) k/uL Monocytes # (0-1.0) k/uL Eosinophils # (0-0.7) k/uL Basophils # (0-0.2) k/uL Sodium 138 139 (137-145) mmol/L Potassium 2.3 L* 2.9 L 3.5 (3.5-5.1) mmol/L Chloride 98 97 L (98-107) mmol/L Carbon Dioxide 29 35 H (22-30) mmol/L Anion Gap 11 7 mmol/L BUN 11 10 (7-17) mg/dL Creatinine 0.59 0.71 (0.52-1.04) mg/dL Est GFR (CKD-EPI)AfAm >90 >90 (>60 ml/min/1.73 sqM) Est GFR (CKD-EPI)NonAf >90 >90 (>60 ml/min/1.73 sqM) Glucose 135 H 96 (74-99) mg/dL Calcium 10.0 10.2 (8.4-10.2) mg/dL Urine HCG, Qual (Not Detectd) Urine Opiates Screen (NotDetected) Ur Oxycodone Screen (NotDetected) Urine Methadone Screen (NotDetected) Ur Propoxyphene Screen (NotDetected) Ur Barbiturates Screen (NotDetected) U Tricyclic Antidepress (NotDetected) Ur Phencyclidine Scrn (NotDetected) Ur Amphetamines Screen (NotDetected) U Methamphetamines Scrn (NotDetected) U Benzodiazepines Scrn (NotDetected) Urine Cocaine Screen (NotDetected) U Marijuana (THC) Screen (NotDetected) Disposition Clinical Impression: Hypokalemia, Suicidal ideation, Depression, Bartter syndrome Disposition: ADMITTED IP TO THIS [facility] Condition: Stable Is patient prescribed a controlled substance at d/c from ED?: No
[2021-03-26 00:08] LABS: Basophils % (A) 0 %; Eosinophils # (A) 0.2 k/uL (0-0.7); Eosinophils % (A) 2 %; HGB 14.3 gm/dL (11.4-16.0); Lymphocytes # (A) 2.3 k/uL (1.0-4.8); Lymphocytes % (A) 23 %; MCH 29.7 pg (25.0-35.0); MCHC 34.9 g/dL (31.0-37.0); MCV 85.2 fL (80.0-100.0); Mean Platelet Volume 7.4; Monocytes # (A) 0.3 k/uL (0-1.0); Monocytes % (A) 3 %; Neutrophils # (A) 7.3 k/uL (1.3-7.7); Neutrophils % (A) 71 %; Platelet Count 309 k/uL (150-450); RBC 4.82 m/uL (3.80-5.40); RDW 13.6 % (11.5-15.5); WBC 10.3 k/uL (3.8-10.6)
[2021-03-26 00:21] LABS: African American GFR (CKD) >90 (>60 ml/min/1.73 sqM); Anion Gap 11 mmol/L; Blood Urea Nitrogen 11 mg/dL (7-17); Carbon Dioxide 29 mmol/L (22-30); Chloride 98 mmol/L (98-107); Glucose 135 mg/dL (74-99); Non-African American GFR(CKD) >90 (>60 ml/min/1.73 sqM); Sodium 138 mmol/L (137-145)
[2021-03-26 00:31] LABS: Amphetamine Screen,Urine Not Detected (NotDetected); Barbiturate Screen,Urine Not Detected (NotDetected); Benzodiazepines Screen,Urine Not Detected (NotDetected); Cocaine Screen,Urine Detected (NotDetected); Methadone Screen, Urine Not Detected (NotDetected); Opiate Screen,Urine Not Detected (NotDetected); Oxycodone Screen, Urine Not Detected (NotDetected); Phencyclidine Screen,Urine Not Detected (NotDetected); Tricyclic Antidepressant,Urine Not Detected (NotDetected); Urn Cannabinoid Scrn Detected (NotDetected)
[2021-03-26 00:32] LABS: Potassium 2.3 mmol/L (3.5-5.1)
[2021-03-26] MEDS ORDERED: POTASSIUM CHLORIDE ER 20 MEQ TAB.ER PO STA ×3 (01:15→05:06)
[2021-03-26 06:49] LABS: African American GFR (CKD) >90 (>60 ml/min/1.73 sqM); Anion Gap 7 mmol/L; Blood Urea Nitrogen 10 mg/dL (7-17); Calcium 10.2 mg/dL (8.4-10.2); Carbon Dioxide 35 mmol/L (22-30); Chloride 97 mmol/L (98-107); Glucose 96 mg/dL (74-99); Non-African American GFR(CKD) >90 (>60 ml/min/1.73 sqM); Potassium 2.9 mmol/L (3.5-5.1); Sodium 139 mmol/L (137-145)
[2021-03-26] MEDS ORDERED: POTASSIUM BICARBONATE/CIT AC 20 MEQ TABLET.EFF PO ONE (07:12)
[2021-03-26] MEDS ORDERED: MAGNESIUM HYDROXIDE 2,400 MG/10 ML CUP PO PRN (10:31)
[2021-03-26] MEDS ORDERED: MAG HYDROX/AL HYDROX/SIMETH 30 ML CUP PO PRN (10:31)
[2021-03-26] MEDS ORDERED: LORazepam 1 MG TAB PO PRN (10:31)
[2021-03-26] MEDS ORDERED: LORazepam 2 MG/ML INJ IM PRN (10:34)
[2021-03-26] MEDS ORDERED: HALOPERIDOL LACTATE 5 MG/ML 1 ML VIAL IM PRN (10:35)
[2021-03-26] MEDS ORDERED: SULFAMETHOX-TMP 800-160MG 1 EACH TAB PO SCH (10:37)
[2021-03-26] MEDS ORDERED: NON FORMULARY DRUG (Magnesium Oxide [Phillips] 500 MG Tablet) PO SCH (10:45)
[2021-03-26] MEDS ORDERED: VENLAFAXINE HCL ER 75 MG CAP PO SCH (10:45)
[2021-03-26] MEDS ORDERED: SPIRONOLACTONE 25 MG TAB PO SCH (10:45)
[2021-03-26] MEDS ORDERED: AMILORIDE HCL 5 MG PO SCH (11:00)
--- NOTE | 2021-03-26 12:59 | P.HP ---
Psychiatric H&P - . H&P Date: 03/26/21 History & Physical: Allergies Allergy/AdvReac Type Severity Reaction Status Date / Time risperidone From Risperdal Allergy Mild MUSCLE Verified 03/26/21 11:16 SPASMS Vital Signs Temp 97.4 F L 03/26/21 10:37 Pulse 63 03/26/21 10:37 Resp 18 03/26/21 10:37 BP 101/65 03/26/21 10:37 Pulse Ox 99 03/26/21 10:37 Intake & Output 03/25/21 03/26/21 03/26/21 18:59 06:59 18:59 Weight 96.615 kg Laboratory Last Values WBC 10.3 k/uL (3.8-10.6) 03/25/21 23:53 RBC 4.82 m/uL (3.80-5.40) 03/25/21 23:53 Hgb 14.3 gm/dL (11.4-16.0) 03/25/21 23:53 Hct 41.0 % (34.0-46.0) 03/25/21 23:53 MCV 85.2 fL (80.0-100.0) 03/25/21 23:53 MCH 29.7 pg (25.0-35.0) 03/25/21 23:53 MCHC 34.9 g/dL (31.0-37.0) 03/25/21 23:53 RDW 13.6 % (11.5-15.5) 03/25/21 23:53 Plt Count 309 k/uL (150-450) 03/25/21 23:53 MPV 7.4 03/25/21 23:53 Neutrophils % 71 % 03/25/21 23:53 Lymphocytes % 23 % 03/25/21 23:53 Monocytes % 3 % 03/25/21 23:53 Eosinophils % 2 % 03/25/21 23:53 Basophils % 0 % 03/25/21 23:53 Neutrophils # 7.3 k/uL (1.3-7.7) 03/25/21 23:53 Lymphocytes # 2.3 k/uL (1.0-4.8) 03/25/21 23:53 Monocytes # 0.3 k/uL (0-1.0) 03/25/21 23:53 Eosinophils # 0.2 k/uL (0-0.7) 03/25/21 23:53 Basophils # 0.0 k/uL (0-0.2) 03/25/21 23:53 Sodium 139 mmol/L (137-145) 03/26/21 06:19 Potassium 3.5 mmol/L (3.5-5.1) 03/26/21 09:18 Chloride 97 mmol/L (98-107) L 03/26/21 06:19 Carbon Dioxide 35 mmol/L (22-30) H 03/26/21 06:19 Anion Gap 7 mmol/L 03/26/21 06:19 BUN 10 mg/dL (7-17) 03/26/21 06:19 Creatinine 0.71 mg/dL (0.52-1.04) 03/26/21 06:19 Est GFR (CKD-EPI)AfAm >90 (>60 ml/min/1.73 sqM) 03/26/21 06:19 Est GFR (CKD-EPI)NonAf >90 (>60 ml/min/1.73 sqM) 03/26/21 06:19 Glucose 96 mg/dL (74-99) 03/26/21 06:19 Calcium 10.2 mg/dL (8.4-10.2) 03/26/21 06:19 Urine HCG, Qual Not Detected (Not Detectd) 03/25/21 23:53 Urine Opiates Screen Not Detected (NotDetected) 03/25/21 23:53 Ur Oxycodone Screen Not Detected (NotDetected) 03/25/21 23:53 Urine Methadone Screen Not Detected (NotDetected) 03/25/21 23:53 Ur Propoxyphene Screen Not Detected (NotDetected) 03/25/21 23:53 Ur Barbiturates Screen Not Detected (NotDetected) 03/25/21 23:53 U Tricyclic Antidepress Not Detected (NotDetected) 03/25/21 23:53 Ur Phencyclidine Scrn Not Detected (NotDetected) 03/25/21 23:53 Ur Amphetamines Screen Not Detected (NotDetected) 03/25/21 23:53 U Methamphetamines Scrn Not Detected (NotDetected) 03/25/21 23:53 U Benzodiazepines Scrn Not Detected (NotDetected) 03/25/21 23:53 Urine Cocaine Screen Detected (NotDetected) H 03/25/21 23:53 U Marijuana (THC) Screen Detected (NotDetected) H 03/25/21 23:53 03/26/21 12:51 IDENTIFYING DATA: Patient is a 25-year-old mixed female who currently lives alone in an apartment and has no kids is single. 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 HPI: Patient presented to the hospital yesterday with complaints of depression and suicidal thoughts which have been ongoing and getting worse. Patient was found to have hypokalemia and has a history of barter syndrome and was given potassium supplementation before being admitted to the psychiatric unit. Patient's UDS is positive for cocaine and marijuana. Patient was seen lying in her bed earlier today agreeable to speak to food writer for evaluation. She appeared to be fairly tired and somewhat lethargic during the interview. She states that "my brain is in a fog right now". She states that she has been off of her medications for 2 months now. She states that she was passively suicidal and knows that if she stopped taking her barter medications that she would eventually and has stopped taking them for approximately 2 months. She states that her anxiety and depression have worsened. She states that she has dealt with multiple suicide attempts in the past. She claims that she was feeling "overwhelmed with life" and was fairly vague about why. She states that she has been working quite a lot and feels like she has little support. She states that she thought that she was going to be evicted. She states that her sleep is "on and off" her appetite has been fair. She states that she was hearing voices yesterday and had some mild paranoia however does not have any of this today. She claims that she was previously on Invega trinza and was last given this in october and was also on effexor in the past and would like to get restarted on them. She did claim that she has a history of manic episodes however states that they are "less frequent now" and she feels more depressed. Patient denies any current suicidal or homicidal ideations intent or plan. At this time patient denies any auditory or visual hallucinations. Patient denies any flight of ideas racing thoughts and increased in goal directed behavior. Patient admits to using marijuana daily. She states that she smokes vaping products daily. She admits to occasional alcohol and occasional cocaine use. PAST PSYCHIATRIC HISTORY: Patient states that she has history of bipolar disorder. She was previously on invega trinza and effexor. She claims that she has been admitted psychiatrically several times in the past and her last admission was in November 2018. She claims that she is currently follows up with the nurse practitioner at [facility]. She claims that she has had approximately 6 suicide attempts in the past including overdosing, trying to hang herself and cutting. PMH: Barter syndrome, renal disease ALLERGIES: as per EMR CHEMICAL DEPENDENCY HISTORY: as per HPI FAMILY PSYCHIATRIC/SUBSTANCE USE HISTORY: Claims that her mother has OCD and also bipolar disorder. SOCIAL HISTORY: Patient was born and raised in [facility]. She states that she completed her GED and did some college. 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 She states that she has never been to [place] [facility] before or has any other legal history. She states that she currently lives alone in apartment has no kids and is single.. MENTAL STATUS EXAM: General Appearance: Patient appears to be overweight, stated age is appears to be somewhat sedated however is directable and attempts to cooperate. Patient appears to have poor hygiene and grooming. Behavior: Patient is seated without any agitated behavior. Attempts to cooperate Speech: Patient's speech is fluent and nonpressured. Soft tone Mood/Affect: Patient reports their mood is depressed, affect is congruent and constricted. Suicidality/Homicidality: Patient denies having any homicidal ideation intent or plan. Denies any suicidal ideations intent or plan Perceptions: Patient denies any visual hallucinations and denies any auditory hallucinations Though content/process: There is no evidence of any delusional thought content and thought process is linear and goal-directed. [place], poverty of content Memory and concentration: AOX3, grossly intact for the purposes of this session. Can spell "WORLD" backwards Judgment and insight: poor STRENGTHS/WEAKNESSES: strength is that patient is resilient. Weakness is that bishop lucero has poor judgment and is impulsive INTELLECT: average IMPRESSIONS: Bipolar disorder, current episode depressed Cannabis use disorder Cocaine abuse Nicotine dependence PLAN: -Patient is admitted under voluntary status to MHU for stabilization of psychiatric symptoms and safety. Patient has signed adult voluntary form and medication consent and is placed in patient's chart. -Medications : Will start patient on Effexor XR 37.5 mg daily for mood/anxiety. Patient is also wanting to start back on her paliperidone by mouth 3 mg daily at bedtime for mood stabilization/psychosis. will likely transition patient back onto invega sustenna prior to discharge. -Ativan and Haldol PRN for agitation/aggression -Patient was counselled on substance abuse and desired to cut back on use -Patient was informed of the risks, benefits and side effects of the medication and patient verbally consented to taking the medications. Patient signed med consent form and was placed in chart. -Internal Medicine consult to perform medical evaluation and physical. -NRT - nicotine patch -SW on board for discharge planning. Encourage patient to participate in groups to work on coping skills.
[2021-03-26] MEDS: VENLAFAXINE HCL ER 37.5 MG CAP PO SCH (13:06)
[2021-03-26] MEDS: MAGNESIUM OXIDE 400 MG TAB PO SCH ×2 (13:06→21:20)
[2021-03-26] MEDS ORDERED: POTASSIUM CHLORIDE ER 20 MEQ TAB.ER PO SCH (21:00)
[2021-03-26] MEDS ORDERED: PALIPERIDONE 3 MG TAB.ER.24 PO SCH (21:00)
--- NOTE | 2021-03-27 00:28 | P.MDCNMH ---
History of Present Illness H&P Date: 03/26/21 Chief Complaint: Hypokalemia 25-year-old female with Bartter syndrome and bipolar disorder Patient comes in due to suicidal ideation she has bipolar disorder she was having overwhelming depression. She admits to using marijuana and occasional alcohol she admits to smoking c igarettes. She otherwise denies any chest pain trouble breathing fevers chills nausea vomiting abdominal pain In the ED she had low potassium chest history of Bartter syndrome she does not recall her potassium formulation at home potassium was replaced in the ED and admitted to the mental health unit Review of Systems Pertinent positives as noted in HPI. All other systems were reviewed and are negative Past Medical History Past Medical History: No Reported History, Renal Disease Additional Past Medical History / Comment(s): Bartter syndrome ( low potassium), anxiety, bipolar, depression, ADHD, History of Any Multi-Drug Resistant Organisms: None Reported Past Surgical History: Tonsillectomy Additional Past Surgical History / Comment(s): wisdom teeth 2016, Past Anesthesia/Blood Transfusion Reactions: No Reported Reaction Past Psychological History: ADD/ADHD, Anxiety, Bipolar, Depression Smoking Status: Never smoker Past Alcohol Use History: Occasional Past Drug Use History: Marijuana - Past Family History Mother Additional Family Medical History / Comment(s): Mother is alive at age 40 with no major medical problems. Pt states Alzheimers and Bipolar disorder runs on her mother's side. Sister(s) Family Medical History: Diabetes Mellitus Additional Family Medical History / Comment(s): Patient has 4 half-sisters. Brother(s) Additional Family Medical History / Comment(s): Patient has 5 or 6 half-brothers with no major medical problems. Patient does not have any children. Father Additional Family Medical History / Comment(s): Father is alive at age 55 and patient has no contact with him as he is in half-way. Medications and Allergies Home Medications Medication Instructions Recorded Confirmed Type Dextroamphetamine/Amphetamine 30 mg PO BID 01/07/21 03/26/21 History [Adderall] Paliperidone Palmitate [Invega 819 mg IM Q84D 01/07/21 03/26/21 History Trinza] Allergies Allergy/AdvReac Type Severity Reaction Status Date / Time risperidone [From Risperdal] Allergy Mild MUSCLE Verified 03/26/21 11:16 SPASMS Physical Exam Vitals: Vital Signs Temp Pulse Pulse Resp BP BP Pulse Ox 03/26/21 10:37 97.4 F L 63 18 101/65 99 03/26/21 07:35 97.4 F L 60 16 91/55 98 03/26/21 05:00 77 16 102/78 98 03/26/21 01:31 83 16 98/66 98 Constitutional: No acute distress, conversant, pleasant Eyes: Anicteric sclerae, moist conjunctiva, Pupils equal round reactive to light ENMT: NC/AT Oropharynx clear, no erythema, or exudates Neck: Supple, FROM, no masses, or JVD No carotid bruits No thyromegaly Lungs: Clear to auscultation Clear to percussion Normal respiratory effort, no accessory muscle use Cardiovascular: Heart regular in rate and rhythm, No murmurs, gallops, or rubs No peripheral edema Abdominal: Soft Nontender, no guarding, rebound or rigidity Abdomen moving with respiration Normoactive bowel sounds No hepatomegaly, No splenomegaly No palpable mass No abdominal wall hernia noted Skin: Normal temperature, tone, texture, turgor No induration No subcutaneous nodules No rash, lesions No ulcers Extremities: No digital cyanosis No clubbing Pedal pulses intact and symmetrical Radial pulses intact and symmetrical No calf tenderness Psychiatric: Alert and oriented to person, place and time Appropriate affect fair judgement Neuro Muscles Strength 5/5 in all 4 extremities Sensation to light touch grossly present throughout Cranial nerves II-XII grossly intact No focal sensory deficits Lymphatics: no palpable cervical or supraclavicular , or inguinal lymph nodes Cranial Nerve Examination - Cranial Nerves Cranial Nerve II- Optic: Intact Cranial Nerve III- Oculomotor: Intact Cranial Nerve IV- Trochlear: Intact Cranial Nerve V- Trigeminal: Intact Cranial Nerve - Abducens: Intact Cranial Nerve VII- Facial: Intact Cranial Nerve VIII- Auditory: Intact Cranial Nerve IX- Glossopharyngeal: Intact Cranial Nerve X- Vagus: Intact Cranial Nerve XI- Accessory: Intact Cranial Nerve XII- Hypoglossal: Intact Results CBC & Chem 7: 03/25/21 23:53 03/26/21 09:18 Labs: Abnormal Lab Results - Last 24 Hours (Table) 03/25/21 03/25/21 03/26/21 Range/Units 23:53 23:53 06:19 Potassium 2.3 L* 2.9 L (3.5-5.1) mmol/L Chloride 97 L (98-107) mmol/L Carbon Dioxide 35 H (22-30) mmol/L Glucose 135 H (74-99) mg/dL Urine Cocaine Screen Detected H (NotDetected) U Marijuana (THC) Screen Detected H (NotDetected) Assessment and Plan Assessment: Hypokalemia secondary to Bartter syndrome Daily monitoring of potassium until stable Start patient on by mouth potassium 20 milliequivalent daily Polysubstance abuse Urine drug screen positive for cocaine and marijuana Management per psych Bipolar disorder Depression and suicidal ideation Management per psych Follow-up labs Thank you for allowing us to participate in the care of this patient. Do not hesitate to contact us with questions. Someone can be reached from the [facility] hospitalist group at all hours of the day at [phone].
[2021-03-27] MEDS: VENLAFAXINE HCL ER 37.5 MG CAP PO SCH (08:09)
[2021-03-27] MEDS: MAGNESIUM OXIDE 400 MG TAB PO SCH ×2 (08:09→21:23)
[2021-03-27] MEDS ORDERED: POTASSIUM CHLORIDE ER 20 MEQ TAB.ER PO SCH ×2 (09:00→21:00)
--- NOTE | 2021-03-27 09:53 | P.PN ---
Progress Note - Text Progress Note Date: 03/27/21 Interval History: Patient was seen wandering the hallways and was directable and agreeable to esteban bauman with marketing underwriter in the office. Patient appears to have mild improvement in her affect today. She claims that she is doing mildly better overall and with regards to her mood. She claims that she still feeling somewhat depressed and anxious. She was agreeable to have her medications increased. She claims that she was not able to sleep well last night and hadn't interrupted sleep. She claims that she wouldn't is still hearing whispers at times however no clear auditory hallucinations. She was agreeable to have her paliperidone increased. She states that she is trying to go to groups and participate as best as she can. At this time patient denies any suicidal or homical ideations, intent or plan. Patient denies any visual hallucinations and denies any paranoia or delusions. Patient denies any side effects from the medications and has been compliant with meds. Mental Status Exam: General Appearance: Patient appears to be overweight, stated age is appears to be somewhat sedated however is directable and attempts to cooperate. Patient appears to have improving hygiene and grooming. Behavior: Patient is seated without any agitated behavior. Attempts to cooperate Speech: Patient's speech is fluent and nonpressured. Soft tone Mood/Affect: Patient reports their mood is depressed, improving mildly, affect is congruent and constricted. Suicidality/Homicidality: Patient denies having any homicidal ideation intent or plan. Denies any suicidal ideations intent or plan Perceptions: Patient denies any visual hallucinations and denies any auditory hallucinations Though content/process: There is no evidence of any delusional thought content and thought process is linear and goal-directed. [place] Memory and concentration: AOX3, grossly intact for the purposes of this session. Judgment and insight: poor, improving mildly Assessment Bipolar disorder, current episode depressed Cannabis use disorder Cocaine abuse Nicotine dependence Plan: -Patient continues to meet criteria for inpatient psychiatric admission for symptom stabilization and safety. Patient has signed adult voluntary form and medication consent and was placed in patient's chart. -Medications: Increased Effexor XR to 75 mg daily/anxiety. Increased paliperidone by mouth to 6 mg daily at bedtime for mood stabilization/psychosis. will likely transition patient back onto invega sustenna COPELAND prior to discharge to ensure compliance. -When necessary Ativan and Haldol for agitation/aggression. -NRT - nicotine patch -SW on board for discharge planning. Encouraged the patient to participate in milieu. likely discharge either tuesday-tuesday after patient recieves her COPELAND loading dose.
[2021-03-27 10:55] LABS: Basophils % (A) 0 %; Eosinophils # (A) 0.1 k/uL (0-0.7); Eosinophils % (A) 1 %; HCT 42.8 % (34.0-46.0); Lymphocytes # (A) 2.4 k/uL (1.0-4.8); Lymphocytes % (A) 22 %; MCH 30.4 pg (25.0-35.0); MCHC 34.9 g/dL (31.0-37.0); MCV 86.9 fL (80.0-100.0); Mean Platelet Volume 7.4; Monocytes # (A) 0.5 k/uL (0-1.0); Monocytes % (A) 5 %; Neutrophils # (A) 7.5 k/uL (1.3-7.7); Neutrophils % (A) 70 %; Platelet Count 321 k/uL (150-450); RBC 4.93 m/uL (3.80-5.40); RDW 13.5 % (11.5-15.5); WBC 10.7 k/uL (3.8-10.6)
[2021-03-27 11:17] LABS: African American GFR (CKD) >90 (>60 ml/min/1.73 sqM); Anion Gap 9 mmol/L; Blood Urea Nitrogen 10 mg/dL (7-17); Carbon Dioxide 34 mmol/L (22-30); Chloride 96 mmol/L (98-107); Glucose 90 mg/dL (74-99); Non-African American GFR(CKD) >90 (>60 ml/min/1.73 sqM); Sodium 139 mmol/L (137-145)
[2021-03-27 11:19] LABS: Albumin 4.6 g/dL (3.5-5.0); Bilirubin,Unconjugated 0.5 mg/dL (0.0-1.1); Total Bilirubin 0.5 mg/dL (0.2-1.3); Total Protein 7.6 g/dL (6.3-8.2)
[2021-03-27] MEDS: POTASSIUM CHLORIDE ER 20 MEQ TAB.ER PO SCH ×2 (14:56→21:24)
[2021-03-27] MEDS: NICOTINE 14MG/24HR PATCH TRANSDERM SCH (14:57)
[2021-03-27] MEDS: SPIRONOLACTONE 25 MG TAB PO SCH ×2 (14:57→21:39)
[2021-03-27] MEDS: metFORMIN 500 MG TAB PO SCH (17:56)
[2021-03-27 18:56] LABS: Hemoglobin A1C 4.7 % (4.0-6.0)
[2021-03-27] MEDS: PALIPERIDONE 6 MG TAB.ER.24 PO SCH (21:23)
[2021-03-27] MEDS: MELATONIN 3 MG TABLET PO SCH (21:23)
[2021-03-28 05:06] LABS: Chol/HDL Ratio 3.86; LDL Cholesterol,Calculated 95.4 mg/dL (0.0-131.0); VLDL Calculation 27.6 mg/dL (5.00-40.00)
[2021-03-28] MEDS: ACETAMINOPHEN TAB 325 MG TAB PO PRN (06:07)
[2021-03-28 06:50] LABS: African American GFR (CKD) >90 (>60 ml/min/1.73 sqM); Anion Gap 8 mmol/L; Blood Urea Nitrogen 9 mg/dL (7-17); Calcium 9.8 mg/dL (8.4-10.2); Carbon Dioxide 32 mmol/L (22-30); Chloride 99 mmol/L (98-107); Glucose 88 mg/dL (74-99); Non-African American GFR(CKD) >90 (>60 ml/min/1.73 sqM); Potassium 3.2 mmol/L (3.5-5.1); Sodium 139 mmol/L (137-145)
[2021-03-28] MEDS: MAGNESIUM OXIDE 400 MG TAB PO SCH ×2 (08:03→22:40)
[2021-03-28] MEDS: SPIRONOLACTONE 25 MG TAB PO SCH ×2 (08:03→22:40)
[2021-03-28] MEDS: POTASSIUM CHLORIDE ER 20 MEQ TAB.ER PO SCH ×3 (08:03→22:40)
[2021-03-28] MEDS: NICOTINE 14MG/24HR PATCH TRANSDERM SCH (08:03)
[2021-03-28] MEDS ORDERED: VENLAFAXINE HCL ER 75 MG CAP PO SCH (09:00)
--- NOTE | 2021-03-28 12:48 | P.PN ---
Progress Note - Text Progress Note Date: 03/28/21 S&O: Patient was seen for a follow-up examination. She said she is here because of suicidal thoughts which came spontaneously. But she also said she has barter syndrome, gets depressed or suicidal when her potassium level goes down or when she does not take her medications. Her depressive and manic episodes last for 6-8 days. Again she says she gets this way when she does not take her medications or when her potassium level goes down. She said she still has suicidal thoughts and may not be able to control herself if she is discharged from the hospital. She said she gets anxious and when she gets more anxious she tends to abuse cannabis or cocaine. She asked if she can take any medicine that is not habit-forming for her anxiety symptoms. After some discussion she agreed to get her Effexor increased from 75 to 150 mg a day. Upon admission her UDS was positive for cocaine and cannabis. She does not have any other complaints or concerns. This is an overweight ambulatory female with good hygiene. She is cooperative and pleasant. She does not show any psychomotor agitation or retardation. Her speech is spontaneous relevant and goal-directed. Mood is euthymic and affect is appropriate. She denies hallucinations delusional thinking and homicidal thoughts. She continues to report of suicide thoughts as noted. She is well oriented with good memory concentration and general fund of knowledge. A&P: Increase Effexor ER to 150 mg daily, continue Invega, therapy and s upervision. Patient continues to meet criteria for inpatient psychiatric admission for symptom stabilization and safety.
[2021-03-28] MEDS: metFORMIN 500 MG TAB PO SCH (17:06)
[2021-03-28] MEDS: MELATONIN 3 MG TABLET PO SCH (22:40)
[2021-03-28] MEDS: PALIPERIDONE 6 MG TAB.ER.24 PO SCH (22:40)
[2021-03-29] MEDS: NICOTINE 14MG/24HR PATCH TRANSDERM SCH (08:30)
[2021-03-29] MEDS: SPIRONOLACTONE 25 MG TAB PO SCH ×2 (08:31→21:45)
[2021-03-29] MEDS: POTASSIUM CHLORIDE ER 20 MEQ TAB.ER PO SCH ×3 (08:31→21:45)
[2021-03-29] MEDS: VENLAFAXINE HCL ER 150 MG CAP PO SCH (08:31)
[2021-03-29] MEDS: MAGNESIUM OXIDE 400 MG TAB PO SCH ×2 (08:31→21:46)
[2021-03-29] MEDS ORDERED: ERGOCALCIFEROL 1,250 MCG (50,000 IU) CAPSULE PO SCH (10:37)
--- NOTE | 2021-03-29 11:37 | P.PN ---
Progress Note - Text Progress Note Date: 03/29/21 S&O: Patient was seen for routine follow-up examination. She did not come to the office and so I saw her in her room. She was laying down and she said she is resting and does not want to attend groups or come to the office today. She denies any particular complaint including physical problems like headache fever stomachache except. She took her morning medicines and does not think it has affected her yet. Continues to deny suicide and homicide thoughts. This is a white female who was laying down in her bed. She did not want to talk much but she was able to answer the questions properly. Her speech is spontaneous and goal-directed. Mood is euthymic and affect is appropriate. She denies hallucinations delusional thinking suicide and homicide thoughts. She is well oriented with good memory concentration general fund of knowledge and denies any particular problem. A&P: Continue Effexor XR in [place] therapy and supervision. Patient continues to meet criteria for inpatient psychiatric admission for symptom stabilization and safety.
[2021-03-29] MEDS: ACETAMINOPHEN TAB 325 MG TAB PO PRN (14:00)
[2021-03-29] MEDS: metFORMIN 500 MG TAB PO SCH (17:35)
[2021-03-29] MEDS: MELATONIN 3 MG TABLET PO SCH (21:45)
[2021-03-29] MEDS: PALIPERIDONE 6 MG TAB.ER.24 PO SCH (21:46)
[2021-03-30 07:14] LABS: African American GFR (CKD) >90 (>60 ml/min/1.73 sqM); Anion Gap 6 mmol/L; Blood Urea Nitrogen 12 mg/dL (7-17); Calcium 9.7 mg/dL (8.4-10.2); Carbon Dioxide 34 mmol/L (22-30); Chloride 99 mmol/L (98-107); Glucose 87 mg/dL (74-99); Non-African American GFR(CKD) >90 (>60 ml/min/1.73 sqM); Potassium 3.7 mmol/L (3.5-5.1); Sodium 139 mmol/L (137-145)
[2021-03-30] MEDS: VENLAFAXINE HCL ER 150 MG CAP PO SCH (08:02)
[2021-03-30] MEDS: MAGNESIUM OXIDE 400 MG TAB PO SCH ×2 (08:02→22:02)
[2021-03-30] MEDS: NICOTINE 14MG/24HR PATCH TRANSDERM SCH (08:02)
[2021-03-30] MEDS: SPIRONOLACTONE 25 MG TAB PO SCH ×2 (08:02→22:01)
[2021-03-30] MEDS: POTASSIUM CHLORIDE ER 20 MEQ TAB.ER PO SCH ×3 (08:03→22:03)
[2021-03-30] MEDS ORDERED: PALIPERIDONE IM 234 MG/1.5 ML SYG IM STA (09:26)
--- NOTE | 2021-03-30 09:38 | P.PN ---
Progress Note - Text Progress Note Date: 03/30/21 Interval History: Patient was seen taking part in group today and was directable and agreeable to speak with service writer advisor in the office. Patient appears to have mild improvement in her affect today and claims that she had a severe episode of anxiety yesterday however was attributing it to her Effexor increased dose. She states that today she is doing better in terms of her mood and anxiety. She states that she has been able to participate in groups fairly well. She was agreeable to have her Invega Sustenna loading dose given to her today. She claims that she was able to sleep better last night. She claims that she is not hearing any voices at this time. She states that she is trying to go to groups and participate as best as she can. At this time patient denies any suicidal or homical ideations, intent or plan. Patient denies any visual hallucinations and denies any paranoia or delusions. Patient denies any side effects from the medications and has been compliant with meds. Mental Status Exam: General Appearance: Patient appears to be overweight, stated age is appears to be somewhat sedated however is directable and attempts to cooperate. Patient appears to have improving hygiene and grooming. Behavior: Patient is seated without any agitated behavior. Attempts to cooperate Speech: Patient's speech is fluent and nonpressured. Soft tone Mood/Affect: Patient reports their mood is improving mildly, affect is congruent and constricted. Suicidality/Homicidality: Patient denies having any homicidal ideation intent or plan. Denies any suicidal ideations intent or plan Perceptions: Patient denies any visual hallucinations and denies any auditory hallucinations Though content/process: There is no evidence of any delusional thought content and thought process is linear and goal-directed. [place] Memory and concentration: AOX3, grossly intact for the purposes of this session. Judgment and insight: improving mildly Assessment Bipolar disorder, current episode depressed Cannabis use disorder Cocaine abuse Nicotine dependence Plan: -Patient continues to meet criteria for inpatient psychiatric admission for symptom stabilization and safety. Patient has signed adult voluntary form and medication consent and was placed in patient's chart. -Medications: Effexor XR to 75 mg daily/anxiety. paliperidone by mouth to 6 mg daily at bedtime for mood stabilization/psychosis. Will receive Invega Sustenna 234 mg IM today. He will be due for her next injection on 04/06 -When necessary Ativan and Haldol for agitation/aggression. -NRT - nicotine patch -SW on board for discharge planning. Encouraged the patient to participate in milieu. likely discharge tomorrow after patient recieves her COPELAND loading dose.
[2021-03-30] MEDS: metFORMIN 500 MG TAB PO SCH (17:39)
[2021-03-30] MEDS: MELATONIN 3 MG TABLET PO SCH (22:01)
[2021-03-30] MEDS: PALIPERIDONE 6 MG TAB.ER.24 PO SCH (22:01)
[2021-03-30 23:51] VITALS: BP 111/64; PULSE 62; RESP 18; TEMP 97.7
[2021-03-31] MEDS: NICOTINE 14MG/24HR PATCH TRANSDERM SCH (08:09)
[2021-03-31] MEDS: SPIRONOLACTONE 25 MG TAB PO SCH (08:10)
[2021-03-31] MEDS: MAGNESIUM OXIDE 400 MG TAB PO SCH (08:11)
[2021-03-31] MEDS: VENLAFAXINE HCL ER 150 MG CAP PO SCH (08:11)
[2021-03-31] MEDS: POTASSIUM CHLORIDE ER 20 MEQ TAB.ER PO SCH (08:12)
--- NOTE | 2021-03-31 09:31 | P.DS ---
Providers Date of admission: 03/26/21 10:26 Expected date of discharge: 03/31/21 Attending physician: Mio Duenas MD Consults: 03/26/21 16:30 Consult Physician Routine Consulting Provider: Ayala Physician Consult Reason/Comments: H&P, new admission Do you want consulting provider notified?: Yes Primary care physician: Ugo Friedman - Discharge Diagnosis(es) (1) Bipolar disorder current episode depressed Current Visit: Yes Status: Acute Priority: High (2) Cannabis use disorder, mild, abuse Current Visit: Yes Status: Acute Priority: Medium (3) Cocaine abuse Current Visit: Yes Status: Acute Priority: Medium (4) Nicotine dependence Current Visit: Yes Status: Acute Priority: Low Hospital Course: Admission HPI: Admission note was completed by policy writer "Patient is a 25-year-old mixed female who currently lives alone in an apartment and has no kids is single. 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 Patient presented to the hospital yesterday with complaints of depression and suicidal thoughts which have been ongoing and getting worse. Patient was found to have hypokalemia and has a history of barter syndrome and was given potassium supplementation before being admitted to the psychiatric unit. Patient's UDS is positive for cocaine and marijuana. Patient was seen lying in her bed earlier today agreeable to speak to policy writer for evaluation. She appeared to be fairly tired and somewhat lethargic during the interview. She states that "my brain is in a fog right now". She states that she has been off of her medications for 2 months now. She states that she was passively suicidal and knows that if she stopped taking her barter medications that she would eventually and has stopped taking them for approximately 2 months. She states that her anxiety and depression have worsened. She states that she has dealt with multiple suicide attempts in the past. She claims that she was feeling "overwhelmed with life" and was fairly vague about why. She states that she has been working quite a lot and feels like she has little support. She states that she thought that she was going to be evicted. She states that her sleep is "on and off" her appetite has been fair. She states that she was hearing voices yesterday and had some mild paranoia however does not have any of this today. She claims that she was previously on Invega trinza and was last given this in october and was also on effexor in the past and would like to get restarted on them. She did claim that she has a history of manic episodes however states that they are "less frequent now" and she feels more depressed. Patient denies any current suicidal or homicidal ideations intent or plan. At this time patient denies any auditory or visual hallucinations. Patient denies any flight of ideas racing thoughts and increased in goal directed behavior. Patient admits to using marijuana daily. She states that she smokes vaping products daily. She admits to occasional alc ohol and occasional cocaine use." Hospital course: Upon admission to the unit patient was initially depressed and suicidal. Patient was however directable and agreeable to commence treatment and signed adult voluntary form. Patient got along well with other patients on the unit and followed unit protocol. Patient was compliant with the medications and denied any side effects throughout hospital course. Patient was started on Effexor and titrated up to dose of 150 mg daily for mood/anxiety. Patient was also restarted back on paliperidone due to previously doing well on it in the past and titrated up to a dose of 6 mg daily at bedtime and then patient was given Invega Sustenna loading dose 234 mg IM on 03/30/21. Patient is set to receive her next dose of Invega Sustenna 156 mg IM on 04/06/21 and monthly dose of 117 mg IM on 04/27. Patient spoke of her stressors and engaged in therapy both group and individual. Patient was also seen by medical team for history and physical exam. Due to patient having barter syndrome, potassium supplementation was given to her daily 40 mEq 3 times a day and also retsarted on spirinolactone and her other home meds. potassium levels improved during hospitalization. Throughout the course of the hospitalization patient gradually improved with regards to mood stability, anxiety, sleep and became more future oriented with improved insight and judgment. On the day of discharge patient denied any suicidal or homicidal ideations intent or plan denied any auditory or visual hallucinations. Patient endorsed wanting to live for his health and family. The patient denied any access to guns or weapons. Patient denied any paranoia and did not endorse any delusions. Patient does have a significant history of substance abuse and was counseled on abstaining from all substances including alcohol and marijuana. Patient was offered however declined inpatient substance- abuse rehab. Patient was also counseled on the medications and need for regular compliance and was encouraged to follow-up with their outpatient appointment for mental health and also for primary care. Prior to discharge a family meeting will be arranged by social work coordinator to answer any questions and ensure safety upon discharge. Mental status exam: General Appearance: Patient appears to be stated age is alert, pleasant, and cooperative. Patient is in no acute distress and has improved hygiene and grooming Behavior: Patient is calmly seated without any agitated behavior. Speech: Patient's speech is fluent and nonpressured. Mood/Affect: Patient reports their mood is "better", affect is congruent and euthymic. Suicidality/Homicidality: Patient denies having any suicidal or homicidal ideation intent or plan. Perceptions: Patient denies any auditory or visual hallucinations. Though content/process: There is no evidence of any delusional thought content and thought process is linear and goal-directed. more future oriented Memory and concentration: AOX3, grossly intact for the purposes of this session. Can spell "WORLD" backwards correctly. Judgment and insight: chronically poor, however has improved with guarded prognosis Impression: Bipolar disorder, current episode depressed Cannabis use disorder Cocaine abuse Nicotine dependence Plan: -Continue with discharge today as patient has improved and stabilized psychiatrically and is not currently an imminent threat to herself and/or others. Patient will remain at chronically elevated risk for harm to self and/or others due to her impulsivity and polysubstance abuse. -Continue medications: paliperidone po 3mg hs for mood stabilization/psychosis for 4 more days then to be discontinued. She was given Invega Sustenna loading dose 234 mg IM on 03/30/21. Patient is set to receive her next dose of Invega Sustenna 156 mg IM on 04/06/21 and monthly dose of 117 mg IM on 04/27. Continue with Effexor XR 150 mg daily for mood/anxiety. -Patient was counseled on the need for medication compliance and appropriate follow-up at mental health and also primary care for medical issues. Patient verbalized understanding and agreed. -Social work to arrange for and conduct family meeting to ensure safety upon discharge and answer any questions/concerns. Social work also to arrange for patients follow up appointments with [facility] for psychiatric care along with follow up with primary care provider. -Patient counseled on abstaining from recreational drugs and marijuana and alcohol. Was informed/educated on the adverse effects on their physical and mental health. Patient verbally agreed and understood. Patient was offered substance abuse treatment however declined at this time. -Patient was instructed to return to the hospital or seek immediate medical care if their psychiatric or medical symptoms do worsen or reoccur. Allergies Allergy/AdvReac Type Severity Reaction Status Date / Time risperidone [From Risperdal] Allergy Mild MUSCLE Verified 03/27/21 20:22 SPASMS Laboratory Results WBC 10.7 k/uL (3.8-10.6) H 03/27/21 10:20 RBC 4.93 m/uL (3.80-5.40) 03/27/21 10:20 Hgb 15.0 gm/dL (11.4-16.0) 03/27/21 10:20 Hct 42.8 % (34.0-46.0) 03/27/21 10:20 MCV 86.9 fL (80.0-100.0) 03/27/21 10:20 MCH 30.4 pg (25.0-35.0) 03/27/21 10:20 MCHC 34.9 g/dL (31.0-37.0) 03/27/21 10:20 RDW 13.5 % (11.5-15.5) 03/27/21 10:20 Plt Count 321 k/uL (150-450) 03/27/21 10:20 MPV 7.4 03/27/21 10:20 Neutrophils % 70 % 03/27/21 10:20 Lymphocytes % 22 % 03/27/21 10:20 Monocytes % 5 % 03/27/21 10:20 Eosinophils % 1 % 03/27/21 10:20 Basophils % 0 % 03/27/21 10:20 Neutrophils # 7.5 k/uL (1.3-7.7) 03/27/21 10:20 Lymphocytes # 2.4 k/uL (1.0-4.8) 03/27/21 10:20 Monocytes # 0.5 k/uL (0-1.0) 03/27/21 10:20 Eosinophils # 0.1 k/uL (0-0.7) 03/27/21 10:20 Basophils # 0.0 k/uL (0-0.2) 03/27/21 10:20 Sodium 139 mmol/L (137-145) 03/30/21 06:38 Potassium 3.7 mmol/L (3.5-5.1) 03/30/21 06:38 Chloride 99 mmol/L (98-107) 03/30/21 06:38 Carbon Dioxide 34 mmol/L (22-30) H 03/30/21 06:38 Anion Gap 6 mmol/L 03/30/21 06:38 BUN 12 mg/dL (7-17) 03/30/21 06:38 Creatinine 0.54 mg/dL (0.52-1.04) 03/30/21 06:38 Est GFR (CKD-EPI)AfAm >90 (>60 ml/min/1.73 sqM) 03/30/21 06:38 Est GFR (CKD-EPI)NonAf >90 (>60 ml/min/1.73 sqM) 03/30/21 06:38 Glucose 87 mg/dL (74-99) 03/30/21 06:[address] Glu mg/dL 88 03/27/21 10:20 Hemoglobin A1c 4.7 % (4.0-6.0) 03/27/21 10:20 Calcium 9.7 mg/dL (8.4-10.2) 03/30/21 06:38 Total Bilirubin 0.5 mg/dL (0.2-1.3) 03/27/21 10:20 Conjugated Bilirubin 0.0 mg/dL (0.0-0.3) 03/27/21 10:20 Unconjugated Bilirubin 0.5 mg/dL (0.0-1.1) 03/27/21 10:20 Delta Bilirubin 0.0 mg/dL (0.0-0.2) 03/27/21 10:20 AST 20 U/L (14-36) 03/27/21 10:20 ALT 19 U/L (4-34) 03/27/21 10:20 Alkaline Phosphatase 60 U/L (38-126) 03/27/21 10:20 Total Protein 7.6 g/dL (6.3-8.2) 03/27/21 10:20 Albumin 4.6 g/dL (3.5-5.0) 03/27/21 10:20 Triglycerides 138.0 mg/dL (0.0-149.0) 03/27/21 10:20 Cholesterol 166 mg/dL (0-200) 03/27/21 10:20 LDL Cholesterol, Calc 95.4 mg/dL (0.0-131.0) 03/27/21 10:20 VLDL Cholesterol, Calc 27.60 mg/dL (5.00-40.00) 03/27/21 10:20 HDL Cholesterol 43.0 mg/dL (40.0-60.0) 03/27/21 10:20 Cholesterol/HDL Ratio 3.86 03/27/21 10:20 TSH 1.550 mIU/L (0.465-4.680) 03/27/21 10:20 Urine HCG, Qual Not Detected (Not Detectd) 03/25/21 23:53 Urine Opiates Screen Not Detected (NotDetected) 03/25/21 23:53 Ur Oxycodone Screen Not Detected (NotDetected) 03/25/21 23:53 Urine Methadone Screen Not Detected (NotDetected) 03/25/21 23:53 Ur Propoxyphene Screen Not Detected (NotDetected) 03/25/21 23:53 Ur Barbiturates Screen Not Detected (NotDetected) 03/25/21 23:53 U Tricyclic Antidepress Not Detected (NotDetected) 03/25/21 23:53 Ur Phencyclidine Scrn Not Detected (NotDetected) 03/25/21 23:53 Ur Amphetamines Screen Not Detected (NotDetected) 03/25/21 23:53 U Methamphetamines Scrn Not Detected (NotDetected) 03/25/21 23:53 U Benzodiazepines Scrn Not Detected (NotDetected) 03/25/21 23:53 Urine Cocaine Screen Detected (NotDetected) H 03/25/21 23:53 U Marijuana (THC) Screen Detected (NotDetected) H 03/25/21 23:53 Vital Signs Temp 97.7 F 03/30/21 23:51 Pulse 62 03/30/21 23:51 Resp 18 03/30/21 23:51 BP 111/64 03/30/21 23:51 Pulse Ox 99 03/28/21 06:08 Patient Condition at Discharge: Stable Plan - Discharge Summary Discharge Rx Participant: No New Discharge Prescriptions: New Spironolactone [Aldactone] 50 mg PO BID 30 Days tab Paliperidone [Invega] 3 mg PO HS 4 Days tab.er.24 Paliperidone Palmitate [Invega Sustenna] 117 mg IM QMONTHLY #1 syr Magnesium Oxide [Mag-Ox] 400 mg PO BID 30 Days tab Melatonin 3 mg PO HS 30 Days tablet Venlafaxine HCl ER [Effexor XR] 150 mg PO DAILY 30 Days cap.er.24h metFORMIN HCL [Glucophage] 500 mg PO 1800 30 Days tab Nicotine 14Mg/24Hr Patch [Habitrol] 1 patch TRANSDERM DAILY 14 Days patch Paliperidone IM [Invega Sustenna] 156 mg IM ONCE #1 syr Potassium Chloride ER [K-Dur 20] 40 meq PO TID 30 Days tab.er.prt Discontinued Dextroamphetamine/Amphetamine [Adderall] 30 mg PO BID Paliperidone Palmitate [Invega Trinza] 819 mg IM Q84D Discharge Medication List Magnesium Oxide [Mag-Ox] 400 mg PO BID 30 Days tab 03/31/21 [Rx] Melatonin 3 mg PO HS 30 Days tablet 03/31/21 [Rx] Nicotine 14Mg/24Hr Patch [Habitrol] 1 patch TRANSDERM DAILY 14 Days patch 03/31/21 [Rx] Paliperidone IM [Invega Sustenna] 156 mg IM ONCE #1 syr 03/31/21 [Rx] Paliperidone Palmitate [Invega Sustenna] 117 mg IM QMONTHLY #1 syr 03/31/21 [Rx] Paliperidone [Invega] 3 mg PO HS 4 Days tab.er.24 03/31/21 [Rx] Potassium Chloride ER [K-Dur 20] 40 meq PO TID 30 Days tab.er.prt 03/31/21 [Rx] Spironolactone [Aldactone] 50 mg PO BID 30 Days tab 03/31/21 [Rx] Venlafaxine HCl ER [Effexor XR] 150 mg PO DAILY 30 Days cap.er.24h 03/31/21 [Rx] metFORMIN HCL [Glucophage] 500 mg PO 1800 30 Days tab 03/31/21 [Rx] Follow up Appointment(s)/Referral(s): [facility] [Outside] - 04/06/21 10:30 am (04-06-21 @ 10:30 with ALBINA Catalan at [facility] office 04-09-21 @ 11:00 with Leonor Harris by phone) Ugo Friedman DO [Primary Care Provider] - 1-2 days Discharge Disposition: HOME SELF-CARE
[2021-03-31] MEDS ORDERED: PALIPERIDONE 3 MG TAB.ER.24 PO SCH (21:00)
== END 2021-03-31 11:20 | disposition home or self-care (01) | DRG 885 ==
LOC: EC 22:25 → 3MHU 03-26 10:26
PROVIDERS: ADMIT Psychiatry & Neurology Psychiatry; ATTEND Psychiatry & Neurology Psychiatry
DX: F31.30 Bipolar disorder, current episode depressed, mild or moderate severity, unspecified (principal); R45.851 Suicidal ideations; E26.81 Bartter's syndrome; F12.10 Cannabis abuse, uncomplicated; F14.10 Cocaine abuse, uncomplicated; E87.6 Hypokalemia; F41.9 Anxiety disorder, unspecified; F90.9 Attention-deficit hyperactivity disorder, unspecified type; R45.87 Impulsiveness; E66.3 Overweight; Z68.34 Body mass index [BMI] 34.0-34.9, adult; F17.290 Nicotine dependence, other tobacco product, uncomplicated; Z71.6 Tobacco abuse counseling; Z79.899 Other long term (current) drug therapy; Z91.5 Personal history of self-harm; Z60.2 Problems related to living alone; Z90.89 Acquired absence of other organs; Z98.818 Other dental procedure status; Z87.448 Personal history of other diseases of urinary system; Z98.890 Other specified postprocedural states; Z88.8 Allergy status to other drugs, medicaments and biological substances; Z82.0 Family history of epilepsy and other diseases of the nervous system; Z81.8 Family history of other mental and behavioral disorders; Z83.3 Family history of diabetes mellitus
CPT/HCPCS: 36415; 80048; 80061; 80306; 81025; 82075; 82248; 83036; 84132; 84443; 85025; 99285

== ENCOUNTER 2021-04-04 22:38 | Emergency (ER) | payer OTHER, MEDICAID ==
[2021-04-04 22:46] VITALS: TEMP 98.4
[2021-04-04] MEDS ORDERED: HYDROcodone/APAP 5-325MG 1 EACH TAB PO STA (23:05)
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
[2021-04-04] MEDS ORDERED: FLUORESCEIN STRIPS 1 MG STRIP LEFT EYE ONE (23:13)
[2021-04-04] MEDS ORDERED: PROPARACAINE 0.5% OPHTH DROPS 15 ML BTL LEFT EYE STA (23:14)
[2021-04-04 23:42] LABS: Appearance,Urine Clear (Clear); Bilirubin,Urine Negative (Negative); Blood,Urine Negative (Negative); Color,Urine Light Yellow; Glucose,Urine (UA) Negative (Negative); Ketones,Urine Negative (Negative); Leukocyte Esterase,Urine Negative (Negative); Nitrite,Urine Negative (Negative); Protein,Urine Negative (Negative); Specific Gravity,Urine 1.021 (1.001-1.035); Urobilinogen,Urine <2.0 mg/dL (<2.0)
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
[2021-04-05] MEDS ORDERED: ACET/COD 300 MG/30 MG STARTER PACK 6 TAB BTL PO STA (00:12)
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
[2021-04-05 00:39] VITALS: BP 110/68; PULSE 72; RESP 16
== END 2021-04-05 00:39 | disposition home or self-care (01) ==
LOC: EC 22:38
DX: S00.12XA Contusion of left eyelid and periocular area, initial encounter (principal); M54.2 Cervicalgia; M54.6 Pain in thoracic spine; F31.9 Bipolar disorder, unspecified; F41.9 Anxiety disorder, unspecified; F12.90 Cannabis use, unspecified, uncomplicated; Z79.84 Long term (current) use of oral hypoglycemic drugs; Z79.899 Other long term (current) drug therapy; Y04.0XXA Assault by unarmed brawl or fight, initial encounter; Y92.410 Unspecified street and highway as the place of occurrence of the external cause
CPT/HCPCS: 70450; 70486; 72125; 72170; 81003; 81025; 99284

== ENCOUNTER 2021-04-05 16:54 | Emergency (ER) | payer OTHER ==
[2021-04-05 17:09] VITALS: RESP 16; TEMP 98.2
[2021-04-05 18:14] VITALS: BP 116/65; PULSE 70
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
== END 2021-04-05 18:20 | disposition home or self-care (01) ==
LOC: EC 16:54
DX: S06.0X9A Concussion with loss of consciousness of unspecified duration, initial encounter (principal); F31.9 Bipolar disorder, unspecified; F41.9 Anxiety disorder, unspecified; Z79.84 Long term (current) use of oral hypoglycemic drugs; Z79.899 Other long term (current) drug therapy; Z83.3 Family history of diabetes mellitus; Z88.8 Allergy status to other drugs, medicaments and biological substances; Y09 Assault by unspecified means
CPT/HCPCS: 99283

== ENCOUNTER → 2021-04-22 | Outpatient (CLI) | payer OTHER ==
--- NOTE | 2021-04-23 10:06 | CT ---
Head CT without and with contrast HISTORY:F07.81 post concussion R51 headaches Helical acquisition obtained pre and post intravenous contrast, patient received 100 cc Isovue-300 IV . Automated exposure control for dose reduction. Delayed scanning was performed due to patient's vomi ting during the exam. DLP 2313.[address] brain 04/04/2021 There is inflammatory change, opacification of the right maxillary sinus similar to prior exam, the r ight maxillary sinus appears somewhat hypotrophic. Calvarium is intact. There is no hemorrhage or hyd rocephalus. The orbits show symmetric appearance. There is no abnormal enhancement following contrast administration. IMPRESSION: Chronic right maxillary sinus disease. No significant brain abnormality evident. Brain MR I may be of benefit as indicated.
== END | disposition home or self-care (01) ==
LOC: RADCTMAIN 14:56
PROVIDERS: ATTEND Family Medicine
DX: F07.81 Postconcussional syndrome (principal); R51.9 Headache, unspecified; J32.0 Chronic maxillary sinusitis
CPT/HCPCS: 70470; Q9967

== ENCOUNTER 2021-07-03 02:16 | Inpatient (IN) | payer OTHER, MEDICAID ==
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
[2021-07-03 05:42] LABS: Amorphous Sediment,Urine Few /hpf; Appearance,Urine Cloudy (Clear); Bacteria,Urine Occasional /hpf; Bilirubin,Urine Negative (Negative); Blood,Urine Negative (Negative); Color,Urine Yellow; Glucose,Urine (UA) Negative (Negative); Ketones,Urine 1+ (Negative); Leukocyte Esterase,Urine Moderate (Negative); Mucus,Urine Rare /hpf; Nitrite,Urine Negative (Negative); Protein,Urine 1+ (Negative); RBC,Urine 2 /hpf (0-5); Squamous Epithelial Cell,Urine 11 /hpf (0-4); Triple Phosphate Crystal,Urine Occasional /hpf; Urobilinogen,Urine <2.0 mg/dL (<2.0); WBC,Urine 21 /hpf (0-5)
[2021-07-03] MEDS ORDERED: MAGNESIUM HYDROXIDE 2,400 MG/10 ML CUP PO PRN (07:12)
[2021-07-03] MEDS ORDERED: MAG HYDROX/AL HYDROX/SIMETH 30 ML CUP PO PRN (07:12)
[2021-07-03] MEDS ORDERED: LORazepam 1 MG TAB PO PRN (07:12)
[2021-07-03] MEDS ORDERED: haloperidoL 1 MG TAB PO PRN (07:22)
[2021-07-03] MEDS ORDERED: LORazepam 2 MG/ML INJ IM PRN (07:22)
[2021-07-03] MEDS ORDERED: HALOPERIDOL LACTATE 5 MG/ML 1 ML VIAL IM PRN (07:22)
[2021-07-03] MEDS: VENLAFAXINE HCL ER 150 MG CAP PO SCH (09:39)
[2021-07-03] MEDS: SPIRONOLACTONE 25 MG TAB PO SCH ×2 (09:39→22:20)
[2021-07-03] MEDS: POTASSIUM CHLORIDE ER 20 MEQ TAB.ER PO SCH (09:39)
[2021-07-03] MEDS: MAGNESIUM OXIDE 400 MG TAB PO SCH (09:39)
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
--- NOTE | 2021-07-04 01:16 | P.PN ---
Progress Note - Text Progress Note Date: 07/04/21 Patient refused to be seen or evaluated.
[2021-07-04 06:16] LABS: Urine Alcohol Negative (Negative); Urine Barbiturate Negative (Negative); Urine Cocaine Negative (Negative); Urine Methadone Negative (Negative); Urine Opiates Negative (Negative); Urine Phencyclidine Negative (Negative)
[2021-07-04] MEDS: MAGNESIUM OXIDE 400 MG TAB PO SCH (08:29)
[2021-07-04] MEDS: POTASSIUM CHLORIDE ER 20 MEQ TAB.ER PO SCH (08:29)
[2021-07-04] MEDS: SPIRONOLACTONE 25 MG TAB PO SCH ×2 (08:29→20:51)
[2021-07-04] MEDS: VENLAFAXINE HCL ER 150 MG CAP PO SCH (08:29)
[2021-07-04 10:44] LABS: Basophils % (A) 0 %; Eosinophils # (A) 0.1 k/uL (0-0.7); Eosinophils % (A) 1 %; HGB 15.4 gm/dL (11.4-16.0); Lymphocytes % (A) 24 %; MCH 29.5 pg (25.0-35.0); MCHC 33.5 g/dL (31.0-37.0); MCV 88.1 fL (80.0-100.0); Mean Platelet Volume 7.7; Monocytes # (A) 0.4 k/uL (0-1.0); Monocytes % (A) 5 %; Neutrophils # (A) 5.6 k/uL (1.3-7.7); Neutrophils % (A) 68 %; Platelet Count 363 k/uL (150-450); RBC 5.22 m/uL (3.80-5.40); RDW 12.9 % (11.5-15.5); WBC 8.3 k/uL (3.8-10.6)
[2021-07-04 11:33] LABS: ALT 21 U/L (4-34); AST 20 U/L (14-36); African American GFR (CKD) >90 (>60 ml/min/1.73 sqM); Albumin 4.5 g/dL (3.5-5.0); Alkaline Phosphatase 53 U/L (38-126); Anion Gap 9 mmol/L; Blood Urea Nitrogen 12 mg/dL (7-17); Calcium 10.4 mg/dL (8.4-10.2); Carbon Dioxide 34 mmol/L (22-30); Chloride 96 mmol/L (98-107); Glucose 102 mg/dL (74-99); Non-African American GFR(CKD) >90 (>60 ml/min/1.73 sqM); Potassium 3.1 mmol/L (3.5-5.1); Sodium 139 mmol/L (137-145); Total Bilirubin 0.6 mg/dL (0.2-1.3); Total Protein 8.2 g/dL (6.3-8.2)
[2021-07-04] MEDS ORDERED: POTASSIUM CHLORIDE ER 20 MEQ TAB.ER PO ONE (15:00)
--- NOTE | 2021-07-04 20:19 | PN ---
PROGRESS NOTE DATE OF SERVICE: 07/04/2021. CHIEF COMPLAINT: The patient had a verbal altercation with a friend. She got into a severe panic and had developed suicidal thinking. INTERVAL HISTORY: The patient has been doing fair. She had a quiet day yesterday. She comes out on the unit. She interacts with others. She did not attend groups yesterday. She said she slept fair last night. Today she has been up. She has been out in the day area. She again has not attended groups today though says she is willing to make an effort in that regard. She acknowledges that she has been struggling with depression, including things getting worse because of her current situation. She essentially is homeless after difficulty she was having with housemates. She says that now she has been couch- surfing and has not been comfortable with her situation. She says that she has been consistent in working with [facility] and with Leonor Harris as her director of casework department and Dr. Edwards, which is a new prescriber for her. She has continued on Invega Sustenna, which she says has been helpful. She was continued on the Effexor on admission as her only psychotropic. She tolerates her psychotropics well. MENTAL STATUS EXAM: Patient sat without restlessness. She gave fairly good eye contact. She answered questions with brief responses. Her thoughts were clear. Her affect was somewhat constricted. She had a reserved manner. Her mood was somewhat down. She did not appear to be significantly distressed. There was no indication of thought disorder. Cognition was clear. She denied any thoughts of harm at the time of the interview. ASSESSMENT: I will continue current diagnosis and treatment plan. We will continue to engage the patient in individual and group therapeutic activities. I discussed her medications, including the indications for her antidepressant. I will increase her dose as per Dr. Junior to 225 mg a day. I reviewed the treatment guidelines relating to antidepressants. I also reviewed indications for her antipsychotic medication. I discussed side effects and potential concerns relating to metabolics and movement disorder issues as it relates to her Invega. We will focus on stabilization and discharge planning. We will coordinate with [facility] for follow-up care. MMANAL / RAMONN: [id number] /
[2021-07-04] MEDS: ACETAMINOPHEN TAB 325 MG TAB PO PRN (21:12)
[2021-07-05] MEDS: ACETAMINOPHEN TAB 325 MG TAB PO PRN ×2 (04:07→19:11)
[2021-07-05] MEDS: SPIRONOLACTONE 25 MG TAB PO SCH ×2 (08:02→21:31)
[2021-07-05] MEDS: POTASSIUM CHLORIDE ER 20 MEQ TAB.ER PO SCH (08:02)
[2021-07-05] MEDS: MAGNESIUM OXIDE 400 MG TAB PO SCH (08:02)
[2021-07-05] MEDS: VENLAFAXINE HCL ER 75 MG CAP PO SCH (08:03)
--- NOTE | 2021-07-05 17:14 | PN ---
PROGRESS NOTE DATE OF SERVICE: 07/05/2021. CHIEF COMPLAINT: The patient had a verbal altercation with a friend. She got into a severe panic and had developed suicidal thinking. INTERVAL HISTORY: Patient has been doing fairly well. She had a quiet day yesterday. She comes out on the unit. She interacts well with staff and peers. She seems to make a positive effort towards some of her discussions with staff. At times she can be seen in a fairly upbeat mood. She did attend one group yesterday. She said she slept well last night. Today she has been up. She voiced no complaints or concerns. She acknowledges that her living circumstances are the biggest issue that she will need to deal with. She was uncertain about her options. She does note her mood has improved. She has a better outlook. She tolerates her psychotropic medications. She has not had issues with the increase in Effexor. MENTAL STATUS EXAM: Patient sat with a little restlessness. She gave fairly good eye contact. She answered questions appropriately. Her thoughts were clear and coherent. She was spontaneous. Her affect was a little constricted though not significantly so. Her mood was reserved though not clearly down or depressed. She did not appear distressed. There was no indication of thought disorder. She was oriented and alert. She voiced no thoughts of harm. ASSESSMENT: I will continue the current diagnosis and treatment plan. I will continue Effexor 225 mg a day. We discussed discharge planning issues. It will be important for her to work with social work in regards to housing. We will focus on stabilization and discharge planning. I anticipate the patient being discharged fairly early in the week. ADELFO / ILEANA: [id number] /
[2021-07-05 23:06] VITALS: BP 114/62; PULSE 80; RESP 16; TEMP 99
[2021-07-06] MEDS: POTASSIUM CHLORIDE ER 20 MEQ TAB.ER PO SCH (08:22)
[2021-07-06] MEDS: VENLAFAXINE HCL ER 75 MG CAP PO SCH (08:22)
[2021-07-06] MEDS: SPIRONOLACTONE 25 MG TAB PO SCH (08:22)
[2021-07-06] MEDS: MAGNESIUM OXIDE 400 MG TAB PO SCH (08:23)
--- NOTE | 2021-07-06 13:25 | P.DS ---
Providers Date of admission: 07/03/21 06:56 Expected date of discharge: 07/06/21 Attending physician: Ugo Junior MD Consults: 07/03/21 07:12 Consult Physician Routine Consulting Provider: Ayala Eduardo Consult Reason/Comments: H&P Do you want consulting provider notified?: Yes Primary care physician: Ugo Friedman - Discharge Diagnosis(es) (1) Bipolar disorder current episode depressed Current Visit: Yes Status: Acute Priority: High (2) Acute anxiety Current Visit: Yes Status: Chronic Priority: Medium (3) Cannabis use disorder, mild, abuse Current Visit: Yes Status: Chronic Priority: Medium Hospital Course: Admission HPI: Patient is a single, unemployed, 24-year-old female who was admitted for suicidal ideation in the context of homelessness. Patient presented to the hospital on 07/03/2021, presented to the emergency d epartment on her own volition after a verbal altercation with her friend which led her to have experienced a panic attack and suicidal ideation. When evaluated by EPS in the emergency department, the patient reported that she has been inconsistent in taking her prescribed medications as well as following with her [facility] appointments. The patient reported that she has been feeling increasingly anxious and has "PTSD" from people yelling around her. The patient endorses significant suicidal ideation with multiple plans including walking in front of a semitruck, jumping off a bridge, or drowning herself in the river. She currently admits to the psychiatric unit. Upon evaluation on the unit, the patient reports that she recently lost her job and her apartment this past May. She states that she has been "couch surfing" since then. She reports that she was staying with her friend but got into a verbal altercation with her friend after she woke up her friend's child. The patient reports that her friend began yelling and screaming at her which caused her to experience panic attack and leave the home. This is when the patient reports she decided to come to the hospital. The patient states that even prior to her altercation with her friend, she has been expressing increasing depression and anxiety. She reports that she has been having suicidal thoughts for the past week. She endorses significant symptoms of depression including hopelessness, helplessness, low motivation, and suicidal thoughts. The patient does have prior attempts at suicide, with the last time being in 2019 when the patient attempted to cut her wrists. The patient has had multiple attempts including by overdose and by hanging herself in the past. Regards other mood symptoms, the patient does endorse a significant history of bipolar disorder. She reports that she has had numerous episodes of going 3-4 days with little to no sleep. She reports that during those times, she would experience racing thoughts, mood lability, increased goal-directed activity, and grandiosity. She also reports that she would be very euphoric during these episodes. The patient does report a significant history of auditory and visual hallucinations but states that since she has been on Invega Sustenna, this has significantly improved. In regards to substance use, the patient does report daily marijuana use. She smokes one pack per day of cigarettes. She reports that she uses alcohol once per month but during that time she would engage in heavy alcohol use. She denies any other illicit drug use. Patient has previous diagnoses of bipolar disorder, cannabis use disorder, cocaine abuse, nicotine dependence. The patient was last admitted onto this unit in March of this year and was discharged on a regimen of Invega Sustenna and Effexor. The patient has had greater than 10 inpatient psychiatric hospitalizations during her lifetime. The patient is currently open with [facility]. Reports multiple attempts at suicide in the past. Hospital course: Upon admission to the unit patient was initially endorsing significant symptoms of depression although presented with a somewhat euthymic to bright affect. Ash lucero was however directable and agreeable to commence treatment. Patient got along well with other patients on the unit and followed unit protocol. Patient was compliant with the medications and denied any side effects throughout hospital course. Patient was started on her home medications of Effexor XR 150 mg daily as the patient reported nonadherence with medications prior to this admission. Patient spoke of her stressors and engaged in therapy both group and individual. Patient was also seen by medical team for history and physical exam. Throughout the course of the hospitalization patient gradually improved with regards to endorse depression, anxiety, and difficulty with coping. The patient became more future oriented and develop improved insight and judgment. The patient's Effexor was increased to 225 mg daily for management for depression/anxiety. Patient also received Invega Sustenna 117 mg IM every monthly and her next dose is due on 07/13/2021. On day of discharge, the patient is not reporting any suicidal or homicidal ideation, intention, and/or plan. She is not reporting any auditory or visual hallucinations. She denies any firearms or other weapons. Patient does have a significant history of substance use however was counseled on abstaining from all substances including alcohol and marijuana. The patient was counseled on her medications and the importance for regular compliance. She was also encouraged. Outpatient appointment for mental health and for primary care. Prior to discharge, family meeting will be arranged by social science manager to answer questions and ensure safety. Mental status exam: General Appearance: Patient appears to be stated age is alert, pleasant, and cooperative. Patient is in no acute distress and has fair hygiene and grooming. Friendly on approach. Behavior: Patient is calmly seated without any agitated behavior. Eye contact is appropriate. Psychomotor activity is normal. Speech: Patient's speech is fluent and nonpressured. Mood/Affect: Patient reports their mood is "much better", affect is congruent and euthymic to bright. Suicidality/Homicidality: Patient denies having any suicidal or homicidal ideation intent or plan. Perceptions: Patient denies any auditory or visual hallucinations. Though content/process: There is no evidence of any delusional thought content and thought process is linear and goal-directed. Patient is future oriented. Memory and concentration: AOX3, grossly intact for the purposes of this session. Can spell "WORLD" backwards correctly. Judgment and insight: Improved with guarded prognosis Vital Signs Temp 99 F 07/05/21 23:06 Pulse 80 07/05/21 23:06 Resp 16 07/05/21 23:06 BP 114/62 07/05/21 23:06 Pulse Ox 98 07/04/21 08:10 Impression: Bipolar disorder, type II, current episode depressed Cannabis use disorder Alcohol use disorder, binge type Plan: -Continue with discharge today as patient has improved and stabilized psychiatrically and is not currently an imminent threat to self and/or others. Patient will remain at chronically elevated risk for harm to self and/or others due to her impulsivity and homelessness. -Continue medications: Effexor XR 225 mg by mouth daily for depression/anxiety/PTSD Invega Sustenna 117 mg IM with next dose to be administered on 07/13/2021 for mood stabilization/psychosis. -Patient was counseled on the need for medication compliance and appropriate follow-up at mental health and also primary care for medical issues. Patient verbalized understanding and agreed. -Social work to arrange for and conduct family meeting to ensure safety upon discharge and answer any questions/concerns. Social work also to arrange for patients follow up appointments with [facility] for psychiatric care along with follow up with primary care provider. -Patient counseled on abstaining from recreational drugs and marijuana and alcohol. Was informed/educated on the adverse effects on their physical and mental health. Patient verbally agreed and understood. -Patient was instructed to return to the hospital or seek immediate medical care if their psychiatric or medical symptoms do worsen or reoccur. -Psychoeducation and supportive therapy provided to patient. Risks and benefits of pharmacological treatment versus the risks and benefits of nontreatment weight and discussed. Informed consent discussion held. Common side effects of psychotropics discussed such as, but not limited to headache, GI disturbance, sexual dysfunction, movement disorders, sedation, and orthostatic hypotension. Life threatening and blackbox warnings of prescribed medications also discussed. Potential risks of operating a vehicle or heavy machinery discussed with patient at length. Advised on importance of compliance and a reliable and responsible manner. Patient advised to review FDA consumer labeling of all medications prior to taking. Patient verbalized understanding of potential risks, and agrees with current treatment plan. Patient advised to medically contact physician/emergency personnel if any acute changes in condition occur. Laboratory Results WBC 8.3 k/uL (3.8-10.6) 07/04/21 10:32 RBC 5.22 m/uL (3.80-5.40) 07/04/21 10:32 Hgb 15.4 gm/dL (11.4-16.0) 07/04/21 10:32 Hct 46.0 % (34.0-46.0) 07/04/21 10:32 MCV 88.1 fL (80.0-100.0) 07/04/21 10:32 MCH 29.5 pg (25.0-35.0) 07/04/21 10:32 MCHC 33.5 g/dL (31.0-37.0) 07/04/21 10:32 RDW 12.9 % (11.5-15.5) 07/04/21 10:32 Plt Count 363 k/uL (150-450) 07/04/21 10:32 MPV 7.7 07/04/21 10:32 Neutrophils % 68 % 07/04/21 10:32 Lymphocytes % 24 % 07/04/21 10:32 Monocytes % 5 % 07/04/21 10:32 Eosinophils % 1 % 07/04/21 10:32 Basophils % 0 % 07/04/21 10:32 Neutrophils # 5.6 k/uL (1.3-7.7) 07/04/21 10:32 Lymphocytes # 2.0 k/uL (1.0-4.8) 07/04/21 10:32 Monocytes # 0.4 k/uL (0-1.0) 07/04/21 10:32 Eosinophils # 0.1 k/uL (0-0.7) 07/04/21 10:32 Basophils # 0.0 k/uL (0-0.2) 07/04/21 10:32 Sodium 139 mmol/L (137-145) 07/04/21 10:32 Potassium 3.1 mmol/L (3.5-5.1) L 07/04/21 10:32 Chloride 96 mmol/L (98-107) L 07/04/21 10:32 Carbon Dioxide 34 mmol/L (22-30) H 07/04/21 10:32 Anion Gap 9 mmol/L 07/04/21 10:32 BUN 12 mg/dL (7-17) 07/04/21 10:32 Creatinine 0.70 mg/dL (0.52-1.04) 07/04/21 10:32 Est GFR (CKD-EPI)AfAm >90 (>60 ml/min/1.73 sqM) 07/04/21 10:32 Est GFR (CKD-EPI)NonAf >90 (>60 ml/min/1.73 sqM) 07/04/21 10:32 Glucose 102 mg/dL (74-99) H 07/04/21 10:[address] Glu mg/dL 97 07/04/21 10:32 Hemoglobin A1c 5.0 % (4.0-6.0) 07/04/21 10:32 Calcium 10.4 mg/dL (8.4-10.2) H 07/04/21 10:32 Total Bilirubin 0.6 mg/dL (0.2-1.3) 07/04/21 10:32 AST 20 U/L (14-36) 07/04/21 10:32 ALT 21 U/L (4-34) 07/04/21 10:32 Alkaline Phosphatase 53 U/L (38-126) 07/04/21 10:32 Total Protein 8.2 g/dL (6.3-8.2) 07/04/21 10:32 Albumin 4.5 g/dL (3.5-5.0) 07/04/21 10:32 TSH 1.230 mIU/L (0.465-4.680) 07/04/21 10:32 Urine Color Yellow 07/03/21 05:12 Urine Appearance Cloudy (Clear) H 07/03/21 05:12 Urine pH 7.0 (5.0-8.0) 07/03/21 05:12 Ur Specific [place] 1.020 (1.001-1.035) 07/03/21 05:12 Urine Protein 1+ (Negative) H 07/03/21 05:12 Urine Glucose (UA) Negative (Negative) 07/03/21 05:12 Urine Ketones 1+ (Negative) H 07/03/21 05:12 Urine Blood Negative (Negative) 07/03/21 05:12 Urine Nitrite Negative (Negative) 07/03/21 05:12 Urine Bilirubin Negative (Negative) 07/03/21 05:12 Urine Urobilinogen <2.0 mg/dL (<2.0) 07/03/21 05:12 Ur Leukocyte Esterase Moderate (Negative) H 07/03/21 05:12 Urine RBC 2 /hpf (0-5) 07/03/21 05:12 Urine WBC 21 /hpf (0-5) H 07/03/21 05:12 Ur Squamous Epith Cells 11 /hpf (0-4) H 07/03/21 05:12 Triple Phos Crystals Occasional /hpf (None) H 07/03/21 05:12 Amorphous Sediment Few /hpf (None) H 07/03/21 05:12 Urine Bacteria Occasional /hpf (None) H 07/03/21 05:12 Urine Mucus Rare /hpf (None) H 07/03/21 05:12 Urine HCG, Qual Not Detected (Not Detectd) 07/04/21 20:50 Urine Opiates Screen Negative (Negative) 07/03/21 Unknown Urine Methadone Screen Negative (Negative) 07/03/21 Unknown Ur Propoxyphene Screen Negative (Negative) 07/03/21 Unknown Urine Barbiturates Negative (Negative) 07/03/21 Unknown Ur Phencyclidine Scrn Negative (Negative) 07/03/21 Unknown Ur Amphetamine Screen Negative (Negative) 07/03/21 Unknown U Benzodiazepines Scrn Negative (Negative) 07/03/21 Unknown Urine Cocaine Screen Negative (Negative) 07/03/21 Unknown U Cannabinoids Screen Positive (Negative) A 07/03/21 Unknown Urine Alcohol Negative (Negative) 07/03/21 Unknown Coronavirus (PCR) Not Detected (Not Detectd) 07/03/21 05:12 Allergies Allergy/AdvReac Type Severity Reaction Status Date / Time risperidone [From Risperdal] Allergy Mild MUSCLE Verified 07/03/21 07:58 SPASMS Patient Condition at Discharge: Stable Plan - Discharge Summary Discharge Rx Participant: No New Discharge Prescriptions: New Spironolactone [Aldactone] 25 mg PO BID 30 Days tab Venlafaxine HCl ER [Effexor XR] 225 mg PO DAILY 30 Days Potassium Chloride ER [K-Dur 20] 20 meq PO DAILY 30 Days tablet Continue aMILoride HCL 5 mg PO BID Paliperidone IM [Invega Sustenna] 156 mg IM Q30D Dextroamphetamine/Amphetamine [Adderall] 30 mg PO BID@0800,1300 Cetirizine HCl 10 mg PO DAILY 30 Days tab Ergocalciferol [Vitamin D2 (1250 Mcg = 99325 Iu)] 1,250 mcg PO FR Discontinued Venlafaxine HCl ER [Effexor XR] 150 mg PO DAILY 30 Days cap.er.24h Potassium Chloride ER [K-Dur 20] 80 meq PO BID Discharge Medication List Dextroamphetamine/Amphetamine [Adderall] 30 mg PO BID@0800,1300 07/03/21 [History] Ergocalciferol [Vitamin D2 (1250 Mcg = 88194 Iu)] 1,250 mcg PO FR 07/03/21 [History] Paliperidone IM [Invega Sustenna] 156 mg IM Q30D 07/03/21 [History] aMILoride HCL 5 mg PO BID 07/03/21 [History] Cetirizine HCl 10 mg PO DAILY 30 Days tab 07/06/21 [Rx] Potassium Chloride ER [K-Dur 20] 20 meq PO DAILY 30 Days tablet 07/06/21 [Rx] Spironolactone [Aldactone] 25 mg PO BID 30 Days tab 07/06/21 [Rx] Venlafaxine HCl ER [Effexor XR] 225 mg PO DAILY 30 Days 07/06/21 [Rx] Follow up Appointment(s)/Referral(s): Ugo Friedman DO [Primary Care Provider] - 1-2 days Patient Instructions/Handouts: How to Stop Smoking (DC), Bipolar Disorder (DC), Abuse of Alcohol (DC), Cannabis Abuse (DC) Activity/Diet/Wound Care/Special Instructions: Activity and diet as tolerated. Avoid the use of street drugs and alcohol. Take all medications as prescribed. When you are in need of refills on your medications please contact your medical provider and/or outpatient psychiatrist to have this done. Please go to scheduled outpatient appointment for aftercare treatment. If symptoms return or become worse, call the crisis line at and/or go to the nearest emergency room for evaluation.
== END 2021-07-06 16:30 | disposition home or self-care (01) | DRG 885 ==
LOC: EC 02:16 → 3MHU 06:56
PROVIDERS: ADMIT Psychiatry & Neurology Psychiatry; ATTEND Psychiatry & Neurology Psychiatry
DX: F31.81 Bipolar II disorder (principal); R45.851 Suicidal ideations; F29 Unspecified psychosis not due to a substance or known physiological condition; F41.0 Panic disorder [episodic paroxysmal anxiety]; F43.10 Post-traumatic stress disorder, unspecified; F90.9 Attention-deficit hyperactivity disorder, unspecified type; Z56.0 Unemployment, unspecified; F17.210 Nicotine dependence, cigarettes, uncomplicated; F12.10 Cannabis abuse, uncomplicated; F10.10 Alcohol abuse, uncomplicated; Z79.899 Other long term (current) drug therapy; Z82.0 Family history of epilepsy and other diseases of the nervous system; Z83.3 Family history of diabetes mellitus; Z91.14 Patient's other noncompliance with medication regimen; E26.81 Bartter's syndrome; Z88.8 Allergy status to other drugs, medicaments and biological substances; Z20.822 Contact with and (suspected) exposure to COVID-19; Z59.00 Homelessness unspecified
CPT/HCPCS: 80053; 80306; 81001; 81025; 82075; 83036; 84443; 85025; 87635; 99285

== ENCOUNTER 2021-07-06 20:27 | Emergency (ER) | payer OTHER ==
[2021-07-06 21:03] VITALS: TEMP 96.5
[2021-07-06] MEDS ORDERED: POTASSIUM BICARBONATE/CIT AC 20 MEQ TABLET.EFF PO ONE (21:30)
[2021-07-06 21:48] LABS: Basophils % (A) 0 %; Eosinophils # (A) 0.2 k/uL (0-0.7); Eosinophils % (A) 2 %; HCT 43.3 % (34.0-46.0); HGB 14.7 gm/dL (11.4-16.0); Lymphocytes # (A) 2.5 k/uL (1.0-4.8); Lymphocytes % (A) 27 %; MCH 29.4 pg (25.0-35.0); MCHC 33.9 g/dL (31.0-37.0); MCV 86.7 fL (80.0-100.0); Mean Platelet Volume 7.6; Monocytes # (A) 0.4 k/uL (0-1.0); Monocytes % (A) 4 %; Neutrophils % (A) 64 %; Platelet Count 347 k/uL (150-450); RDW 12.8 % (11.5-15.5); WBC 9.3 k/uL (3.8-10.6)
[2021-07-06 21:58] LABS: African American GFR (CKD) >90 (>60 ml/min/1.73 sqM); Anion Gap 11 mmol/L; Blood Urea Nitrogen 18 mg/dL (7-17); Carbon Dioxide 27 mmol/L (22-30); Chloride 99 mmol/L (98-107); Glucose 91 mg/dL (74-99); Potassium 3.2 mmol/L (3.5-5.1); Sodium 137 mmol/L (137-145)
[2021-07-06 21:59] LABS: ALT 32 U/L (4-34); AST 28 U/L (14-36); Albumin 4.5 g/dL (3.5-5.0); Alkaline Phosphatase 65 U/L (38-126); Calcium 9.7 mg/dL (8.4-10.2); Non-African American GFR(CKD) >90 (>60 ml/min/1.73 sqM); Total Bilirubin 0.3 mg/dL (0.2-1.3); Total Protein 8.1 g/dL (6.3-8.2)
[2021-07-06 22:02] LABS: Appearance,Urine Clear (Clear); Bilirubin,Urine Negative (Negative); Blood,Urine Large (Negative); Color,Urine Yellow; Glucose,Urine (UA) Negative (Negative); Ketones,Urine Negative (Negative); Leukocyte Esterase,Urine Trace (Negative); Nitrite,Urine Negative (Negative); Protein,Urine Negative (Negative); RBC,Urine >182 /hpf (0-5); Specific Gravity,Urine 1.018 (1.001-1.035); Squamous Epithelial Cell,Urine 3 /hpf (0-4); Urobilinogen,Urine <2.0 mg/dL (<2.0); WBC,Urine 4 /hpf (0-5)
--- NOTE | 2021-07-06 22:17 | ED ---
General Adult HPI - General Chief complaint: Recheck/Abnormal Lab/Rx Stated complaint: Possible Low Potassium level Time Seen by Provider: 07/06/21 21:04 Source: patient Mode of arrival: ambulatory - History of Present Illness Initial comments: This patient is a 25-year-old woman with history of Bartter's syndrome who presents with complaint that she is having fatigue, body aches, muscle cramps, consistent with previous episodes of hypokalemia. The patient relates that she had been admitted to third floor here and had only been receiving 1 tablet of potassium per day rather than her usual 8 tablets per day. She believes that her potassium is low. Onset/Timin -: days(s) Location: left, right, upper extremity, lower extremity Quality: aching Consistency: constant Improves with: none Worsens with: none Treatments Prior to Arrival: none - Related Data Home Medications Medication Instructions Recorded Confirmed Dextroamphetamine/Amphetamine 30 mg PO BID@0800,1300 07/03/21 07/06/21 [Adderall] Ergocalciferol [Vitamin D2 (1250 1,250 mcg PO FR 07/03/21 07/06/21 Mcg = 67593 Iu)] Paliperidone IM [Invega Sustenna] 156 mg IM Q30D 07/03/21 07/06/21 aMILoride HCL 5 mg PO BID 07/03/21 07/06/21 Previous Rx's Medication Instructions Recorded Cetirizine HCl 10 mg PO DAILY 30 Days tab 07/06/21 Potassium Chloride ER [K-Dur 20] 20 meq PO DAILY 30 Days tablet 07/06/21 Spironolactone [Aldactone] 25 mg PO BID 30 Days tab 07/06/21 Venlafaxine HCl ER [Effexor XR] 225 mg PO DAILY 30 Days 07/06/21 Allergies Allergy/AdvReac Type Severity Reaction Status Date / Time risperidone [From Risperdal] Allergy Mild MUSCLE Verified 07/06/21 21:02 SPASMS Review of Systems ROS Statement: Those systems with pertinent positive or pertinent negative responses have been documented in the HPI. ROS Other: All systems not noted in ROS Statement are negative. Constitutional: Reports: weakness. Denies: fever, chills Eyes: Denies: vision change Respiratory: Denies: cough, dyspnea Cardiovascular: Denies: chest pain, palpitations, edema, syncope Endocrine: Reports: fatigue Gastrointestinal: Denies: abdominal pain, vomiting, diarrhea Genitourinary: Denies: dysuria, hematuria Musculoskeletal: Reports: myalgia Skin: Denies: rash Neurological: Denies: headache, weakness, numbness Past Medical History Past Medical History: Renal Disease Additional Past Medical History / Comment(s): Bartter syndrome ( low potassium), anxiety, bipolar, depression, ADHD, History of Any Multi-Drug Resistant Organisms: None Reported Past Surgical History: Tonsillectomy Additional Past Surgical History / Comment(s): wisdom teeth 2016, Past Anesthesia/Blood Transfusion Reactions: No Reported Reaction Past Psychological History: ADD/ADHD, Anxiety, Bipolar, Depression Smoking Status: Current every day smoker Past Alcohol Use History: None Reported Past Drug Use History: None Reported - Past Family History Mother Additional Family Medical History / Comment(s): Mother is alive at age 40 with no major medical problems. Pt states Alzheimers and Bipolar disorder runs on her mother's side. Sister(s) Family Medical History: Diabetes Mellitus Additional Family Medical History / Comment(s): Patient has 4 half-sisters. Brother(s) Additional Family Medical History / Comment(s): Patient has 5 or 6 half-brothers with no major medical problems. Patient does not have any children. Father Additional Family Medical History / Comment(s): Father is alive at age 55 and patient has no contact with him as he is in retirement. General Exam General appearance: alert, in no apparent distress Head exam: Present: atraumatic, normocephalic Eye exam: Present: normal appearance. Absent: scleral icterus, conjunctival injection ENT exam: Present: normal oropharynx Neck exam: Present: normal inspection Respiratory exam: Present: normal lung sounds bilaterally. Absent: respiratory distress, wheezes, rales, rhonchi, stridor Cardiovascular Exam: Present: regular rate, normal rhythm, normal heart sounds. Absent: systolic murmur, diastolic murmur, rubs, gallop GI/Abdominal exam: Present: soft. Absent: distended, tenderness, guarding, rebound, rigid, mass Extremities exam: Present: normal inspection, normal capillary refill. Absent: pedal edema, calf tenderness Back exam: Present: normal inspection. Absent: CVA tenderness (R), CVA tenderness (L) Neurological exam: Present: alert Skin exam: Present: warm, dry, intact, normal color. Absent: rash Course Vital Signs 07/06/21 20:58 Temperature 96.5 F L Pulse Rate 72 Respiratory 19 Rate Blood Pressure 95/67 O2 Sat by Pulse 99 Oximetry Medical Decision Making - Lab Data Result diagrams: 07/06/21 21:40 07/06/21 21:40 Lab Results 07/06/21 07/06/21 07/06/21 Range/Units 21:40 21:40 21:51 WBC 9.3 (3.8-10.6) k/uL RBC 5.00 (3.80-5.40) m/uL Hgb 14.7 (11.4-16.0) gm/dL Hct 43.3 (34.0-46.0) % MCV 86.7 (80.0-100.0) fL MCH 29.4 (25.0-35.0) pg MCHC 33.9 (31.0-37.0) g/dL RDW 12.8 (11.5-15.5) % Plt Count 347 (150-450) k/uL MPV 7.6 Neutrophils % 64 % Lymphocytes % 27 % Monocytes % 4 % Eosinophils % 2 % Basophils % 0 % Neutrophils # 6.0 (1.3-7.7) k/uL Lymphocytes # 2.5 (1.0-4.8) k/uL Monocytes # 0.4 (0-1.0) k/uL Eosinophils # 0.2 (0-0.7) k/uL Basophils # 0.0 (0-0.2) k/uL Sodium 137 (137-145) mmol/L Potassium 3.2 L (3.5-5.1) mmol/L Chloride 99 (98-107) mmol/L Carbon Dioxide 27 (22-30) mmol/L Anion Gap 11 mmol/L BUN 18 H (7-17) mg/dL Creatinine 0.66 (0.52-1.04) mg/dL Est GFR (CKD-EPI)AfAm >90 (>60 ml/min/1.73 sqM) Est GFR (CKD-EPI)NonAf >90 (>60 ml/min/1.73 sqM) Glucose 91 (74-99) mg/dL Calcium 9.7 (8.4-10.2) mg/dL Total Bilirubin 0.3 (0.2-1.3) mg/dL AST 28 (14-36) U/L ALT 32 (4-34) U/L Alkaline Phosphatase 65 (38-126) U/L Total Protein 8.1 (6.3-8.2) g/dL Albumin 4.5 (3.5-5.0) g/dL Urine Color Yellow Urine Appearance Clear (Clear) Urine pH 7.0 (5.0-8.0) Ur Specific [place] 1.018 (1.001-1.035) Urine Protein Negative (Negative) Urine Glucose (UA) Negative (Negative) Urine Ketones Negative (Negative) Urine Blood Large H (Negative) Urine Nitrite Negative (Negative) Urine Bilirubin Negative (Negative) Urine Urobilinogen <2.0 (<2.0) mg/dL Ur Leukocyte Esterase Trace H (Negative) Urine RBC >182 H (0-5) /hpf Urine WBC 4 (0-5) /hpf Ur Squamous Epith Cells 3 (0-4) /hpf Urine HCG, Qual (Not Detectd) 07/06/21 Range/Units 21:51 WBC (3.8-10.6) k/uL RBC (3.80-5.40) m/uL Hgb (11.4-16.0) gm/dL Hct (34.0-46.0) % MCV (80.0-100.0) fL MCH (25.0-35.0) pg MCHC (31.0-37.0) g/dL RDW (11.5-15.5) % Plt Count (150-450) k/uL MPV Neutrophils % % Lymphocytes % % Monocytes % % Eosinophils % % Basophils % % Neutrophils # (1.3-7.7) k/uL Lymphocytes # (1.0-4.8) k/uL Monocytes # (0-1.0) k/uL Eosinophils # (0-0.7) k/uL Basophils # (0-0.2) k/uL Sodium (137-145) mmol/L Potassium (3.5-5.1) mmol/L Chloride (98-107) mmol/L Carbon Dioxide (22-30) mmol/L Anion Gap mmol/L BUN (7-17) mg/dL Creatinine (0.52-1.04) mg/dL Est GFR (CKD-EPI)AfAm (>60 ml/min/1.73 sqM) Est GFR (CKD-EPI)NonAf (>60 ml/min/1.73 sqM) Glucose (74-99) mg/dL Calcium (8.4-10.2) mg/dL Total Bilirubin (0.2-1.3) mg/dL AST (14-36) U/L ALT (4-34) U/L Alkaline Phosphatase (38-126) U/L Total Protein (6.3-8.2) g/dL Albumin (3.5-5.0) g/dL Urine Color Urine Appearance (Clear) Urine pH (5.0-8.0) Ur Specific [place] (1.001-1.035) Urine Protein (Negative) Urine Glucose (UA) (Negative) Urine Ketones (Negative) Urine Blood (Negative) Urine Nitrite (Negative) Urine Bilirubin (Negative) Urine Urobilinogen (<2.0) mg/dL Ur Leukocyte Esterase (Negative) Urine RBC (0-5) /hpf Urine WBC (0-5) /hpf Ur Squamous Epith Cells (0-4) /hpf Urine HCG, Qual Not Detected (Not Detectd) Disposition Clinical Impression: Hypokalemia Disposition: HOME SELF-CARE Condition: Good Instructions (If sedation given, give patient instructions): Hypokalemia (ED) Is patient prescribed a controlled substance at d/c from ED?: No Referrals: Ugo Friedman DO [Primary Care Provider] - 1-2 days
[2021-07-06] MEDS ORDERED: POTASSIUM CHLORIDE ER 20 MEQ TAB.ER PO STA ×2 (22:44→22:45)
[2021-07-06 22:58] VITALS: BP 106/79; PULSE 87; RESP 18
== END 2021-07-06 22:58 | disposition home or self-care (01) ==
LOC: EC 20:27
DX: E87.6 Hypokalemia (principal); Z90.89 Acquired absence of other organs; F41.9 Anxiety disorder, unspecified; F31.9 Bipolar disorder, unspecified; F90.9 Attention-deficit hyperactivity disorder, unspecified type; F17.200 Nicotine dependence, unspecified, uncomplicated
CPT/HCPCS: 36415; 80053; 81001; 81025; 85025; 99284

== ENCOUNTER 2022-05-08 21:01 | Inpatient (IN) | payer OTHER ==
[2022-05-08 22:07] LABS: Basophils # (A) 0.1 k/uL (0-0.2); Basophils % (A) 1 %; Eosinophils # (A) 0.1 k/uL (0-0.7); Eosinophils % (A) 1 %; HCT 43.7 % (34.0-46.0); HGB 14.9 gm/dL (11.4-16.0); Lymphocytes # (A) 2.7 k/uL (1.0-4.8); Lymphocytes % (A) 22 %; MCH 29.2 pg (25.0-35.0); MCHC 34.1 g/dL (31.0-37.0); MCV 85.6 fL (80.0-100.0); Mean Platelet Volume 7.7; Monocytes # (A) 0.5 k/uL (0-1.0); Monocytes % (A) 4 %; Neutrophils # (A) 8.8 k/uL (1.3-7.7); Neutrophils % (A) 71 %; Platelet Count 352 k/uL (150-450); Poikilocytosis Slight; RDW 13.6 % (11.5-15.5); WBC 12.4 k/uL (3.8-10.6)
[2022-05-08 22:28] LABS: ALT 33 U/L (4-34); AST 27 U/L (14-36); African American GFR (CKD) >90 (>60 ml/min/1.73 sqM); Albumin 4.9 g/dL (3.5-5.0); Alkaline Phosphatase 69 U/L (38-126); Anion Gap 16 mmol/L; Blood Urea Nitrogen 9 mg/dL (7-17); Calcium 9.8 mg/dL (8.4-10.2); Carbon Dioxide 28 mmol/L (22-30); Chloride 94 mmol/L (98-107); Glucose 132 mg/dL (74-99); Non-African American GFR(CKD) >90 (>60 ml/min/1.73 sqM); Sodium 138 mmol/L (137-145); Total Bilirubin 0.5 mg/dL (0.2-1.3); Total Protein 8.1 g/dL (6.3-8.2)
[2022-05-08 22:30] LABS: Potassium 2.1 mmol/L (3.5-5.1)
[2022-05-08] MEDS ORDERED: POTASSIUM BICARBONATE/CIT AC 20 MEQ TABLET.EFF PO ONE (22:43)
--- NOTE | 2022-05-08 22:49 | ED ---
Weakness HPI - General Chief complaint: Weakness Stated complaint: Weakness,Extremity Numbness Time Seen by Provider: 05/08/22 22:37 Source: patient Mode of arrival: ambulatory Limitations: no limitations - History of Present Illness Initial comments: This patient is 26-year-old woman with history of Bartter's syndrome, who presents because she believes her potassium is lower than usual. She states she has been having some paresthesias throughout the extremities and also having is some generalized fatigue and muscle weakness. She states in the past when she's had this for potassium is been low. She does currently take potassium supplement and states she has not had any recent medication change run out of any of her medicines. No recent vomiting or diarrhea. MD Complaint: generalized weakness, tingling, lack of energy Onset/Timin -: days(s) Location: generalized Severity: moderate Quality: tingling Consistency: constant Improves with: none Worsens with: none Associated Symptoms: denies other symptoms - Related Data Home Medications Medication Instructions Recorded Confirmed Dextroamphetamine/Amphetamine 30 mg PO DAILY PRN 07/03/21 05/09/22 [Adderall] Ergocalciferol [Vitamin D2 (1250 1,250 mcg PO WE 07/03/21 05/09/22 Mcg = 00734 Iu)] aMILoride HCL 5 mg PO BID 07/03/21 05/09/22 Cetirizine HCl 10 mg PO HS 05/09/22 05/09/22 Magnesium Oxide [Magnesium] 500 mg PO BID 05/09/22 05/09/22 Potassium Chloride ER [K-Dur 20] 60 meq PO BID 05/09/22 05/09/22 Allergies Allergy/AdvReac Type Severity Reaction Status Date / Time risperidone [From Risperdal] Allergy Mild MUSCLE Verified 05/09/22 12:17 SPASMS Iodinated Contrast Media AdvReac Nausea & Verified 05/09/22 12:17 Vomiting Review of Systems ROS Statement: Those systems with pertinent positive or pertinent negative responses have been documented in the HPI. ROS Other: All systems not noted in ROS Statement are negative. Constitutional: Reports: weakness. Denies: fever, chills Respiratory: Denies: cough, dyspnea Cardiovascular: Denies: chest pain, palpitations, syncope Gastrointestinal: Denies: abdominal pain, vomiting, diarrhea Genitourinary: Denies: dysuria, frequency Musculoskeletal: Denies: back pain Skin: Denies: rash Neurological: Reports: paresthesias. Denies: headache, weakness, numbness Past Medical History Past Medical History: Renal Disease Additional Past Medical History / Comment(s): Bartter syndrome ( low potassium), anxiety, bipolar, depression, ADHD, History of Any Multi-Drug Resistant Organisms: None Reported Past Surgical History: Tonsillectomy Additional Past Surgical History / Comment(s): wisdom teeth 2016, Past Anesthesia/Blood Transfusion Reactions: No Reported Reaction Past Psychological History: ADD/ADHD, Anxiety, Bipolar, Depression Smoking Status: Current every day smoker Past Alcohol Use History: None Reported Past Drug Use History: Marijuana - Past Family History Mother Additional Family Medical History / Comment(s): Mother is alive at age 40 with no major medical problems. Pt states Alzheimers and Bipolar disorder runs on her mother's side. Sister(s) Family Medical History: Diabetes Mellitus Additional Family Medical History / Comment(s): Patient has 4 half-sisters. Brother(s) Additional Family Medical History / Comment(s): Patient has 5 or 6 half-brothers with no major medical problems. Patient does not have any children. Father Additional Family Medical History / Comment(s): Father is alive at age 55 and patient has no contact with him as he is in detention. General Exam Limitations: no limitations General appearance: alert, in no apparent distress Head exam: Present: atraumatic, normocephalic Eye exam: Present: normal appearance. Absent: scleral icterus, conjunctival injection Neck exam: Present: normal inspection Respiratory exam: Present: normal lung sounds bilaterally. Absent: respiratory distress, wheezes, rales, rhonchi, stridor Cardiovascular Exam: Present: regular rate, normal rhythm, normal heart sounds. Absent: systolic murmur, diastolic murmur, rubs, gallop GI/Abdominal exam: Present: soft. Absent: distended, tenderness, guarding, rebound, rigid, mass Extremities exam: Present: normal inspection, normal capillary refill. Absent: pedal edema, calf tenderness Back exam: Present: normal inspection. Absent: CVA tenderness (R), CVA tenderness (L) Neurological exam: Present: alert Skin exam: Present: warm, dry, intact, normal color. Absent: rash Course Vital Signs 05/08/22 05/08/22 05/09/22 21:14 22:57 01:00 Temperature 98.5 F Pulse Rate 68 90 92 Pulse Rate [ [place] Cornerer ] Respiratory 20 18 18 Rate Blood Pressure 113/72 125/84 127/81 Blood Pressure [Left Arm] O2 Sat by Pulse 97 99 95 Oximetry 05/09/22 08:00 Temperature 98.3 F Pulse Rate Pulse Rate [ 67 [place] Cornerer ] Respiratory 18 Rate Blood Pressure Blood Pressure 91/67 [Left Arm] O2 Sat by Pulse 98 Oximetry Medical Decision Making - Medical Decision Making Patient is given additional potassium supplementation here but still feeling moderately weak, will admit to have additional supplementation and nephrology consultation. - Lab Data Result diagrams: 05/10/22 07:04 05/10/22 23:33 Lab Results 05/08/22 05/08/22 Range/Units 21:26 21:26 WBC 12.4 H (3.8-10.6) k/uL RBC 5.10 (3.80-5.40) m/uL Hgb 14.9 (11.4-16.0) gm/dL Hct 43.7 (34.0-46.0) % MCV 85.6 (80.0-100.0) fL MCH 29.2 (25.0-35.0) pg MCHC 34.1 (31.0-37.0) g/dL RDW 13.6 (11.5-15.5) % Plt Count 352 (150-450) k/uL MPV 7.7 Neutrophils % 71 % Lymphocytes % 22 % Monocytes % 4 % Eosinophils % 1 % Basophils % 1 % Neutrophils # 8.8 H (1.3-7.7) k/uL Lymphocytes # 2.7 (1.0-4.8) k/uL Monocytes # 0.5 (0-1.0) k/uL Eosinophils # 0.1 (0-0.7) k/uL Basophils # 0.1 (0-0.2) k/uL Poikilocytosis Slight Sodium 138 (137-145) mmol/L Potassium 2.1 L* (3.5-5.1) mmol/L Chloride 94 L (98-107) mmol/L Carbon Dioxide 28 (22-30) mmol/L Anion Gap 16 mmol/L BUN 9 (7-17) mg/dL Creatinine 0.74 (0.52-1.04) mg/dL Est GFR (CKD-EPI)AfAm >90 (>60 ml/min/1.73 sqM) Est GFR (CKD-EPI)NonAf >90 (>60 ml/min/1.73 sqM) Glucose 132 H (74-99) mg/dL Calcium 9.8 (8.4-10.2) mg/dL Total Bilirubin 0.5 (0.2-1.3) mg/dL AST 27 (14-36) U/L ALT 33 (4-34) U/L Alkaline Phosphatase 69 (38-126) U/L Total Protein 8.1 (6.3-8.2) g/dL Albumin 4.9 (3.5-5.0) g/dL Disposition Clinical Impression: Hypokalemia Disposition: ADMITTED IP TO THIS HOSP Condition: Fair
[2022-05-09] MEDS ORDERED: POTASSIUM CHLORIDE 20 MEQ in WATER FOR INJECTION 1 100ML.BAG IVPB STA (06:01)
[2022-05-09] MEDS ORDERED: POTASSIUM BICARBONATE/CIT AC 20 MEQ TABLET.EFF PO ONE (06:01)
[2022-05-09] MEDS ORDERED: NALOXONE 0.4 MG/ML 1 ML VIAL IV PRN (06:03)
--- NOTE | 2022-05-09 09:48 | P.NPCON ---
History of Present Illness - Reason for Consult hypokalemia - History of Present Illness Reason for consultation: Hypokalemia History of present illness: Patient is a 26-year-old female seen in renal consultation for hypokalemia. Patient has history of Bartter syndrome that was diagnosed at the age of 17 per patient. Patient states she's been taking potassium supplementation at home but is not sure of the dose. She also states that she takes either spironolactone or nummular right but is not sure which one. Patient states she developed cramping in her upper and lower extremities as well as charley horses and came to the hospital. Potassium was noted to be low at 2.1. Magnesium level was not checked. She has received 100 mEq of potassium supplementation since admission. She is starting to feel better. She is also receiving IV fluids. Denies chest pain or shortness of breath. No vomiting or diarrhea. Oral intake has been fair. Patient was last seen in the office in 2018. Vital signs are stable. General: Awake. No acute distress. HEENT: Head exam is unremarkable. LUNGS:Breath sounds decreased. HEART: Rate and Rhythm are regular. ABDOMEN: Soft, obese. EXTREMITITES: No edema. Past Medical History Past Medical History: Renal Disease Additional Past Medical History / Comment(s): Bartter syndrome ( low potassium), anxiety, bipolar, depression, ADHD, History of Any Multi-Drug Resistant Organisms: None Reported Past Surgical History: Tonsillectomy Additional Past Surgical History / Comment(s): wisdom teeth 2016, Past Anesthesia/Blood Transfusion Reactions: No Reported Reaction Past Psychological History: ADD/ADHD, Anxiety, Bipolar, Depression Smoking Status: Current every day smoker Past Alcohol Use History: None Reported Past Drug Use History: Marijuana - Past Family History Mother Additional Family Medical History / Comment(s): Mother is alive at age 40 with no major medical problems. Pt states Alzheimers and Bipolar disorder runs on her mother's side. Sister(s) Family Medical History: Diabetes Mellitus Additional Family Medical History / Comment(s): Patient has 4 half-sisters. Brother(s) Additional Family Medical History / Comment(s): Patient has 5 or 6 half-brothers with no major medical problems. Patient does not have any children. Father Additional Family Medical History / Comment(s): Father is alive at age 55 and patient has no contact with him as he is in longterm. Medications and Allergies Home Medications Medication Instructions Recorded Confirmed Type Dextroamphetamine/Amphetamine 30 mg PO BID@0800,1300 07/03/21 07/06/21 History [Adderall] Ergocalciferol [Vitamin D2 (1250 1,250 mcg PO FR 07/03/21 07/06/21 History Mcg = 53434 Iu)] Paliperidone IM [Invega Sustenna] 156 mg IM Q30D 07/03/21 07/06/21 History aMILoride HCL 5 mg PO BID 07/03/21 07/06/21 History Cetirizine HCl 10 mg PO DAILY 30 Days tab 07/06/21 07/06/21 Rx Potassium Chloride ER [K-Dur 20] 20 meq PO DAILY 30 Days tablet 07/06/21 07/06/21 Rx Spironolactone [Aldactone] 25 mg PO BID 30 Days tab 07/06/21 07/06/21 Rx Venlafaxine HCl ER [Effexor XR] 225 mg PO DAILY 30 Days 07/06/21 07/06/21 Rx Allergies Allergy/AdvReac Type Severity Reaction Status Date / Time risperidone [From Risperdal] Allergy Mild MUSCLE Verified 05/08/22 21:17 SPASMS Physical Exam Vitals: Vital Signs Temp Pulse Resp BP Pulse Ox 05/09/22 01:00 92 18 127/81 95 05/08/22 22:57 90 18 125/84 99 05/08/22 21:14 98.5 F 68 20 113/72 97 Intake and Output 05/08/22 05/09/22 05/09/22 22:59 06:59 14:59 Other: Weight 108.862 kg Results - Lab Results Most recent lab results Calcium 9.8 mg/dL (8.4-10.2) 05/08/22 21:26 05/08/22 21:26 05/08/22 21:26 Assessment and Plan Plan: Assessment: 1. Hypokalemia secondary to Bartter syndrome leading to renal potassium losses. Potassium 2.1 on admission and has been replaced. There is also concern for compliance with potassium supplementation and medications that she takes at home . Rule out magnesium deficiency. 2. Cramping likely due to hypokalemia. Plan: Follow-up morning labs. Check magnesium and phosphorus level as well. Resume spironolactone. Amiloride not available in the hospital. Hold for systolic blood pressure less than 110. Continue to replace electrolytes as needed. Check TSH as well. Strongly advised patient to be compliant with potassium supplementations and medications outpatient. Life-threatening risks of hypokalemia, including cardiac arrest and , have been discussed with the patient. Thank you for the consultation. I will continue to follow the patient with you during her hospital stay.
[2022-05-09 11:00] LABS: Magnesium 1.6 mg/dL (1.6-2.3); Phosphorus 2.6 mg/dL (2.5-4.5)
[2022-05-09 11:07] LABS: African American GFR (CKD) >90 (>60 ml/min/1.73 sqM); Anion Gap 18 mmol/L; Blood Urea Nitrogen 10 mg/dL (7-17); Calcium 9.8 mg/dL (8.4-10.2); Carbon Dioxide 22 mmol/L (22-30); Chloride 101 mmol/L (98-107); Glucose 114 mg/dL (74-99); Non-African American GFR(CKD) >90 (>60 ml/min/1.73 sqM); Sodium 141 mmol/L (137-145)
--- NOTE | 2022-05-09 11:20 | P.HPIM ---
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 Patient was on spironolactone and Ameloride as potassium sparing diuretics at home. Patient the haven't seen nephrology for last 40 years. Patient received 100 mg of potassium found to have potassium of 202.1 patient is was given IV fluids. Nephrology evaluated the patient patient denied any diarrhea or nausea vomiting. Patient was started on Aldactone. She'll also comparing of cough with greenish sputum production and dysuria as well. REVIEW OF SYSTEMS: CONSTITUTIONAL: No fever, no malaise, no fatigue. HEENT: No recent visual problems or hearing problems. Denied any sore throat. CARDIOVASCULAR: No chest pain, orthopnea, PND, no palpitations, no syncope. PULMONARY: No shortness of breath, no hemoptysis. GASTROINTESTINAL: No diarrhea, no nausea, no vomiting, no abdominal pain. NEUROLOGICAL: No headaches. HEMATOLOGICAL: Denies any bleeding or petechiae. GENITOURINARY: As mentioned in HPI MUSCULOSKELETAL/RHEUMATOLOGICAL: Denies any joint pain, swelling, or any muscle pain. ENDOCRINE: Denies any polyuria or polydipsia. The rest of the 14-point review of systems is negative. PHYSICAL EXAMINATION: GENERAL: The patient is alert and oriented x3, not in any acute distress. Well developed, well nourished. HEENT: Pupils are round and equally reacting to light. EOMI. No scleral icterus. No conjunctival pallor. Normocephalic, atraumatic. No pharyngeal erythema. No t hyromegaly. CARDIOVASCULAR: S1 and S2 present. No murmurs, rubs, or gallops. PULMONARY: Chest is clear to auscultation, no wheezing or crackles. ABDOMEN: Soft, nontender, nondistended, normoactive bowel sounds. No palpable organomegaly. MUSCULOSKELETAL: No joint swelling or deformity. EXTREMITIES: No cyanosis, clubbing, or pedal edema. NEUROLOGICAL: Gross neurological examination did not reveal any focal deficits. SKIN: No rashes. Assessment and plan -Symptomatic hypoglycemia secondary to Bartter's syndrome patient will be continued on potassium supplementation patient was started on spironolactone at 50 mg daily patient will need the potassium sparing diuretics along with potassium supplementation upon discharge we'll repeat the potassium again today obtain magnesium level will be replaced if needed. He does have cramping secondary to hypokalemia --Possible bronchitis for which the patient will be started on Ceftin, we will rule out UTI will obtain a urinalysis because of her complaints of dysuria. DVT prophylaxis: Early ambulation Past Medical History Past Medical History: Renal Disease Additional Past Medical History / Comment(s): Bartter syndrome ( low potassium), anxiety, bipolar, depression, ADHD, History of Any Multi-Drug Resistant Organisms: None Reported Past Surgical History: Tonsillectomy Additional Past Surgical History / Comment(s): wisdom teeth 2016, Past Anesthesia/Blood Transfusion Reactions: No Reported Reaction Past Psychological History: ADD/ADHD, Anxiety, Bipolar, Depression Smoking Status: Current every day smoker Past Alcohol Use History: None Reported Past Drug Use History: Marijuana - Past Family History Mother Additional Family Medical History / Comment(s): Mother is alive at age 40 with no major medical problems. Pt states Alzheimers and Bipolar disorder runs on her mother's side. Sister(s) Family Medical History: Diabetes Mellitus Additional Family Medical History / Comment(s): Patient has 4 half-sisters. Brother(s) Additional Family Medical History / Comment(s): Patient has 5 or 6 half-brothers with no major medical problems. Patient does not have any children. Father Additional Family Medical History / Comment(s): Father is alive at age 55 and patient has no contact with him as he is in residential. Medications and Allergies Home Medications Medication Instructions Recorded Confirmed Type Dextroamphetamine/Amphetamine 30 mg PO BID@0800,1300 07/03/21 07/06/21 History [Adderall] Ergocalciferol [Vitamin D2 (1250 1,250 mcg PO FR 07/03/21 07/06/21 History Mcg = 88721 Iu)] Paliperidone IM [Invega Sustenna] 156 mg IM Q30D 07/03/21 07/06/21 History aMILoride HCL 5 mg PO BID 07/03/21 07/06/21 History Cetirizine HCl 10 mg PO DAILY 30 Days tab 07/06/21 07/06/21 Rx Potassium Chloride ER [K-Dur 20] 20 meq PO DAILY 30 Days tablet 07/06/21 07/06/21 Rx Spironolactone [Aldactone] 25 mg PO BID 30 Days tab 07/06/21 07/06/21 Rx Venlafaxine HCl ER [Effexor XR] 225 mg PO DAILY 30 Days 07/06/21 07/06/21 Rx Allergies Allergy/AdvReac Type Severity Reaction Status Date / Time risperidone [From Risperdal] Allergy Mild MUSCLE Verified 05/08/22 21:17 SPASMS Physical Exam Vitals: Vital Signs Temp Pulse Pulse Resp BP BP Pulse Ox 05/09/22 08:00 98.3 F 67 18 91/67 98 05/09/22 01:00 92 18 127/81 95 05/08/22 22:57 90 18 125/84 99 05/08/22 21:14 98.5 F 68 20 113/72 97 Intake and Output 05/08/22 05/09/22 05/09/22 22:59 06:59 14:59 Other: Weight 108.862 kg 108.862 kg Results CBC & Chem 7: 05/08/22 21:26 05/08/22 21:26 Labs: Abnormal Lab Results - Last 24 Hours (Table) 05/08/22 05/08/22 Range/Units 21:26 21:26 WBC 12.4 H (3.8-10.6) k/uL Neutrophils # 8.8 H (1.3-7.7) k/uL Potassium 2.1 L* (3.5-5.1) mmol/L Chloride 94 L (98-107) mmol/L Glucose 132 H (74-99) mg/dL
[2022-05-09 11:28] LABS: Potassium 2.6 mmol/L (3.5-5.1)
[2022-05-09] MEDS ORDERED: Potassium Replacement Protocol 1 EACH MISC MISCELLANE PRN (11:36)
[2022-05-09] MEDS: POTASSIUM CHLORIDE ER 20 MEQ TAB.ER PO SCH ×5 (12:30→20:06)
[2022-05-09] MEDS: MAGNESIUM SULFATE-D5W PMX 1 GM in DEXTROSE/WATER 1 100ML.BAG IVPB SCH ×2 (12:31→13:35)
[2022-05-09] MEDS: SPIRONOLACTONE 25 MG TAB PO SCH ×2 (17:12→20:04)
[2022-05-09 17:15] LABS: African American GFR (CKD) >90 (>60 ml/min/1.73 sqM); Anion Gap 11 mmol/L; Blood Urea Nitrogen 10 mg/dL (7-17); Calcium 8.5 mg/dL (8.4-10.2); Carbon Dioxide 30 mmol/L (22-30); Chloride 97 mmol/L (98-107); Glucose 74 mg/dL (74-99); Magnesium 2.2 mg/dL (1.6-2.3); Non-African American GFR(CKD) >90 (>60 ml/min/1.73 sqM); Sodium 138 mmol/L (137-145)
[2022-05-09 17:27] LABS: Potassium 2.4 mmol/L (3.5-5.1)
[2022-05-09 18:27] LABS: Appearance,Urine Clear (Clear); Bacteria,Urine Rare /hpf; Bilirubin,Urine Negative (Negative); Blood,Urine Negative (Negative); Color,Urine Colorless; Glucose,Urine (UA) Negative (Negative); Ketones,Urine Negative (Negative); Leukocyte Esterase,Urine Trace (Negative); Nitrite,Urine Negative (Negative); PH, Urine 7.5 (5.0-8.0); Protein,Urine Negative (Negative); Specific Gravity,Urine 1.006 (1.001-1.035); Squamous Epithelial Cell,Urine <1 /hpf (0-4); Urobilinogen,Urine <2.0 mg/dL (<2.0); WBC,Urine <1 /hpf (0-5)
[2022-05-09] MEDS: CEFDINIR 300 MG CAP PO SCH (20:07)
[2022-05-09] MEDS: SODIUM CHLORIDE 0.9% 1,000 ML IV SCH (20:17)
[2022-05-09] MEDS ORDERED: SPIRONOLACTONE 25 MG TAB PO SCH (21:00)
[2022-05-09] MEDS: ACETAMINOPHEN TAB 325 MG TAB PO PRN (21:41)
[2022-05-10 00:09] LABS: African American GFR (CKD) >90 (>60 ml/min/1.73 sqM); Anion Gap 10 mmol/L; Blood Urea Nitrogen 11 mg/dL (7-17); Calcium 8.7 mg/dL (8.4-10.2); Carbon Dioxide 30 mmol/L (22-30); Chloride 98 mmol/L (98-107); Glucose 101 mg/dL (74-99); Non-African American GFR(CKD) >90 (>60 ml/min/1.73 sqM); Sodium 138 mmol/L (137-145)
[2022-05-10 00:12] LABS: Potassium 2.3 mmol/L (3.5-5.1)
[2022-05-10] MEDS ORDERED: POTASSIUM BICARBONATE/CIT AC 20 MEQ TABLET.EFF PO ONE (00:55)
[2022-05-10] MEDS: POTASSIUM CHLORIDE 10 MEQ in WATER FOR INJECTION 1 100ML.BAG IVPB SCH ×9 (01:18→13:48)
[2022-05-10] MEDS ORDERED: ONDANSETRON 4 MG/2 ML VIAL IVP PRN (01:55)
[2022-05-10 07:57] LABS: Basophils % (A) 0 %; Eosinophils # (A) 0.1 k/uL (0-0.7); Eosinophils % (A) 2 %; HCT 38.5 % (34.0-46.0); HGB 12.6 gm/dL (11.4-16.0); Lymphocytes # (A) 2.9 k/uL (1.0-4.8); Lymphocytes % (A) 38 %; MCH 28.3 pg (25.0-35.0); MCHC 32.9 g/dL (31.0-37.0); MCV 86.2 fL (80.0-100.0); Mean Platelet Volume 7.5; Monocytes # (A) 0.4 k/uL (0-1.0); Monocytes % (A) 5 %; Neutrophils # (A) 4.1 k/uL (1.3-7.7); Neutrophils % (A) 53 %; Platelet Count 354 k/uL (150-450); Poikilocytosis Slight; RBC 4.46 m/uL (3.80-5.40); RDW 13.7 % (11.5-15.5); WBC 7.7 k/uL (3.8-10.6)
[2022-05-10 08:33] LABS: African American GFR (CKD) >90 (>60 ml/min/1.73 sqM); Anion Gap 9 mmol/L; Blood Urea Nitrogen 7 mg/dL (7-17); Calcium 8.2 mg/dL (8.4-10.2); Carbon Dioxide 32 mmol/L (22-30); Chloride 98 mmol/L (98-107); Glucose 94 mg/dL (74-99); Magnesium 1.9 mg/dL (1.6-2.3); Non-African American GFR(CKD) >90 (>60 ml/min/1.73 sqM); Sodium 139 mmol/L (137-145)
[2022-05-10 08:50] LABS: Potassium 2.5 mmol/L (3.5-5.1)
[2022-05-10] MEDS: CEFDINIR 300 MG CAP PO SCH ×2 (09:40→21:14)
[2022-05-10] MEDS: SPIRONOLACTONE 25 MG TAB PO SCH ×2 (09:40→21:15)
[2022-05-10] MEDS: POTASSIUM CHLORIDE ER 20 MEQ TAB.ER PO SCH ×3 (09:40→11:19)
[2022-05-10] MEDS: SODIUM CHLORIDE 0.9% 1,000 ML IV SCH ×2 (09:42→09:43)
--- NOTE | 2022-05-10 09:56 | P.PN ---
Subjective Patient is seen in follow-up for hypokalemia. Potassium remains low. Being aggressively replaced. Patient has no active complaints. Vital signs are stable. General: The patient appeared well nourished and normally developed. HEENT: Head exam is unremarkable. LUNGS: Breath sounds decreased. HEART: Rate and Rhythm are regular. ABDOMEN: Soft, obese. EXTREMITITES: No edema. Objective - Vital Signs Vital signs: Vital Signs Temp 98.4 F 05/10/22 09:16 Pulse 72 05/10/22 09:16 Resp 18 05/10/22 09:16 BP 101/67 05/10/22 09:16 Pulse Ox 99 05/10/22 09:16 FiO2 Intake & Output 05/09/22 05/10/22 05/10/22 18:59 06:59 18:59 Intake Total 120 1585 180 Output Total 800 Balance -680 1585 180 Weight 108.862 kg Intake: Intake, IV Titration 1100 Amount Potassium Chloride 10 meq 100 In Water For Injection 1 100ml.bag @ 100 mls/hr IVPB Q1H [facility] Rx#: [id number] Sodium Chloride 0.9% 1, 1000 000 ml @ 50 mls/hr IV . Q20H [facility] Rx#:[id number] Oral 120 485 180 Output: Urine 800 Stool 0 Urine/Stool Mix 0 Emesis 0 Other: Voiding Method Toilet # Voids 0 2 # Bowel Movements 0 - Labs CBC & Chem 7: 05/10/22 07:04 05/10/22 07:04 Labs: Abnormal Lab Results - Last 24 Hours (Table) 05/09/22 05/09/22 05/09/22 Range/Units 09:48 15:34 16:56 Potassium 2.6 L* 2.4 L* (3.5-5.1) mmol/L Chloride 97 L (98-107) mmol/L Carbon Dioxide (22-30) mmol/L Glucose 114 H (74-99) mg/dL Calcium (8.4-10.2) mg/dL Ur Leukocyte Esterase Trace H (Negative) Urine Bacteria Rare H (None) /hpf 05/09/22 05/10/22 Range/Units 23:34 07:04 Potassium 2.3 L* 2.5 L* (3.5-5.1) mmol/L Chloride (98-107) mmol/L Carbon Dioxide 32 H (22-30) mmol/L Glucose 101 H (74-99) mg/dL Calcium 8.2 L (8.4-10.2) mg/dL Ur Leukocyte Esterase (Negative) Urine Bacteria (None) /hpf Assessment and Plan Plan: Assessment: 1. Hypokalemia secondary to Bartter syndrome leading to renal potassium losses. Potassium 2.1 on admission and is being aggressively replaced. There is also concern for compliance with potassium supplementation and medications that she takes at home. Per nurse, it was confirmed from the pharmacy this patient was not taking spironolactone or amiloride. TSH normal. 2. Cramping likely due to hypokalemia. Improved. 3. Hypomagnesemia due to Bartter syndrome. Replaced. Better. Plan: Maintain spironolactone. Continue to replace potassium aggressively. 100 mEq now and recheck in 4 hours. Add oral magnesium oxide. Strongly advised patient to be compliant with potassium supplementations and medications outpatient. Life-threatening risks of hypokalemia, including cardiac arrest and , have been discussed with the patient.
[2022-05-10] MEDS: MAGNESIUM OXIDE 400 MG TAB PO SCH ×2 (12:44→21:14)
--- NOTE | 2022-05-10 15:51 | P.PN ---
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 Patient was on spironolactone and Ameloride as potassium sparing diuretics at home. Patient the haven't seen nephrology for last 40 years. Patient received 100 mg of potassium found to have potassium of 202.1 patient is was given IV fluids. Nephrology evaluated the patient patient denied any diarrhea or nausea vomiting. Patient was started on Aldactone. She'll also comparing of cough with greenish sputum production and dysuria as well. 05/09/2022 Patient evaluated today resting in bed. Overall feeling better. Does report a cough with green sputum, denies fever. Admits to vaping, using marijuana, and smoking cigarettes 1 PPD. Will add nicotine patch. Potassium today 2.5, patient is receiving potassium supplementation she received 90 meq IV potassium as well as 60 meq of oral potassium. Magnesium 1.9. Urinalysis negative. Repeat labs scheduled for the AM. Nephrology is following closely. Patient reports dysuria has improved. Patient is afebrile, heart rate 83, blood pressure 103/72, 98% on room air. Review of Systems Constitutional: Denied any fatigue denied any fever. Cardio vascular: denied any chest pain, palpitations Gastrointestinal: denied any nausea, vomiting, diarrhea Pulmonary: Denied any shortness of breath, reports cough Neurologic denied any new focal deficits All inpatient medications were reviewed and appropriate changes in these medications as dictated in the interval history and assessment and plan. PHYSICAL EXAMINATION: GENERAL: The patient is alert and oriented x3, not in any acute distress. Well developed, well nourished. HEENT: Pupils are round and equally reacting to light. EOMI. No scleral icterus. No conjunctival pallor. Normocephalic, atraumatic. No pharyngeal erythema. No thyromegaly. CARDIOVASCULAR: S1 and S2 present. No murmurs, rubs, or gallops. PULMONARY: Chest is clear to auscultation, no wheezing or crackles. ABDOMEN: Soft, nontender, nondistended, normoactive bowel sounds. No palpable organomegaly. MUSCULOSKELETAL: No joint swelling or deformity. EXTREMITIES: No cyanosis, clubbing, or pedal edema. NEUROLOGICAL: Gross neurological examination did not reveal any focal deficits. SKIN: No rashes. Assessment and plan -Symptomatic hypokalemia secondary to Bartter's syndrome patient will be continued on potassium supplementation and spironolactone. Repeat labs in the morning. -Cramping likely from hypokalemia -Possible bronchitis for which the patient will be started on Ceftin -Nicotine dependence -Marijuana use Full Code DVT prophylaxis: Early ambulation The impression and plan of care has been dictated by Queta Jones, Nurse Practitioner as directed. Dr. Marva MD I have performed a history and physical examination and medical decision making of this patient, discussed the same with the dictator, and agree with the dictators assessment and plan as written, documented as a scribe. Based on total visit time, I have performed more than 50% of this visit. Objective - Vital Signs Vital signs: Vital Signs Temp 97.7 F 05/10/22 12:00 Pulse 83 05/10/22 12:00 Resp 18 05/10/22 12:00 BP 103/72 05/10/22 12:00 Pulse Ox 98 05/10/22 12:00 FiO2 Intake & Output 05/09/22 05/10/22 05/10/22 18:59 06:59 18:59 Intake Total 120 1585 2050 Output Total 800 Balance -680 1585 2050 Weight 108.862 kg Intake: IV 410 Invasive Line 1 10 Sodium Chloride 0.9% 1, 400 000 ml @ 50 mls/hr IV . Q20H [facility] Rx#:[id number] Intake, IV Titration 1100 Amount Potassium Chloride 10 meq 100 In Water For Injection 1 100ml.bag @ 100 mls/hr IVPB Q1H [facility] Rx#: [id number] Sodium Chloride 0.9% 1, 1000 000 ml @ 50 mls/hr IV . Q20H [facility] Rx#:[id number] Oral 517 238 7978 Output: Urine 800 Stool 0 Urine/Stool Mix 0 Emesis 0 Other: Voiding Method Toilet # Voids 0 2 2 # Bowel Movements 0 - Labs CBC & Chem 7: 05/10/22 07:04 05/10/22 07:04 Labs: Abnormal Lab Results - Last 24 Hours (Table) 05/09/22 05/09/22 05/09/22 Range/Units 15:34 16:56 23:34 Potassium 2.4 L* 2.3 L* (3.5-5.1) mmol/L Chloride 97 L (98-107) mmol/L Carbon Dioxide (22-30) mmol/L Glucose 101 H (74-99) mg/dL Calcium (8.4-10.2) mg/dL Ur Leukocyte Esterase Trace H (Negative) Urine Bacteria Rare H (None) /hpf 05/10/22 Range/Units 07:04 Potassium 2.5 L* (3.5-5.1) mmol/L Chloride (98-107) mmol/L Carbon Dioxide 32 H (22-30) mmol/L Glucose (74-99) mg/dL Calcium 8.2 L (8.4-10.2) mg/dL Ur Leukocyte Esterase (Negative) Urine Bacteria (None) /hpf Assessment and Plan Time with Patient: Less than 30
[2022-05-10] MEDS: NICOTINE 14MG/24HR PATCH TRANSDERM SCH (18:45)
[2022-05-10] MEDS ORDERED: POTASSIUM CHLORIDE ER 20 MEQ TAB.ER PO STA (18:46)
[2022-05-10] MEDS ORDERED: POTASSIUM CHLORIDE ER 20 MEQ TAB.ER PO SCH (19:00)
[2022-05-10] MEDS ORDERED: POTASSIUM CHLORIDE ER 20 MEQ TAB.ER PO ONE (20:15)
[2022-05-11] MEDS: POTASSIUM CHLORIDE ER 20 MEQ TAB.ER PO SCH ×11 (00:50→18:48)
[2022-05-11] MEDS: SODIUM CHLORIDE 0.9% 1,000 ML IV SCH (01:48)
[2022-05-11 07:37] LABS: African American GFR (CKD) >90 (>60 ml/min/1.73 sqM); Anion Gap 9 mmol/L; Blood Urea Nitrogen 5 mg/dL (7-17); Calcium 8.9 mg/dL (8.4-10.2); Carbon Dioxide 30 mmol/L (22-30); Chloride 100 mmol/L (98-107); Glucose 99 mg/dL (74-99); Magnesium 1.8 mg/dL (1.6-2.3); Non-African American GFR(CKD) >90 (>60 ml/min/1.73 sqM); Potassium 2.8 mmol/L (3.5-5.1); Sodium 139 mmol/L (137-145)
[2022-05-11] MEDS: MAGNESIUM OXIDE 400 MG TAB PO SCH ×2 (08:04→20:45)
[2022-05-11] MEDS: CEFDINIR 300 MG CAP PO SCH ×2 (08:04→20:44)
[2022-05-11] MEDS: NICOTINE 14MG/24HR PATCH TRANSDERM SCH (08:05)
[2022-05-11] MEDS: SPIRONOLACTONE 25 MG TAB PO SCH ×2 (08:05→20:45)
--- NOTE | 2022-05-11 10:10 | P.PN ---
Subjective Patient is seen in follow-up for hypokalemia. Potassium remains but starting to improve. Being aggressively replaced. Patient has no active complaints. Vital signs are stable. General: The patient appeared well nourished and normally developed. HEENT: Head exam is unremarkable. LUNGS: Breath sounds decreased. HEART: Rate and Rhythm are regular. ABDOMEN: Soft, obese. EXTREMITITES: No edema. Objective - Vital Signs Vital signs: Vital Signs Temp 98.5 F 05/11/22 07:59 Pulse 67 05/11/22 07:59 Resp 18 05/11/22 07:59 BP 98/65 05/11/22 07:59 Pulse Ox 100 05/11/22 07:59 FiO2 Intake & Output 05/10/22 05/11/22 05/11/22 18:59 06:59 18:59 Intake Total 2840 10 180 Output Total 0 Balance 2840 10 180 Intake: IV 420 10 Invasive Line 1 20 Invasive Line 2 10 Sodium Chloride 0.9% 1, 400 000 ml @ 50 mls/hr IV . Q20H [facility] Rx#:[id number] Oral 2420 180 Output: Stool 0 Other: Voiding Method Toilet Toilet # Voids 2 1 - Labs CBC & Chem 7: 05/10/22 07:04 05/11/22 07:07 Labs: Abnormal Lab Results - Last 24 Hours (Table) 05/10/22 05/10/22 05/11/22 Range/Units 16:47 23:33 07:07 Potassium 2.6 L* 3.0 L 2.8 L (3.5-5.1) mmol/L BUN 5 L (7-17) mg/dL Assessment and Plan Plan: Assessment: 1. Hypokalemia secondary to Bartter syndrome leading to renal potassium losses. Potassium 2.1 on admission and is being aggressively replaced. There is also concern for compliance with potassium supplementation and medications that she takes at home. Per nurse, it was confirmed from the pharmacy this patient was not taking spironolactone or amiloride. TSH normal. Potassium 2.8 this morning. 2. Cramping likely due to hypokalemia. Improved. 3. Hypomagnesemia due to Bartter syndrome. On oral magnesium oxide. Plan: Maintain spironolactone. Continue to replace potassium aggressively. 100 mEq now and recheck in 4 hours. Recheck potassium level this afternoon. Strongly advised patient to be compliant with potassium supplementations and medications outpatient. Life-threatening risks of hypokalemia, including cardiac arrest and , have been discussed with the patient.
--- NOTE | 2022-05-11 13:06 | P.PN ---
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 Patient was on spironolactone and Ameloride as potassium sparing diuretics at home. Patient the haven't seen nephrology for last 40 years. Patient received 100 mg of potassium found to have potassium of 202.1 patient is was given IV fluids. Nephrology evaluated the patient patient denied any diarrhea or nausea vomiting. Patient was started on Aldactone. She'll also comparing of cough with greenish sputum production and dysuria as well. 05/10/2022 Patient evaluated today resting in bed. Overall feeling better. Does report a cough with green sputum, denies fever. Admits to vaping, using marijuana, and smoking cigarettes 1 PPD. Will add nicotine patch. Potassium today 2.5, patient is receiving potassium supplementation she received 90 meq IV potassium as well as 60 meq of oral potassium. Magnesium 1.9. Urinalysis negative. Repeat labs scheduled for the AM. Nephrology is following closely. Patient reports dysuria has improved. Patient is afebrile, heart rate 83, blood pressure 103/72, 98% on room air. 05/11/2022 Patient evaluated today sitting up in bed. She reports fatigue, does state cramping is better. She feels numbness and tingling in her extremities. Potassium today is 2.8 and she is receiving a total of 100 meqs and recheck scheduled for 3pm. Continues on oral antibiotics reports cough is improving. Blood pressure 113/76 today. Review of Systems Constitutional: Denied any fatigue denied any fever. Cardio vascular: denied any chest pain, palpitations Gastrointestinal: denied any nausea, vomiting, diarrhea Pulmonary: Denied any shortness of breath, reports cough Neurologic denied any new focal deficits All inpatient medications were reviewed and appropriate changes in these medications as dictated in the interval history and assessment and plan. PHYSICAL EXAMINATION: GENERAL: The patient is alert and oriented x3, not in any acute distress. Well developed, well nourished. HEENT: Pupils are round and equally reacting to light. EOMI. No scleral icterus. No conjunctival pallor. Normocephalic, atraumatic. No pharyngeal erythema. No thyromegaly. CARDIOVASCULAR: S1 and S2 present. No murmurs, rubs, or gallops. PULMONARY: Chest is clear to auscultation, no wheezing or crackles. ABDOMEN: Soft, nontender, nondistended, normoactive bowel sounds. No palpable organomegaly. MUSCULOSKELETAL: No joint swelling or deformity. EXTREMITIES: No cyanosis, clubbing, or pedal edema. NEUROLOGICAL: Gross neurological examination did not reveal any focal deficits. SKIN: No rashes. Assessment and plan -Symptomatic hypokalemia secondary to Bartter's syndrome patient will be continued on potassium supplementation and spironolactone. Repeat labs in the morning. -Cramping likely from hypokalemia, improving -Possible bronchitis continues on oral antibiotics, patient reports cough is improving. -Nicotine dependence -Marijuana use Full Code DVT prophylaxis: Early ambulation The impression and plan of care has been dictated by Queta Jones, Nurse Practitioner as directed. Dr. Marva MD I have performed a history and physical examination and medical decision making of this patient, discussed the same with the dictator, and agree with the dictators assessment and plan as written, documented as a scribe. Based on total visit time, I have performed more than 50% of this visit. Objective - Vital Signs Vital signs: Vital Signs Temp 98.5 F 05/11/22 07:59 Pulse 62 05/11/22 11:22 Resp 18 05/11/22 11:22 BP 113/76 05/11/22 11:22 Pulse Ox 99 05/11/22 11:22 FiO2 Intake & Output 05/10/22 05/11/22 05/11/22 18:59 06:59 18:59 Intake Total 2840 10 180 Output Total 0 0 Balance 2840 10 180 Intake: IV 420 10 Invasive Line 1 20 Invasive Line 2 10 Sodium Chloride 0.9% 1, 400 000 ml @ 50 mls/hr IV . Q20H [facility] Rx#:[id number] Oral 2420 180 Output: Stool 0 0 Other: Voiding Method Toilet Toilet Toilet # Voids 2 1 - Labs CBC & Chem 7: 05/10/22 07:04 05/11/22 07:07 Labs: Abnormal Lab Results - Last 24 Hours (Table) 05/10/22 05/10/22 05/11/22 Range/Units 16:47 23:33 07:07 Potassium 2.6 L* 3.0 L 2.8 L (3.5-5.1) mmol/L BUN 5 L (7-17) mg/dL Assessment and Plan Time with Patient: Less than 30
[2022-05-11] MEDS ORDERED: POTASSIUM CHLORIDE ER 20 MEQ TAB.ER PO STA (19:55)
[2022-05-11] MEDS: ACETAMINOPHEN TAB 325 MG TAB PO PRN (23:29)
[2022-05-12 08:19] LABS: HCG,Qualitative Serum Not Detected
[2022-05-12] MEDS: SODIUM CHLORIDE 0.9% 1,000 ML IV SCH (08:28)
[2022-05-12 08:38] LABS: African American GFR (CKD) >90 (>60 ml/min/1.73 sqM); Anion Gap 14 mmol/L; Blood Urea Nitrogen 9 mg/dL (7-17); Calcium 10.1 mg/dL (8.4-10.2); Carbon Dioxide 29 mmol/L (22-30); Chloride 97 mmol/L (98-107); Glucose 94 mg/dL (74-99); Non-African American GFR(CKD) >90 (>60 ml/min/1.73 sqM); Potassium 3.3 mmol/L (3.5-5.1); Sodium 140 mmol/L (137-145)
[2022-05-12 08:40] LABS: Magnesium 1.7 mg/dL (1.6-2.3)
--- NOTE | 2022-05-12 09:30 | P.PN ---
Subjective Patient is seen in follow-up for hypokalemia. Potassium 3.3 today. Magnesium 1.7. Resting in bed. No active complaints. Vital signs are stable. General: The patient appeared well nourished and normally developed. HEENT: Head exam is unremarkable. LUNGS: Breath sounds decreased. HEART: Rate and Rhythm are regular. ABDOMEN: Soft, obese. EXTREMITITES: No edema. Objective - Vital Signs Vital signs: Vital Signs Temp 98.5 F 05/12/22 04:00 Pulse 68 05/12/22 04:00 Resp 18 05/12/22 04:00 BP 104/66 05/12/22 04:00 Pulse Ox 99 05/12/22 04:00 FiO2 Intake & Output 05/11/22 05/12/22 05/12/22 18:59 06:59 18:59 Intake Total 1500 10 Output Total 0 Balance 1500 10 Intake: IV 600 10 Invasive Line 1 10 Sodium Chloride 0.9% 1, 600 000 ml @ 50 mls/hr IV . Q20H [facility] Rx#:[id number] Oral 900 Output: Stool 0 Other: Voiding Method Toilet Toilet # Voids 3 # Bowel Movements 2 - Labs CBC & Chem 7: 05/10/22 07:04 05/12/22 07:30 Labs: Abnormal Lab Results - Last 24 Hours (Table) 05/11/22 05/12/22 Range/Units 15:08 07:30 Potassium 3.1 L 3.3 L (3.5-5.1) mmol/L Chloride 97 L (98-107) mmol/L Assessment and Plan Plan: Assessment: 1. Hypokalemia secondary to Bartter syndrome leading to renal potassium losses. Potassium 2.1 on admission and is being aggressively replaced. There is also concern for compliance with potassium supplementation and medications that she takes at home. Per nurse, it was confirmed from the pharmacy this patient was not taking spironolactone or amiloride. TSH normal. Potassium 3.3 this morning. 2. Cramping likely due to hypokalemia. Improved. 3. Hypomagnesemia due to Bartter syndrome. On oral magnesium oxide. Plan: Maintain spironolactone. Add K-dur 40 meq bid. Strongly advised patient to be compliant with potassium supplementations and medications outpatient. Life-threatening risks of hypokalemia, including cardiac arrest and , have been discussed with the patient. Patient will need BMP and magnesium level checked every 2 days for the next 10 days. She is advised to follow up outpatient 3-4 days postdischarge.
[2022-05-12] MEDS: NICOTINE 14MG/24HR PATCH TRANSDERM SCH (09:49)
[2022-05-12] MEDS: CEFDINIR 300 MG CAP PO SCH ×2 (09:49→20:39)
[2022-05-12] MEDS: MAGNESIUM OXIDE 400 MG TAB PO SCH ×2 (09:49→20:38)
[2022-05-12] MEDS: SPIRONOLACTONE 25 MG TAB PO SCH ×2 (09:49→20:39)
[2022-05-12] MEDS: POTASSIUM CHLORIDE ER 20 MEQ TAB.ER PO SCH ×2 (09:49→20:39)
--- NOTE | 2022-05-12 18:24 | P.PN ---
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 Patient was on spironolactone and Ameloride as potassium sparing diuretics at home. Patient the haven't seen nephrology for last 40 years. Patient received 100 mg of potassium found to have potassium of 202.1 patient is was given IV fluids. Nephrology evaluated the patient patient denied any diarrhea or nausea vomiting. Patient was started on Aldactone. She'll also comparing of cough with greenish sputum production and dysuria as well. 05/10/2022 Patient evaluated today resting in bed. Overall feeling better. Does report a cough with green sputum, denies fever. Admits to vaping, using marijuana, and sm oking cigarettes 1 PPD. Will add nicotine patch. Potassium today 2.5, patient is receiving potassium supplementation she received 90 meq IV potassium as well as 60 meq of oral potassium. Magnesium 1.9. Urinalysis negative. Repeat labs scheduled for the AM. Nephrology is following closely. Patient reports dysuria has improved. Patient is afebrile, heart rate 83, blood pressure 103/72, 98% on room air. 05/11/2022 Patient evaluated today sitting up in bed. She reports fatigue, does state cramping is better. She feels numbness and tingling in her extremities. Potassium today is 2.8 and she is receiving a total of 100 meqs and recheck scheduled for 3pm. Continues on oral antibiotics reports cough is improving. Blood pressure 113/76 today. 05/12/2022 Patient is getting stronger every day but slowly and gradually. She is not back to baseline yet. She denies muscle cramps are numbness today. No cough or urine flow today but she is complaining of from diarrhea about twice this morning. No abdominal pain no vomiting and chest with appetite eating about 50-75% of her meals. Low potassium and magnesium replaced Today she is on potassium chloride 40 mg twice a day per deputy administrator and rec ommendation Objective - Vital Signs Vital signs: Vital Signs Temp 98.4 F 05/12/22 08:00 Pulse 88 05/12/22 08:00 Resp 18 05/12/22 08:00 BP 116/76 05/12/22 08:00 Pulse Ox 99 05/12/22 08:00 FiO2 Intake & Output 05/11/22 05/12/22 05/12/22 18:59 06:59 18:59 Intake Total 1500 10 Output Total 0 0 Balance 1500 10 0 Intake: IV 600 10 Invasive Line 1 10 Sodium Chloride 0.9% 1, 600 000 ml @ 50 mls/hr IV . Q20H [facility] Rx#:[id number] Oral 900 Output: Stool 0 0 Other: Voiding Method Toilet Toilet # Voids 3 # Bowel Movements 2 - Exam -GENERAL: The patient is alert and oriented x3, not in any acute distress. Obese HEENT: Pupils are round and equally reacting to light. EOMI. No scleral icterus. No conjunctival pallor. Normocephalic, atraumatic. No pharyngeal erythema. No thyromegaly. CARDIOVASCULAR: S1 and S2 present. No murmurs, rubs, or gallops. PULMONARY: Chest is clear to auscultation, no wheezing or crackles. ABDOMEN: Soft, nontender, nondistended, normoactive bowel sounds. No palpable organomegaly. MUSCULOSKELETAL: No joint swelling or deformity. EXTREMITIES: No cyanosis, clubbing, or pedal edema. NEUROLOGICAL: Gross neurological examination did not reveal any focal deficits. SKIN: No rashes. no petechiae. - Labs CBC & Chem 7: 05/10/22 07:04 05/12/22 07:30 Labs: Abnormal Lab Results - Last 24 Hours (Table) 05/11/22 05/12/22 Range/Units 15:08 07:30 Potassium 3.1 L 3.3 L (3.5-5.1) mmol/L Chloride 97 L (98-107) mmol/L Assessment and Plan Assessment: Assessment and plan -Symptomatic hypokalemia secondary to Bartter's syndrome patient will be continued on potassium supplementation and spironolactone. Repeat labs in the morning. -Cramping likely from hypokalemia, improving -Possible bronchitis continues on oral antibiotics, patient reports cough is improving. -Nicotine dependence -Marijuana use
[2022-05-13 05:10] LABS: African American GFR (CKD) >90 (>60 ml/min/1.73 sqM); Anion Gap 13 mmol/L; Blood Urea Nitrogen 9 mg/dL (7-17); Calcium 9.9 mg/dL (8.4-10.2); Carbon Dioxide 28 mmol/L (22-30); Chloride 98 mmol/L (98-107); Glucose 88 mg/dL (74-99); Non-African American GFR(CKD) >90 (>60 ml/min/1.73 sqM); Potassium 3.1 mmol/L (3.5-5.1); Sodium 139 mmol/L (137-145)
[2022-05-13] MEDS: POTASSIUM CHLORIDE ER 20 MEQ TAB.ER PO SCH ×3 (06:08→10:38)
[2022-05-13] MEDS: MAGNESIUM SULFATE-D5W PMX 1 GM in DEXTROSE/WATER 1 100ML.BAG IVPB SCH ×2 (06:08→07:25)
[2022-05-13] MEDS: SPIRONOLACTONE 25 MG TAB PO SCH ×2 (10:03→19:54)
[2022-05-13] MEDS: CEFDINIR 300 MG CAP PO SCH (10:03)
[2022-05-13] MEDS: MAGNESIUM OXIDE 400 MG TAB PO SCH ×3 (10:03→19:54)
[2022-05-13] MEDS: NICOTINE 14MG/24HR PATCH TRANSDERM SCH (10:03)
[2022-05-13 10:10] LABS: African American GFR (CKD) >90 (>60 ml/min/1.73 sqM); Anion Gap 12 mmol/L; Blood Urea Nitrogen 9 mg/dL (7-17); Calcium 10.1 mg/dL (8.4-10.2); Carbon Dioxide 30 mmol/L (22-30); Chloride 97 mmol/L (98-107); Glucose 109 mg/dL (74-99); Non-African American GFR(CKD) >90 (>60 ml/min/1.73 sqM); Potassium 3.4 mmol/L (3.5-5.1); Sodium 139 mmol/L (137-145)
--- NOTE | 2022-05-13 10:30 | P.PN ---
Subjective Patient is seen in follow-up for hypokalemia. Potassium 3.4 today. Magnesium 1.5. Resting in bed. Does admit to loose stools. Vital signs are stable. General: The patient appeared well nourished and normally developed. HEENT: Head exam is unremarkable. LUNGS: Breath sounds decreased. HEART: Rate and Rhythm are regular. ABDOMEN: Soft, obese. EXTREMITITES: No edema. Objective - Vital Signs Vital signs: Vital Signs Temp 98.2 F 05/13/22 04:00 Pulse 64 05/13/22 04:00 Resp 16 05/13/22 04:00 BP 110/69 05/13/22 04:00 Pulse Ox 98 05/13/22 04:00 FiO2 Intake & Output 05/12/22 05/13/22 05/13/22 18:59 06:59 18:59 Intake Total 10 240 Output Total 0 Balance 0 10 240 Intake: IV 10 Invasive Line 1 10 Oral 240 Output: Stool 0 Other: Voiding Method Toilet # Voids 2 # Bowel Movements 1 - Labs CBC & Chem 7: 05/10/22 07:04 05/13/22 09:34 Labs: Abnormal Lab Results - Last 24 Hours (Table) 05/13/22 05/13/22 05/13/22 Range/Units 04:11 04:11 09:34 Potassium 3.1 L 3.4 L (3.5-5.1) mmol/L Chloride 97 L (98-107) mmol/L Glucose 109 H (74-99) mg/dL Magnesium 1.5 L (1.6-2.3) mg/dL Assessment and Plan Plan: Assessment: 1. Hypokalemia secondary to Bartter syndrome leading to renal potassium losses. Potassium 2.1 on admission and is being aggressively replaced. There is also concern for compliance with potassium supplementation and medications that she takes at home. Per nurse, it was confirmed from the pharmacy this patient was not taking spironolactone or amiloride. TSH normal. Potassium 3.4 this morning. 2. Cramping likely due to hypokalemia. Improved. 3. Hypomagnesemia due to Bartter syndrome. On oral magnesium oxide. Plan: Maintain spironolactone. Maintain K-dur 40 meq bid. Received additional supplement this morning. Receiving IV magnesium sulfate. Increase dose of oral magnesium oxide. Strongly advised patient to be compliant with potassium supplementations and medications outpatient. Life-threatening risks of hypokalemia, including cardiac arrest and , have been discussed with the patient. Patient will need BMP and magnesium level checked every 2 days for the next 10 days. She is advised to follow up outpatient 3-4 days postdischarge.
[2022-05-13] MEDS ORDERED: POTASSIUM CHLORIDE ER 20 MEQ TAB.ER PO STA (10:39)
--- NOTE | 2022-05-13 18:35 | P.PN ---
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 Patient was on spironolactone and Ameloride as potassium sparing diuretics at home. Patient the haven't seen nephrology for last 40 years. Patient received 100 mg of potassium found to have potassium of 202.1 patient is was given IV fluids. Nephrology evaluated the patient patient denied any diarrhea or nausea vomiting. Patient was started on Aldactone. She'll also comparing of cough with greenish sputum production and dysuria as well. 05/10/2022 Patient evaluated today resting in bed. Overall feeling better. Does report a cough with green sputum, denies fever. Admits to vaping, using marijuana, and sm oking cigarettes 1 PPD. Will add nicotine patch. Potassium today 2.5, patient is receiving potassium supplementation she received 90 meq IV potassium as well as 60 meq of oral potassium. Magnesium 1.9. Urinalysis negative. Repeat labs scheduled for the AM. Nephrology is following closely. Patient reports dysuria has improved. Patient is afebrile, heart rate 83, blood pressure 103/72, 98% on room air. 05/11/2022 Patient evaluated today sitting up in bed. She reports fatigue, does state cramping is better. She feels numbness and tingling in her extremities. Potassium today is 2.8 and she is receiving a total of 100 meqs and recheck scheduled for 3pm. Continues on oral antibiotics reports cough is improving. Blood pressure 113/76 today. 05/12/2022 Patient is getting stronger every day but slowly and gradually. She is not back to baseline yet. She denies muscle cramps are numbness today. No cough or urine flow today but she is complaining of from diarrhea about twice this morning. No abdominal pain no vomiting and chest with appetite eating about 50-75% of her meals. Low potassium and magnesium replaced Today she is on potassium chloride 40 mg twice a day per vocational ed instructor and rec ommendation 05/13/2022 Patient is lying comfortable in bed. However she still has diarrhea about twice per day. C. diff was negative. Patient with no evidence of fever or leukocytosis. We will discontinue Omnicef and monitor the patient while of antibiotic. Her low potassium and magnesium and replace per protocol. Patient on potassium chloride increased dose to 50 mg twice a day and magnesium oxide 400 mg 3 times a day and we will monitor the level. Patient will need to check her blood test of potassium and magnesium every 2 days 10 days, I discussed with her PCP Dr. Friedman and he agreed patient can go and check her blood tests in his office upon discharge. Objective - Vital Signs Vital signs: Vital Signs Temp 96.8 F L 05/13/22 08:00 Pulse 79 05/13/22 08:00 Resp 16 05/13/22 08:00 BP 99/50 05/13/22 08:00 Pulse Ox 98 05/13/22 08:00 FiO2 Intake & Output 05/12/22 05/13/22 05/13/22 18:59 06:59 18:59 Intake Total 10 340 Output Total 0 Balance 0 10 340 Intake: IV 10 Invasive Line 1 10 Intake, IV Titration 100 Amount Magnesium Sulfate-D5w Pmx 100 1 gm In Dextrose/Water 1 100ml.bag @ 100 mls/hr IVPB Q1H [facility] Rx#: [id number] Oral 240 Output: Stool 0 Other: Voiding Method Toilet Toilet # Voids 2 # Bowel Movements 1 - Exam -GENERAL: The patient is alert and oriented x3, not in any acute distress. Obese HEENT: Pupils are round and equally reacting to light. EOMI. No scleral icterus. No conjunctival pallor. Normocephalic, atraumatic. No pharyngeal erythema. No thyromegaly. CARDIOVASCULAR: S1 and S2 present. No murmurs, rubs, or gallops. PULMONARY: Chest is clear to auscultation, no wheezing or crackles. ABDOMEN: Soft, nontender, nondistended, normoactive bowel sounds. No palpable organomegaly. MUSCULOSKELETAL: No joint swelling or deformity. EXTREMITIES: No cyanosis, clubbing, or pedal edema. NEUROLOGICAL: Gross neurological examination did not reveal any focal deficits. SKIN: No rashes. no petechiae. - Labs CBC & Chem 7: 05/10/22 07:04 05/13/22 09:34 Labs: Abnormal Lab Results - Last 24 Hours (Table) 05/13/22 05/13/22 05/13/22 Range/Units 04:11 04:11 09:34 Potassium 3.1 L 3.4 L (3.5-5.1) mmol/L Chloride 97 L (98-107) mmol/L Glucose 109 H (74-99) mg/dL Magnesium 1.5 L (1.6-2.3) mg/dL Assessment and Plan Assessment: Assessment and plan -Symptomatic hypokalemia secondary to Bartter's syndrome patient will be continued on potassium supplementation and spironolactone. Continue with potassium and magnesium oral replacement Repeat labs in the morning. -Diarrhea with no evidence of infection, could be secondary to antibiotic or reactive. C. diff negative -Cramping likely from hypokalemia, resolved -Possible bronchitis continues improved. -Nicotine dependence -Marijuana use
[2022-05-13] MEDS: ACETAMINOPHEN TAB 325 MG TAB PO PRN (19:56)
[2022-05-13] MEDS ORDERED: POTASSIUM CHLORIDE ER 10 MEQ TAB.ER.PRT PO SCH (21:00)
[2022-05-14 00:27] VITALS: RESP 16
[2022-05-14 03:32] VITALS: TEMP 98.7
[2022-05-14] MEDS: ACETAMINOPHEN TAB 325 MG TAB PO PRN (03:33)
[2022-05-14 07:28] LABS: African American GFR (CKD) >90 (>60 ml/min/1.73 sqM); Anion Gap 12 mmol/L; Blood Urea Nitrogen 10 mg/dL (7-17); Calcium 9.9 mg/dL (8.4-10.2); Carbon Dioxide 31 mmol/L (22-30); Chloride 95 mmol/L (98-107); Glucose 113 mg/dL (74-99); Magnesium 1.8 mg/dL (1.6-2.3); Non-African American GFR(CKD) >90 (>60 ml/min/1.73 sqM); Potassium 3.3 mmol/L (3.5-5.1); Sodium 138 mmol/L (137-145)
[2022-05-14] MEDS ORDERED: MAGNESIUM SULFATE-D5W PMX 1 GM in DEXTROSE/WATER 1 100ML.BAG IVPB ONE (08:59)
--- NOTE | 2022-05-14 10:26 | P.PN ---
Subjective Patient is seen in follow-up for hypokalemia. Potassium 3.3 today. Magnesium 1.8. Resting in bed. Does admit to loose stools but improved compared to yesterday. Vital signs are stable. General: The patient appeared well nourished and normally developed. HEENT: Head exam is unremarkable. LUNGS: Breath sounds decreased. HEART: Rate and Rhythm are regular. ABDOMEN: Soft, obese. EXTREMITITES: No edema. Objective - Vital Signs Vital signs: Vital Signs Temp 98.7 F 05/14/22 03:30 Pulse 65 05/14/22 03:30 Resp 16 05/14/22 03:30 BP 128/79 05/14/22 03:30 Pulse Ox 97 05/14/22 03:30 FiO2 Intake & Output 05/13/22 05/14/22 05/14/22 18:59 06:59 18:59 Intake Total 1060 500 Output Total 0 Balance 1060 500 0 Intake: Intake, IV Titration 100 Amount Magnesium Sulfate-D5w Pmx 100 1 gm In Dextrose/Water 1 100ml.bag @ 100 mls/hr IVPB Q1H [facility] Rx#: [id number] Oral 960 500 Output: Urine 0 Stool 0 Urine/Stool Mix 0 Emesis 0 Oral Regurgitation 0 Other: Voiding Method Toilet Toilet # Voids 2 0 # Bowel Movements 0 0 - Labs CBC & Chem 7: 05/10/22 07:04 05/14/22 06:19 Labs: Abnormal Lab Results - Last 24 Hours (Table) 05/14/22 Range/Units 06:19 Potassium 3.3 L (3.5-5.1) mmol/L Chloride 95 L (98-107) mmol/L Carbon Dioxide 31 H (22-30) mmol/L Glucose 113 H (74-99) mg/dL Assessment and Plan Plan: Assessment: 1. Hypokalemia secondary to Bartter syndrome leading to renal potassium losses. Potassium 2.1 on admission and is being aggressively replaced. There is also concern for compliance with potassium supplementation and medications that she takes at home. Per nurse, it was confirmed from the pharmacy this patient was not taking spironolactone or amiloride. TSH normal. Potassium 3.3 this morning. 2. Cramping likely due to hypokalemia. Improved. 3. Hypomagnesemia due to Bartter syndrome and GI losses. On oral magnesium oxide. C. diff negative Plan: Maintain spironolactone. Increase K-dur to 60 meq bid. Strongly advised patient to be compliant with potassium supplementations and medications outpatient. Life-threatening risks of hypokalemia, including cardiac arrest and , have been discussed with the patient. Patient will need BMP and magnesium level checked every 2 days for the next 10 days. She is advised to follow up outpatient 3-4 days postdischarge.
[2022-05-14 10:51] VITALS: BMI 37.5
[2022-05-14] MEDS: POTASSIUM CHLORIDE ER 20 MEQ TAB.ER PO SCH ×3 (11:56→15:15)
[2022-05-14] MEDS: NICOTINE 14MG/24HR PATCH TRANSDERM SCH (11:56)
[2022-05-14] MEDS: SPIRONOLACTONE 25 MG TAB PO SCH (11:56)
[2022-05-14] MEDS: MAGNESIUM OXIDE 400 MG TAB PO SCH (11:58)
[2022-05-14 14:51] VITALS: BP 100/64; PULSE 85
[2022-05-14] MEDS ORDERED: POTASSIUM CHLORIDE ER 20 MEQ TAB.ER PO SCH (21:00)
--- NOTE | 2022-05-14 22:18 | P.DS ---
Providers Date of admission: 05/09/22 06:04 Attending physician: Elise Desir Consults: 05/09/22 06:03 Consult Physician Routine Consulting Provider: Ab Valentino Consult Reason/Comments: Hypokalemia. Bartter's Syndrome Do you want consulting provider notified?: Yes Primary care physician: [facility] Hospital Course: Diagnosis -Symptomatic hypokalemia secondary to Bartter's syndrome patient will be continued on potassium supplementation and spironolactone. -Diarrhea with no evidence of infection, could be secondary to antibiotic or reactive. C. diff negative -Hypomagnesemia receiving oral supplementation -Cramping likely from hypokalemia, resolved -Possible bronchitis continues improved. -Nicotine dependence -Marijuana use Full Code Discharge Disposition Patient is stable for discharge. Patient has an appointment made with nephrology on 05/18/22, and is waiting phone call back from primary care office for follow up appointment. She is continued on potassium 60 meq twice a day, resumed on home dose of magnesium 500 mg twice a day, and also started on aldactone 25 mg po twice a day. Discontinue amloride. She is given script for labs in 2 days, and instructions for repeat labs every 2 days for a total of 10 days to monitor potassium and magnesium levels. 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 She reports with with complaints of tingling numbness which were her typical symptoms when she becomes hypokalemic. Patient was on Amloride as potassium sparing diuretics at home. 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 On admission, potassium level was found to be 2.1 and patient received 100 meq of potassium in the [facility] Nephrology evaluated the patient as well. she was started on Aldactone. Patient also presents with complaint of cough with greenish sputum production which is most likely a bronchitis, she has no white count, no fevers. She was started on bronchodilators and a short course of oral antibiotics. Covid is negative. Patient dose have history of nicotine and THC use. Patient had also complained of dysuria, urinalysis was not suggestive of infection although her symptoms did improve with oral cefdinir. She developed diarrhea and C.Dif was checked which was negative and diarrhea did improve. She is tolerating diet, no emesis noted. Potassium improved to 3.5 and dropped again down to 3.1. Magnesium also dropped to 1.5. She was started on oral potassium 60 meq bid and also received IV magnesium supplementation. Potassium has remained stable in the 3.3 to 3.4 range in the last 2 days. 05/14/2022 Patient is stable for discharge home today, cleared by nephrology and she has follow up made at Dr Moseley office. The importance of medication compliance is addressed with patient and educated on the risks of hypokalemia including cardiac arrest and sudden . Today sodium is 138, potassium 3.3, chloride 95, CO2 31, BUN 10, creatinine 0.68, glucose 113, magnesium 1.8. Patient received electrolyte replacement in addition to scheduled doses. She has completed oral antibiotics. Cough is improving, no sputum production, no shortness of breath noted. patient has no chest pain. She also reports numbness and tinging has improved also reports that cramping has improved as well. Lungs are clear, S1 S2 auscultated, abdomen is soft and nontender. She is alert x 3, focal neurological exam is negative. Patient is afebrile, heart rate 85, blood pressure 100/64, 98% on room air. Total time taken in discharge planning greater than 35 minutes. Please see medication reconciliation for a list of current medication. Thank you for allowing us to participate in the care of this patient. The impression and plan of care has been dictated by Queta Jones, Nurse Practitioner as directed. Dr. Marva MD I have performed a history and physical examination and medical decision making of this patient, discussed the same with the dictator, and agree with the dictators assessment and plan as written, documented as a scribe. Based on total visit time, I have performed more than 50% of this visit. Patient Condition at Discharge: Fair Plan - Discharge Summary Discharge Rx Participant: Yes New Discharge Prescriptions: New Nicotine 14Mg/24Hr Patch [Habitrol] 1 patch TRANSDERM DAILY #14 patch Potassium Chloride ER [K-Dur 20] 60 meq PO BID 30 Days #60 tab Acetaminophen Tab [Tylenol] 650 mg PO Q6HR PRN tab PRN Reason: Mild Pain Or Fever > 100.5 Spironolactone [Aldactone] 25 mg PO BID #60 tab Continue Dextroamphetamine/Amphetamine [Adderall] 30 mg PO DAILY PRN PRN Reason: adhd Cetirizine HCl 10 mg PO HS Ergocalciferol [Vitamin D2 (1250 Mcg = 11389 Iu)] 1,250 mcg PO WE Potassium Chloride ER [K-Dur 20] 60 meq PO BID Magnesium Oxide [Magnesium] 500 mg PO BID Discontinued aMILoride HCL 5 mg PO BID Discharge Medication List Dextroamphetamine/Amphetamine [Adderall] 30 mg PO DAILY PRN 07/03/21 [History] Ergocalciferol [Vitamin D2 (1250 Mcg = 08708 Iu)] 1,250 mcg PO WE 07/03/21 [History] Cetirizine HCl 10 mg PO HS 05/09/22 [History] Magnesium Oxide [Magnesium] 500 mg PO BID 05/09/22 [History] Potassium Chloride ER [K-Dur 20] 60 meq PO BID 05/09/22 [History] Acetaminophen Tab [Tylenol] 650 mg PO Q6HR PRN tab 05/14/22 [Rx] Nicotine 14Mg/24Hr Patch [Habitrol] 1 patch TRANSDERM DAILY #14 patch 05/14/22 [Rx] Potassium Chloride ER [K-Dur 20] 60 meq PO BID 30 Days #60 tab 05/14/22 [Rx] Spironolactone [Aldactone] 25 mg PO BID #60 tab 05/14/22 [Rx] Follow up Appointment(s)/Referral(s): Ugo Friedman DO [Primary Care Provider] - 1-2 Days (The office will call you with appointment date and time.) Ab Valentino DO [STAFF PHYSICIAN] - 05/18/22 11:00 am (Jean-Paul Lopez NP ) Ambulatory/Diagnostic Orders: Basic Metabolic Panel [LAB.AMB] Time Frame: 2 Days, Location: None Selected Magnesium [LAB.AMB] Time Frame: 2 Days, Location: None Selected Patient Instructions/Handouts: Hypokalemia (DC) Activity/Diet/Wound Care/Special Instructions: Continue on potassium 60 meq twice a day Continue on oral magnesium 500 mg twice a day Continue aldactone 25 mg twice a day Repeat BMP and magnesium level in 2 days Lab order for BMP and magnesium level every 2 days for a total of 10 days Follow up appointment made at Dr Valentino office with Jean-Paul MONTEMAYOR on 05/18/22 at 1100 am. Follow up at primary care office in the next 1-2 days post discharge. Risk of hypokalemia including cardiac arrest and Continue with medications as prescribed Continue nicotine patches and recommend total smoking cessation. Do not use nicotine patch while smoking can cause nicotine toxicity. Discharge Disposition: HOME SELF-CARE
== END 2022-05-14 16:49 | disposition home or self-care (01) | DRG 645 ==
LOC: EC 21:01 → 3SCARD 05-09 06:04
PROVIDERS: ADMIT Hospitalist; ATTEND Hospitalist
DX: E26.81 Bartter's syndrome (principal); E16.1 Other hypoglycemia; F31.9 Bipolar disorder, unspecified; E66.9 Obesity, unspecified; E87.6 Hypokalemia; R53.83 Other fatigue; F90.9 Attention-deficit hyperactivity disorder, unspecified type; F41.9 Anxiety disorder, unspecified; R30.0 Dysuria; J40 Bronchitis, not specified as acute or chronic; F17.210 Nicotine dependence, cigarettes, uncomplicated; E83.42 Hypomagnesemia; Z20.822 Contact with and (suspected) exposure to COVID-19; N28.9 Disorder of kidney and ureter, unspecified; R19.7 Diarrhea, unspecified; Z68.37 Body mass index [BMI] 37.0-37.9, adult; Z91.041 Radiographic dye allergy status; Z88.8 Allergy status to other drugs, medicaments and biological substances; Z90.89 Acquired absence of other organs; Z79.899 Other long term (current) drug therapy; Z82.0 Family history of epilepsy and other diseases of the nervous system; Z81.8 Family history of other mental and behavioral disorders; Z83.3 Family history of diabetes mellitus
CPT/HCPCS: 36415; 80048; 80053; 81001; 83735; 84100; 84132; 84443; 84703; 85025; 87324; 96365; 99285

== ENCOUNTER 2022-10-07 17:47 | Emergency (ER) | payer OTHER ==
[2022-10-07 18:08] VITALS: TEMP 98.4
[2022-10-07] MEDS ORDERED: FLUCONAZOLE 150 MG TAB PO STA (19:55)
--- NOTE | 2022-10-07 20:01 | ED ---
Female Urogenital HPI - General Chief complaint: Urogenital Stated complaint: Female Time Seen by Provider: 10/07/22 19:04 Source: patient, RN notes reviewed Mode of arrival: ambulatory Limitations: no limitations - History of Present Illness Initial comments: 26-year-old well-appearing female presents to the emergency room with complaints of a heavy white thick vaginal discharge denies any dysuria. States that she is having unprotected sex and is unsure if she is . She does have a history of prior ST ice. A history of anxiety depression and ADHD MD Complaint: vaginal discharge, possible STD Last Menstrual Period: 09/06/22 - Related Data Home Medications Medication Instructions Recorded Confirmed Dextroamphetamine/Amphetamine 30 mg PO DAILY PRN 07/03/21 05/09/22 [Adderall] Ergocalciferol [Vitamin D2 (1250 1,250 mcg PO WE 07/03/21 05/09/22 Mcg = 80142 Iu)] Cetirizine HCl 10 mg PO HS 05/09/22 05/09/22 Magnesium Oxide [Magnesium] 500 mg PO BID 05/09/22 05/09/22 Potassium Chloride ER [K-Dur 20] 60 meq PO BID 05/09/22 05/09/22 Previous Rx's Medication Instructions Recorded Acetaminophen Tab [Tylenol] 650 mg PO Q6HR PRN tab 05/14/22 Nicotine 14Mg/24Hr Patch [Habitrol] 1 patch TRANSDERM DAILY #14 patch 05/14/22 Potassium Chloride ER [K-Dur 20] 60 meq PO BID 30 Days #60 tab 05/14/22 Spironolactone [Aldactone] 25 mg PO BID #60 tab 05/14/22 Allergies Allergy/AdvReac Type Severity Reaction Status Date / Time risperidone [From Risperdal] Allergy Mild MUSCLE Verified 05/09/22 12:17 SPASMS Iodinated Contrast Media AdvReac Nausea & Verified 05/09/22 12:17 Vomiting Review of Systems ROS Statement: Those systems with pertinent positive or pertinent negative responses have been documented in the HPI. ROS Other: All systems not noted in ROS Statement are negative. Past Medical History Past Medical History: Renal Disease Additional Past Medical History / Comment(s): Bartter syndrome ( low potassium), anxiety, bipolar, depression, ADHD, History of Any Multi-Drug Resistant Organisms: None Reported Past Surgical History: Tonsillectomy Additional Past Surgical History / Comment(s): wisdom teeth 2016, Past Anesthesia/Blood Transfusion Reactions: No Reported Reaction Past Psychological History: ADD/ADHD, Anxiety, Bipolar, Depression Smoking Status: Current every day smoker Past Alcohol Use History: None Reported Past Drug Use History: Marijuana - Past Family History Mother Additional Family Medical History / Comment(s): Mother is alive at age 40 with no major medical problems. Pt states Alzheimers and Bipolar disorder runs on her mother's side. Sister(s) Family Medical History: Diabetes Mellitus Additional Family Medical History / Comment(s): Patient has 4 half-sisters. Brother(s) Additional Family Medical History / Comment(s): Patient has 5 or 6 half-brothers with no major medical problems. Patient does not have any children. Father Additional Family Medical History / Comment(s): Father is alive at age 55 and patient has no contact with him as he is in penitentiary. General Exam Limitations: no limitations General appearance: alert, in no apparent distress Respiratory exam: Absent: respiratory distress, accessory muscle use Cardiovascular Exam: Present: regular rate GI/Abdominal exam: Present: soft External exam: Absent: erythema, swelling Speculum exam: Present: normal speculum exam, vaginal discharge (thick white consistent with Susan). Absent: erythema, vaginal bleeding By manual exam: Present: normal by manual exam. Absent: cervical motion tenderness, adnexal tenderness, adnexal mass, uterine tenderness Extremities exam: Present: normal capillary refill. Absent: pedal edema Neurological exam: Present: alert, oriented X3 Psychiatric exam: Present: normal affect, normal mood Skin exam: Present: warm, dry, normal color. Absent: cyanosis, diaphoretic, petechiae, pallor Course Vital Signs 10/07/22 10/07/22 18:05 20:18 Temperature 98.4 F Pulse Rate 71 77 Respiratory 20 16 Rate Blood Pressure 107/74 116/70 O2 Sat by Pulse 98 99 Oximetry Medical Decision Making - Medical Decision Making 2 days of white discharge and vaginal irritation. She states is having unprotected sex. No dysuria. No abdominal pain, no fevers. No n/v/d. Pelvic exam shows an erythematous labia with thick white mucous discharge consistent with Susan. She was given Diflucan. Cultures were sent for STI testing however she opted to not be treated at this time. Urinalysis was negative for , negative Trichomonas. She was directed to follow up with her culture results in 72 hours. Case discussed with Dr. Campos Was pt. sent in by a medical professional or institution? @ -no Did you speak to anyone other than the patient for history? @ -no Did you review nursing and triage notes? @ -yes i agree Were old charts reviewed? @ -no Differential Diagnosis? @ -Bacterial vaginosis, Trichomonas, Chlamydia, gonorrhea, Susan, foreign body What testing was considered but not performed? (CT, X-rays, U/S, labs)? Why? @ none What meds were considered but not given? Why? @ -none Did you discuss the management of the patient with other professionals? @ -no Did you reconcile home meds? @ -no Was smoking cessation discussed for >3mins.? @ -no Was critical care preformed (if so, how long)? @ no Were there social determinants of health that impacted care today? How? (Homelessness, low income, unemployed, alcoholism, drug addiction, transportation, low edu. Level, literacy, decrease access to med. care, residential, rehab)? @ -none Was there de-escalation of care discussed even if they declined? (Discuss DNR or withdrawal of care, Hospice)? @ -no What co-morbidities impacted this encounter? (DM, HTN, Smoking, COPD, CAD, Cancer, CVA, Hep., AIDS, mental health diagnosis, sleep apnea, morbid obesity)? @ -anxiety, depression, ADHD Was patient admitted / discharged? @ -discharged Undiagnosed new problem with uncertain prognosis? @ -[none] Drug Therapy requiring intensive monitoring for toxicity (Heparin, Nitro, Insulin, Cardizem)? @ -no Were any procedures done? @ -pelvic exam Diagnosis/symptom? @ -Candidiasis Acute, or Chronic, or Acute on Chronic? @ -Acute Uncomplicated (without systemic symptoms) or Complicated (systemic symptoms)? @ -Uncomplicated Side effects of treatment? @ -[none] Exacerbation, Progression, or Severe Exacerbation] @ -[no] Poses a threat to life or bodily function? @ -[no] - Lab Data Lab Results 10/07/22 10/07/22 10/07/22 Range/Units 19:47 19:47 19:55 Urine Color Yellow Urine Appearance Clear (Clear) Urine pH 8.0 (5.0-8.0) Ur Specific [place] 1.019 (1.001-1.035) Urine Protein Trace H (Negative) Urine Glucose (UA) Negative (Negative) Urine Ketones Negative (Negative) Urine Blood Negative (Negative) Urine Nitrite Negative (Negative) Urine Bilirubin Negative (Negative) Urine Urobilinogen <2.0 (<2.0) mg/dL Ur Leukocyte Esterase Large H (Negative) Urine RBC 3 (0-5) /hpf Urine WBC 6 H (0-5) /hpf Ur Squamous Epith Cells 2 (0-4) /hpf Triple Phos Crystals Rare H (None) /hpf Urine Bacteria Rare H (None) /hpf Urine Mucus Rare H (None) /hpf Urine HCG, Qual Not Detected (Not Detectd) Trichomonas Ag (Rapid) Negative (Negative) Disposition Clinical Impression: Candidiasis of vagina Disposition: HOME SELF-CARE Condition: Good Instructions (If sedation given, give patient instructions): Yeast Infection (ED) Additional Instructions: White gently to avoid irritation. Use unscented soap. Avoid douches. Follow- up with the primary care doctor as needed. Is patient prescribed a controlled substance at d/c from ED?: No Referrals: Ugo Friedman DO [Primary Care Provider] - 1-2 days Time of Disposition: 19:58
[2022-10-07 20:11] LABS: Appearance,Urine Clear (Clear); Bacteria,Urine Rare /hpf; Bilirubin,Urine Negative (Negative); Blood,Urine Negative (Negative); Color,Urine Yellow; Glucose,Urine (UA) Negative (Negative); Ketones,Urine Negative (Negative); Leukocyte Esterase,Urine Large (Negative); Mucus,Urine Rare /hpf; Nitrite,Urine Negative (Negative); Protein,Urine Trace (Negative); RBC,Urine 3 /hpf (0-5); Specific Gravity,Urine 1.019 (1.001-1.035); Squamous Epithelial Cell,Urine 2 /hpf (0-4); Triple Phosphate Crystal,Urine Rare /hpf; Urobilinogen,Urine <2.0 mg/dL (<2.0); WBC,Urine 6 /hpf (0-5)
[2022-10-07 20:19] VITALS: BP 116/70; PULSE 77; RESP 16
[2022-10-08 13:55] LABS: C. trachomatis,PCR Negative (Neg,Equiv); Chlamydia trachomatis Source Cervix; N. gonorrhoeae,PCR Negative (Neg,Equiv); Neisseria Source Cervix
== END 2022-10-07 20:19 | disposition home or self-care (01) ==
LOC: EC 17:47
DX: B37.31 Acute candidiasis of vulva and vagina (principal); F90.9 Attention-deficit hyperactivity disorder, unspecified type; F41.9 Anxiety disorder, unspecified; F31.9 Bipolar disorder, unspecified; F12.90 Cannabis use, unspecified, uncomplicated; F17.200 Nicotine dependence, unspecified, uncomplicated; Z88.8 Allergy status to other drugs, medicaments and biological substances; Z91.041 Radiographic dye allergy status
CPT/HCPCS: 81001; 81025; 87491; 87591; 87808; 99283

== ENCOUNTER 2022-10-29 08:38 | Observation (INO) | payer OTHER ==
--- NOTE | 2022-10-29 10:32 | ED ---
General Adult HPI - General Chief complaint: Recheck/Abnormal Lab/Rx Stated complaint: Abn labs Time Seen by Provider: 10/29/22 09:51 Source: patient, RN notes reviewed, old records reviewed Mode of arrival: ambulatory Limitations: no limitations - History of Present Illness Initial comments: This is a 26-year-old female who comes in with chronic kidney disease. Patient states occasionally her potassium is low in today she feels as though her potassium was getting low and she has some tingling in her hands which is usually for symptoms. Patient denies any recent fever chills or cough per patient denies any chest pain or palpitation. Patient denies any difficulty breathing. Patient denies any abdominal pain patient denies nausea vomiting diarrhea - Related Data Home Medications Medication Instructions Recorded Confirmed Dextroamphetamine/Amphetamine 30 mg PO DAILY 07/03/21 10/29/22 [Adderall] Ergocalciferol [Vitamin D2 (1250 1,250 mcg PO WE 07/03/21 10/29/22 Mcg = 03397 Iu)] Magnesium Oxide [Magnesium] 500 mg PO BID 05/09/22 10/29/22 Potassium Chloride ER [K-Dur 20] 80 meq PO BID 10/29/22 10/29/22 aMILoride HCL 5 mg PO BID 10/29/22 10/29/22 Allergies Allergy/AdvReac Type Severity Reaction Status Date / Time risperidone [From Risperdal] AdvReac Mild MUSCLE Verified 10/29/22 10:45 SPASMS Iodinated Contrast Media AdvReac Nausea & Verified 10/29/22 10:45 Vomiting Review of Systems ROS Statement: Those systems with pertinent positive or pertinent negative responses have been documented in the HPI. ROS Other: All systems not noted in ROS Statement are negative. Past Medical History Past Medical History: Renal Disease Additional Past Medical History / Comment(s): Bartter syndrome ( low potassium), anxiety, bipolar, depression, ADHD, History of Any Multi-Drug Resistant Organisms: None Reported Past Surgical History: Tonsillectomy Additional Past Surgical History / Comment(s): wisdom teeth 2016, Past Anesthesia/Blood Transfusion Reactions: No Reported Reaction Past Psychological History: ADD/ADHD, Anxiety, Bipolar, Depression Smoking Status: Current every day smoker Past Alcohol Use History: Occasional Past Drug Use History: Marijuana - Past Family History Mother Additional Family Medical History / Comment(s): Mother is alive at age 40 with no major medical problems. Pt states Alzheimers and Bipolar disorder runs on her mother's side. Sister(s) Family Medical History: Diabetes Mellitus Additional Family Medical History / Comment(s): Patient has 4 half-sisters. Brother(s) Additional Family Medical History / Comment(s): Patient has 5 or 6 half-brothers with no major medical problems. Patient does not have any children. Father Additional Family Medical History / Comment(s): Father is alive at age 55 and patient has no contact with him as he is in detention. General Exam - General Exam Comments Initial Comments: GENERAL: Patient is well-developed and well-nourished. Patient is nontoxic and well- hydrated and is in no acute distress. ENT: Neck is soft and supple. No significant lymphadenopathy is noted. Oropharynx is clear. Moist mucous membranes. Neck has full range of motion without eliciting any pain. EYES: The sclera were anicteric and conjunctiva were pink and moist. Extraocular movements were intact and pupils were equal round and reactive to light. Eyelids were unremarkable. PULMONARY: Unlabored respirations. Good breath sounds bilaterally. No audible rales rhonchi or wheezing was noted. CARDIOVASCULAR: There is a regular rate and rhythm without any murmurs gallops or rubs. ABDOMEN: Soft and nontender with normal bowel sounds. SKIN: Skin is clear with no lesions or rashes and otherwise unremarkable. NEUROLOGIC: Patient is alert and oriented x3. Cranial nerves II through XII are grossly intact. Motor and sensory are also intact. Normal speech, volume and content. Symmetrical smile. MUSCULOSKELETAL: Normal extremities with adequate strength and full range of motion. No lower extremity swelling or edema. No calf tenderness. LYMPHATICS: No significant lymphadenopathy is noted PSYCHIATRIC: Normal psychiatric evaluation. Limitations: no limitations Course Vital Signs 10/29/22 08:39 Temperature 98.4 F Pulse Rate 66 Respiratory 18 Rate Blood Pressure 112/72 O2 Sat by Pulse 99 Oximetry Medical Decision Making - Medical Decision Making EKG as interpreted by myself shows a sinus bradycardia at 55 bpm MO interval 169 122 QTC Is 448 QTC Is 438. Patient's EKG Shows No ST Segment Elevation or Depression. Was pt. sent in by a medical professional or institution (, PA, CHIEF ORTHOPTIST, urgent care, hospital, or alf...) When possible be specific @ -No Did you speak to anyone other than the patient for history (EMS, parent, family, police, friend...)? What history was obtained from this source @ -No Did you review nursing and triage notes (agree or disagree)? Why? @ -I reviewed and agree with nursing and triage notes Were old charts reviewed (outside hosp., previous admission, EMS record, old EK G, old radiological studies, urgent care reports/EKG's, alf records)? Report findings @ -I reviewed prior laboratory values compared to today's results. Differential Diagnosis (chest pain, altered mental status, abdominal pain women, abdominal pain men, vaginal bleeding, weakness, fever, dyspnea, syncope, headache, dizziness, GI bleed, back pain, seizure, CVA, palpatations, mental health, musculoskeletal)? @ -Electrolyte abnormality, anxiety, musculoskeletal issue, this is not all inclusive list EKG interpreted by me (3pts min.). @ -As above X-rays interpreted by me (1pt min.). @ -None done CT interpreted by me (1pt min.). @ -None done U/S interpreted by me (1pt. min.). @ -None done What testing was considered but not performed or refused? (CT, X-rays, U/S, labs)? Why? @ -None What meds were considered but not given or refused? Why? @ -None Did you discuss the management of the patient with other professionals (professionals i.e. , PA, CHIEF ORTHOPTIST, lab, RT, psych nurse, social media intern, powerhouse oiler, teacher, investment officer, rifle case repairer)? Give summary @ -No Was smoking cessation discussed for >3mins.? @ -No Was critical care preformed (if so, how long)? @ -No Were there social determinants of health that impacted care today? How? (Homelessness, low income, unemployed, alcoholism, drug addiction, transportation, low edu. Level, literacy, decrease access to med. care, fdc, rehab)? @ -No Was there de-escalation of care discussed even if they declined (Discuss DNR or withdrawal of care, Hospice)? DNR status @ -No What co-morbidities impacted this encounter? (DM, HTN, Smoking, COPD, CAD, Cancer, CVA, ARF, Chemo, Hep., AIDS, mental health diagnosis, sleep apnea, morbid obesity)? @ -None Was patient admitted / discharged? Hospital course, mention meds given and route, prescriptions, significant lab abnormalities, going to OR and other pertinent info. @ -Patient will be admitted for hypokalemia I started to replace the potassium with IV potassium and oral potassium. Undiagnosed new problem with uncertain prognosis? @ -No Drug Therapy requiring intensive monitoring for toxicity (Heparin, Nitro, Insulin, Cardizem)? @ -No Were any procedures done? @ -No Diagnosis/symptom? @ -Hypokalemia Acute, or Chronic, or Acute on Chronic? @ -Acute on chronic Uncomplicated (without systemic symptoms) or Complicated (systemic symptoms)? @ -Complicated Side effects of treatment? @ -No Exacerbation, Progression, or Severe Exacerbation? @ -No Poses a threat to life or bodily function? How? (Chest pain, USA, MD, pneumonia, PE, COPD, DKA, ARF, appy, cholecystitis, CVA, Diverticulitis, Homicidal, Suicidal, threat to staff... and all critical care pts) @ -No - Lab Data Result diagrams: 10/29/22 10:22 10/29/22 10:22 Lab Results 10/29/22 10/29/22 Range/Units 10:22 10:22 WBC 11.1 H (3.8-10.6) k/uL RBC 4.99 (3.80-5.40) m/uL Hgb 14.8 (11.4-16.0) gm/dL Hct 42.4 (34.0-46.0) % MCV 85.0 (80.0-100.0) fL MCH 29.5 (25.0-35.0) pg MCHC 34.8 (31.0-37.0) g/dL RDW 13.7 (11.5-15.5) % Plt Count 369 (150-450) k/uL MPV 7.4 Neutrophils % 69 % Lymphocytes % 24 % Monocytes % 4 % Eosinophils % 2 % Basophils % 0 % Neutrophils # 7.6 (1.3-7.7) k/uL Lymphocytes # 2.6 (1.0-4.8) k/uL Monocytes # 0.5 (0-1.0) k/uL Eosinophils # 0.2 (0-0.7) k/uL Basophils # 0.0 (0-0.2) k/uL Sodium 139 (137-145) mmol/L Potassium 2.8 L (3.5-5.1) mmol/L Chloride 101 (98-107) mmol/L Carbon Dioxide 29 (22-30) mmol/L Anion Gap 9 mmol/L BUN 13 (7-17) mg/dL Creatinine 0.55 (0.52-1.04) mg/dL Est GFR (CKD-EPI)AfAm >90 (>60 ml/min/1.73 sqM) Est GFR (CKD-EPI)NonAf >90 (>60 ml/min/1.73 sqM) Glucose 110 H (74-99) mg/dL Calcium 9.6 (8.4-10.2) mg/dL Total Bilirubin 0.5 (0.2-1.3) mg/dL AST 23 (14-36) U/L ALT 22 (4-34) U/L Alkaline Phosphatase 61 (38-126) U/L Total Protein 8.4 H (6.3-8.2) g/dL Albumin 4.8 (3.5-5.0) g/dL Disposition Clinical Impression: Hypokalemia Disposition: ADMITTED IP TO THIS HOSP Referrals: Ugo Friedman DO [Primary Care Provider] - 1-2 days Time of Disposition: 11:35
[2022-10-29 10:51] LABS: Basophils % (A) 0 %; Eosinophils # (A) 0.2 k/uL (0-0.7); Eosinophils % (A) 2 %; HCT 42.4 % (34.0-46.0); HGB 14.8 gm/dL (11.4-16.0); Lymphocytes # (A) 2.6 k/uL (1.0-4.8); Lymphocytes % (A) 24 %; MCH 29.5 pg (25.0-35.0); MCHC 34.8 g/dL (31.0-37.0); Mean Platelet Volume 7.4; Monocytes # (A) 0.5 k/uL (0-1.0); Monocytes % (A) 4 %; Neutrophils # (A) 7.6 k/uL (1.3-7.7); Neutrophils % (A) 69 %; Platelet Count 369 k/uL (150-450); RBC 4.99 m/uL (3.80-5.40); RDW 13.7 % (11.5-15.5); WBC 11.1 k/uL (3.8-10.6)
[2022-10-29 11:00] LABS: ALT 22 U/L (4-34); African American GFR (CKD) >90 (>60 ml/min/1.73 sqM); Albumin 4.8 g/dL (3.5-5.0); Anion Gap 9 mmol/L; Blood Urea Nitrogen 13 mg/dL (7-17); Calcium 9.6 mg/dL (8.4-10.2); Carbon Dioxide 29 mmol/L (22-30); Chloride 101 mmol/L (98-107); Glucose 110 mg/dL (74-99); Non-African American GFR(CKD) >90 (>60 ml/min/1.73 sqM); Sodium 139 mmol/L (137-145); Total Bilirubin 0.5 mg/dL (0.2-1.3); Total Protein 8.4 g/dL (6.3-8.2)
[2022-10-29 11:02] LABS: AST 23 U/L (14-36); Alkaline Phosphatase 61 U/L (38-126); Potassium 2.8 mmol/L (3.5-5.1)
[2022-10-29] MEDS ORDERED: POTASSIUM CHLORIDE ER 20 MEQ TAB.ER PO STA (12:04)
[2022-10-29] MEDS ORDERED: POTASSIUM CHLORIDE 20 MEQ in WATER FOR INJECTION 1 100ML.BAG IVPB STA (12:04)
[2022-10-29] MEDS: MAGNESIUM OXIDE 400 MG TAB PO SCH (20:42)
[2022-10-29] MEDS: POTASSIUM CHLORIDE ER 20 MEQ TAB.ER PO SCH (20:43)
[2022-10-29] MEDS ORDERED: SPIRONOLACTONE 25 MG TAB PO SCH (21:00)
--- NOTE | 2022-10-29 21:28 | P.HPIM ---
History of Present Illness H&P Date: 10/29/22 Chief Complaint: Abnormal lab 26-year-old female who comes in with chronic kidney disease. Patient states occasionally her potassium is low in today she feels as though her potassium was getting low and she has some tingling in her hands which is usually for symptoms. Patient denies any recent fever chills or cough per patient denies any chest pain or palpitation. Patient denies any difficulty breathing. Patient denies any abdominal pain patient denies nausea vomiting diarrhea Not completed in ED reveals a WBC of 11.1, hemoglobin of 14.8 and platelet count of 369, sodium 139, potassium 2.8, BUN/creatinine of 13/0.55 and blood glucose of 110 Review of Systems REVIEW OF SYSTEMS: CONSTITUTIONAL: No fever, no malaise, no fatigue. HEENT: No recent visual problems or hearing problems. Denied any sore throat. CARDIOVASCULAR: No chest pain, orthopnea, PND, no palpitations, no syncope. PULMONARY: No shortness of breath, no cough, no hemoptysis. GASTROINTESTINAL: No diarrhea, no nausea, no vomiting, no abdominal pain. NEUROLOGICAL: No headaches, no weakness, no numbness. HEMATOLOGICAL: Denies any bleeding or petechiae. GENITOURINARY: Denies any burning micturition, frequency, or urgency. MUSCULOSKELETAL/RHEUMATOLOGICAL: Denies any joint pain, swelling, or any muscle pain. ENDOCRINE: Denies any polyuria or polydipsia. The rest of the 14-point review of systems is negative. Past Medical History Past Medical History: Renal Disease Additional Past Medical History / Comment(s): Bartter syndrome ( low potassium), anxiety, bipolar, depression, ADHD, History of Any Multi-Drug Resistant Organisms: None Reported Past Surgical History: Tonsillectomy Additional Past Surgical History / Comment(s): wisdom teeth 2016, Past Anesthesia/Blood Transfusion Reactions: No Reported Reaction Past Psychological History: ADD/ADHD, Anxiety, Bipolar, Depression Smoking Status: Current every day smoker Past Alcohol Use History: Occasional Past Drug Use History: Marijuana - Past Family History Mother Additional Family Medical History / Comment(s): Mother is alive at age 40 with n o major medical problems. Pt states Alzheimers and Bipolar disorder runs on her mother's side. Sister(s) Family Medical History: Diabetes Mellitus Additional Family Medical History / Comment(s): Patient has 4 half-sisters. Brother(s) Additional Family Medical History / Comment(s): Patient has 5 or 6 half-brothers with no major medical problems. Patient does not have any children. Father Additional Family Medical History / Comment(s): Father is alive at age 55 and patient has no contact with him as he is in retirement. Medications and Allergies Home Medications Medication Instructions Recorded Confirmed Type Dextroamphetamine/Amphetamine 30 mg PO DAILY 07/03/21 10/29/22 History [Adderall] Ergocalciferol [Vitamin D2 (1250 1,250 mcg PO WE 07/03/21 10/29/22 History Mcg = 05992 Iu)] Magnesium Oxide [Magnesium] 500 mg PO BID 05/09/22 10/29/22 History Potassium Chloride ER [K-Dur 20] 80 meq PO BID 10/29/22 10/29/22 History aMILoride HCL 5 mg PO BID 10/29/22 10/29/22 History Allergies Allergy/AdvReac Type Severity Reaction Status Date / Time risperidone [From Risperdal] AdvReac Mild MUSCLE Verified 10/29/22 10:45 SPASMS Iodinated Contrast Media AdvReac Nausea & Verified 10/29/22 10:45 Vomiting Physical Exam Vitals: Vital Signs Temp Pulse Resp BP Pulse Ox 10/29/22 12:37 97.8 F 62 20 116/70 99 10/29/22 08:39 98.4 F 66 18 112/72 99 Intake and Output 10/28/22 10/29/22 10/29/22 22:59 06:59 14:59 Other: Weight 105.233 kg PHYSICAL EXAMINATION: GENERAL: The patient is alert and oriented x3, not in any acute distress. Well developed, well nourished. HEENT: Pupils are round and equally reacting to light. EOMI. No scleral icterus. No conjunctival pallor. Normocephalic, atraumatic. No pharyngeal erythema. No thyromegaly. CARDIOVASCULAR: S1 and S2 present. No murmurs, rubs, or gallops. PULMONARY: Chest is clear to auscultation, no wheezing or crackles. ABDOMEN: Soft, nontender, nondistended, normoactive bowel sounds. No palpable organomegaly. MUSCULOSKELETAL: No joint swelling or deformity. EXTREMITIES: No cyanosis, clubbing, or pedal edema. NEUROLOGICAL: Gross neurological examination did not reveal any focal deficits. SKIN: No rashes. Results CBC & Chem 7: 10/29/22 10:22 10/29/22 10:22 Labs: Abnormal Lab Results - Last 24 Hours (Table) 10/29/22 10/29/22 Range/Units 10:22 10:22 WBC 11.1 H (3.8-10.6) k/uL Potassium 2.8 L (3.5-5.1) mmol/L Glucose 110 H (74-99) mg/dL Total Protein 8.4 H (6.3-8.2) g/dL Assessment and Plan Assessment: 1. Critical hypokalemia; history of Bartter syndrome - Patient did receive potassium supplementation in ED we will monitor potassium levels closely; Further recommendations pending potassium levels - We will continue with home dose of amiloride 5 mg twice a day to conservative potassium - Consult nephrology 2. Anxiety/depression/bipolar disorder/ADHD; Adderall 30 mg daily 3. Hypomagnesemia ; continue with magnesium oxide 500 mg twice a day 4. Vitamin D deficiency; continue current supplementation DVT prophylaxis; SCDs CODE STATUS; full code
--- NOTE | 2022-10-30 08:38 | P.NPCON ---
History of Present Illness - Reason for Consult hypokalemia - History of Present Illness Reason for consultation: Hypokalemia History of present illness: Patient is a 26-year-old female seen in renal consultation for hypokalemia. Patient has history of Bartter's syndrome and is maintained on oral potassium supplementation as well as spironolactone outpatient. Patient states that a week ago she noticed mild cramping in her lower 70s. Patient states subsequently she forgot to take her potassium supplements for about 3 days. The cramping got worse and she was concerned about low potassium level and came to the hospital. Potassium level was 2.8 and has been replaced. Hold potassium supplementation as well as spironolactone have been resumed. Morning labs are pending. No further cramping. Denies chest pain or shortness of breath. No hematuria. No fever or chills. No vomiting or diarrhea. Vital signs are stable. General: No acute distress. HEENT: Head exam is unremarkable. LUNGS: Breath sounds decreased. HEART: Rate and Rhythm are regular. ABDOMEN: Soft, no distention. EXTREMITITES: No edema. Past Medical History Past Medical History: Renal Disease Additional Past Medical History / Comment(s): Bartter syndrome ( low potassium), anxiety, bipolar, depression, ADHD, History of Any Multi-Drug Resistant Organisms: None Reported Past Surgical History: Tonsillectomy Additional Past Surgical History / Comment(s): wisdom teeth 2016, Past Anesthesia/Blood Transfusion Reactions: No Reported Reaction Past Psychological History: ADD/ADHD, Anxiety, Bipolar, Depression Smoking Status: Current every day smoker Past Alcohol Use History: Occasional Past Drug Use History: Marijuana - Past Family History Mother Additional Family Medical History / Comment(s): Mother is alive at age 40 with no major medical problems. Pt states Alzheimers and Bipolar disorder runs on her mother's side. Sister(s) Family Medical History: Diabetes Mellitus Additional Family Medical History / Comment(s): Patient has 4 half-sisters. Brother(s) Additional Family Medical History / Comment(s): Patient has 5 or 6 half-brothers with no major medical problems. Patient does not have any children. Father Additional Family Medical History / Comment(s): Father is alive at age 55 and patient has no contact with him as he is in fpc. Medications and Allergies Home Medications Medication Instructions Recorded Confirmed Type Dextroamphetamine/Amphetamine 30 mg PO DAILY 07/03/21 10/29/22 History [Adderall] Ergocalciferol [Vitamin D2 (1250 1,250 mcg PO WE 07/03/21 10/29/22 History Mcg = 84376 Iu)] Magnesium Oxide [Magnesium] 500 mg PO BID 05/09/22 10/29/22 History Potassium Chloride ER [K-Dur 20] 80 meq PO BID 10/29/22 10/29/22 History aMILoride HCL 5 mg PO BID 10/29/22 10/29/22 History Allergies Allergy/AdvReac Type Severity Reaction Status Date / Time risperidone [From Risperdal] AdvReac Mild MUSCLE Verified 10/29/22 10:45 SPASMS Iodinated Contrast Media AdvReac Nausea & Verified 10/29/22 10:45 Vomiting Physical Exam Vitals: Vital Signs Temp Pulse Pulse Resp BP BP Pulse Ox 10/30/22 08:00 97.9 F 58 L 16 96/64 97 10/30/22 01:51 98.1 F 55 L 18 108/70 99 10/29/22 21:15 98.3 F 56 L 17 99/64 98 10/29/22 20:09 98.0 F 67 20 122/69 99 10/29/22 18:30 97.8 F 62 16 120/70 99 10/29/22 15:30 98.0 F 65 18 117/68 99 10/29/22 12:37 97.8 F 62 20 116/70 99 10/29/22 08:39 98.4 F 66 18 112/72 99 Intake and Output 10/29/22 10/30/22 10/30/22 22:59 06:59 14:59 Intake Total 700 Balance 700 Intake: Oral 700 Other: Voiding Method Toilet # Voids 2 Weight 105.233 kg Results - Lab Results Most recent lab results Calcium 9.6 mg/dL (8.4-10.2) 10/29/22 10:22 Magnesium 1.9 mg/dL (1.5-2.4) 10/29/22 17:57 10/29/22 10:22 10/29/22 10:22 Assessment and Plan Plan: Assessment: 1. 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 Patient missed multiple doses of potassium supplementation at home. Magnesium normal. 2. Bartter syndrome. Maintained on potassium supplementation as well as spironolactone outpatient. Plan: Continue with home dose potassium supplementation and spironolactone. Follow-up morning labs. If electrolytes are stable, okay to be discharged home from nephrology standpoint. Stress compliance with taking medications at home. Thank you for the consultation. I will continue to follow the patient with you during her hospital stay.
[2022-10-30 09:06] LABS: African American GFR (CKD) 147.9 (60.0-200.0); BUN/Creat Ratio 18.5 Ratio (12.00-20.00); Blood Urea Nitrogen 11.1 mg/dL (9.0-27.0); Calcium 9.2 mg/dL (8.7-10.3); Non-African American GFR(CKD) 127.6 (60.0-200.0); Potassium 2.9 mmol/L (3.5-5.5)
[2022-10-30] MEDS: (Dextroamphetamine/Amphetamine [Adderall] 30 MG Tablet) PO SCH (09:31)
[2022-10-30] MEDS: MAGNESIUM OXIDE 400 MG TAB PO SCH ×2 (09:34→20:36)
[2022-10-30] MEDS: SPIRONOLACTONE 25 MG TAB PO SCH ×2 (09:34→20:37)
[2022-10-30] MEDS: POTASSIUM CHLORIDE ER 20 MEQ TAB.ER PO SCH ×2 (09:34→20:36)
[2022-10-30] MEDS ORDERED: POTASSIUM CHLORIDE ER 20 MEQ TAB.ER PO STA (11:35)
[2022-10-31 07:37] VITALS: RESP 16
[2022-10-31] MEDS: (Dextroamphetamine/Amphetamine [Adderall] 30 MG Tablet) PO SCH (08:54)
[2022-10-31] MEDS: SPIRONOLACTONE 25 MG TAB PO SCH ×2 (08:54→20:05)
[2022-10-31] MEDS: POTASSIUM CHLORIDE ER 20 MEQ TAB.ER PO SCH ×2 (08:58→20:06)
[2022-10-31] MEDS: MAGNESIUM OXIDE 400 MG TAB PO SCH ×2 (08:58→20:05)
[2022-10-31 10:15] LABS: African American GFR (CKD) >90 (>60 ml/min/1.73 sqM); Anion Gap 5 mmol/L; Blood Urea Nitrogen 11 mg/dL (7-17); Calcium 9.1 mg/dL (8.4-10.2); Carbon Dioxide 29 mmol/L (22-30); Chloride 103 mmol/L (98-107); Glucose 110 mg/dL (74-99); Non-African American GFR(CKD) >90 (>60 ml/min/1.73 sqM); Potassium 3.4 mmol/L (3.5-5.1); Sodium 137 mmol/L (137-145)
[2022-10-31] MEDS ORDERED: POTASSIUM CHLORIDE ER 20 MEQ TAB.ER PO STA (11:01)
--- NOTE | 2022-10-31 11:02 | P.PN ---
Subjective Patient is seen in follow-up for hypokalemia. Potassium level III.4 today. Maintain on Aldactone and potassium supplementation. Resting in bed. No active complaints. Vital signs are stable. General: The patient appeared well nourished and normally developed. HEENT: Head exam is unremarkable. LUNGS: Breath sounds decreased. HEART: Rate and Rhythm are regular. ABDOMEN: Soft, no distention. EXTREMITITES: No clubbing, cyanosis, or edema. Objective - Vital Signs Vital signs: Vital Signs Temp 97.7 F 10/31/22 07:36 Pulse 63 10/31/22 07:36 Resp 16 10/31/22 07:36 BP 95/63 10/31/22 07:36 Pulse Ox 99 10/31/22 07:36 FiO2 Intake & Output 10/30/22 10/31/22 10/31/22 18:59 06:59 18:59 Intake Total 354 1000 240 Balance 354 1000 240 Intake: Oral 354 1000 240 Other: Voiding Method Toilet # Voids 1 2 - Labs CBC & Chem 7: 10/29/22 10:22 10/31/22 09:47 Labs: Abnormal Lab Results - Last 24 Hours (Table) 10/31/22 Range/Units 09:47 Potassium 3.4 L (3.5-5.1) mmol/L Glucose 110 H (74-99) mg/dL Assessment and Plan Plan: Assessment: 1. 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 Patient missed multiple doses of potassium supplementation at home. Magnesium normal. 2. Bartter syndrome. Maintained on potassium supplementation as well as spironolactone outpatient. Plan: Continue with home dose potassium supplementation and spironolactone. Additional 40 mEq of potassium today. Stress compliance with taking medications at home. Repeat BMP and magnesium level 2-3 days postdischarge. Follow up outpatient in 1 week.
--- NOTE | 2022-10-31 15:17 | P.PN ---
Subjective Progress Note Date: 10/30/22 26-year-old female who comes in with chronic kidney disease. Patient states occasionally her potassium is low in today she feels as though her potassium was getting low and she has some tingling in her hands which is usually for symptoms. Patient denies any recent fever chills or cough per patient denies any chest pain or palpitation. Patient denies any difficulty breathing. Patient denies any abdominal pain patient denies nausea vomiting diarrhea Not completed in ED reveals a WBC of 11.1, hemoglobin of 14.8 and platelet count of 369, sodium 139, potassium 2.8, BUN/creatinine of 13/0.55 and blood glucose of 110 Continue with home dose potassium supplementation and spironolactone. If electrolytes are stable, okay to be discharged home from nephrology standpoint in next 24 hours Objective - Vital Signs Vital signs: Vital Signs Temp 97.9 F 10/30/22 08:00 Pulse 58 L 10/30/22 08:00 Resp 16 10/30/22 08:00 BP 96/64 10/30/22 08:00 Pulse Ox 97 10/30/22 08:00 FiO2 Intake & Output 10/29/22 10/30/22 10/30/22 18:59 06:59 18:59 Intake Total 700 236 Balance 700 236 Weight 105.233 kg 105.233 kg Intake: Oral 700 236 Other: Voiding Method Toilet # Voids 2 - Exam GENERAL: The patient is alert and oriented x3, not in any acute distress. Well developed, well nourished. HEENT: Pupils are round and equally reacting to light. EOMI. No scleral icterus. No conjunctival pallor. Normocephalic, atraumatic. No pharyngeal erythema. No thyromegaly. CARDIOVASCULAR: S1 and S2 present. No murmurs, rubs, or gallops. PULMONARY: Chest is clear to auscultation, no wheezing or crackles. ABDOMEN: Soft, nontender, nondistended, normoactive bowel sounds. No palpable organomegaly. MUSCULOSKELETAL: No joint swelling or deformity. EXTREMITIES: No cyanosis, clubbing, or pedal edema. NEUROLOGICAL: Gross neurological examination did not reveal any focal deficits. SKIN: No rashes. - Labs CBC & Chem 7: 10/29/22 10:22 10/31/22 09:47 Labs: Abnormal Lab Results - Last 24 Hours (Table) 10/30/22 Range/Units 04:33 Potassium 2.9 L (3.5-5.5) mmol/L Carbon Dioxide 29.0 H (20.0-27.5) mmol/L Anion Gap 9.00 L (10.00-18.00) mmol/L Assessment and Plan Assessment: 1. Critical hypokalemia; history of Bartter syndrome - Patient did receive potassium supplementation in ED we will monitor potassium levels closely; Further recommendations pending potassium levels - We will continue with home dose of amiloride 5 mg twice a day to conservative potassium - Consult nephrology 2. Anxiety/depression/bipolar disorder/ADHD; Adderall 30 mg daily 3. Hypomagnesemia ; continue with magnesium oxide 500 mg twice a day 4. Vitamin D deficiency; continue current supplementation DVT prophylaxis; SCDs CODE STATUS; full code
--- NOTE | 2022-10-31 15:22 | P.DS ---
Providers Date of admission: 10/29/22 12:01 Expected date of discharge: 10/31/22 Attending physician: Khoi Kirby MD Consults: 10/29/22 12:01 Consult Physician Urgent Consulting Provider: Ab Valentino Consult Reason/Comments: Hypokalemia Do you want consulting provider notified?: Yes Primary care physician: [facility] Course: 26-year-old female who comes in with chronic kidney disease. Patient states occasionally her potassium is low in today she feels as though her potassium was getting low and she has some tingling in her hands which is usually for symptoms. Patient denies any recent fever chills or cough per patient denies any chest pain or palpitation. Patient denies any difficulty breathing. Patient denies any abdominal pain patient denies nausea vomiting diarrhea Not completed in ED reveals a WBC of 11.1, hemoglobin of 14.8 and platelet count of 369, sodium 139, potassium 2.8, BUN/creatinine of 13/0.55 and blood glucose of 110 1. Critical hypokalemia; history of Bartter syndrome - Patient did receive potassium supplementation in ED we will monitor potassium levels closely; Further recommendations pending potassium levels - We will continue with home dose of amiloride 5 mg twice a day to conservative potassium - Consult nephrology 2. Anxiety/depression/bipolar disorder/ADHD; Adderall 30 mg daily 3. Hypomagnesemia ; continue with magnesium oxide 500 mg twice a day 4. Vitamin D deficiency; continue current supplementation Nephrology evaluated patient and recommended to Maintain on Aldactone and potassium supplementation Plan - Discharge Summary New Discharge Prescriptions: No Action Dextroamphetamine/Amphetamine [Adderall] 30 mg PO DAILY aMILoride HCL 5 mg PO BID Ergocalciferol [Vitamin D2 (1250 Mcg = 52633 Iu)] 1,250 mcg PO WE Magnesium Oxide [Magnesium] 500 mg PO BID Potassium Chloride ER [K-Dur 20] 80 meq PO BID Discharge Medication List Dextroamphetamine/Amphetamine [Adderall] 30 mg PO DAILY 07/03/21 [History] Ergocalciferol [Vitamin D2 (1250 Mcg = 76006 Iu)] 1,250 mcg PO WE 07/03/21 [History] Magnesium Oxide [Magnesium] 500 mg PO BID 05/09/22 [History] Potassium Chloride ER [K-Dur 20] 80 meq PO BID 10/29/22 [History] aMILoride HCL 5 mg PO BID 10/29/22 [History] Follow up Appointment(s)/Referral(s): Ugo Friedman DO [Primary Care Provider] - 1-2 days
[2022-11-01 01:26] VITALS: TEMP 97.7
[2022-11-01] MEDS: POTASSIUM CHLORIDE ER 20 MEQ TAB.ER PO SCH (08:07)
[2022-11-01] MEDS: MAGNESIUM OXIDE 400 MG TAB PO SCH (08:07)
[2022-11-01] MEDS: SPIRONOLACTONE 25 MG TAB PO SCH (08:07)
[2022-11-01] MEDS: (Dextroamphetamine/Amphetamine [Adderall] 30 MG Tablet) PO SCH (08:11)
[2022-11-01 09:22] VITALS: BP 93/60; PULSE 52
--- NOTE | 2022-11-01 11:07 | P.PN ---
Subjective Patient is seen in follow-up for hypokalemia. Potassium level 3.4 yesterday. Maintain on Aldactone and potassium supplementation. Resting in bed. No active complaints. Vital signs are stable. General: No acute distress. HEENT: Head exam is unremarkable. LUNGS: Breath sounds decreased. HEART: Rate and Rhythm are regular. ABDOMEN: Soft, no distention. EXTREMITITES: No edema. Objective - Vital Signs Vital signs: Vital Signs Temp 97.7 F 11/01/22 07:35 Pulse 52 L 11/01/22 07:35 Resp 16 11/01/22 07:35 BP 93/60 11/01/22 07:35 Pulse Ox 98 11/01/22 07:35 FiO2 Intake & Output 10/31/22 11/01/22 11/01/22 18:59 06:59 18:59 Intake Total 476 Balance 476 Intake: Oral 476 Other: Voiding Method Toilet # Voids 2 2 - Labs CBC & Chem 7: 10/29/22 10:22 10/31/22 09:47 Assessment and Plan Plan: Assessment: 1. 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 Patient missed multiple doses of potassium supplementation at home. Magnesium normal. 2. Bartter syndrome. Maintained on potassium supplementation as well as garima nolactone outpatient. Plan: Continue with home dose potassium supplementation and spironolactone. Additional dose of potassium supplementation given last 2 days. Stress compliance with taking medications at home. Repeat BMP and magnesium level 2-3 days postdischarge. Follow up outpatient in 1 week.
--- NOTE | 2022-11-02 22:52 | P.DS ---
Providers Date of admission: 10/29/22 12:01 Attending physician: Khoi Kirby MD Consults: 10/29/22 12:01 Consult Physician Urgent Consulting Provider: Ab Valentino Consult Reason/Comments: Hypokalemia Do you want consulting provider notified?: Yes Primary care physician: [facility] Course: Final Diagnosis Critical Hypokalemia and history of Bartter syndrome with noncompliance to oral potassium Anxiety/Depression/Bipolar/ADHD Hypomagnesemia Vitamin D deficiency Obesity Marijuana use Discharge Disposition Patient is stable for discharge home has been cleared by nephrology services. Patient has received potassium and magnesium supplementation. Educated on importance of adhering to medication regimen. Continue same home medications and follow up with PCP in 1 to 2 days. Patient is given script for repeat BMP and magnesium in 2 to 3 days. Hospital Course This is a pleasant 26 year old female with medical history of Bartter syndrome, ADHD. Patient is maintained on amiloride 5 mg BID, aldactone 25 mg daily along with oral potassium and magnesium supplementation. Patient has history of medication noncompliance. Patient states occasionally her potassium is low in today she feels as though her potassium was getting low and she has some tingling in her hands which is usually for symptoms. Patient denies any recent fever chills or cough per patient denies any chest pain or palpitation. Patient denies any difficulty breathing. Patient denies any abdominal pain patient denies nausea vomiting diarrhea. Aork up completed in ED reveals a WBC of 11.1, hemoglobin of 14.8 and platelet count of 369, sodium 139, potassium 2.8, BUN/creatinine of 13/0.55 and blood glucose of 110. Potassium was replaced with IV and PO medication and level has increased to 3.8. Patient was also evaluated by nephrology. Patient will be discharged home to follow up with PCP. 11/01/2022 Patient is evaluated resting in bed. No acute complaints overnight. No chest pain, no shortness of breath. Lungs are clear, S1 S2 auscultated. Abdomen is soft and nontender. Alert x 3 focal neurological exam is negative. Symptoms of tingling in hands has resolved. Patient will be discharged home today to continue on same home medication. Potassium level today has improved up to 3.8. Kidney function stable. Please see medication reconciliation for a list of current medication. Thank you for allowing us to participate in the care of this patient. The impression and plan of care has been dictated by Queta Jones Nurse Practitioner as directed. Dr. Marva MD I have performed a history and physical examination and medical decision making of this patient, discussed the same with the dictator, and agree with the dictators assessment and plan as written, documented as a scribe. Based on total visit time, I have performed more than 50% of this visit. Patient Condition at Discharge: Stable Plan - Discharge Summary New Discharge Prescriptions: Continue Dextroamphetamine/Amphetamine [Adderall] 30 mg PO DAILY aMILoride HCL 5 mg PO BID Ergocalciferol [Vitamin D2 (1250 Mcg = 51675 Iu)] 1,250 mcg PO WE Magnesium Oxide [Magnesium] 500 mg PO BID Potassium Chloride ER [K-Dur 20] 80 meq PO BID Discharge Medication List Dextroamphetamine/Amphetamine [Adderall] 30 mg PO DAILY 07/03/21 [History] Ergocalciferol [Vitamin D2 (1250 Mcg = 14419 Iu)] 1,250 mcg PO WE 07/03/21 [History] Magnesium Oxide [Magnesium] 500 mg PO BID 05/09/22 [History] Potassium Chloride ER [K-Dur 20] 80 meq PO BID 10/29/22 [History] aMILoride HCL 5 mg PO BID 10/29/22 [History] Follow up Appointment(s)/Referral(s): Ugo Friedman DO [Primary Care Provider] - 1-2 days Ab Valentino DO [STAFF PHYSICIAN] - 1 Week Ambulatory/Diagnostic Orders: Basic Metabolic Panel [LAB.AMB] Time Frame: 3 Days, Location: None Selected Magnesium [LAB.AMB] Time Frame: 3 Days, Location: None Selected Patient Instructions/Handouts: Hypokalemia (DC) Activity/Diet/Wound Care/Special Instructions: Continue to take home medications as prescribed and ensure to not miss dosing of potassium and magnesium supplement. Repeat labs in 2 to 3 days. Follow up with PCP in 1 to 2 days and follow up with Dr. Valentino. Discharge Disposition: HOME SELF-CARE
[2022-11-03] MEDS ORDERED: ERGOCALCIFEROL 1,250 MCG (50,000 IU) CAPSULE PO SCH (20:00)
== END 2022-11-01 12:13 | disposition home or self-care (01) ==
LOC: EC 08:38 → INTOOBSV 12:01 → 5NMEDONC 12:01 → 6NMEDSUR 17:03 → UNDODISIN 11-01 12:17
PROVIDERS: ADMIT Internal Medicine; ATTEND Internal Medicine
DX: E87.6 Hypokalemia (principal); E26.81 Bartter's syndrome; N18.9 Chronic kidney disease, unspecified; T50.2X6A Underdosing of carbonic-anhydrase inhibitors, benzothiadiazides and other diuretics, initial encounter; Z91.128 Patient's intentional underdosing of medication regimen for other reason; E83.42 Hypomagnesemia; R00.1 Bradycardia, unspecified; F31.9 Bipolar disorder, unspecified; F90.9 Attention-deficit hyperactivity disorder, unspecified type; F41.9 Anxiety disorder, unspecified; E66.9 Obesity, unspecified; Z68.36 Body mass index [BMI] 36.0-36.9, adult; F17.200 Nicotine dependence, unspecified, uncomplicated; Z79.899 Other long term (current) drug therapy; Z91.041 Radiographic dye allergy status; Z88.8 Allergy status to other drugs, medicaments and biological substances; Z98.890 Other specified postprocedural states; Z98.818 Other dental procedure status; Z83.3 Family history of diabetes mellitus; Z82.0 Family history of epilepsy and other diseases of the nervous system; Z81.8 Family history of other mental and behavioral disorders
CPT/HCPCS: 96365; 96366; 99285; 36415; 93005; 80053; 80048 ×2; 83735 ×2; 84132; 85025; G0378 ×5; J3480

== ENCOUNTER 2022-11-24 14:01 | Emergency (ER) | payer OTHER ==
[2022-11-24 15:09] LABS: Basophils # (A) 0.1 k/uL (0-0.2); Basophils % (A) 1 %; Eosinophils # (A) 0.1 k/uL (0-0.7); Eosinophils % (A) 2 %; HCT 45.2 % (34.0-46.0); HGB 15.4 gm/dL (11.4-16.0); Lymphocytes # (A) 1.9 k/uL (1.0-4.8); Lymphocytes % (A) 23 %; MCH 29.7 pg (25.0-35.0); MCV 87.4 fL (80.0-100.0); Mean Platelet Volume 7.8; Monocytes # (A) 0.3 k/uL (0-1.0); Monocytes % (A) 4 %; Neutrophils # (A) 5.7 k/uL (1.3-7.7); Neutrophils % (A) 69 %; Platelet Count 323 k/uL (150-450); RBC 5.17 m/uL (3.80-5.40); RDW 13.3 % (11.5-15.5); WBC 8.2 k/uL (3.8-10.6)
[2022-11-24 15:35] LABS: ALT 27 U/L (4-34); AST 20 U/L (14-36); African American GFR (CKD) >90 (>60 ml/min/1.73 sqM); Albumin 4.8 g/dL (3.5-5.0); Alkaline Phosphatase 61 U/L (38-126); Anion Gap 8 mmol/L; Blood Urea Nitrogen 8 mg/dL (7-17); Calcium 9.5 mg/dL (8.4-10.2); Carbon Dioxide 30 mmol/L (22-30); Chloride 101 mmol/L (98-107); Glucose 95 mg/dL (74-99); Non-African American GFR(CKD) >90 (>60 ml/min/1.73 sqM); Potassium 3.1 mmol/L (3.5-5.1); Sodium 139 mmol/L (137-145); Total Bilirubin 0.5 mg/dL (0.2-1.3); Total Protein 8.1 g/dL (6.3-8.2)
[2022-11-24 16:11] VITALS: BP 109/78; PULSE 70; RESP 16; TEMP 98.6
--- NOTE | 2022-11-24 16:40 | ED ---
General Adult HPI - General Chief complaint: Recheck/Abnormal Lab/Rx Stated complaint: Recheck Time Seen by Provider: 11/24/22 14:17 Source: patient, RN notes reviewed Mode of arrival: ambulatory Limitations: no limitations - History of Present Illness Initial comments: 26-year-old female presents emergency Department with chief complaint of low potassium. Patient states she has underlying renal disease causing hypokalemia. This is a recurrent issue she states her potassium was in the low twos. Patient states she takes 160 milliequivalents daily. Patient has no symptoms denies chest pain shortness breath headache dizziness no other associated s ymptoms. - Related Data Home Medications Medication Instructions Recorded Confirmed Dextroamphetamine/Amphetamine 30 mg PO DAILY 07/03/21 11/24/22 [Adderall] Ergocalciferol [Vitamin D2 (1250 1,250 mcg PO WE 07/03/21 11/24/22 Mcg = 13922 Iu)] Magnesium Oxide [Magnesium] 500 mg PO BID 05/09/22 11/24/22 Potassium Chloride ER [K-Dur 20] 80 meq PO BID 10/29/22 11/24/22 aMILoride HCL 5 mg PO BID 10/29/22 11/24/22 Allergies Allergy/AdvReac Type Severity Reaction Status Date / Time risperidone [From Risperdal] AdvReac Mild MUSCLE Verified 11/24/22 16:42 SPASMS Iodinated Contrast Media AdvReac Nausea & Verified 11/24/22 16:42 Vomiting Review of Systems ROS Statement: Those systems with pertinent positive or pertinent negative responses have been documented in the HPI. ROS Other: All systems not noted in ROS Statement are negative. Past Medical History Past Medical History: Renal Disease Additional Past Medical History / Comment(s): Bartter syndrome ( low potassium), anxiety, bipolar, depression, ADHD, History of Any Multi-Drug Resistant Organisms: None Reported Past Surgical History: Tonsillectomy Additional Past Surgical History / Comment(s): wisdom teeth 2016, Past Anesthesia/Blood Transfusion Reactions: No Reported Reaction Past Psychological History: ADD/ADHD, Anxiety, Bipolar, Depression Smoking Status: Current every day smoker Past Alcohol Use History: Occasional Past Drug Use History: Marijuana - Past Family History Mother Additional Family Medical History / Comment(s): Mother is alive at age 40 with no major medical problems. Pt states Alzheimers and Bipolar disorder runs on her mother's side. Sister(s) Family Medical History: Diabetes Mellitus Additional Family Medical History / Comment(s): Patient has 4 half-sisters. Brother(s) Additional Family Medical History / Comment(s): Patient has 5 or 6 half-brothers with no major medical problems. Patient does not have any children. Father Additional Family Medical History / Comment(s): Father is alive at age 55 and patient has no contact with him as he is in [facility]. General Exam Limitations: no limitations General appearance: alert, in no apparent distress Head exam: Present: atraumatic, normocephalic, normal inspection Eye exam: Present: normal appearance, PERRL, EOMI. Absent: scleral icterus, conjunctival injection, periorbital swelling ENT exam: Present: normal exam, normal oropharynx, mucous membranes moist Neck exam: Present: normal inspection, full ROM. Absent: tenderness, meningismus, lymphadenopathy Respiratory exam: Present: normal lung sounds bilaterally. Absent: respiratory distress, wheezes, rales, rhonchi, stridor Cardiovascular Exam: Present: regular rate, normal rhythm, normal heart sounds. Absent: systolic murmur, diastolic murmur, rubs, gallop, clicks GI/Abdominal exam: Present: soft, normal bowel sounds. Absent: distended, tenderness, guarding, rebound, rigid Course Vital Signs 11/24/22 11/24/22 11/24/22 14:08 14:50 15:00 Temperature 98.5 F Pulse Rate 61 64 63 Respiratory 20 Rate Blood Pressure 97/50 O2 Sat by Pulse 100 Oximetry 11/24/22 16:00 Temperature 98.6 F Pulse Rate 70 Respiratory 16 Rate Blood Pressure 109/78 O2 Sat by Pulse 98 Oximetry Medical Decision Making - Medical Decision Making Was pt. sent in by a medical professional or institution (, PA, GEAR LAPPING MACHINE OPERATOR, urgent care, hospital, or shelter...) When possible be specific @ -No Did you speak to anyone other than the patient for history (EMS, parent, family, police, friend...)? What history was obtained from this source @ -No Did you review nursing and triage notes (agree or disagree)? Why? @ -I reviewed and agree with nursing and triage notes Were old charts reviewed (outside hosp., previous admission, EMS record, old EKG, old radiological studies, urgent care reports/EKG's, shelter records)? Report findings @ -No old charts were reviewed Differential Diagnosis (chest pain, altered mental status, abdominal pain women, abdominal pain men, vaginal bleeding, weakness, fever, dyspnea, syncope, headache, dizziness, GI bleed, back pain, seizure, CVA, palpatations, mental health, musculoskeletal)? @ -Hypokalemia EKG interpreted by me (3pts min.). @ -None X-rays interpreted by me (1pt min.). @ -None done CT interpreted by me (1pt min.). @ -None done U/S interpreted by me (1pt. min.). @ -None done What testing was considered but not performed or refused? (CT, X-rays, U/S, labs)? Why? @ -None What meds were considered but not given or refused? Why? @ -None Did you discuss the management of the patient with other professionals (professionals i.e. , PA, GEAR LAPPING MACHINE OPERATOR, lab, RT, psych nurse, social work manager, probate lawyer, teacher, philanthropy officer, leather case finisher)? Give summary @ -No Was smoking cessation discussed for >3mins.? @ -No Was critical care preformed (if so, how long)? @ -No Were there social determinants of health that impacted care today? How? (Homele ssness, low income, unemployed, alcoholism, drug addiction, transportation, low edu. Level, literacy, decrease access to med. care, nursing home, rehab)? @ -No Was there de-escalation of care discussed even if they declined (Discuss DNR or withdrawal of care, Hospice)? DNR status @ -No What co-morbidities impacted this encounter? (DM, HTN, Smoking, COPD, CAD, Cancer, CVA, ARF, Chemo, Hep., AIDS, mental health diagnosis, sleep apnea, morbid obesity)? @ -None Was patient admitted / discharged? Hospital course, mention meds given and route, prescriptions, significant lab abnormalities, going to OR and other pertinent info. @ -Discharged patient's potassium is improved at 3.1. Patient is asymptomatic. Patient continue her extra dose. Return parameters were discussed. Undiagnosed new problem with uncertain prognosis? @ -No Drug Therapy requiring intensive monitoring for toxicity (Heparin, Nitro, Insulin, Cardizem)? @ -No Were any procedures done? @ -No Diagnosis/symptom? @ -Hypokalemia Acute, or Chronic, or Acute on Chronic? @ -Acute on chronic] Uncomplicated (without systemic symptoms) or Complicated (systemic symptoms)? @ -Uncomplicated Side effects of treatment? @ -No Exacerbation, Progression, or Severe Exacerbation? @ -No Poses a threat to life or bodily function? How? (Chest pain, USA, [place], pneumonia, PE, COPD, DKA, ARF, appy, cholecystitis, CVA, Diverticulitis, Homicidal, Suicidal, threat to staff... and all critical care pts) @ -No - Lab Data Result diagrams: 11/24/22 15:02 11/24/22 15:02 Lab Results 11/24/22 11/24/22 Range/Units 15: 15:02 WBC 8.2 (3.8-10.6) k/uL RBC 5.17 (3.80-5.40) m/uL Hgb 15.4 (11.4-16.0) gm/dL Hct 45.2 (34.0-46.0) % MCV 87.4 (80.0-100.0) fL MCH 29.7 (25.0-35.0) pg MCHC 34.0 (31.0-37.0) g/dL RDW 13.3 (11.5-15.5) % Plt Count 323 (150-450) k/uL MPV 7.8 Neutrophils % 69 % Lymphocytes % 23 % Monocytes % 4 % Eosinophils % 2 % Basophils % 1 % Neutrophils # 5.7 (1.3-7.7) k/uL Lymphocytes # 1.9 (1.0-4.8) k/uL Monocytes # 0.3 (0-1.0) k/uL Eosinophils # 0.1 (0-0.7) k/uL Basophils # 0.1 (0-0.2) k/uL Sodium 139 (137-145) mmol/L Potassium 3.1 L (3.5-5.1) mmol/L Chloride 101 (98-107) mmol/L Carbon Dioxide 30 (22-30) mmol/L Anion Gap 8 mmol/L BUN 8 (7-17) mg/dL Creatinine 0.57 (0.52-1.04) mg/dL Est GFR (CKD-EPI)AfAm >90 (>60 ml/min/1.73 sqM) Est GFR (CKD-EPI)NonAf >90 (>60 ml/min/1.73 sqM) Glucose 95 (74-99) mg/dL Calcium 9.5 (8.4-10.2) mg/dL Magnesium 2.0 (1.6-2.3) mg/dL Total Bilirubin 0.5 (0.2-1.3) mg/dL AST 20 (14-36) U/L ALT 27 (4-34) U/L Alkaline Phosphatase 61 (38-126) U/L Total Protein 8.1 (6.3-8.2) g/dL Albumin 4.8 (3.5-5.0) g/dL Disposition Clinical Impression: Hypokalemia Disposition: HOME SELF-CARE Condition: Stable Instructions (If sedation given, give patient instructions): Hypokalemia (ED) Additional Instructions: Please return to the Emergency Department if symptoms worsen or any other co ncerns. Is patient prescribed a controlled substance at d/c from ED?: No Referrals: Ugo Friedman DO [Primary Care Provider] - 1-2 days Time of Disposition: 16:15
== END 2022-11-24 17:05 | disposition home or self-care (01) ==
LOC: EC 14:01
DX: E87.6 Hypokalemia (principal); F90.9 Attention-deficit hyperactivity disorder, unspecified type; F41.9 Anxiety disorder, unspecified; F31.9 Bipolar disorder, unspecified; F17.200 Nicotine dependence, unspecified, uncomplicated; F12.90 Cannabis use, unspecified, uncomplicated; Z88.8 Allergy status to other drugs, medicaments and biological substances; Z91.041 Radiographic dye allergy status
CPT/HCPCS: 36415; 80053; 83735; 85025; 99285

== ENCOUNTER 2023-02-02 22:17 | Emergency (ER) | payer OTHER ==
[2023-02-02 22:43] VITALS: TEMP 98.3
[2023-02-02 23:18] LABS: Basophils % (A) 0 %; Eosinophils # (A) 0.2 k/uL (0-0.7); Eosinophils % (A) 2 %; HCT 44.2 % (34.0-46.0); HGB 15.2 gm/dL (11.4-16.0); Hyperchromasia Slight; Lymphocytes # (A) 3.1 k/uL (1.0-4.8); Lymphocytes % (A) 32 %; MCH 29.1 pg (25.0-35.0); MCHC 34.4 g/dL (31.0-37.0); MCV 84.5 fL (80.0-100.0); Monocytes # (A) 0.3 k/uL (0-1.0); Monocytes % (A) 3 %; Neutrophils # (A) 5.8 k/uL (1.3-7.7); Neutrophils % (A) 61 %; Platelet Count 307 k/uL (150-450); Poikilocytosis Slight; RBC 5.23 m/uL (3.80-5.40); RDW 13.9 % (11.5-15.5); WBC 9.5 k/uL (3.8-10.6)
[2023-02-02 23:33] LABS: ALT 27 U/L (4-34); African American GFR (CKD) >90 (>60 ml/min/1.73 sqM); Albumin 4.6 g/dL (3.5-5.0); Anion Gap 12 mmol/L; Blood Urea Nitrogen 12 mg/dL (7-17); Calcium 9.6 mg/dL (8.4-10.2); Carbon Dioxide 27 mmol/L (22-30); Chloride 102 mmol/L (98-107); Glucose 92 mg/dL (74-99); Non-African American GFR(CKD) >90 (>60 ml/min/1.73 sqM); Sodium 141 mmol/L (137-145); Total Bilirubin 0.5 mg/dL (0.2-1.3); Total Protein 7.9 g/dL (6.3-8.2)
[2023-02-02 23:52] LABS: AST 24 U/L (14-36); Alkaline Phosphatase 48 U/L (38-126); Potassium 2.7 mmol/L (3.5-5.1)
[2023-02-03] MEDS ORDERED: Potassium Replacement Protocol 1 EACH MISC MISCELLANE PRN (00:04)
[2023-02-03] MEDS: POTASSIUM CHLORIDE ER 20 MEQ TAB.ER PO SCH ×3 (00:23→03:32)
[2023-02-03] MEDS: POTASSIUM CHLORIDE 10 MEQ in WATER FOR INJECTION 1 100ML.BAG IVPB SCH ×4 (01:09→04:48)
--- NOTE | 2023-02-03 03:28 | ED ---
Recheck HPI - General Chief Complaint: Recheck/Abnormal Lab/Rx Stated Complaint: KIDNEY ISSUES Time Seen by Provider: 02/02/23 23:31 Source: patient Mode of arrival: ambulatory Limitations: no limitations - History of Present Illness Initial Comments: Patient is a 27-year-old female history of chronic renal disease presenting today for concerns of low potassium. Patient states that her chronic renal disease results and a baseline low potassium. She states that today she was drinking a lot of water in order to pass a drug test and thinks this may have caused her potassium to be low. She admits to muscle cramping and fatigue. No chest pain, difficulty breathing, palpitations, numbness, tingling, weakness, abdominal pain, nausea, vomiting. - Related Data Home Medications Medication Instructions Recorded Confirmed Dextroamphetamine/Amphetamine 30 mg PO DAILY 07/03/21 11/24/22 [Adderall] Ergocalciferol [Vitamin D2 (1250 1,250 mcg PO WE 07/03/21 11/24/22 Mcg = 98048 Iu)] Magnesium Oxide [Magnesium] 500 mg PO BID 05/09/22 11/24/22 Potassium Chloride ER [K-Dur 20] 80 meq PO BID 10/29/22 11/24/22 aMILoride HCL 5 mg PO BID 10/29/22 11/24/22 Allergies Allergy/AdvReac Type Severity Reaction Status Date / Time risperidone [From Risperdal] AdvReac Mild MUSCLE Verified 02/02/23 22:43 SPASMS Iodinated Contrast Media AdvReac Nausea & Verified 02/02/23 22:43 Vomiting Review of Systems ROS Statement: Those systems with pertinent positive or pertinent negative responses have been documented in the HPI. ROS Other: All systems not noted in ROS Statement are negative. Past Medical History Past Medical History: Renal Disease Additional Past Medical History / Comment(s): Bartter syndrome ( low potassium), anxiety, bipolar, depression, ADHD, History of Any Multi-Drug Resistant Organisms: None Reported Past Surgical History: Tonsillectomy Additional Past Surgical History / Comment(s): wisdom teeth 2016, Past Anesthesia/Blood Transfusion Reactions: No Reported Reaction Past Psychological History: ADD/ADHD, Anxiety, Bipolar, Depression Smoking Status: Current every day smoker Past Alcohol Use History: Occasional Past Drug Use History: Marijuana - Past Family History Mother Additional Family Medical History / Comment(s): Mother is alive at age 40 with no major medical problems. Pt states Alzheimers and Bipolar disorder runs on h er mother's side. Sister(s) Family Medical History: Diabetes Mellitus Additional Family Medical History / Comment(s): Patient has 4 half-sisters. Brother(s) Additional Family Medical History / Comment(s): Patient has 5 or 6 half-brothers with no major medical problems. Patient does not have any children. Father Additional Family Medical History / Comment(s): Father is alive at age 55 and patient has no contact with him as he is in [facility]. General Exam Limitations: no limitations General appearance: alert, in no apparent distress Head exam: Present: atraumatic, normocephalic, normal inspection Eye exam: Present: normal appearance, EOMI. Absent: scleral icterus, periorbital swelling Neck exam: Present: normal inspection, full ROM Respiratory exam: Present: normal lung sounds bilaterally. Absent: respiratory distress, wheezes, rales, rhonchi, stridor Cardiovascular Exam: Present: regular rate, normal rhythm, normal heart sounds. Absent: systolic murmur, diastolic murmur, rubs, gallop, clicks Neurological exam: Present: alert, oriented X3, CN II-XII intact Psychiatric exam: Present: normal affect, normal mood Skin exam: Present: warm, dry, intact, normal color. Absent: rash Course Vital Signs 02/02/23 22:40 Temperature 98.3 F Pulse Rate 66 Respiratory 17 Rate Blood Pressure 118/78 O2 Sat by Pulse 98 Oximetry Medical Decision Making - Medical Decision Making Was pt. sent in by a medical professional or institution (, PA, FACILITIES TECHNICIAN, urgent care, hospital, or custodial...) When possible be specific @ -No Did you speak to anyone other than the patient for history (EMS, parent, family, police, friend...)? What history was obtained from this source @ -No Did you review nursing and triage notes (agree or disagree)? Why? @ -I reviewed and agree with nursing and triage notes Were old charts reviewed (outside hosp., previous admission, EMS record, old E KG, old radiological studies, urgent care reports/EKG's, custodial records)? Report findings @ -No old charts were reviewed Differential Diagnosis (chest pain, altered mental status, abdominal pain women, abdominal pain men, vaginal bleeding, weakness, fever, dyspnea, syncope, headache, dizziness, GI bleed, back pain, seizure, CVA, palpatations, mental hea lth, musculoskeletal)? @ -Differential includes hypokalemia, viral illness, rhabdomyolysis, this is not an all inclusive list EKG interpreted by me (3pts min.). @ -As above X-rays interpreted by me (1pt min.). @ -None done CT interpreted by me (1pt min.). @ -None done U/S interpreted by me (1pt. min.). @ -None done What testing was considered but not performed or refused? (CT, X-rays, U/S, labs)? Why? @ -None What meds were considered but not given or refused? Why? @ -None Did you discuss the management of the patient with other professionals (professionals i.e. , PA, FACILITIES TECHNICIAN, lab, RT, psych nurse, social media analyst, shochet, teacher, financial officer, case making machine operator)? Give summary @ -No Was smoking cessation discussed for >3mins.? @ -No Was critical care preformed (if so, how long)? @ -No Were there social determinants of health that impacted care today? How? (Homelessness, low income, unemployed, alcoholism, drug addiction, transportation, low edu. Level, literacy, decrease access to med. care, [facility], rehab)? @ -No Was there de-escalation of care discussed even if they declined (Discuss DNR or withdrawal of care, Hospice)? DNR status @ -No What co-morbidities impacted this encounter? (DM, HTN, Smoking, COPD, CAD, Cancer, CVA, ARF, Chemo, Hep., AIDS, mental health diagnosis, sleep apnea, morbid obesity)? @ -None Was patient admitted / discharged? Hospital course, mention meds given and route, prescriptions, significant lab abnormalities, going to OR and other pertinent info. @ -Patient is a 27-year-old female presenting with chief complaint of low potassium. Physical examination is unremarkable. Potassium is 2.7. Patient is receiving oral and IV replacement here in the ER. She is instructed to continue taking her supplementation at home and follow up with her PCP. Follow-up with PCP. Report back to ER with any new or worsening symptoms. Discussed return parameters and answered all questions. Patient conveyed verbal understanding and agreed to the plan. I discussed this case in detail with my attending Dr. Driscoll Undiagnosed new problem with uncertain prognosis? @ -No Drug Therapy requiring intensive monitoring for toxicity (Heparin, Nitro, Insulin, Cardizem)? @ -No Were any procedures done? @ -No Diagnosis/symptom? @ -Hypokalemia Acute, or Chronic, or Acute on Chronic? @ -Acute Uncomplicated (without systemic symptoms) or Complicated (systemic symptoms)? @ -Uncomplicated Side effects of treatment? @ -No Exacerbation, Progression, or Severe Exacerbation? @ -No Poses a threat to life or bodily function? How? (Chest pain, USA, [place], pneumonia, PE, COPD, DKA, ARF, appy, cholecystitis, CVA, Diverticulitis, Homicidal, Suicidal, threat to staff... and all critical care pts) @ -No - Lab Data Result diagrams: 02/02/23 23:02 02/02/23 23:02 Lab Results 02/02/23 02/02/23 02/03/23 Range/Units 23:02 23:02 00:31 WBC 9.5 (3.8-10.6) k/uL RBC 5.23 (3.80-5.40) m/uL Hgb 15.2 (11.4-16.0) gm/dL Hct 44.2 (34.0-46.0) % MCV 84.5 (80.0-100.0) fL MCH 29.1 (25.0-35.0) pg MCHC 34.4 (31.0-37.0) g/dL RDW 13.9 (11.5-15.5) % Plt Count 307 (150-450) k/uL MPV 8.0 Neutrophils % 61 % Lymphocytes % 32 % Monocytes % 3 % Eosinophils % 2 % Basophils % 0 % Neutrophils # 5.8 (1.3-7.7) k/uL Lymphocytes # 3.1 (1.0-4.8) k/uL Monocytes # 0.3 (0-1.0) k/uL Eosinophils # 0.2 (0-0.7) k/uL Basophils # 0.0 (0-0.2) k/uL Hyperchromasia Slight Poikilocytosis Slight Sodium 141 (137-145) mmol/L Potassium 2.7 L* (3.5-5.1) mmol/L Chloride 102 (98-107) mmol/L Carbon Dioxide 27 (22-30) mmol/L Anion Gap 12 mmol/L BUN 12 (7-17) mg/dL Creatinine 0.60 (0.52-1.04) mg/dL Est GFR (CKD-EPI)AfAm >90 (>60 ml/min/1.73 sqM) Est GFR (CKD-EPI)NonAf >90 (>60 ml/min/1.73 sqM) Glucose 92 (74-99) mg/dL Calcium 9.6 (8.4-10.2) mg/dL Magnesium 1.8 (1.6-2.3) mg/dL Total Bilirubin 0.5 (0.2-1.3) mg/dL AST 24 (14-36) U/L ALT 27 (4-34) U/L Alkaline Phosphatase 48 (38-126) U/L Total Protein 7.9 (6.3-8.2) g/dL Albumin 4.6 (3.5-5.0) g/dL Disposition Clinical Impression: Hypokalemia Disposition: HOME SELF-CARE Condition: Good Instructions (If sedation given, give patient instructions): Hypokalemia (ED) Additional Instructions: Follow-up with PCP. Report back to ER with any new or worsening symptoms. Is patient prescribed a controlled substance at d/c from ED?: No Referrals: Ugo Friedman DO [Primary Care Provider] - 1-2 days
[2023-02-03 06:17] VITALS: BP 98/61; PULSE 55; RESP 18
== END 2023-02-03 06:28 | disposition home or self-care (01) ==
LOC: EC 22:17
DX: E87.6 Hypokalemia (principal); N18.9 Chronic kidney disease, unspecified; F90.9 Attention-deficit hyperactivity disorder, unspecified type; F17.200 Nicotine dependence, unspecified, uncomplicated; Z79.899 Other long term (current) drug therapy; Z88.8 Allergy status to other drugs, medicaments and biological substances; Z91.041 Radiographic dye allergy status
CPT/HCPCS: 36415 ×2; 93005; 80053; 83735; 85025; 99285; 96365; 96366 ×4; J3480

== ENCOUNTER 2023-02-24 02:16 | Emergency (ER) | payer OTHER ==
[2023-02-24 02:23] VITALS: TEMP 98
[2023-02-24] MEDS ORDERED: KETOROLAC 15 MG/ML 1 ML VIAL IM STA (03:03)
--- NOTE | 2023-02-24 03:04 | ED ---
General Adult HPI - General Chief complaint: Extremity Injury, Upper Stated complaint: FALL Time Seen by Provider: 02/24/23 02:41 Source: patient Mode of arrival: ambulatory Limitations: no limitations - History of Present Illness Initial comments: Patient is a 27-year-old female presenting with chief complaint of right wrist and ankle pain. Patient states that she fell off her porch this evening. She admits to pain at the base of the thumb and lateral ankle pain. She has full range of motion. No numbness or tingling. - Related Data Home Medications Medication Instructions Recorded Confirmed Dextroamphetamine/Amphetamine 30 mg PO DAILY 07/03/21 11/24/22 [Adderall] Ergocalciferol [Vitamin D2 (1250 1,250 mcg PO WE 07/03/21 11/24/22 Mcg = 98447 Iu)] Magnesium Oxide [Magnesium] 500 mg PO BID 05/09/22 11/24/22 Potassium Chloride ER [K-Dur 20] 80 meq PO BID 10/29/22 11/24/22 aMILoride HCL 5 mg PO BID 10/29/22 11/24/22 Allergies Allergy/AdvReac Type Severity Reaction Status Date / Time risperidone [From Risperdal] AdvReac Mild MUSCLE Verified 02/24/23 02:23 SPASMS Iodinated Contrast Media AdvReac Nausea & Verified 02/24/23 02:23 Vomiting Review of Systems ROS Statement: Those systems with pertinent positive or pertinent negative responses have been documented in the HPI. ROS Other: All systems not noted in ROS Statement are negative. Past Medical History Past Medical History: Renal Disease Additional Past Medical History / Comment(s): Bartter syndrome ( low potassium), anxiety, bipolar, depression, ADHD, History of Any Multi-Drug Resistant Organisms: None Reported Past Surgical History: Tonsillectomy Additional Past Surgical History / Comment(s): wisdom teeth 2016, Past Anesthesia/Blood Transfusion Reactions: No Reported Reaction Past Psychological History: ADD/ADHD, Anxiety, Bipolar, Depression Smoking Status: Current every day smoker Past Alcohol Use History: Occasional Past Drug Use History: Marijuana - Past Family History Mother Additional Family Medical History / Comment(s): Mother is alive at age 40 with no major medical problems. Pt states Alzheimers and Bipolar disorder runs on her mother's side. Sister(s) Family Medical History: Diabetes Mellitus Additional Family Medical History / Comment(s): Patient has 4 half-sisters. Brother(s) Additional Family Medical History / Comment(s): Patient has 5 or 6 half-brothers with no major medical problems. Patient does not have any children. Father Additional Family Medical History / Comment(s): Father is alive at age 55 and patient has no contact with him as he is in shelter. General Exam Limitations: no limitations General appearance: alert, in no apparent distress Head exam: Present: atraumatic, normocephalic, normal inspection Eye exam: Present: normal appearance, EOMI. Absent: scleral icterus, periorbital swelling Neck exam: Present: normal inspection, full ROM Right Forearm Wrist exam: Present: normal inspection, full ROM, tenderness over anatomical snuff box. Absent: swelling Right Ankle exam: Present: normal inspection, full ROM, tenderness. Absent: swelling Neurological exam: Present: alert, oriented X3, CN II-XII intact Psychiatric exam: Present: normal affect, normal mood Skin exam: Present: warm, dry, intact, normal color. Absent: rash Course Vital Signs 02/24/23 02/24/23 02:18 04:12 Temperature 98 F Pulse Rate 93 77 Respiratory 16 18 Rate Blood Pressure 116/79 111/74 O2 Sat by Pulse 98 97 Oximetry Medical Decision Making - Medical Decision Making Was pt. sent in by a medical professional or institution (, PA, [employer], urgent care, hospital, or correction...) When possible be specific @ -No Did you speak to anyone other than the patient for history (EMS, parent, family, police, friend...)? What history was obtained from this source @ -No Did you review nursing and triage notes (agree or disagree)? Why? @ -I reviewed and agree with nursing and triage notes Were old charts reviewed (outside hosp., previous admission, EMS record, old EKG, old radiological studies, urgent care reports/EKG's, correction records)? Report findings @ -No old charts were reviewed Differential Diagnosis (chest pain, altered mental status, abdominal pain women, abdominal pain men, vaginal bleeding, weakness, fever, dyspnea, syncope, headache, dizziness, GI bleed, back pain, seizure, CVA, palpatations, mental health, musculoskeletal)? @ -Differential Musculoskeletal Muscular strain, contusion, ligament sprain, fracture, arthritis, septic arthritis, bursitis, cellulitis, muscle spasm, nerve compression, DVT, arterial occlusion, herpes zoster, electrolyte abnormality, tumor.... This is not meant to be in all inclusive list EKG interpreted by me (3pts min.). @ -As above X-rays interpreted by me (1pt min.). @ -X-rays of the wrist and ankle show no fracture or dislocation CT interpreted by me (1pt min.). @ -None done U/S interpreted by me (1pt. min.). @ -None done What testing was considered but not performed or refused? (CT, X-rays, U/S, labs)? Why? @ -None What meds were considered but not given or refused? Why? @ -None Did you discuss the management of the patient with other professionals (pro fessionals i.e. , PA, [employer], lab, RT, psych nurse, social problems specialist, hospital coordinator, teacher, marketing officer, case filler)? Give summary @ -No Was smoking cessation discussed for >3mins.? @ -No Was critical care preformed (if so, how long)? @ -No Were there social determinants of health that impacted care today? How? (Homelessness, low income, unemployed, alcoholism, drug addiction, transportation, low edu. Level, literacy, decrease access to med. care, skilled nursing, rehab)? @ -No Was there de-escalation of care discussed even if they declined (Discuss DNR or withdrawal of care, Hospice)? DNR status @ -No What co-morbidities impacted this encounter? (DM, HTN, Smoking, COPD, CAD, Cancer, CVA, ARF, Chemo, Hep., AIDS, mental health diagnosis, sleep apnea, morbid obesity)? @ -None Was patient admitted / discharged? Hospital course, mention meds given and route, prescriptions, significant lab abnormalities, going to OR and other pertinent info. @ -27-year-old female presenting with chief complaint of wrist and ankle pain after a fall today. Physical examination shows snuffbox tenderness. X-rays are negative for fracture or dislocation. Patient is placed in a thumb spica splint and instructed to follow-up with orthopedics. Follow-up with PCP. Report back to ER with any new or worsening symptoms. Discussed return parameters and answ ered all questions. Patient conveyed verbal understanding and agreed to the plan. I discussed this case in detail with my attending Dr. Gray Undiagnosed new problem with uncertain prognosis? @ -No Drug Therapy requiring intensive monitoring for toxicity (Heparin, Nitro, Insulin, Cardizem)? @ -No Were any procedures done? @ -No Diagnosis/symptom? @ -Snuffbox tenderness Acute, or Chronic, or Acute on Chronic? @ -Acute Uncomplicated (without systemic symptoms) or Complicated (systemic symptoms)? @ -Uncomplicated Side effects of treatment? @ -No Exacerbation, Progression, or Severe Exacerbation? @ -No Poses a threat to life or bodily function? How? (Chest pain, [place], [place], pneumonia, PE, COPD, DKA, ARF, appy, cholecystitis, CVA, Diverticulitis, Homicidal, Suicidal, threat to staff... and all critical care pts) @ -No Disposition Clinical Impression: Tenderness of anatomical snuffbox Disposition: HOME SELF-CARE Condition: Good Instructions (If sedation given, give patient instructions): Scaphoid Fracture (ED) Additional Instructions: Follow up with orthopedics. Report back to ER with any new or worsening symptoms. Take Motrin and Tylenol as needed for pain control. Is patient prescribed a controlled substance at d/c from ED?: No Referrals: Ugo Friedman DO [Primary Care Provider] - 1-2 days Sai Kevin DO [Doctor of Osteopathic Medicine] - 1-2 days Time of Disposition: 03:53
[2023-02-24 04:20] VITALS: BP 111/74; PULSE 77; RESP 18
--- NOTE | 2023-02-24 05:05 | XR ---
EXAM: XR Right Ankle Complete, 3 or More Views CLINICAL HISTORY: ITS.REASON XR Reason: pain, swelling TECHNIQUE: Frontal, lateral and oblique views of the right ankle. COMPARISON: No relevant prior studies available. FINDINGS: Bones/joints: No fracture or malalignment. No joint effusion. Normal alignment at the mortise. Soft tissues: Unremarkable. IMPRESSION: No fracture or malalignment.
--- NOTE | 2023-02-24 05:07 | XR ---
EXAM: XR Right Wrist Complete, 3 or More Views CLINICAL HISTORY: ITS.REASON XR Reason: pain, swelling TECHNIQUE: Frontal, lateral and oblique views of the right wrist. COMPARISON: No relevant prior studies available. FINDINGS: Bones/joints: No fracture or malalignment. Soft tissues: Unremarkable. No radiopaque foreign body. IMPRESSION: No fracture or malalignment.
== END 2023-02-24 04:20 | disposition home or self-care (01) ==
LOC: EC 02:16
DX: S62.001A Unspecified fracture of navicular [scaphoid] bone of right wrist, initial encounter for closed fracture (principal); F41.9 Anxiety disorder, unspecified; F31.9 Bipolar disorder, unspecified; F17.200 Nicotine dependence, unspecified, uncomplicated; F12.90 Cannabis use, unspecified, uncomplicated; Z88.8 Allergy status to other drugs, medicaments and biological substances; Z91.041 Radiographic dye allergy status; Z79.899 Other long term (current) drug therapy; W13.0XXA Fall from, out of or through balcony, initial encounter
CPT/HCPCS: 73110; 73610; 99284; 96372; J1885

== ENCOUNTER 2023-05-02 21:37 | Emergency (ER) | payer OTHER ==
[2023-05-02 22:24] VITALS: BP 103/68; PULSE 64; RESP 18; TEMP 97.7
--- NOTE | 2023-05-02 22:25 | ED ---
General Adult HPI - General Stated complaint: Bump on eye Time Seen by Provider: 05/02/23 22:23 Source: patient Mode of arrival: ambulatory Limitations: no limitations - History of Present Illness Initial comments: 27-year-old female presenting with chief complaint of painful bump to the left eyelid. She states that the bump has been there for 2-3 days. She denies any discharge. No fevers or chills. No vision changes. No trauma to the eye. No globe pain. - Related Data Home Medications Medication Instructions Recorded Confirmed Dextroamphetamine/Amphetamine 30 mg PO DAILY 07/03/21 11/24/22 [Adderall] Ergocalciferol [Vitamin D2 (1250 1,250 mcg PO WE 07/03/21 11/24/22 Mcg = 18939 Iu)] Magnesium Oxide [Magnesium] 500 mg PO BID 05/09/22 11/24/22 Potassium Chloride ER [K-Dur 20] 80 meq PO BID 10/29/22 11/24/22 aMILoride HCL 5 mg PO BID 10/29/22 11/24/22 Previous Rx's Medication Instructions Recorded Erythromycin Ophth Oint [Romycin 1 applic LEFT EYE QID #3.5 gm 05/02/23 Ophth Oint] Allergies Allergy/AdvReac Type Severity Reaction Status Date / Time risperidone [From Risperdal] AdvReac Mild MUSCLE Verified 05/02/23 22:23 SPASMS Iodinated Contrast Media AdvReac Nausea & Verified 05/02/23 22:23 Vomiting Review of Systems ROS Statement: Those systems with pertinent positive or pertinent negative responses have been documented in the HPI. ROS Other: All systems not noted in ROS Statement are negative. Past Medical History Past Medical History: Renal Disease Additional Past Medical History / Comment(s): Bartter syndrome ( low potassium), anxiety, bipolar, depression, ADHD, History of Any Multi-Drug Resistant Organisms: None Reported Past Surgical History: Tonsillectomy Additional Past Surgical History / Comment(s): wisdom teeth 2016, Past Anesthesia/Blood Transfusion Reactions: No Reported Reaction Past Psychological History: ADD/ADHD, Anxiety, Bipolar, Depression Smoking Status: Current every day smoker Past Alcohol Use History: Occasional Past Drug Use History: Marijuana - Past Family History Mother Additional Family Medical History / Comment(s): Mother is alive at age 40 with no major medical problems. Pt states Alzheimers and Bipolar disorder runs on her mother's side. Sister(s) Family Medical History: Diabetes Mellitus Additional Family Medical History / Comment(s): Patient has 4 half-sisters. Brother(s) Additional Family Medical History / Comment(s): Patient has 5 or 6 half-brothers with no major medical problems. Patient does not have any children. Father Additional Family Medical History / Comment(s): Father is alive at age 55 and patient has no contact with him as he is in retirement. General Exam Limitations: no limitations General appearance: alert, in no apparent distress Head exam: Present: atraumatic, normocephalic, normal inspection Expanded Eyelids: Normal Inspection: Left, Stye: Right Pupils: Regular, Round: Bilateral, Reactive: Bilateral Sclera/Conjunctival: Normal Inspection: Bilateral Neck exam: Present: normal inspection, full ROM Respiratory exam: Absent: respiratory distress Neurological exam: Present: alert, oriented X3, CN II-XII intact Psychiatric exam: Present: normal affect, normal mood Skin exam: Absent: rash Course Vital Signs 05/02/23 22:20 Temperature 97.7 F Pulse Rate 64 Respiratory 18 Rate Blood Pressure 103/68 O2 Sat by Pulse 98 Oximetry Medical Decision Making - Medical Decision Making Was pt. sent in by a medical professional or institution ([facility] [facility]son, PACKING MACHINE INSPECTOR, urgent care, hospital, or fci...) When possible be specific @ -No Did you speak to anyone other than the patient for history (EMS, parent, family, police, friend...)? What history was obtained from this source @ -No Did you review nursing and triage notes (agree or disagree)? Why? @ -I reviewed and agree with nursing and triage notes Were old charts reviewed (outside hosp., previous admission, EMS record, old EKG, old radiological studies, urgent care reports/EKG's, fci records)? Report findings @ -No old charts were reviewed Differential Diagnosis (chest pain, altered mental status, abdominal pain women, abdominal pain men, vaginal bleeding, weakness, fever, dyspnea, syncope, head ache, dizziness, GI bleed, back pain, seizure, CVA, palpatations, mental health, musculoskeletal)? @ -Differential includes hordeolum, conjunctivitis, foreign body, this is not an all inclusive list EKG interpreted by me (3pts min.). @ -As above X-rays interpreted by me (1pt min.). @ -None done CT interpreted by me (1pt min.). @ -None done U/S interpreted by me (1pt. min.). @ -None done What testing was considered but not performed or refused? (CT, X-rays, U/S, labs)? Why? @ -None What meds were considered but not given or refused? Why? @ -None Did you discuss the management of the patient with other professionals (professionals i.e. Dr., PA, PACKING MACHINE INSPECTOR, lab, RT, psych nurse, family welfare social work professor, third cook, teacher, biosecurity officer, case picker)? Give summary @ -No Was smoking cessation discussed for >3mins.? @ -No Was critical care preformed (if so, how long)? @ -No Were there social determinants of health that impacted care today? How? (Homelessness, low income, unemployed, alcoholism, drug addiction, transportation, low edu. Level, literacy, decrease access to med. care, skilled nursing, rehab)? @ -No Was there de-escalation of care discussed even if they declined (Discuss DNR or withdrawal of care, Hospice)? DNR status @ -No What co-morbidities impacted this encounter? (DM, HTN, Smoking, COPD, CAD, Cancer, CVA, ARF, Chemo, Hep., AIDS, mental health diagnosis, sleep apnea, morbid obesity)? @ -None Was patient admitted / discharged? Hospital course, mention meds given and route, prescriptions, significant lab abnormalities, going to OR and other pertinent info. @ -27-year-old female presenting with chief complaint of painful bump to the left upper eyelid. No vision changes, discharge, fever, trauma. On physical examination this painful bump appears consistent with hordeolum. Patient is educated on supportive management with warm compresses and provided with erythromycin ointment. Follow-up with PCP. Report back to ER with any new or worsening symptoms. Discussed return parameters and answered all questions. Patient conveyed verbal understanding and agreed to the plan. I discussed this case in detail with my attending Dr. Perdomo Undiagnosed new problem with uncertain prognosis? @ -No Drug Therapy requiring intensive monitoring for toxicity (Heparin, Nitro, Insulin, Cardizem)? @ -No Were any procedures done? @ -No Diagnosis/symptom? @ -Hordeolum Acute, or Chronic, or Acute on Chronic? @ -Acute Uncomplicated (without systemic symptoms) or Complicated (systemic symptoms)? @ -Uncomplicated Side effects of treatment? @ -No Exacerbation, Progression, or Severe Exacerbation? @ -No Poses a threat to life or bodily function? How? (Chest pain, [place], [place], pneumonia, PE, COPD, DKA, ARF, appy, cholecystitis, CVA, Diverticulitis, Homicidal, Suicidal, threat to staff... and all critical care pts) @ -No Disposition Clinical Impression: Hordeolum Disposition: HOME SELF-CARE Condition: Good Instructions (If sedation given, give patient instructions): Rosa (ED) Additional Instructions: Follow-up with PCP. Report back to ER with any new or worsening symptoms. Apply antibiotic ointment 4x daily. Use warm compresses to help the hordeolum open and discharge express. Prescriptions: Erythromycin Ophth Oint [Romycin Ophth Oint] 1 applic LEFT EYE QID #3.5 gm Is patient prescribed a controlled substance at d/c from ED?: No Referrals: Ugo Friedman DO [Primary Care Provider] - 1-2 days Time of Disposition: 22:25
== END 2023-05-02 22:38 | disposition home or self-care (01) ==
LOC: EC 21:37
DX: H00.014 Hordeolum externum left upper eyelid (principal); F41.9 Anxiety disorder, unspecified; F31.9 Bipolar disorder, unspecified; F12.90 Cannabis use, unspecified, uncomplicated; F17.200 Nicotine dependence, unspecified, uncomplicated; Z79.899 Other long term (current) drug therapy; Z88.8 Allergy status to other drugs, medicaments and biological substances
CPT/HCPCS: 99283

== ENCOUNTER 2023-05-06 13:05 | Emergency (ER) | payer OTHER ==
[2023-05-06 13:14] VITALS: BP 97/61; PULSE 74; RESP 20; TEMP 99.1
--- NOTE | 2023-05-06 13:14 | ED ---
Eye Problem HPI - General Source: patient, RN notes reviewed Mode of arrival: ambulatory Limitations: no limitations - History of Present Illness MD chief complaint: eye pain Location: left eye <Nadira Sarmiento - Last Filed: 05/06/23 13:12> <Ada Romero - Last Filed: 05/08/23 00:12> - General Chief complaint: Eye Problems Stated complaint: EYE PRESSURE/SORE Time Seen by Provider: 05/06/23 13:10 - History of Present Illness Initial comments: This is a 27 year old female who presents to the emergency department for a bump to the left eyelid. She was evaluated here 4 days ago and was started on Erythromycin ointment. States that she has been using this and applying warm compresses, however this continues to enlarge and she is now having pain from the pressure that it is causing. (Nadira Sarmiento) 27-year-old female presents emergency department chief complaint of bump on the left eyelid. She was evaluated here for this same issue and is not on erythromycin ointment. She states that despite this treatment the lump is continuing to enlarge and is more painful. She states that she has been applying warm compresses. She denies any changes in her vision, periorbital swelling, pain with eye movements. (Ada Romero) - Related Data Home Medications Medication Instructions Recorded Confirmed Dextroamphetamine/Amphetamine 30 mg PO DAILY 07/03/21 11/24/22 [Adderall] Ergocalciferol [Vitamin D2 (1250 1,250 mcg PO WE 07/03/21 11/24/22 Mcg = 63533 Iu)] Magnesium Oxide [Magnesium] 500 mg PO BID 05/09/22 11/24/22 Potassium Chloride ER [K-Dur 20] 80 meq PO BID 10/29/22 11/24/22 aMILoride HCL 5 mg PO BID 10/29/22 11/24/22 Previous Rx's Medication Instructions Recorded Erythromycin Ophth Oint [Romycin 1 applic LEFT EYE QID #3.5 gm 05/02/23 Ophth Oint] Sulfamethox-Tmp 800-160Mg [Bactrim 1 each PO Q12HR #10 tab 05/06/23 Ds] Allergies Allergy/AdvReac Type Severity Reaction Status Date / Time risperidone [From Risperdal] AdvReac Mild MUSCLE Verified 05/06/23 13:14 SPASMS Iodinated Contrast Media AdvReac Nausea & Verified 05/06/23 13:14 Vomiting Review of Systems ROS Other: All systems not noted in ROS Statement are negative. <Nadira Sarmiento - Last Filed: 05/06/23 13:12> ROS Other: All systems not noted in ROS Statement are negative. <dAa Romero - Last Filed: 05/08/23 00:12> ROS Statement: Those systems with pertinent positive or pertinent negative responses have been documented in the HPI. Past Medical History Past Medical History: Renal Disease Additional Past Medical History / Comment(s): Bartter syndrome ( low potassium), anxiety, bipolar, depression, ADHD, History of Any Multi-Drug Resistant Organisms: None Reported Past Surgical History: Tonsillectomy Additional Past Surgical History / Comment(s): wisdom teeth 2016, Past Anesthesia/Blood Transfusion Reactions: No Reported Reaction Past Psychological History: ADD/ADHD, Anxiety, Bipolar, Depression Smoking Status: Current every day smoker Past Alcohol Use History: Occasional Past Drug Use History: Marijuana - Past Family History Mother Additional Family Medical History / Comment(s): Mother is alive at age 40 with no major medical problems. Pt states Alzheimers and Bipolar disorder runs on her mother's side. Sister(s) Family Medical History: Diabetes Mellitus Additional Family Medical History / Comment(s): Patient has 4 half-sisters. Brother(s) Additional Family Medical History / Comment(s): Patient has 5 or 6 half-brothers with no major medical problems. Patient does not have any children. Father Additional Family Medical History / Comment(s): Father is alive at age 55 and patient has no contact with him as he is in skilled nursing. <Nadira Sarmiento - Last Filed: 05/06/23 13:12> General Exam <Nadira Sarmiento - Last Filed: 05/06/23 13:12> Limitations: no limitations General appearance: alert, in no apparent distress Head exam: Present: atraumatic, normocephalic, normal inspection Eye exam: Present: PERRL, EOMI, other (stye of left eye ). Absent: scleral icterus, conjunctival injection, nystagmus, periorbital swelling, periorbital tenderness ENT exam: Present: normal exam, mucous membranes moist Neck exam: Present: normal inspection. Absent: tenderness, meningismus, lymphadenopathy Respiratory exam: Present: normal lung sounds bilaterally. Absent: respiratory distress, wheezes, rales, rhonchi, stridor Cardiovascular Exam: Present: regular rate, normal rhythm, normal heart sounds. Absent: systolic murmur, diastolic murmur, rubs, gallop, clicks Extremities exam: Present: normal inspection, full ROM, normal capillary refill. Absent: tenderness, pedal edema, joint swelling, calf tenderness Back exam: Present: normal inspection Neurological exam: Present: alert, oriented X3 Psychiatric exam: Present: normal affect, normal mood Skin exam: Present: warm, dry, intact, normal color, other (stye to left eye). Absent: rash <Ada Romero - Last Filed: 05/08/23 00:12> - General Exam Comments Initial Comments: Visual Physical Exam Vital signs reviewed General: Well-appearing, nontoxic, no acute distress. Head: Normocephalic, atraumatic Eyes: PERRLA, EOMI ENT: Airway patent Chest: Nonlabored breathing Skin: No visual rash, normal skin tone Neuro: Alert and oriented 3 Musculoskeletal: No gross abnormalities I performed the QuickNote portion of this chart. Signed Nadira Sarmiento PA-C. (Nadira Sarmiento) Course Vital Signs 05/06/23 13:12 Temperature 99.1 F Pulse Rate 74 Respiratory 20 Rate Blood Pressure 97/61 O2 Sat by Pulse 98 Oximetry Medical Decision Making <Ada Romero - Last Filed: 05/08/23 00:12> - Medical Decision Making Was pt. sent in by a medical professional or institution ([facility], CONNECTION WORKER, urgent care, hospital, or usp...) When possible be specific @ -No Did you speak to anyone other than the patient for history (EMS, parent, family, police, friend...)? What history was obtained from this source @ -No Did you review nursing and triage notes (agree or disagree)? Why? @ -I reviewed and agree with nursing and triage notes Were old charts reviewed (outside hosp., previous admission, EMS record, old EKG, old radiological studies, urgent care reports/EKG's, usp records)? Report findings @ -No old charts were reviewed Differential Diagnosis (chest pain, altered mental status, abdominal pain women, abdominal pain men, vaginal bleeding, weakness, fever, dyspnea, syncope, headache, dizziness, GI bleed, back pain, seizure, CVA, palpatations, mental health, musculoskeletal)? @ -Hordeolum, chalazion, periorbital cellulitis, orbital cellulitis, this list is not all-inclusive EKG interpreted by me (3pts min.). @ -None X-rays interpreted by me (1pt min.). @ -None done CT interpreted by me (1pt min.). @ -None done U/S interpreted by me (1pt. min.). @ -None done What testing was considered but not performed or refused? (CT, X-rays, U/S, labs)? Why? @ -None What meds were considered but not given or refused? Why? @ -None Did you discuss the management of the patient with other professionals (professionals i.e. , PA, CONNECTION WORKER, lab, RT, psych nurse, director of social services, defence force senior officer, teacher, electronic warfare officer, correctional case manager)? Give summary @ -No Was smoking cessation discussed for >3mins.? @ -No Was critical care preformed (if so, how long)? @ -No Were there social determinants of health that impacted care today? How? (Homelessness, low income, unemployed, alcoholism, drug addiction, transportation, low edu. Level, literacy, decrease access to med. care, retirement, rehab)? @ -No Was there de-escalation of care discussed even if they declined (Discuss DNR or withdrawal of care, Hospice)? DNR status @ -No What co-morbidities impacted this encounter? (DM, HTN, Smoking, COPD, CAD, Cance r, CVA, ARF, Chemo, Hep., AIDS, mental health diagnosis, sleep apnea, morbid obesity)? @ -None Was patient admitted / discharged? Hospital course, mention meds given and route, prescriptions, significant lab abnormalities, going to OR and other pertinent info. @ -Discharged. Patient presents emergency department chief complaint of left eye stye that has been getting larger and more painful despite erythromycin ointment and warm compresses. Patient is not having any proptosis, pain with eye movements, periorbital swelling, vision changes. She had normal eye pressures, normal samuels lamp exam. This has a clinical presentation of a stye but we will switch her to oral antibiotics and she is advised to continue the warm compresses. Patient stable at time of discharge. Case discussed with my attending, Undiagnosed new problem with uncertain prognosis? @ -No Drug Therapy requiring intensive monitoring for toxicity (Heparin, Nitro, Insulin, Cardizem)? @ -No Were any procedures done? @ -No Diagnosis/symptom? @ -stye Acute, or Chronic, or Acute on Chronic? @ -acute Uncomplicated (without systemic symptoms) or Complicated (systemic symptoms)? @ -uncomplicated Side effects of treatment? @ -No Exacerbation, Progression, or Severe Exacerbation? @ -No Poses a threat to life or bodily function? How? (Chest pain, USA, [place], pneumonia, PE, COPD, DKA, ARF, appy, cholecystitis, CVA, Diverticulitis, Homicidal, Suicidal, threat to staff... and all critical care pts) @ -No (Ada Romero) Disposition <Nadira Sarmiento - Last Filed: 05/06/23 13:12> Is patient prescribed a controlled substance at d/c from ED?: No Time of Disposition: 14:53 <Ada Romero - Last Filed: 05/08/23 00:12> Clinical Impression: Hordeolum externum left upper eyelid Disposition: HOME SELF-CARE Condition: Stable Instructions (If sedation given, give patient instructions): Warm Compress or Soak (ED) Additional Instructions: Please take antibiotics to completion. Follow up with your primary care provider. Return to the emergency department for new or worsening symptoms. Prescriptions: Sulfamethox-Tmp 800-160Mg [Bactrim Ds] 1 each PO Q12HR #10 tab Referrals: Ugo Friedman DO [Primary Care Provider] - 1-2 days
[2023-05-06] MEDS ORDERED: FLUORESCEIN STRIPS 1 MG STRIP LEFT EYE ONE (13:57)
[2023-05-06] MEDS ORDERED: PROPARACAINE 0.5% OPHTH DROPS 15 ML BTL LEFT EYE STA (14:00)
== END 2023-05-06 18:02 | disposition home or self-care (01) ==
LOC: EC 13:05
DX: H00.014 Hordeolum externum left upper eyelid (principal); F12.90 Cannabis use, unspecified, uncomplicated; F41.9 Anxiety disorder, unspecified; F31.9 Bipolar disorder, unspecified; F17.200 Nicotine dependence, unspecified, uncomplicated; F90.9 Attention-deficit hyperactivity disorder, unspecified type; Z79.899 Other long term (current) drug therapy; Z91.041 Radiographic dye allergy status; Z88.8 Allergy status to other drugs, medicaments and biological substances
CPT/HCPCS: 99283

== ENCOUNTER → 2023-05-06 | Outpatient (CLI) | payer OTHER ==
[2023-05-07 09:56] LABS: Blood Urea Nitrogen 6.3 mg/dL (9.0-27.0); Calcium 9.9 mg/dL (8.7-10.3); Carbon Dioxide 31.4 mmol/L (21.6-31.8); Chloride 101 mmol/L (96-109); Glucose 94 mg/dL (70-110); Potassium 3.9 mmol/L (3.5-5.5); Sodium 143 mmol/L (135-145)
== END | disposition home or self-care (01) ==
LOC: LABWHC1 15:49
PROVIDERS: ATTEND Family Medicine
DX: E87.6 Hypokalemia (principal)
CPT/HCPCS: 36415; 80048

== ENCOUNTER 2023-09-12 16:43 | Inpatient (IN) | payer OTHER ==
[2023-09-12 16:58] VITALS: RESP 16
[2023-09-12 17:55] LABS: Basophils % (A) 0 %; Eosinophils # (A) 0.1 k/uL (0-0.7); Eosinophils % (A) 2 %; HCT 43.4 % (34.0-46.0); HGB 14.9 gm/dL (11.4-16.0); Lymphocytes # (A) 2.5 k/uL (1.0-4.8); Lymphocytes % (A) 27 %; MCH 29.6 pg (25.0-35.0); MCHC 34.3 g/dL (31.0-37.0); MCV 86.1 fL (80.0-100.0); Mean Platelet Volume 7.7; Monocytes # (A) 0.4 k/uL (0-1.0); Monocytes % (A) 4 %; Neutrophils # (A) 6.3 k/uL (1.3-7.7); Neutrophils % (A) 67 %; Platelet Count 385 k/uL (150-450); RBC 5.05 m/uL (3.80-5.40); RDW 12.9 % (11.5-15.5); WBC 9.5 k/uL (3.8-10.6)
[2023-09-12 18:03] LABS: African American GFR (CKD) >90 (>60 ml/min/1.73 sqM); Anion Gap 14 mmol/L; Blood Urea Nitrogen 12 mg/dL (7-17); Carbon Dioxide 27 mmol/L (22-30); Chloride 98 mmol/L (98-107); Glucose 115 mg/dL (74-99); Magnesium 1.6 mg/dL (1.6-2.3); Non-African American GFR(CKD) >90 (>60 ml/min/1.73 sqM); Sodium 139 mmol/L (137-145)
[2023-09-12 18:05] LABS: Potassium 2.4 mmol/L (3.5-5.1)
--- NOTE | 2023-09-12 18:44 | ED ---
General Adult HPI - General Chief complaint: Recheck/Abnormal Lab/Rx Stated complaint: low potassium Time Seen by Provider: 09/12/23 16:56 Source: patient, RN notes reviewed, old records reviewed Mode of arrival: ambulatory Limitations: no limitations - History of Present Illness Initial comments: Patient is a 27-year-old female with past medical history remarkable for Barter syndrome is been without her potassium for the last 3 days presents emergency Department concerned that she may have low potassium. Endorses some muscle achiness. He has required admission for potassium replenishment previously. Presents for further evaluation of this time. Denies any other acute concerns at this time. - Related Data Home Medications Medication Instructions Recorded Confirmed Dextroamphetamine/Amphetamine 30 mg PO DAILY 07/03/21 11/24/22 [Adderall] Ergocalciferol [Vitamin D2 (1250 1,250 mcg PO WE 07/03/21 11/24/22 Mcg = 49614 Iu)] Magnesium Oxide [Magnesium] 500 mg PO BID 05/09/22 11/24/22 Potassium Chloride ER [K-Dur 20] 80 meq PO BID 10/29/22 11/24/22 aMILoride HCL 5 mg PO BID 10/29/22 11/24/22 Previous Rx's Medication Instructions Recorded Erythromycin Ophth Oint [Romycin 1 applic LEFT EYE QID #3.5 gm 05/02/23 Ophth Oint] Sulfamethox-Tmp 800-160Mg [Bactrim 1 each PO Q12HR #10 tab 05/06/23 Ds] Allergies Allergy/AdvReac Type Severity Reaction Status Date / Time risperidone [From Risperdal] AdvReac Mild MUSCLE Verified 09/12/23 16:53 SPASMS Iodinated Contrast Media AdvReac Nausea & Verified 09/12/23 16:53 Vomiting Review of Systems ROS Statement: Those systems with pertinent positive or pertinent negative responses have been documented in the HPI. Review of Systems: CONST: Denies fever EYES: Denies blurry vision ENT: Denies nasal congestion C/V: Denies Chest pain RESP: Denies shortness of breath GI: Denies abdominal pain : Denies dysuria SKIN: Denies rash. MSK: Denies joint pain. NEURO: Denies headache ROS Other: All systems not noted in ROS Statement are negative. Past Medical History Past Medical History: Renal Disease Additional Past Medical History / Comment(s): Bartter syndrome ( low potassium), anxiety, bipolar, depression, ADHD, History of Any Multi-Drug Resistant Organisms: None Reported Past Surgical History: Tonsillectomy Additional Past Surgical History / Comment(s): wisdom teeth 2016, Past Anesthesia/Blood Transfusion Reactions: No Reported Reaction Past Psychological History: ADD/ADHD, Anxiety, Bipolar, Depression Smoking Status: Current every day smoker Past Alcohol Use History: Occasional Past Drug Use History: Marijuana - Past Family History Mother Additional Family Medical History / Comment(s): Mother is alive at age 40 with no major medical problems. Pt states Alzheimers and Bipolar disorder runs on her mother's side. Sister(s) Family Medical History: Diabetes Mellitus Additional Family Medical History / Comment(s): Patient has 4 half-sisters. Brother(s) Additional Family Medical History / Comment(s): Patient has 5 or 6 half-brothers with no major medical problems. Patient does not have any children. Father Additional Family Medical History / Comment(s): Father is alive at age 55 and patient has no contact with him as he is in jail. General Exam - General Exam Comments Initial Comments: General: Appears in no acute distress. HEAD: Normal with no signs of head trauma. EYES: EOMI ENT: Hearing grossly intact, normal oropharynx. RESPIRATORY: Clear breath sounds bilaterally. No wheezes, rales, or rhonchi. C/V: Regular rate and rhythm. S1 and S2 auscultated, peripheral pulses 2+ and intact throughout ABD: Abd is soft, nontender, nondistended EXT: Normal range of motion, no obvious deformity SKIN: No rashes or lesions observed on exposed skin. NEURO: Alert and oriented x 4. Limitations: no limitations Course Vital Signs 09/12/23 16:49 Temperature 97.7 F Pulse Rate 58 L Respiratory 16 Rate Blood Pressure 114/75 O2 Sat by Pulse 98 Oximetry Medical Decision Making - Medical Decision Making Was pt. sent in by a medical professional or institution ([facility], KNOTTING MACHINE OPERATOR PORTABLE, urgent care, hospital, or shelter...) When possible be specific @ -No Did you speak to anyone other than the patient for history (EMS, parent, family, police, friend...)? What history was obtained from this source @ -No Did you review nursing and triage notes (agree or disagree)? Why? @ -I reviewed and agree with nursing and triage notes Were old charts reviewed (outside hosp., previous admission, EMS record, old EKG, old radiological studies, urgent care reports/EKG's, shelter records)? Report findings @ -Old charts reviewed Differential Diagnosis (chest pain, altered mental status, abdominal pain women, abdominal pain men, vaginal bleeding, weakness, fever, dyspnea, syncope, headache, dizziness, GI bleed, back pain, seizure, CVA, palpatations, mental health, musculoskeletal)? @ -Electronic abnormality, dehydration. This list is not all inclusive. EKG interpreted by me (3pts min.). @ -None done X-rays interpreted by me (1pt min.). @ -None done CT interpreted by me (1pt min.). @ -None done U/S interpreted by me (1pt. min.). @ -None done What testing was considered but not performed or refused? (CT, X-rays, U/S, labs)? Why? @ -None What meds were considered but not given or refused? Why? @ -None Did you discuss the management of the patient with other professionals (professionals i.e. , PA, KNOTTING MACHINE OPERATOR PORTABLE, lab, RT, psych nurse, foster care social worker, senior portfolio analyst, teacher, retail loss prevention officer, transplant case manager)? Give summary @ -No Was smoking cessation discussed for >3mins.? @ -No Was critical care preformed (if so, how long)? @ -No Were there social determinants of health that impacted care today? How? (Homelessness, low income, unemployed, alcoholism, drug addiction, transportation, low edu. Level, literacy, decrease access to med. care, retirement, rehab)? @ -No Was there de-escalation of care discussed even if they declined (Discuss DNR or withdrawal of care, Hospice)? DNR status @ -No What co-morbidities impacted this encounter? (DM, HTN, Smoking, COPD, CAD, Cancer, CVA, ARF, Chemo, Hep., AIDS, mental health diagnosis, sleep apnea, morbid obesity)? @ -None Was patient admitted / discharged? Hospital course, mention meds given and route, prescriptions, significant lab abnormalities, going to OR and other pe rtinent info. @ -Based on the patient's presentation and physical exam, I'm concerned for hypokalemia. We will obtain basic labs. Patient claims ALLERGIES and medications at this time. Vital signs within except for elements. If she is hypokalemic, is likely secondary to medication and complains that she has been without a prescription for multiple days. She is supposed to take twice a day potassium pills. Patient's labs are remarkable for mild hypo-magnesium and 1.6 as well as hypokalemia of 2.4. Both will be replenished. Due to the level of hypokalemia did recommend admission and patient was in agreement this plan. I spoke with the admitting team, HESHAM Foster of [facility] who accepted the admission. Undiagnosed new problem with uncertain prognosis? @ -No Drug Therapy requiring intensive monitoring for toxicity (Heparin, Nitro, Insulin, Cardizem)? @ -No Were any procedures done? @ -No Diagnosis/symptom? @ -Hypokalemia in the setting of Bartter's syndrome and medication noncompliance Acute, or Chronic, or Acute on Chronic? @ -Acute Uncomplicated (without systemic symptoms) or Complicated (systemic symptoms)? @ -Complicated Side effects of treatment? @ -No Exacerbation, Progression, or Severe Exacerbation? @ -No Poses a threat to life or bodily function? How? (Chest pain, USA, [place], pneumonia, PE, COPD, DKA, ARF, appy, cholecystitis, CVA, Diverticulitis, Homicidal, Suicidal, threat to staff... and all critical care pts) @ -Yes - Lab Data Result diagrams: 09/12/23 17:31 09/12/23 17:31 Lab Results 09/12/23 09/12/23 Range/Units 17:31 17:31 WBC 9.5 (3.8-10.6) k/uL RBC 5.05 (3.80-5.40) m/uL Hgb 14.9 (11.4-16.0) gm/dL Hct 43.4 (34.0-46.0) % MCV 86.1 (80.0-100.0) fL MCH 29.6 (25.0-35.0) pg MCHC 34.3 (31.0-37.0) g/dL RDW 12.9 (11.5-15.5) % Plt Count 385 (150-450) k/uL MPV 7.7 Neutrophils % 67 % Lymphocytes % 27 % Monocytes % 4 % Eosinophils % 2 % Basophils % 0 % Neutrophils # 6.3 (1.3-7.7) k/uL Lymphocytes # 2.5 (1.0-4.8) k/uL Monocytes # 0.4 (0-1.0) k/uL Eosinophils # 0.1 (0-0.7) k/uL Basophils # 0.0 (0-0.2) k/uL Sodium 139 (137-145) mmol/L Potassium 2.4 L* (3.5-5.1) mmol/L Chloride 98 (98-107) mmol/L Carbon Dioxide 27 (22-30) mmol/L Anion Gap 14 mmol/L BUN 12 (7-17) mg/dL Creatinine 0.67 (0.52-1.04) mg/dL Est GFR (CKD-EPI)AfAm >90 (>60 ml/min/1.73 sqM) Est GFR (CKD-EPI)NonAf >90 (>60 ml/min/1.73 sqM) Glucose 115 H (74-99) mg/dL Calcium 10.0 (8.4-10.2) mg/dL Magnesium 1.6 (1.6-2.3) mg/dL Disposition Clinical Impression: Hypokalemia Disposition: ADMITTED IP TO THIS HOSP Condition: Stable Referrals: Ugo Friedman DO [Primary Care Provider] - 1-2 days Time of Disposition: 18:32
[2023-09-12] MEDS ORDERED: POTASSIUM CHLORIDE ER 20 MEQ TAB.ER PO STA (18:45)
[2023-09-12] MEDS ORDERED: MAGNESIUM SULFATE-D5W PMX 1 GM in DEXTROSE/WATER 1 100ML.BAG IVPB ONE (18:46)
[2023-09-12] MEDS ORDERED: SODIUM CHLORIDE 0.9% 1,000 ML IV STA (18:46)
[2023-09-12] MEDS ORDERED: NALOXONE 0.4 MG/ML 1 ML VIAL IV PRN (18:47)
[2023-09-12] MEDS: POTASSIUM CHLORIDE 10 MEQ in WATER FOR INJECTION 1 100ML.BAG IVPB SCH ×2 (20:12→21:30)
[2023-09-13] MEDS: POTASSIUM CHLORIDE 10 MEQ in WATER FOR INJECTION 1 100ML.BAG IVPB SCH (00:56)
[2023-09-13 03:15] LABS: Basophils # (A) 0.1 k/uL (0-0.2); Basophils % (A) 1 %; Eosinophils # (A) 0.2 k/uL (0-0.7); Eosinophils % (A) 2 %; HCT 38.7 % (34.0-46.0); HGB 13.7 gm/dL (11.4-16.0); Lymphocytes # (A) 3.6 k/uL (1.0-4.8); Lymphocytes % (A) 32 %; MCH 30.2 pg (25.0-35.0); MCHC 35.5 g/dL (31.0-37.0); Mean Platelet Volume 8.5; Monocytes # (A) 0.7 k/uL (0-1.0); Monocytes % (A) 6 %; Neutrophils # (A) 6.7 k/uL (1.3-7.7); Neutrophils % (A) 58 %; Platelet Count 339 k/uL (150-450); RBC 4.56 m/uL (3.80-5.40); RDW 13.2 % (11.5-15.5); WBC 11.4 k/uL (3.8-10.6)
[2023-09-13 03:29] LABS: Magnesium 1.8 mg/dL (1.6-2.3)
[2023-09-13 03:32] LABS: African American GFR (CKD) >90 (>60 ml/min/1.73 sqM); Anion Gap 13 mmol/L; Blood Urea Nitrogen 11 mg/dL (7-17); Calcium 9.2 mg/dL (8.4-10.2); Carbon Dioxide 27 mmol/L (22-30); Chloride 100 mmol/L (98-107); Glucose 94 mg/dL (74-99); Non-African American GFR(CKD) >90 (>60 ml/min/1.73 sqM); Sodium 140 mmol/L (137-145)
[2023-09-13 03:42] LABS: Potassium 2.7 mmol/L (3.5-5.1)
[2023-09-13 03:43] LABS: Potassium 2.7 mmol/L (3.5-5.1)
[2023-09-13] MEDS ORDERED: Potassium Replacement Protocol 1 EACH MISC MISCELLANE PRN (03:47)
[2023-09-13] MEDS: POTASSIUM CHLORIDE ER 20 MEQ TAB.ER PO SCH ×4 (05:19→21:17)
--- NOTE | 2023-09-13 07:30 | P.HPIM ---
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 Patient supposed to be on potassium chloride 40 mEq twice daily and magnesium twice a day Also she ran out of her Aldactone 25 mg Patient denies any other symptoms, no chest pain or dyspnea, no headache or weakness or dizziness. No change in urine or bowel habits. No fever. She. Nicotine and she was counseled to quit but she declines the nicotine patch although she agrees to quit. No alcohol or illicit drugs. She sees Dr. Valentino in the office she is hemodynamically stable Potassium was low 2.4 and 2.7 on admission, WBC 11.4 most likely reactive. Patient declined to do a serum test states that she is not sexually active currently Patient is hemodynamically stable. Labs including BMP, liver enzymes were unremarkable Review of Systems Review of systems CONSTITUTIONAL: No fever, no malaise, no fatigue. HEENT: No recent visual problems or hearing problems. Denied any sore throat. CARDIOVASCULAR: No orthopnea, PND, no palpitations, no syncope. PULMONARY: No shortness of breath, no cough, no hemoptysis. GASTROINTESTINAL: No diarrhea, no nausea, no vomiting, no abdominal pain. Normoactive bowel sounds. NEUROLOGICAL: No headaches, no weakness, no numbness. HEMATOLOGICAL: Denies any bleeding or petechiae. GENITOURINARY: Denies any burning micturition, frequency, or urgency. MUSCULOSKELETAL/RHEUMATOLOGICAL: Denies any joint pain, swelling, or any muscle pain. ENDOCRINE: Denies any polyuria or polydipsia. Past Medical History Past Medical History: Renal Disease Additional Past Medical History / Comment(s): Bartter syndrome ( low potassium), anxiety, bipolar, depression, ADHD History of Any Multi-Drug Resistant Organisms: None Reported Past Surgical History: Tonsillectomy Additional Past Surgical History / Comment(s): wisdom teeth 2016 Past Anesthesia/Blood Transfusion Reactions: No Reported Reaction Past Psychological History: ADD/ADHD, Anxiety, Bipolar, Depression Additional Psychological History / Comment(s): Nikki Carrillo [facility] Smoking Status: Current every day smoker Past Alcohol Use History: Occasional Additional Past Alcohol Use History / Comment(s): Pt denies alcohol or substance abuse. Pt reports vaping daily Past Drug Use History: None Reported - Past Family History Mother Additional Family Medical History / Comment(s): Mother is alive at age 40 with no major medical problems. Pt states Alzheimers and Bipolar disorder runs on her mother's side. Sister(s) Family Medical History: Diabetes Mellitus Additional Family Medical History / Comment(s): Patient has 4 half-sisters. Brother(s) Additional Family Medical History / Comment(s): Patient has 5 or 6 half-brothers with no major medical problems. Patient does not have any children. Father Additional Family Medical History / Comment(s): Father is alive at age 55 and patient has no contact with him as he is in care home. Medications and Allergies Home Medications Medication Instructions Recorded Confirmed Type Dextroamphetamine/Amphetamine 30 mg PO BID 07/03/21 09/12/23 History [Adderall] Magnesium Oxide [Magnesium] 500 mg PO BID 05/09/22 09/12/23 History Potassium Chloride ER [K-Dur 20] 40 meq PO BID 10/29/22 09/12/23 History aMILoride HCL 5 mg PO BID 10/29/22 09/12/23 History Allergies Allergy/AdvReac Type Severity Reaction Status Date / Time risperidone [From Risperdal] AdvReac Mild MUSCLE Verified 09/12/23 16:53 SPASMS Iodinated Contrast Media AdvReac Nausea & Verified 09/12/23 16:53 Vomiting Physical Exam Vitals: Vital Signs Temp Pulse Pulse Resp BP BP Pulse Ox 09/13/23 04:00 52 L 16 106/66 100 09/13/23 02:00 50 L 09/13/23 00:00 97.5 F L 60 16 126/84 98 09/12/23 16:49 97.7 F 58 L 16 114/75 98 Intake and Output 09/12/23 09/13/23 09/13/23 22:59 06:59 14:59 Intake Total 240 Balance 240 Intake: Oral 240 Other: # Voids 2 Weight 98.883 kg 98.883 kg GENERAL: The patient is alert and oriented x3, not in any acute distress. Well developed, well nourished. HEENT: Pupils are round and equally reacting to light. EOMI. No scleral icterus. No conjunctival pallor. Normocephalic, atraumatic. No pharyngeal erythema. No thyromegaly. CARDIOVASCULAR: S1 and S2 present. No murmurs, rubs, or gallops. PULMONARY: Chest is clear to auscultation, no wheezing , no crackles. ABDOMEN: Soft, nontender, nondistended, normoactive bowel sounds. No palpable organomegaly. MUSCULOSKELETAL: No joint swelling or deformity. EXTREMITIES: No cyanosis, clubbing, or pedal edema. NEUROLOGICAL: Gross neurological examination did not reveal any focal deficits. SKIN: No rashes. no petechiae. Results CBC & Chem 7: 09/13/23 02:59 09/13/23 02:59 Labs: Abnormal Lab Results - Last 24 Hours (Table) 09/12/23 09/13/23 09/13/23 Range/Units 17:31 02:59 02:59 WBC 11.4 H (3.8-10.6) k/uL Potassium 2.4 L* 2.7 L* (3.5-5.1) mmol/L Glucose 115 H (74-99) mg/dL 09/13/23 Range/Units 02:59 WBC (3.8-10.6) k/uL Potassium 2.7 L* (3.5-5.1) mmol/L Glucose (74-99) mg/dL Thrombosis Risk Factor Assmnt - Choose All That Apply Each Factor Represents 1 point: Obesity (BMI >25), Oral contraceptives or hormone replacement therapy Other Risk Factors: No Other congenital or acquired thrombophilia - If yes, enter type in comment: No Thrombosis Risk Factor Assessment Total Risk Factor Score: 2 Thrombosis Risk Factor Assessment Level: Low Risk Assessment and Plan Assessment: Severe hypokalemia secondary to Barter syndrome Non-adherence to therapy Obesity with BMI 35 none Plan: Replacement magnesium potassium Nephrology consult Monitor potassium and magnesium level Labs and medication were reviewed.. Continue same treatment. Continue with symptomatic treatment. Resume home medication. Monitor labs and vitals. DVT and GI prophylaxis. Further recommendations as per clinical course of the patient DVT prophylaxis: Subcutaneous heparin GI Prophylaxis:
[2023-09-13] MEDS: SPIRONOLACTONE 25 MG TAB PO SCH ×3 (08:21→21:19)
[2023-09-13] MEDS: MAGNESIUM OXIDE 400 MG TAB PO SCH ×2 (08:21→21:19)
[2023-09-13] MEDS ORDERED: POTASSIUM CHLORIDE ER 20 MEQ TAB.ER PO SCH ×2 (09:00)
[2023-09-13] MEDS ORDERED: POTASSIUM CHLORIDE ER 20 MEQ TAB.ER PO STA ×2 (09:36→15:22)
--- NOTE | 2023-09-13 10:22 | P.NPCON ---
History of Present Illness - Reason for Consult hypokalemia - History of Present Illness Reason for consultation: Hypokalemia History of present illness: Patient is a 27-year-old female seen in renal consultation for hypokalemia. Patient has history of Bartter syndrome. She is maintained on potassium martinez pplementation 40 mEq twice daily as well as Aldactone 25 mg twice a day. Patient states she ran out of her potassium supplementation about 4 days ago and didn't call for refill. She noticed cramps in her lower extremities and came to the hospital as she was concerned that her potassium level may be too low. Potassium level on admission was 2.4 and up to 2.7 as of this morning. Potassium is being replaced. She was to good urine output. No hematuria or dysuria. No vomiting or diarrhea. No chest shortness of breath. Vital signs are stable. General: No acute distress. HEENT: Head exam is unremarkable. LUNGS: No audible rhonchi or wheezes. HEART: Rate and Rhythm are regular. ABDOMEN: Nontender. EXTREMITITES: No edema. Past Medical History Past Medical History: Renal Disease Additional Past Medical History / Comment(s): Bartter syndrome ( low potassium), anxiety, bipolar, depression, ADHD History of Any Multi-Drug Resistant Organisms: None Reported Past Surgical History: Tonsillectomy Additional Past Surgical History / Comment(s): wisdom teeth 2016 Past Anesthesia/Blood Transfusion Reactions: No Reported Reaction Past Psychological History: ADD/ADHD, Anxiety, Bipolar, Depression Additional Psychological History / Comment(s): Nikki Carrillo [facility] Smoking Status: Current every day smoker Past Alcohol Use History: Occasional Additional Past Alcohol Use History / Comment(s): Pt denies alcohol or substance abuse. Pt reports vaping daily Past Drug Use History: None Reported - Past Family History Mother Additional Family Medical History / Comment(s): Mother is alive at age 40 with no major medical problems. Pt states Alzheimers and Bipolar disorder runs on her mother's side. Sister(s) Family Medical History: Diabetes Mellitus Additional Family Medical History / Comment(s): Patient has 4 half-sisters. Brother(s) Additional Family Medical History / Comment(s): Patient has 5 or 6 half-brothers with no major medical problems. Patient does not have any children. Father Additional Family Medical History / Comment(s): Father is alive at age 55 and patient has no contact with him as he is in correction. Medications and Allergies Home Medications Medication Instructions Recorded Confirmed Type Dextroamphetamine/Amphetamine 30 mg PO BID 07/03/21 09/12/23 History [Adderall] Magnesium Oxide [Magnesium] 500 mg PO BID 05/09/22 09/12/23 History Potassium Chloride ER [K-Dur 20] 40 meq PO BID 10/29/22 09/12/23 History aMILoride HCL 5 mg PO BID 10/29/22 09/12/23 History Allergies Allergy/AdvReac Type Severity Reaction Status Date / Time risperidone [From Risperdal] AdvReac Mild MUSCLE Verified 09/12/23 16:53 SPASMS Iodinated Contrast Media AdvReac Nausea & Verified 09/12/23 16:53 Vomiting Physical Exam Vitals: Vital Signs Temp Pulse Pulse Resp BP BP Pulse Ox 09/13/23 04:00 52 L 16 106/66 100 09/13/23 02:00 50 L 09/13/23 00:00 97.5 F L 60 16 126/84 98 09/12/23 16:49 97.7 F 58 L 16 114/75 98 Intake and Output 09/12/23 09/13/23 09/13/23 22:59 06:59 14:59 Intake Total 240 236 Balance 240 236 Intake: Oral 240 236 Other: # Voids 2 Weight 98.883 kg 98.883 kg Results - Lab Results Most recent lab results Calcium 9.2 mg/dL (8.4-10.2) 09/13/23 02:59 Magnesium 1.8 mg/dL (1.6-2.3) 09/13/23 02:59 09/13/23 02:59 09/13/23 02:59 Assessment and Plan Plan: Assessment: 1. 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 Being replaced. Patient ran out of potassium supplementation 4 days ago prior to admission. 2. Mild hypomagnesemia from Bartter syndrome. On oral magnesium oxide. Plan: Hep-Lock IV fluids. Resume home dose potassium supplementation and spironolactone. Additional potassium supplementation be given now. Repeat potassium level at 1 PM and continue replacement as needed. Advised patient to be compliant with medications and outpatient follow-ups. Thank you for the consultation. I will continue to follow the patient with you during her hospital stay.
[2023-09-13 12:39] LABS: Magnesium 1.8 mg/dL (1.6-2.3); Potassium 3.1 mmol/L (3.5-5.1)
[2023-09-14 06:51] LABS: African American GFR (CKD) >90 (>60 ml/min/1.73 sqM); Anion Gap 12 mmol/L; Blood Urea Nitrogen 13 mg/dL (7-17); Calcium 9.2 mg/dL (8.4-10.2); Carbon Dioxide 25 mmol/L (22-30); Chloride 100 mmol/L (98-107); Glucose 92 mg/dL (74-99); Magnesium 1.7 mg/dL (1.6-2.3); Non-African American GFR(CKD) >90 (>60 ml/min/1.73 sqM); Potassium 2.9 mmol/L (3.5-5.1); Sodium 137 mmol/L (137-145)
[2023-09-14] MEDS: POTASSIUM CHLORIDE ER 20 MEQ TAB.ER PO SCH ×3 (09:28→22:22)
[2023-09-14] MEDS: SPIRONOLACTONE 25 MG TAB PO SCH ×2 (09:28→21:56)
[2023-09-14] MEDS: MAGNESIUM OXIDE 400 MG TAB PO SCH ×2 (09:28→21:56)
--- NOTE | 2023-09-14 10:02 | P.PN ---
Subjective Patient is seen in follow-up for hypokalemia. Has been vomiting from the potassium supplementation. No cramps. Vital signs are stable. General: No acute distress. HEENT: Head exam is unremarkable. LUNGS: No audible rhonchi or wheezes. HEART: Rate and Rhythm are regular. ABDOMEN: Nontender. EXTREMITITES: No edema. Objective - Vital Signs Vital signs: Vital Signs Temp 98 F 09/14/23 00:00 Pulse 54 L 09/14/23 04:00 Resp 16 09/14/23 04:00 BP 98/54 09/14/23 04:00 Pulse Ox 95 09/14/23 04:00 FiO2 Intake & Output 09/13/23 09/14/23 09/14/23 18:59 06:59 18:59 Intake Total 590 0 236 Output Total 1 1 Balance 589 -1 236 Intake: Oral 590 0 236 Output: Urine 1 Stool 1 Other: # Voids 1 2 # Bowel Movements 1 - Labs CBC & Chem 7: 09/13/23 02:59 09/14/23 06:16 Labs: Abnormal Lab Results - Last 24 Hours (Table) 09/13/23 09/14/23 Range/Units 12:14 06:16 Potassium 3.1 L 2.9 L (3.5-5.1) mmol/L Creatinine 0.49 L (0.52-1.04) mg/dL Assessment and Plan Plan: Assessment: 1. 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 Being replaced. Patient ran out of potassium supplementation 4 days prior to admission. 2. Mild hypomagnesemia from Bartter syndrome. On oral magnesium oxide. Stable. Plan: Maintain home dose potassium supplementation and spironolactone. Will give potassium partially oral and partially IV due to vomiting. Repeat potassium level at 1 PM and continue replacement as needed. Advised patient to be compliant with medications and outpatient follow-ups.
[2023-09-14] MEDS ORDERED: POTASSIUM CHLORIDE 20 MEQ in WATER FOR INJECTION 1 100ML.BAG IVPB STA ×2 (10:03→10:05)
[2023-09-14] MEDS: POTASSIUM CHLORIDE 20 MEQ in WATER FOR INJECTION 1 100ML.BAG IVPB SCH ×2 (18:21→22:22)
[2023-09-14] MEDS ORDERED: POTASSIUM CHLORIDE ER 20 MEQ TAB.ER PO STA (22:38)
[2023-09-14] MEDS ORDERED: MAGNESIUM OXIDE 400 MG TAB PO STA (22:38)
--- NOTE | 2023-09-14 22:41 | P.PN ---
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 Patient supposed to be on potassium chloride 40 mEq twice daily and magnesium twice a day Also she ran out of her Aldactone 25 mg Patient denies any other symptoms, no chest pain or dyspnea, no headache or weakness or dizziness. No change in urine or bowel habits. No fever. She. Nicotine and she was counseled to quit but she declines the nicotine patch although she agrees to quit. No alcohol or illicit drugs. She sees Dr. Valentino in the office she is hemodynamically stable Potassium was low 2.4 and 2.7 on admission, WBC 11.4 most likely reactive. Patient declined to do a serum test states that she is not sexually active currently Patient is hemodynamically stable. Labs including BMP, liver enzymes were unremarkable 09/14/2023 No chest pain, no other new symptom Still replace and potassium and magnesium Check level tomorrow morning Patient presents because she says she ran out of her prescription Objective - Vital Signs Vital signs: Vital Signs Temp 97.9 F 09/14/23 13:37 Pulse 65 09/14/23 13:37 Resp 16 09/14/23 13:37 BP 115/73 09/14/23 13:37 Pulse Ox 97 09/14/23 13:37 FiO2 Intake & Output 09/13/23 09/14/23 09/14/23 18:59 06:59 18:59 Intake Total 590 0 236 Output Total 1 1 Balance 589 -1 236 Intake: Oral 590 0 236 Output: Urine 1 Stool 1 Other: # Voids 1 2 # Bowel Movements 1 - Exam GENERAL: The patient is alert and oriented x3, not in any acute distress. Well developed, well nourished. HEENT: Pupils are round and equally reacting to light. EOMI. No scleral icterus. No conjunctival pallor. Normocephalic, atraumatic. No pharyngeal erythema. No thyromegaly. CARDIOVASCULAR: S1 and S2 present. No murmurs, rubs, or gallops. PULMONARY: Chest is clear to auscultation, no wheezing , no crackles. ABDOMEN: Soft, nontender, nondistended, normoactive bowel sounds. No palpable organomegaly. MUSCULOSKELETAL: No joint swelling or deformity. EXTREMITIES: No cyanosis, clubbing, or pedal edema. NEUROLOGICAL: Gross neurological examination did not reveal any focal deficits. SKIN: No rashes. no petechiae. - Labs CBC & Chem 7: 09/13/23 02:59 09/14/23 14:25 Labs: Abnormal Lab Results - Last 24 Hours (Table) 09/14/23 09/14/23 Range/Units 06:16 14:25 Potassium 2.9 L 3.1 L (3.5-5.1) mmol/L Creatinine 0.49 L (0.52-1.04) mg/dL Assessment and Plan Assessment: Severe hypokalemia secondary to Barter syndrome Non-adherence to therapy Obesity with BMI 35 none Plan: Replacement magnesium potassium Nephrology consult Monitor potassium and magnesium level Labs and medication were reviewed.. Continue same treatment. Continue with symptomatic treatment. Resume home medication. Monitor labs and vitals. DVT and GI prophylaxis. Further recommendations as per clinical course of the patient DVT prophylaxis: Subcutaneous heparin GI Prophylaxis:
[2023-09-15] MEDS: POTASSIUM CHLORIDE ER 20 MEQ TAB.ER PO SCH ×2 (01:42→08:27)
[2023-09-15] MEDS: SPIRONOLACTONE 25 MG TAB PO SCH (08:27)
[2023-09-15] MEDS: MAGNESIUM OXIDE 400 MG TAB PO SCH (08:27)
[2023-09-15 09:13] LABS: African American GFR (CKD) >90 (>60 ml/min/1.73 sqM); Anion Gap 14 mmol/L; Blood Urea Nitrogen 10 mg/dL (7-17); Calcium 10.2 mg/dL (8.4-10.2); Carbon Dioxide 30 mmol/L (22-30); Chloride 97 mmol/L (98-107); Glucose 99 mg/dL (74-99); Magnesium 1.8 mg/dL (1.6-2.3); Non-African American GFR(CKD) >90 (>60 ml/min/1.73 sqM); Potassium 3.6 mmol/L (3.5-5.1); Sodium 141 mmol/L (137-145)
--- NOTE | 2023-09-15 11:11 | P.PN ---
Subjective Patient is seen in follow-up for hypokalemia. Potassium level improved. No active complaints. Vital signs are stable. General: No acute distress. HEENT: Head exam is unremarkable. LUNGS: No audible rhonchi or wheezes. HEART: Rate and Rhythm are regular. ABDOMEN: Nontender. EXTREMITITES: No edema. Objective - Vital Signs Vital signs: Vital Signs Temp 98 F 09/15/23 08:24 Pulse 63 09/15/23 08:24 Resp 16 09/15/23 08:24 BP 108/68 09/15/23 08:24 Pulse Ox 95 09/15/23 08:24 FiO2 Intake & Output 09/14/23 09/15/23 09/15/23 18:59 06:59 18:59 Intake Total 354 240 Balance 354 240 Intake: Oral 354 240 Other: Voiding Method Toilet - Labs CBC & Chem 7: 09/13/23 02:59 09/15/23 07:27 Labs: Abnormal Lab Results - Last 24 Hours (Table) 09/14/23 09/15/23 Range/Units 14:25 07:27 Potassium 3.1 L (3.5-5.1) mmol/L Chloride 97 L (98-107) mmol/L Assessment and Plan Plan: Assessment: 1. 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 Being replaced. Patient ran out of potassium supplementation 4 days prior to admission. 2. Mild hypomagnesemia from Bartter syndrome. On oral magnesium oxide. Better. Plan: Maintain home dose potassium supplementation and spironolactone. Repeat BMP and magnesium level 2-3 days postdischarge. Follow up outpatient in 1 week. Advised patient to be compliant with medications and outpatient follow-ups.
[2023-09-15 12:38] VITALS: BP 96/61; PULSE 57; TEMP 98.1
--- NOTE | 2023-09-17 17:10 | P.DS ---
Providers Date of admission: 09/12/23 18:47 Attending physician: Elise Desir Consults: 09/13/23 06:28 Consult Physician Routine Consulting Provider: Ab Valentino Consult Reason/Comments: bartter syndrome Do you want consulting provider notified?: Yes Primary care physician: [facility] Course: Final Diagnosis Severe hypokalemia secondary to Barter syndrome Non-adherence to therapy Obesity with BMI 35 Discharge Disposition Patient is stable for discharge home recommending to remain compliant with oral potassium oral magnesium and patient's home medication of amiloride. Recommende d to follow-up with Dr. Valentino within 1-2 weeks. 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 Patient supposed to be on potassium chloride 40 mEq twice daily and magnesium twice a day Also she ran out of her Aldactone 25 mg. Patient denies any other symptoms, no chest pain or dyspnea, no headache or weakness or dizziness. No change in urine or bowel habits. No fever. She. Nicotine and she was counseled to quit but she declines the nicotine patch although she agrees to quit. No alcohol or illicit drugs. She sees Dr. Valentino in the office. Potassium was low 2.4 and 2.7 on admission, WBC 11.4 most likely reactive. Patient declined to do a serum test states that she is not sexually active currently. Patient is hemodynamically stable. Labs including BMP, liver enzymes were unremarkable. She was admitted to the hospital with consult to nephrology. Patients electrolytes have been replaced and normalized. Symptoms of weakness have improved. potassium 3.6, BUN 10, creatinine 0.53. Magnesium 1.8. Cleared for discharge home. Please see medication reconciliation for a list of current medication. Thank you for allowing us to participate in the care of this patient. The impression and plan of care has been dictated by Queta Jones, Nurse Practitioner as directed. Dr. Marva MD I have performed a history and physical examination and medical decision making of this patient, discussed the same with the dictator, and agree with the dictators assessment and plan as written, documented as a scribe. Based on total visit time, I have performed more than 50% of this visit. Patient Condition at Discharge: Stable Plan - Discharge Summary Discharge Rx Participant: No New Discharge Prescriptions: Continue Dextroamphetamine/Amphetamine [Adderall] 30 mg PO BID Magnesium Oxide [Magnesium] 500 mg PO BID Potassium Chloride ER [K-Dur 20] 40 meq PO BID #60 tab aMILoride HCL 5 mg PO BID #60 tab Discharge Medication List Dextroamphetamine/Amphetamine [Adderall] 30 mg PO BID 07/03/21 [History] Magnesium Oxide [Magnesium] 500 mg PO BID 05/09/22 [History] Potassium Chloride ER [K-Dur 20] 40 meq PO BID #60 tab 09/15/23 [Rx] aMILoride HCL 5 mg PO BID #60 tab 09/15/23 [Rx] Follow up Appointment(s)/Referral(s): Ugo Friedman DO [Primary Care Provider] - 09/29/23 10:30 am Ab Valentino DO [STAFF PHYSICIAN] - 09/23/23 9:40 am (Appointment will be held with the office CALL CENTER SUPERVISOR Ricco) Ambulatory/Diagnostic Orders: Basic Metabolic Panel [LAB.AMB] Time Frame: 3 Days, Location: None Selected Magnesium [LAB.AMB] Location: None Selected Patient Instructions/Handouts: Hypokalemia (DC) Discharge Disposition: HOME SELF-CARE
== END 2023-09-15 15:20 | disposition home or self-care (01) | DRG 641 ==
LOC: EC 16:43 → 3SCARD 18:47
PROVIDERS: ADMIT Hospitalist; ATTEND Hospitalist
DX: E87.6 Hypokalemia (principal); E26.81 Bartter's syndrome; E66.9 Obesity, unspecified; E83.42 Hypomagnesemia; T50.0X6A Underdosing of mineralocorticoids and their antagonists, initial encounter; T50.3X6A Underdosing of electrolytic, caloric and water-balance agents, initial encounter; T47.1X6A Underdosing of other antacids and anti-gastric-secretion drugs, initial encounter; F17.290 Nicotine dependence, other tobacco product, uncomplicated; Z68.35 Body mass index [BMI] 35.0-35.9, adult; Z91.198 Patient's noncompliance with other medical treatment and regimen for other reason; Z88.1 Allergy status to other antibiotic agents; Z91.041 Radiographic dye allergy status; Z91.148 Patient's other noncompliance with medication regimen for other reason; Z79.899 Other long term (current) drug therapy
CPT/HCPCS: 36415; 80048; 83735; 84132; 85025; 96365; 96366; 96367; 99285

== ENCOUNTER → 2023-09-19 | Outpatient (CLI) | payer OTHER ==
[2023-09-19 15:23] LABS: BUN/Creat Ratio 11.45 Ratio (12.00-20.00); Blood Urea Nitrogen 12.6 mg/dL (9.0-27.0); Calcium 9.8 mg/dL (8.7-10.3); Chloride 99 mmol/L (96-109); Glucose 81 mg/dL (70-110); Magnesium 1.9 mg/dL (1.5-2.4); Potassium 3.3 mmol/L (3.5-5.5); Sodium 141 mmol/L (135-145)
== END | disposition home or self-care (01) ==
LOC: LABWHC1 08:48
PROVIDERS: ATTEND Nurse Practitioner Family
DX: E87.6 Hypokalemia (principal)
CPT/HCPCS: 36415; 80048; 83735